=== PATIENT | male | born 1995 | race Hispanic/Latino ===

== ENCOUNTER 2021-12-22 00:58 | Emergency (ER) | payer OTHER ==
--- NOTE | 2021-12-22 01:44 | ER ---
Nurse's Notes [facility] Name: Jose Pabon Age: 26 yrs Sex: Male : 1995 Arrival Date: 12/22/2021 Time: 01:01 Bed Waiting Private MD: Diagnosis: Presentation: 12/22 01:43 Note notified by registration pt left the ED with parent and will return tomorrow bb during the day. ED Course: 01:01 Patient arrived in ED. bp1 01:13 Jose Luis Alegre MD is Attending Physician. kdr Administered Medications: No medications were administered Outcome: 01:44 Patient left the ED. bb Signatures: Jose Luis Alegre MD MD kdr Ballard, Brenda RN RN bb Barby Jennings bp1
== END 2021-12-22 01:44 | disposition left against medical advice (07) ==
LOC: ER 00:58
DX: Z02.9 Encounter for administrative examinations, unspecified (principal)

== ENCOUNTER 2022-01-09 15:40 | Emergency (ER) | payer OTHER ==
[2022-01-09 17:44] LABS: Barbiturates NEGATIVE (NEGATIVE); Benzodiazepines NEGATIVE (NEGATIVE); Cocaine NEGATIVE (NEGATIVE); METHAMPHETAM POSITIVE (NEGATIVE); Methadone NEGATIVE (NEGATIVE); Opiates NEGATIVE (NEGATIVE); Phencyclidine NEGATIVE (NEGATIVE); THC Cannibis NEGATIVE (NEGATIVE)
[2022-01-09] MEDS ORDERED: NA CHLORIDE 0.9% 1,000 ML ONE (18:14)
[2022-01-09 18:26] LABS: Absolute Lymphocytes (CBC) 1.7 K/uL (0.7-4.9); Hematocrit 44.6 % (39.6-49.0); Lymphocytes % 18.3 % (15.3-44.8); MCV 84.5 fL (80-100); MPV 8.7 fL (7.6-11.3); RBC Red Blood Cell Count 5.28 M/uL (4.33-5.43)
[2022-01-09 18:40] LABS: Bilirubin Total 0.5 mg/dL (0.2-1.0); Potassium 3.6 mmol/L (3.5-5.1); Protein, Total 7.8 g/dL (6.4-8.2)
--- NOTE | 2022-01-09 18:45 | RAD REPORT ---
EXAM DESCRIPTION: RAD - Abdomen 1 View (KUB) - 01/09/2022 6:26 pm CLINICAL HISTORY: Abdomen pain FINDINGS: The bowel gas pattern is unremarkable. A moderate amount of stool is present within the colon. No significant abnormal calcification visualized
--- NOTE | 2022-01-09 19:10 | ER ---
Nurse's Notes [facility] Name: Jose Pabon Age: 26 yrs Sex: Male : 1995 Arrival Date: 01/09/2022 Time: 15:43 Bed 3 Private MD: Diagnosis: Constipation Presentation: 01/09 16:33 Chief complaint: Patient states: "Im not feeling so good and I cant hold what I eat in vg1 and Im also very sleepy" Pt appears drowsy. Stated headache and throat pain. Coronavirus screen: Vaccine status: Patient reports being unvaccinated. Client denies travel out of the [place] in the last 14 days. Ebola Screen: Patient denies exposure to infectious person. Patient denies travel to an Ebola-affected area in the 21 days before illness onset. Initial Sepsis Screen: Does the patient meet any 2 criteria? HR > 90 bpm. Yes Does the patient have a suspected source of infection? No. Patient's initial sepsis screen is negative. Risk Assessment: Do you want to hurt yourself or someone else? Patient reports no desire to harm self or others. Onset of symptoms was January 09, 2022. 16:33 Method Of Arrival: Ambulatory vg1 16:33 Acuity: ROBY 3 vg1 Triage Assessment: 16:39 General: Appears uncomfortable, Behavior is drowsy. Pain: Complains of pain in head. vg1 Neuro: Olivares Agitation-Sedation Scale (RASS): -1 Drowsy Level of Consciousness is alert, obeys commands, Oriented to person, place, time, situation. Historical: - Home Meds: 16:39 "two other medications to help me sleep", pt states [Active]; Pt does not know names of vg1 medication. [Active]; - PMHx: 16:39 Anxiety; Schizophrenia; vg1 - Immunization history:: Client reports having NOT received the Covid vaccine. - Social history:: Smoking status: Patient denies any tobacco usage or history of. Screenin:25 Abuse screen: Denies threats or abuse. Denies injuries from another. Nutritional jh6 screening: No deficits noted. Tuberculosis screening: No symptoms or risk factors identified. Fall Risk None identified. Assessment: 17:23 General: Appears in no apparent distress. obese, Behavior is drowsy. Pain: Complains of jh6 pain in umbilical area, right upper quadrant, left upper quadrant and right lower quadrant Pain currently is 4 out of 10 on a pain scale. Quality of pain is described as crampy, Pain began 2-3wks ago. Neuro: Level of Consciousness is obeys commands, stuporous, Oriented to person, place, time, situation, Business Development Assistant are equal bilaterally Moves all extremities. Speech is normal, Pupils are PERRLA, pt drowsy, reporting that he has not taken any medication or drugs to make him sleepy,. . Vital Signs: 16:33 BP 109 / 89; Pulse 105; Resp 16; Temp 98.2; Pulse Ox 100% ; Weight 104.33 kg; Height 5 vg1 ft. 7 in. (170.18 cm); Pain 8/10; 18:12 BP 140 / 90; Pulse 87; Resp 16; Pulse Ox 100% ; Pain 4/10; jh6 16:33 Body Mass Index 36.02 (104.33 kg, 170.18 cm) vg1 [place] Coma Score: 16:50 Eye Response: to voice(3). Verbal Response: oriented(5). Motor Response: obeys [facility] commands(6). Total: 14. ED Course: 15:43 Patient arrived in ED. mr 15:50 [facility]os [facility] jh7 15:50 Eyad Meier DO is Attending Physician. jh7 16:39 Triage completed. vg1 16:39 Arm band placed on. vg1 16:54 Sri Malone, RN is Primary Nurse. jh6 17:25 Urine collected: clean catch specimen, clear. jh6 17:26 Bed in low position. Call light in reach. Side rails up X2. Adult w/ patient. jh6 17:58 Strep Sent. kc6 18:00 SARS-COV-2 RT PCR (Document "Date of Onset" if Symptomatic) Sent. kc6 18:00 Inserted saline lock: 20 gauge in left antecubital area, using aseptic technique. Blood jh6 collected. 18:12 No provider procedures requiring assistance completed. jh6 18:28 XRAY KUB In Process Unspecified. EDMS 19:04 Primary Nurse role handed off by Sri Malone, RN tw5 19:04 Jennifer Mancini is Primary Nurse. tw5 19:18 IV discontinued, intact, bleeding controlled, No redness/swelling at site. Pressure as6 dressing applied. Administered Medications: 18:08 Drug: NS 0.9% 1000 ml Route: IV; Rate: 1 bolus; Site: left antecubital; jh6 19:18 Follow up: Response: No adverse reaction; IV Status: Completed infusion; IV Intake: as6 1000ml Medication: 19:18 VIS not applicable for this client. as6 Intake: 19:18 IV: 1000ml; Total: 1000ml. as6 Outcome: 19:09 Discharge ordered by . suzanne 19:17 Discharged to home ambulatory. as6 19:17 Condition: stable 19:17 Discharge instructions given to patient, Instructed on discharge instructions, follow up and referral plans. medication usage, Demonstrated understanding of instructions, follow-up care, medications, Prescriptions given X 2. 19:19 Patient left the ED. as6 Signatures: Dispatcher [employer] MARIA DAL AveryAliya Victoria, RN RN vg1 Jennifer Mancini tw5 Sergei Ivey RN RN as6 Sri Malone, RN RN jh6 Sri Cisneros, DENTAL SALES REPRESENTATIVE DENTAL SALES REPRESENTATIVE 7 Dorothy Hui 6
--- NOTE | 2022-01-09 19:10 | EDPHYS ---
Physician Documentation [facility] Name: Jose Pabon Age: 26 yrs Sex: Male : 1995 Arrival Date: 01/09/2022 Time: 15:43 Bed 3 Private MD: ED Physician Eyad Meier HPI: 01/09 16:50 This 26 yrs old Male presents to ER via Ambulatory with complaints of Fatigue, jh7 lower abdominal pain, constipation. 16:50 Onset: The symptoms/episode began/occurred 3 week(s) ago. Patient presents with jh7 fatigue, lower abdominal pain, and constipation for 3 weeks. He states that he has been off of his anxiety meds for a week and a half, but is sleeping during triage.. Historical: - Home Meds: 16:39 "two other medications to help me sleep", pt states [Active]; Pt does not know names of vg1 medication. [Active]; - PMHx: 16:39 Anxiety; Schizophrenia; vg1 - Immunization history:: Client reports having NOT received the Covid vaccine. - Social history:: Smoking status: Patient denies any tobacco usage or history of. ROS: 16:50 ENT: Negative for injury, pain, and discharge, Neck: Negative for injury, pain, and jh7 swelling, Cardiovascular: Negative for chest pain, palpitations, and edema, Respiratory: Negative for shortness of breath, cough, wheezing, and pleuritic chest pain, Back: Negative for injury and pain, Skin: Negative for injury, rash, and discoloration, Neuro: Negative for headache, weakness, numbness, tingling, and seizure. 16:50 Constitutional: Positive for fatigue, Negative for body aches, chills, fever. 16:50 Abdomen/GI: Positive for abdominal pain, constipation, Negative for nausea, vomiting, and diarrhea. 16:50 All other systems are negative. Exam: 16:50 Head/Face: Normocephalic, atraumatic. ENT: Nares patent. No nasal discharge, no jh7 septal abnormalities noted. Tympanic membranes are normal and external auditory canals are clear. Oropharynx with no redness, swelling, or masses, exudates, or evidence of obstruction, uvula midline. Mucous membranes moist. Cardiovascular: Regular rate and rhythm with a normal S1 and S2. No gallops, murmurs, or rubs. Normal PMI, no JVD. No pulse deficits. Respiratory: Lungs have equal breath sounds bilaterally, clear to auscultation and percussion. No rales, rhonchi or wheezes noted. No increased work of breathing, no retractions or nasal flaring. Abdomen/GI: Soft, non-tender, with normal bowel sounds. No distension or tympany. No guarding or rebound. No evidence of tenderness throughout. Back: No spinal tenderness. No costovertebral tenderness. Full range of motion. Skin: Warm, dry with normal turgor. Normal color with no rashes, no lesions, and no evidence of cellulitis. MS/ Extremity: Pulses equal, no cyanosis. Neurovascular intact. Full, normal range of motion. 16:50 Constitutional: The patient appears lethargic. 16:50 Neuro: Orientation: is normal, Mentation: is normal, Memory: is normal, Motor: is normal, Sensation: is normal, GCS 14. The patient falls asleep mid conversation. Awakens only to loud voice. The patient gets upset when asked what medication he takes and states " I did not take anything".. 16:50 Psych: Behavior/mood is Falling asleep midsentence. Affect is calm, Oriented to person, place, time, Patient has no thoughts/intents to harm self or others. Judgement / Insight is normal. Vital Signs: 16:33 BP 109 / 89; Pulse 105; Resp 16; Temp 98.2; Pulse Ox 100% ; Weight 104.33 kg; Height 5 vg1 ft. 7 in. (170.18 cm); Pain 8/10; 18:12 BP 140 / 90; Pulse 87; Resp 16; Pulse Ox 100% ; Pain 4/10; jh6 16:33 Body Mass Index 36.02 (104.33 kg, 170.18 cm) vg1 [place] Coma Score: 16:50 Eye Response: to voice(3). Verbal Response: oriented(5). Motor Response: obeys [facility] commands(6). Total: 14. MDM: 16:41 Patient medically screened. jh7 19:00 Differential diagnosis: COVID, constipation, overdose, bowel obstruction. Data [facility] reviewed: vital signs, nurses notes, lab test result(s), radiologic studies, plain films. Data interpreted: Pulse oximetry: is 100 %. Interpretation: normal. Counseling: I had a detailed discussion with the patient and/or guardian regarding: the historical points, exam findings, and any diagnostic results supporting the discharge/admit diagnosis, to return to the emergency department if symptoms worsen or persist or if there are any questions or concerns that arise at home. ED course: Informed the patient of his positive urine drug screen. Patient denied any drug use, and said that we did not need to discuss those results any further. No SI/HI. Informed him that there was a moderate amount of stool in his colon seen on the x-ray, and a laxative with stool softener would be prescribed. The patient develops any new concerning symptoms, he should return to the ER for eval.. 01/09 17:03 Order name: CBC with Diff; Complete Time: 18:[address] [facility] 01/09 17:03 Order name: CMP; Complete Time: 18:[address] [facility] 01/09 17:03 Order name: Lipase; Complete Time: 18:[address] [facility] 01/09 17:03 Order name: Urine Drug Screen; Complete Time: 18:[address] [facility] 01/09 17:45 Order name: Strep; Complete Time: 18:24 [facility] 01/09 17:03 Order name: IV Saline Lock; Complete Time: 17:[address] [facility] 01/09 17:03 Order name: Labs collected and sent; Complete Time: 17:[address] [facility] 01/09 17:03 Order name: XRAY KUB; Complete Time: 18:[address] [facility] 01/09 17:56 Order name: SARS-COV-2 RT PCR (Document "Date of Onset" if Symptomatic); Complete Time: bp 19:28 01/09 18:18 Order name: Throat Culture EDMS Administered Medications: 18:08 Drug: NS 0.9% 1000 ml Route: IV; Rate: 1 bolus; Site: left antecubital; [facility] 19:18 Follow up: Response: No adverse reaction; IV Status: Completed infusion; IV Intake: as6 1000ml Disposition: 22:15 Co-signature as Attending Physician, Eyad ACOSTA was immediately available on-site ms3 in the Emergency Department for consultation in the care of the patient. . Disposition Summary: 01/09/22 19:09 Discharge Ordered Location: Home [facility] Problem: new [facility] Symptoms: are unchanged jh Condition: Stable jh7 Diagnosis - Constipation [facility] Followup: [facility] - With: Private Physician - When: 2 - 3 days - Reason: Recheck today's complaints Discharge Instructions: - Discharge Summary Sheet [facility] - Constipation, Adult [facility] Forms: - Medication Reconciliation Form [facility] - Thank You Letter [facility] Prescriptions: - Colace 100 mg Oral Tablet - take 1 tablet by ORAL route every 12 hours; 14 tablet; Refills: 0, Product [facility] Selection Permitted - Lactulose 10 gram/15 mL Oral Solution - take 30 milliliters by ORAL route once daily; 300 milliliter; Refills: 0, jh7 Product Selection Permitted Signatures: Dispatcher [employer] Mayra Drake RN RN vg1 Eyad Meier, DO ms3 Sri Malone RN RN jh6 Sri Cisneros, WOOD PILE DRIVER OPERATOR WOOD PILE DRIVER OPERATOR jh7 Sergei Ivey RN as6
[2022-01-09 19:26] VITALS: TEMP 98.2; O2SAT 100
[2022-01-09 19:28] VITALS: BP 140/90
== END 2022-01-09 19:19 | disposition home or self-care (01) ==
LOC: ER 15:40
DX: K59.00 Constipation, unspecified (principal); R53.83 Other fatigue; F20.9 Schizophrenia, unspecified; Z20.822 Contact with and (suspected) exposure to COVID-19
CPT/HCPCS: 87070; 85025; 36415; 87081; 83690; 80053; 80307; 74018; 96360; 99284; U0003; J7030

== ENCOUNTER 2022-03-20 11:47 | Emergency (ER) | payer OTHER ==
--- OUTSIDE RECORDS SUMMARY | 2022-03-20 11:56 | XMS REPORT | Continuity of Care Document ---
:1995 Author Organization [facility] t Address [address] [place] [address] Care Team Providers Name Role Phone UNKNOWN, REFFERING Primary Care Physician Unavailable Jackelyn Kohli Attending Clinician Unavailable JOHN CAPONE Attending Clinician Unavailable Only, Ang Db Test Attending Clinician Unavailable Barby Sebastian Attending Clinician BARBY JOHNSON Attending Clinician Unavailable Doctor Unassigned, Moosic Attending Clinician Unavailable Pcp, Patient Does Not Have A Attending Clinician [phone] Emily Castro Attending Clinician Lab, Adc Fam Pob I Attending Clinician Unavailable Valeria Gamez Attending Clinician VALERIA WONG Attending Clinician Unavailable Siddhartha SANCHEZ SCierra Stacy Attending Clinician Abdoulaye Edwards DO Attending Clinician ABDOULAYE EDWARDS Attending Clinician Unavailable Shannan VASQUEZ, [place] Attending Clinician Unavailable Alejandro Juan MD Attending Clinician ALEJANDRO JUAN Attending Clinician Unavailable JOVANI KEVIN Attending Clinician Unavailable CARMELA HEBERT Attending Clinician Unavailable HEBERT PHAM Attending Clinician Unavailable JOHN CAPONE Admitting Clinician Unavailable ALEJANDRO JUAN Admitting Clinician Unavailable CARMELA HEBERT Admitting Clinician Unavailable HEBERT PHAM Admitting Clinician Unavailable Payers Payer Name Policy Type Policy Number Effective Date Expiration Date Kari ALVARENGA COMM STAR [id number] 2017 00:00:00 PLAN Problems Condition Condition Condition Status Onset Resolution Last Treating Co mments Source Name Details Category Date Date Treatment Clinician Date Elevated Elevated Disease [facility] enzymes enzymes 00:00: t & Plan: Medic al [facility] g of this note might be different from the original. The liver enzymes were elevated in a hepatocel lular pattern which most likely is secondary to fatty liver. He does not exhibit signs and symptoms of advanced liver disease or cirrhosis . We will complete a comprehen sive workup for other additiona l etiologie s of abnormal liver enzymes including viral, autoimmun e, metabolic and genetic. Class 3 Class [address] Disease [facility] [address] [facility] severe severe 07-17 [facility] obesity obesity 00:00: t & Plan: Medic al due to due to [facility] excess excess g of this calories calories note in adult in adult might be different from the original. Body mass index is 48.69 kg/m2. Obesity is an establish ed risk factor for vascular complicat ions as well as the worsening of non-alcoh olic fatty liver disease and the risk for non-alcoh olic steatohep atitis. Control of the risk factors will help to improve the fatty liver disease. We have recommend ed a structure d weight loss along with dietary modificat ions and regular exercise for overall good health and to minimize the risk of obesity -related complicat ions. 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 Immunity Immunity Disease Active [facility] status status 1-23 Catia Maxwell testing testing 00:00: t & Plan: Medic al [address] [place] [address] g of this note might be different from the original. All patients with chronic liver disease, regardles s of etiology, should be immunized to prevent hepatitis A and hepatitis B if they are not already immune. We will test for immunity to both viruses and vaccine recommend ations will follow. Fatty Fatty Disease Active [facility] liver liver 07-17 Catia Maxwell 00:00: t & Plan: Medical [address] [place] [address] g of this note might be different from the original. Patient is known to have fatty liver based on ultrasoun d and CT abdomen from March and May [facility]. He has morbid obesity and hyperlipi demia as risk factors for fatty liver disease. Though the liver biopsy is informati ve to assess associate d inflammat ion or fibrosis ( AGUILAR/ cirrhosis ), at the present time there are no clinical or lab indicator of advanced fibrosis. I explained risk modificat ion measures including low carb, low sugar diet and excercise for control of weight. He is currently under evaluatio n for gastric sleeve surgery. Other Other Disease Active [facility] hyperlipid hyperlipid 07-17 Assesspaty Maxwell emia emia 00:00: t & Plan: Medical [address] [place] [address] g of this note might be different from the original. Per patient he has a history of hyperlipi demia however he claims to not be taking any medicatio ns at this time. If in the future, statin therapy is desired by primary care or cardiolog y, we believe it is safe to use in the presence of fatty liver disease. Statins use can increase AST/ALT, but significa nt hepatotox icity is very rare. I would recommend to monitor liver panel for 6 months and if at any time the T Bilirubin > 2.0, then statins need to be discontin ued. Obesity Obesity Disease Active Univers (BMI (BMI 4-13 ity of 30-39.9) 30-39.9) 00:00: [place] [address] Medical Branch Altered Altered Disease Active Univers mental mental 8-22 ity of status status 00:00: [place] [address] Medical Branch Allergies, Adverse Reactions, Alerts Allergy Allergy Status Severity Reaction(s) Onset Inactive Treating Comm ents Source Name Type Date Date Clinician NO KNOWN Drug Active [facility] [place] [place] ALLERGIE Class ity of S [facility] NO KNOWN Allergy Active [facility] Family History Family Member Diagnosis Comments Start Date Stop Date Source Natural mother Diabetes [facility] Natural sister Hepatomegaly [facility] Social History Social Habit Start Date Stop Date Quantity Comments Source Exposure to Yes University of SARS-CoV-2 (event) [facility] History SDOH [facility] Alcohol Binge Medical Padmini ter History SDOH [facility] Alcohol Comment Medical C enter History SDOH [facility] Alcohol Std Drinks Medica [facility] Alcohol intake 2020-04-05 2020-04-[address] [facility] 00:00:00 00:00:00 non-drinker of Medical Ce nter alcohol (finding) Cigarette 2019-12-29 2019-12-29 [facility] of pack-years 00:00:00 00:00:00 Medicine Tobacco Comment 2018-12-04 2018-12-[address] [facility] 00:00:00 00:00:00 [facility] Cigarettes smoked 2018-07-17 2018-07-[address] [facility] current (pack per 00:00:00 00:00:00 Medical Center day) - Reported Tobacco use and 2018-07-17 2018-07-[address] [facility] exposure 00:00:00 00:00:00 Medical Center History SDOH 2018-07-17 2018-07-[address] [facility] Alcohol Frequency 00:00:00 00:00:00 [facility] History of tobacco 2018-05-[address] [facility] use 00:00:00 [facility] Sex Assigned At [address] [facility] 00:00:00 00:00:00 Medical Center Smoking Status Start Date Stop Date Source Light tobacco smoker 2019-12-29 00:00:00 [facility] Unknown if ever smoked Universit y of [facility] Current every day 2019-03-19 00:00:00 [facility] Medicine Former smoker 2018-07-17 00:00:00 2018-07-17 00:00:00 [facility] Medications Ordered Filled Start Stop Current Ordering Indication Dosage Frequency Signature Comments Components Source Medication Medication Date Date Medication? Clinician (SIG) Name Name omeprazole 2019-06- No 40mg QD Take [address] (PriLOSEC) 0-12 10-12 capsule [facility] 40 MG 00:00: 23:59 (40 mg Medical capsule 00 :00 total) by Center mouth daily. iohexol 2019-2019- No 120mL 120 mL, Unive rs (OMNIPAQUE 12-20 Intravenou it y of 350 02:00: 01:39 s, ONCE, 1 [place] BULK-100 00 :00 dose, Sat Medica l mL) 12/20/19 at [place] injection 2100, 120 mL Routine ondansetron 2019-2019- No 4mg 4 mg, Slow Univers (ZOFRAN 12-20 IV Push, ity of (PF)) 01:30: 00:49 ONCE, 1 [place] injection 4 00 :00 dose, Sat Med ical mg 12/20/19 at [place] 2030, Routine dicyclomine 2019- Yes 10mg 10 mg, Univ ers (BENTYL) 12-20 Oral, QID, ity o f capsule 10 01:00: First dose [place] mg 00 on Sat Medical 12/20/19 at Branch 2000, Until Discontinu ed, Routine NaCl 0.9% 2019- No 500mL at 999 Univ ers (NS) bolus 12-20 mL/hr, 500 it y of infusion 00:30: 01:20 mL, IV [place] 500 mL 00 :00 Infusion, Medical ONCE, 1 [place] dose, 12/20/19 at 1930, STAT sucralfate 2019-0 Yes 1mL Take 1 mL [facility] (CARAFATE) 12-20 by mouth Colle ge 1 GM/10ML 00:00: daily. of suspension 00 Medicin e sucralfate 2020-0 Yes [id number] 1000mg Take 10 mL Univers (CARAFATE) - by mouth ity o f 100 mg/mL 00:00: before [place] suspension 00 meals and Medi connie at [place] bedtime. sucralfate 2020-0 Yes [id number] 1000mg Take 10 mL Univers (CARAFATE) -27 by mouth ity o f 100 mg/mL 00:00: before [place] suspension 00 meals and Medi connie at [place] bedtime. sucralfate 2020-0 Yes [id number] 1000mg Take 10 mL Univers (CARAFATE) 6-27 by mouth ity o f 100 mg/mL 00:00: before [place] suspension 00 meals and Medi connie at [place] bedtime. sucralfate 2020-0 Yes [id number] 1000mg Take 10 mL Univers (CARAFATE) 6-27 by mouth ity o f 100 mg/mL 00:00: before [place] suspension 00 meals and Medi connie at [place] bedtime. sucralfate 2020-0 Yes [id number] 1000mg Take 10 mL Univers (CARAFATE) 6-27 by mouth ity o f 100 mg/mL 00:00: before [place] suspension 00 meals and Medi connie at [place] bedtime. sucralfate 2020-0 Yes [id number] 1000mg Take 10 mL Univers (CARAFATE) 6-27 by mouth ity o f 100 mg/mL 00:00: before [place] suspension 00 meals and Medi connie at [place] bedtime. sucralfate 2020-0 Yes [id number] 1000mg Take 10 mL Univers (CARAFATE) 6-27 by mouth ity o f 100 mg/mL 00:00: before [place] suspension 00 meals and Medi connie at [place] bedtime. clonazepam 0 Yes .5mg Take 0.5 [place] [facility] (KLONOPIN) 6-16 mg by College 0.5 MG 00:00: mouth of tablet 00 daily. Medicin e haloperidol Yes 15mg Take 3 Univ ers (HALDOL) 5 9-21 Tabs by [place] of mg tablet 00:00: [place] 00 bedtime. [facility] [place] benzoyl Yes Apply to Univer s peroxide 9-21 area(s) ity of (BENZAGEL-5 00:00: [place]. [place] ) 5 % gel 00 Medical Branch clindamycin Yes Apply to Un mimi (CLEOCIN T) 9-21 area(s) 2 ity of 1 % 00:00: (two) [place] solution 00 times Medical daily. Branch chlorproMAZ Yes 200mg Take 1 Tab Univers INE 9-21 by mouth ity of (THORAZINE) 00:00: at [place] 200 mg 00 bedtime. Medical tablet Branch haloperidol Yes 10mg Take 1 Tab Univers (HALDOL) 10 9-21 by mouth ity of mg tablet 00:00: every [place] 00 morning. Medical Branch haloperidol Yes 15mg Take 3 Univ ers (HALDOL) 5 9-21 Tabs by [place]y of mg tablet 00:00: [place] 00 bedtime. [facility] benzoyl Yes Apply to Univer s peroxide 9-21 area(s) ity of (BENZAGEL-5 00:00: [place]. [place] ) 5 % gel 00 Medical Branch clindamycin Yes Apply to Un mimi (CLEOCIN T) 9-21 area(s) 2 ity of 1 % 00:00: (two) [place] solution 00 times Medical daily. Branch chlorproMAZ Yes 200mg Take 1 Tab Univers INE 9-21 by mouth ity of (THORAZINE) 00:00: at [place] 200 mg 00 bedtime. Medical tablet Branch haloperidol Yes 10mg Take 1 Tab Univers (HALDOL) 10 9-21 by mouth ity of mg tablet 00:00: every [place] 00 morning. Medical Branch haloperidol Yes 15mg Take 3 Univ ers (HALDOL) 5 9-21 Tabs by ity of mg tablet 00:00: [place] 00 bedtime. Medical Branch benzoyl Yes Apply to Univer s peroxide 9-21 area(s) ity of (BENZAGEL-5 00:00: daily. [place] ) 5 % gel Medical Branch clindamycin Yes Apply to Un mimi (CLEOCIN T) 9-21 area(s) 2 ity of 1 % 00:00: (two) [place] solution 00 times Medical daily. Branch chlorproMAZ Yes 200mg Take 1 Tab Univers INE 9-21 by mouth ity of (THORAZINE) 00:00: at [place] 200 mg 00 bedtime. Medical tablet Branch haloperidol Yes 10mg Take 1 Tab Univers (HALDOL) 10 9-21 by mouth ity of mg tablet 00:00: every [place] 00 morning. Medical Branch haloperidol Yes 15mg Take 3 Univ ers (HALDOL) 5 9-21 Tabs by ity of mg tablet 00:00: mouth [place] 00 bedtime. Medical Branch benzoyl Yes Apply to Univer s peroxide 9-21 area(s) ity of (BENZAGEL-5 00:00: daily. [place] ) 5 % gel 00 Medical Branch clindamycin Yes Apply to Un mimi (CLEOCIN T) 9-21 area(s) 2 ity of 1 % 00:00: (two) [place] solution 00 times Medical daily. Branch chlorproMAZ Yes 200mg Take 1 Tab Univers INE 9-21 by mouth ity of (THORAZINE) 00:00: at [place] 200 mg 00 bedtime. Medical tablet Branch haloperidol Yes 10mg Take 1 Tab Univers (HALDOL) 10 9-21 by mouth ity of mg tablet 00:00: every [place] 00 morning. Medical Branch haloperidol Yes 15mg Take 3 Univ ers (HALDOL) 5 9-21 Tabs by ity of mg tablet 00:00: mouth [place] 00 bedtime. Medical Branch benzoyl Yes Apply to Univer s peroxide 9-21 area(s) ity of (BENZAGEL-5 00:00: daily. [place] ) 5 % gel Medical Branch clindamycin Yes Apply to Un mimi (CLEOCIN T) 9-21 area(s) 2 ity of 1 % 00:00: (two) [place] solution 00 times Medical daily. Branch chlorproMAZ Yes 200mg Take 1 Tab Univers INE 9-21 by mouth ity of (THORAZINE) 00:00: at [place] 200 mg 00 bedtime. Medical tablet Branch chlorproMAZ Yes 200mg Take 1 Tab Univers INE 9-21 by mouth ity of (THORAZINE) 00:00: at [place] 200 mg 00 bedtime. Medical tablet Branch haloperidol Yes 10mg Take 1 Tab Univers (HALDOL) 10 9-21 by mouth ity of mg tablet 00:00: every [place] 00 morning. Medical Branch haloperidol Yes 15mg Take 3 Univ ers (HALDOL) 5 9-21 Tabs by ity of mg tablet 00:00: mouth [place] 00 bedtime. Medical Branch benzoyl Yes Apply to Univer s peroxide 9-21 area(s) ity of (BENZAGEL-5 00:00: daily. [place] ) 5 % gel Medical Branch clindamycin Yes Apply to Un mimi (CLEOCIN T) 9-21 area(s) 2 ity of 1 % 00:00: (two) [place] solution 00 times Medical daily. Branch haloperidol Yes 10mg Take 1 Tab Univers (HALDOL) 10 9-21 by mouth ity of mg tablet 00:00: every [place] 00 morning. Medical Branch chlorproMAZ Yes 200mg Take 1 Tab Univers INE 9-21 by mouth ity of (THORAZINE) 00:00: at [place] 200 mg 00 bedtime. Medical tablet Branch haloperidol Yes 10mg Take 1 Tab Univers (HALDOL) 10 9-21 by mouth ity of mg tablet 00:00: every [place] 00 morning. Medical Branch haloperidol Yes 15mg Take 3 Univ ers (HALDOL) 5 9-21 Tabs by ity of mg tablet 00:00: mouth [place] 00 bedtime. Medical Branch benzoyl Yes Apply to Univer s peroxide - area(s) ity of (BENZAGEL-5 00:00: daily. [place] ) 5 % gel 00 Medical Branch clindamycin Yes Apply to Un mimi (CLEOCIN T) 03-15 area(s) 2 ity of 1 % 00:00: (two) [place] solution 00 times Medical daily. Branch No known No [facility] medications [facility] No known No [facility] medications [facility] Vital Signs Vital Name Observation Time Observation Value Comments Source HEIGHT 2020-04-05 10:17:00 170.2 cm WEIGHT 2020-04-05 10:17:00 99.474 kg HEIGHT 2020-04-02 14:50:00 170.2 cm WEIGHT 2020-04-02 14:50:00 105.688 kg HEIGHT 2020-04-05 10:17:00 170.2 cm WEIGHT 2020-04-05 10:17:00 99.474 kg HEIGHT 2020-04-02 14:50:00 170.2 cm WEIGHT 2020-04-02 14:50:00 105.688 kg Systolic blood 2019-12-29 12:52:00 112 mm[Hg] [facility] of pressure Medicine Diastolic blood 2019-12-29 12:52:00 72 mm[Hg] [facility] of pressure Medicine Heart rate 2019-12-29 12:52:00 76 /min [facility] Body temperature 2019-12-29 12:52:00 37.06 [place] [facility] Body height 2019-12-29 12:52:00 170.2 cm [facility] Body weight 2019-12-29 12:52:00 105.688 kg [facility] BMI 2019-12-29 12:52:00 36.49 kg/m2 [facility] Systolic blood 2019-12-21 03:00:00 122 mm[Hg] Univer sity of pressure [facility] Branch Diastolic blood 2019-12-21 03:00:00 89 mm[Hg] Unive rsity of pressure [facility] Branch Heart rate 2019-12-21 03:00:00 71 /min [facility] [place] [facility] Respiratory rate 2019-12-21 03:00:00 16 /min Univ ers[facility] [place] [facility] Oxygen saturation in 2019-12-21 03:00:00 98 /min University of Arterial blood by [place] Medi connie Pulse oximetry Branch Body temperature 2019-12-21 00:32:00 37.22 [place] [facility] [place] [facility] Body height 2019-12-21 00:32:00 170.2 cm [facility] [place] [facility] Body weight 2019-12-21 00:31:00 102.513 kg [facility] [place] [facility] BMI 2019-12-21 00:31:00 35.40 kg/m2 [facility] [place] [facility] Systolic blood 2019-12-21 03:00:00 122 mm[Hg] Univer sity of pressure [place] [facility] Diastolic blood 2019-12-21 03:00:00 89 mm[Hg] Unive rsity of pressure [place] [facility] Heart rate 2019-12-21 03:00:00 71 /min [facility] [place] [facility] Respiratory rate 2019-12-21 03:00:00 16 /min Univ ers[facility] [place] [facility] Oxygen saturation in 2019-12-21 03:00:00 98 /min University of Arterial blood by [place] Medi connie Pulse oximetry Branch Body temperature 2019-12-21 00:32:00 37.22 [place] [facility] [place] [facility] Body height 2019-12-21 00:32:00 170.2 cm [facility] [place] [facility] Body weight 2019-12-21 00:31:00 102.513 kg [facility] [place] [facility] BMI 2019-12-21 00:31:00 35.40 kg/m2 [facility] Systolic blood 2019-03-19 20:32:00 110 mm[Hg] [facility] pressure Medicine Diastolic blood 2019-03-19 20:32:00 69 mm[Hg] [facility] Medicine Heart rate 2019-03-19 20:32:00 101 /min [facility] ol[facility] of Medicine Body temperature 2019-03-19 20:32:00 37 [place] [facility] Body height 2019-03-19 20:32:00 170.2 cm [facility] of [facility] Body weight 2019-03-19 20:32:00 [facility] BMI 2019-03-19 20:32:00 47.27 kg/m2 [facility] Systolic blood 2019-03-19 20:32:00 110 mm[Hg] [facility] pressure Medicine Diastolic blood 2019-03-19 20:32:00 69 mm[Hg] [facility] Medicine Heart rate 2019-03-19 20:32:00 101 /min [facility] of [facility] Body temperature 2019-03-19 20:32:00 37 [place] [facility] Body height 2019-03-19 20:32:00 170.2 [facility] Body weight 2019-03-19 20:32:00 136.896 kg [facility] of [facility] BMI 2019-03-19 20:32:00 47.27 kg/m2 [facility] of [facility] Procedures Procedure Date / Time Performing Clinician Source Performed CT ABDOMEN PELVIS W 2019-12-21 01:44:37 Abdoulaye Edwards [facility] CONTRAST [facility] Branch LIPASE 2019-12-21 00:52:00 Abdoulaye Edwards [facility] COMP. METABOLIC PANEL 2019-12-21 00:52:00 Abdoulaye Edwards [facility] ([id number]) [facility] CBC WITH DIFFERENTIAL 2019-12-21 00:52:00 Abdoluaye Edwards [facility] URINALYSIS 2019-12-21 00:52:00 Abdoulaye Edwards [facility] NOTICE OF PRIVACY 2019-12-21 00:22:40 Doctor Unassigned, No [facility] Name Medical Branch CONSENT/REFUSAL FOR 2019-12-21 00:22:22 Doctor Unassigned, No [facility] DI[facility]NOSIS AND TREATMENT Name Medical Branch Plan of Care Planned Activity Planned Date Details Comments Source Future Scheduled 2022-02-[address] [facility] Test 00:00:00 (#1) [code = [facility] INFLUENZA VACCINE (#1)] Future Scheduled 2021-06-[address] [facility] Test 00:00:00 (12+) [code = [facility] DEPRESSION SCREENING (12+)] Future Scheduled 2020-01-[address] Test 00:00:00 (procedure) [code = [facility] [id number]] Future Scheduled 2015-02-13 DTAP/TDAP/TD VACCINES [facility] Test 00:00:00 (1 - Tdap) [code = Medical C enter DTAP/TDAP/TD VACCINES (1 - Tdap)] Future Scheduled 1996 COVID-19 VACCINE (#1) [facility] Test 00:00:00 [code = COVID-[address] VACCINE (#1)] Future Scheduled VITAMIN D 25 HYDROXY Ordered: [employer] Test [code = 1989-3] 03/19/2019 of Medicine Future Scheduled TETANUS SHOT (ADULT) [place] [employer] Test [code = TETANUS SHOT of Medi cine (ADULT)] Future Scheduled BMI FOLLOW UP PLAN [employer] Test [code = BMI FOLLOW UP of Med icine PLAN] Future Scheduled HIV SCREENING [code = [employer] Test HIV SCREENING] of Medicine Future Scheduled FLU VACCINE > 6 [facility] [facility] [employer] Test MONTHS [code = FLU of Medici ne VACCINE > 6 MONTHS] Future Scheduled PT INSTR GIVEN - Ordered: [employer] Test TOBACCO [code = 12/29/2019 of Medicine NOCPT] Future Scheduled TETANUS SHOT (ADULT) [place] [employer] Test [code = TETANUS SHOT of Medi cine (ADULT)] Future Scheduled BMI FOLLOW UP PLAN [employer] Test [code = BMI FOLLOW UP of Med icine PLAN] Future Scheduled HIV SCREENING [code = [employer] Test HIV SCREENING] of Medicine Future Scheduled FLU VACCINE > 6 [facility] [employer] Test MONTHS [code = FLU of Medici ne VACCINE > 6 MONTHS] Future Scheduled TETANUS SHOT (ADULT) [place] [employer] Test [code = TETANUS SHOT of Medi cine (ADULT)] Future Scheduled BMI FOLLOW UP PLAN [facility] Test [code = BMI FOLLOW UP of Med icine PLAN] Future Scheduled HIV SCREENING [code = [facility] Test HIV SCREENING] of Medicine Future Scheduled FLU VACCINE > 6 [facility] C ollege Test MONTHS [code = FLU of Medici ne VACCINE > 6 MONTHS] Future Scheduled CBC W/AUTO DIFF WITH Ordered: [facility] Test PLATELETS [code = 03/19/2019 of Medicin e 63500-6] Future Scheduled COMPREHENSIVE Ordered: [facility] Col [facility]ge Test METABOLIC PANEL [code 03/19/2019 of Med icine = 31595-9] Future Scheduled LIPID PANEL [code = Ordered: [facility] Test 35119-6] 03/19/2019 of Medicine Future Scheduled THYROID PROFILE (T3U Ordered: [facility] Test - T4 - T7 - TSH) 03/19/2019 of Medicine [code = NOCPT] Future Scheduled IRON [code = 2498-4] Ordered: [facility] Test 03/19/2019 of Medicine Future Scheduled FERRITIN [code = Ordered: [facility] Test 56717-7] 03/19/2019 of Medicine Future Scheduled FOLATE [code = Ordered: [facility] Test 2284-8] 03/19/2019 of Medicine Future Scheduled HEMOGLOBIN A1C [code Ordered: [facility] Test = 4548-4] 03/19/2019 of Medicine Future Scheduled VITAMIN A [code = Ordered: [facility] Test 2923-1] 03/19/2019 of Medicine Future Scheduled VITAMIN B1 [code = Ordered: [facility] Test 28867-0] 03/19/2019 of Medicine Future Scheduled VITAMIN B12 [code = Ordered: [facility] Test 2132-9] 03/19/2019 of Medicine Encounters Start End Encounter Admission Attending Care Care Encounter Source Date/Time Date/Time Type Type Clinicians Facility Department ID 2022-02-10 Outpatient Seun [facility] [id number] Common 14:28:00 [facility] 2022-02-[address] [facility] [id number] Common 11:19:02 Jackelyn [facility] 2022-01-03 Outpatient Seun [facility] [id number] Common 12:20:01 Jackelyn [facility] 2021-11-03 Outpatient Kohli, STLMLC STLMLC [id number] Common 13:18:02 Jackelyn [facility] 2021-11-02 Outpatient Kohli, STLMLC STLMLC [id number] Common 10:12:06 Jackelyn [facility] 2021-10-05 Outpatient Kohli, STLMLC STLMLC [id number] Common 10:40:03 Jackelyn [facility] 2021-09-29 Outpatient Kohli, STLMLC STLMLC [id number] Common 13:45:04 Jackelyn [facility] 2021-09-21 Outpatient Kohli, STLMLC STLMLC [id number] Common 13:17:02 Jackelyn [facility] 2021-08-31 Outpatient Kohli, STLMLC STLMLC [id number] Common 10:49:02 Jackelyn [facility] 2021-03-30 Outpatient CAPONE, [facility] Surgery [id number] SLE 09:37:20 SUNEAL 2022 2022 ambulatory STLMLC STLMLC [id number] Common 00:00:00 00:00:00 [facility] 2022-02-02 2022-02-02 ambulatory STLMLC STLMLC [id number] Common 00:00:00 00:00:00 [facility] 2022-01-25 2022-01-25 ambulatory STLMLC STLMLC [id number] Common 00:00:00 00:00:00 [facility] 2021-12-13 2021-12-13 ambulatory STLMLC STLMLC [id number] Common 00:00:00 00:00:00 [facility] 2021-12-13 2021-12-13 ambulatory STLMLC STLMLC [id number] Common 00:00:00 00:00:00 [facility] 2021-10-04 2021-10-04 ambulatory STLMLC STLMLC [id number] Common 00:00:00 00:00:00 [facility] 2021-09-21 2021-09-21 ambulatory STLMLC STLMLC [id number] Common 00:00:00 00:00:00 [facility] 2021-09-21 2021-09-21 ambulatory STLMLC STLMLC [id number] Common 00:00:00 00:00:00 [facility] 2021-09-02 2021-09-02 ambulatory STLMLC STLMLC [id number] Common 00:00:00 00:00:00 [facility] 2021-07-01 2021-07-01 Laboratory Only, Ang Db Test [facility] 1.2.8 40.114 [id number] Univers 15:45:00 16:00:00 [facility] 350.1.13.10 ity of [place] 4.2.7.2.686 Estuardo as LUIS ARMANDO?BLEA [phone] [address] MEDICAL OFFICE BUILDING 2021-07-01 2021-07-01 Outpatient R [facility] [id number] Univers 15:45:00 15:45:00 [id number] ity of [facility] 2021-07-01 2021-07-01 Outpatient R [facility] [id number] Univers 15:45:00 15:45:00 BARBY hightower o [facility] 2021-07-01 2021-07-01 Letter Doctor VELASQUEZ 1.2.840.114 [id number] Univers 00:00:00 00:00:00 (Out) Unassigned, TIBURCIO 350.1.13.10 ity of [facility] 4.2.7.2.686 Estuardo as [phone] [address] 2021-07-01 2021-07-01 Letter Doctor VELASQUEZ 1.2.840.114 [id number] Univers 00:00:00 00:00:00 (Out) Unassigned, TIBURCIO 350.1.13.10 ity of [facility] 4.2.7.2.686 Estuardo as [phone] [address] 2020-04-02 2020-04-02 Outpatient EL [facility] [id number] [facility]H 00:00:00 00:00:00 2020-01-16 2020-01-16 Telephone Pcp, EVA [id number] [facility] [place] 00:00:00 00:00:00 Patient TIBURCIO 350.1.13.[address] [facility] [place].2.[place] Have A [phone] [address] 2020-01-16 2020-01-16 Telephone Pcp, EVA [id number] 00:00:00 00:00:[address] [facility] 4.2.7.2.686 Have A [id number] [facility] 2020-01-15 2020-01-15 Telephone de EVA [id number] [facility] [place] 00:00:00 00:00:00 TIBURCIO Davila 350.1.13.10 ity of [facility] 4.2.7.2.686 Estuardo as [phone] [address] 2020-01-15 2020-01-15 Telephone de EVA [id number] [id number] 00:00:00 00:00:00 TIBURCIO Davila 350.1.13.10 [facility] 4.2.7.2.686 [id number] [facility] 2020-01-14 2020-01-14 Laboratory Lab, Adc Fam Pob I [facility] 1.2. 840.[id number] [facility] 17:24:30 17:44:30 Only Anene, [facility] 350.1.13.10 ity of [place] 4.2.7.2.686 Estuardo as Professio [phone] [place] dical [address] Office Building [facility] 2020-01-14 2020-01-14 Laboratory Lab, [facility] 1.2.840.114 [id number] 17:24:30 17:44:30 Only Fam Pob I Health 350.1.13.10 [place] 4.2.7.2.686 Professio [phone] [place] [address] Office [facility] 2020-01-14 2020-01-14 Outpatient Estephania WONG, [facility] [id number] Univers 17:20:00 17:20:00 VALERIA hightower [facility] 2019-12-29 2019-12-29 Office Kay Carl [id number] [facility] 07:48:55 08:18:55 Visit Tawanna AMBULATOR 350.1.13.21 College Y 0.2.7.2.686 of [id number] [facility] 800 e 2019-12-20 2019-12-20 [facility] 1.2.342.[id number] [facility] 19:27:54 22:32:00 Abdoulaye [place]ton 350.1.13.10 i ty of [place] 4.2.7.2.686 [facility] [phone] [address] 2019-12-20 2019-12-20 Emergency [facility] 1.2.285.851 [id number] 19:27:54 22:32:00 Abdoulayesheryl [place] 350.1.13.10 [place] 4.2.7.2.686 [place] [phone] [facility] 2019-12-20 2019-12-20 Emergency X [facility] ERT [id number] Univers 19:19:00 19:19:00 ABDOULAYE campbell [facility] 2019-03-19 2019-03-19 Office SHELLY Campbell 1.2.840.114 [id number] 15:20:14 16:43:29 Visit Willow AMBULATOR 350.1.13.21 Y 0.2.7.2.686 [id number] 800 2019-03-19 2019-03-19 Office SHELLY Campbell 1.2.840.114 [id number] [facility] 15:20:14 16:43:29 Visit Willow AMBULATOR 350.1.13.21 College Y 0.2.7.2.686 of [id number] [facility] 800 e 2019-03-19 2019-03-19 Office SHELLY Juan 1.2.840.114 [id number] 15:19:32 16:42:05 Visit Alejandro AMBULATOR 350.1.13.21 Y 0.2.7.2.686 [id number] 800 2019-03-19 2019-03-19 Office SHELLY Juan 1.2.840.114 [id number] [facility] 15:19:32 16:42:05 Visit Alejandro AMBULATOR 350.1.13.21 College Y 0.2.7.2.686 of [phone] [facility] 800 e 2019-02-25 2019-02-25 Outpatient EL SLE SLEH [id number] [facility]H 00:00:00 00:00:00 Results Test Description Test Time Test Comments Results Result [facility] e Comments TISSUE EXAM 2020-04-06 Surgical Pathology Report 13:37:00 Case: [id number] Authorizing Provider: John Capone MD Collected: 04/05/2020 10:35 AM Ordering Location: [facility] ENDOSCOPY Received: 04/05/2020 03:03 PM SERVICES Pathologist: Petty Stewart MD Specimen: Biopsy, Gastric, RANDOM BX A. GASTRIC, RANDOM BIOPSY: - GASTRIC BODY TYPE MUCOSA WITH NO SIGNIFICANT HISTOPATHOLOGICAL CHANGE - GASTRIC ANTRUM TYPE MUCOSA WITH CHRONIC ACTIVE H. PYLORI-ASSOCIATED GASTRITIS - FEW H. PYLORI-LIKE ORGANISMS SEEN ON H&E AND WARTHIN-STARRY STAINSJ/pl Signing Pathologist Direct Phone Line: [phone] y signed by Petty Stewart MD on 04/06/2020 at 1:37 PMEndoscopic report reviewed. Negative for intestinal metaplasia and dysplasia. Epigastric pain A. Random gastric biosyA. Received in formalin labeled with the patient's name, medical record number and "gastric biopsy" are three pieces of bhatia-pink mucosal-covered tissue that measure 0.7 x 0.4 x 0.2 cm in aggregate. The specimen is submitted in toto following filtration in cassette A1. DLR/pl Performed The interpretation of this case included the use of immunohistochemistry or special stains.Control Slides Examined: In-house known positive controls were evaluated along with the test tissue. These control slides run alongside of the patients sample show appropriate staining. Internal positive and negative controls when available are evaluated Immunohistochemistry technical testing was performed at [facility], Pathology Laboratory where it was developed and its performance characteristics were determined. It has not been cleared or approved by the U.S. Food and Drug Administration. The FDA has determined that such clearance or approval is not necessary. The test is used for clinical purposes. It should not be regarded as investigational or for research. This laboratory is certified under the Clinical Laboratory Improvement Amendments of 1988 (CLIA-88) as qualified to perform high complexity clinical laboratory testing. URINALYSIS 2019-12-21 01:40:00 Test Item Value Reference Range Interpretation Comme nts APPEARANCE (test code = Hazy Clear A 3972915720) COLOR (test code = 2146911300) Delia Yellow A PH (test code = 8625703282) 4.8-8.0 SP GRAVITY (test code = 1.003-1.030 H 6485112049) GLU U QUAL (test code = Normal Normal 7545935136) BLOOD (test code = 2430781458) Negative Negative KETONES (test code = 4925063946) 5 mg/dL Negative A PROTEIN (test code = 2887-8) 30 mg/dL Negative A UROBILIN (test code = 4.0 mg/dL Normal A 4171758114) BILIRUBIN (test code = 2 mg/dL Negative A 5441727475) NITRITE (test code = 2986469691) Negative Negative LEUK EDWARDO (test code = Negative Negative 9125282618) RBC/HPF (test code = 2094628618) See_Comment [Automated message] The system which ge nerated this result transmit rodney reference range: 0 - 3 HP F. The reference range was not used to interpret th is result as normal/abnormal . WBC/HPF (test code = 1624692486) See_Comment [Automated message] The system which ge nerated this result transmit rodney reference range: 0 - 5 HP F. The reference range was not used to interpret th is result as normal/abnormal . BACTERIA (test code = Few Negative A 3811434291) MUCOUS (test code = 8333692161) Marked Negative LPF A HYAL CAST (test code = See_Comment H [Aut omated message] The 3124025135) system which NullPointer nerated this result transmit rodney reference range: <=2 LPF. The reference range was not used to interpret th is result as normal/abnormal . Lab Interpretation (test code = Abnormal 26393-2) [facility]. METABOLIC PANEL (73946)2019-12-21 01:11:00 Test Item Value Reference Range Interpretation Comments NA (test code = 139 mmol/L 135-145 4591464114) K (test code = 3.3 mmol/L 3.5-5 L 1250494952) CL (test code = 103 mmol/L 98-108 9441997857) CO2 TOTAL (test code = 26 mmol/L 23-31 1419525504) AGAP (test code = 2-16 8500122228) BUN (test code = 10 mg/dL 7-23 6129198469) GLUCOSE (test code = 133 mg/dL 70-110 H 9298304420) CREATININE (test code = 0.69 mg/dL 0.6-1.25 0230711116) TOTAL BILI (test code = 1.1 mg/dL 0.1-1.8 6413397957) CALCIUM (test code = 10.0 mg/dL 8.6-10.6 6566973211) T PROTEIN (test code = 8.4 g/dL 6.3-8.2 H 6427121527) ALBUMIN (test code = 4.9 g/dL 3.5-5 3982152540) ALK PHOS (test code = 101 U/L 34-122 6769264630) ALTv (test code = 24 U/L 5-50 1742-6) AST(SGOT) (test code = 31 U/L 13-40 7001885024) eGFR Calculation mL/min/1.73m2 (Non-) (test code = 5483659782) eGFR Calculation mL/min/1.73m2 () (test code = 9151758987) MICHAEL (test code = MICHAEL) Association of Glomerular Filtration Rate (GFR) and Staging of Kidney Disease* + --+ --+ ------+| GFR (mL/min/1.73 m2) ?| With Kidney Damage ?| ?Without Kidney Damage+ --------+ --------+ +| ?>90 ?| ?Stage one ?| ? Normal ?+ ---+ ---+ -------+| ?60-89 ?| ?Stage two ?| ? Decreased GFR ? + --+ --+ ------+| ?30-59 ?| ?Stage three ?| ? Stage three ? + --+ --+ ------+| ?15-29 ?| ?Stage four ? | ? Stage four ?+ ---+ ---+ -------+| ?<15 (or dialysis) ? ?| ?Stage five ? | ? Stage five ?+ ---+ ---+ -------+ *Each stage assumes the associated GFR level has been in effect for at least three months. ?Stages 1 to 5, with or without kidney disease, indicate chronic kidney disease. Notes: Determination of stages one and two (with eGFR >59mL/min/1.73 m2) requires estimation of kidney damage for at least three months as defined by structural or functional abnormalities of the kidney, manifested by either:Pathological abnormalities or Markers of kidney damage (including abnormalities in the composition of the blood or urine or abnormalities in imaging tests). Lab Interpretation Abnormal (test code = 49551-0) [facility]00 Test Item Value Reference Range Interpretation Comments LIPASE (test code = 4300915407) 130 U/L 0-220 Lab Interpretation (test code = Normal 19756-5) [facility] WITH [id number] 00:59:00 Test Item Value Reference Range Interpretation Comments WBC (test code = See_Comment H [Automated 6654-2) message] The sy stem which generated this result transmitted reference range : 4.20 - 10.70 10*3/?L. The reference range was not used to interpret this result as normal/abnormal . RBC (test code = See_Comment [Automated 601-8) message] The sy stem which generated this result transmitted reference range : 4.26 - 5.52 10*6/?L. The reference range was not used to interpret this result as normal/abnormal . HGB (test code = 14.9 g/dL 12.2-16.4 718-7) HCT (test code = 44.3 % 38.4-49.3 4544-3) MCV (test code = 86.9 fL 81.7-95.6 787-2) MCH (test code = 29.2 pg 26.1-32.7 785-6) MCHC (test code = 33.6 g/dL 31.2-35 786-4) RDW-SD (test code = 41.1 fL 38.5-51.6 00039-4) RDW-CV (test code = 13.1 % 12.1-15.4 788-0) PLT (test code = See_Comment H [Automated 777-3) message] The sy stem which generated this result transmitted reference range : 150 - 328 10*3/ ?L. The reference r casa was not used to interpret this result as normal/abnormal . MPV (test code = 10.5 fL 9.8-13 36442-1) NRBC/100 WBC (test See_Comment [Automat ed code = 0626754757) message] The system which generated this result transmitted reference range : 0.0 - 10.0 /100 WBCs. The refer ence range was not u sed to interpret th is result as normal/abnormal . NRBC x10^3 (test code <0.01 See_Comment [Auto mated = 1290912960) message] The s ystem which generated this result transmitted reference range : 10*3/?L. The reference range was not used to interpret this result as normal/abnormal . GRAN MAT (NEUT) % 65.1 % (test code = 770-8) IMM GRAN % (test code 0.50 % = 0288669998) LYMPH % (test code = 24.3 % 736-9) MONO % (test code = 8.7 % 5905-5) EOS % (test code = 0.9 % 713-8) BASO % (test code = 0.5 % 706-2) GRAN MAT x10^3(ANC) 7.18 10*3/uL 1.99-6.95 H (test code = 7296860691) IMM GRAN x10^3 (test 0.05 10*3/uL 0-0.06 code = 8473398891) LYMPH x10^3 (test code 2.68 10*3/uL 1.09-3.23 = 731-0) MONO x10^3 (test code 0.96 10*3/uL 0.36-1.02 = 742-7) EOS x10^3 (test code = 0.10 10*3/uL 0.06-0.53 711-2) BASO x10^3 (test code 0.05 10*3/uL 0.01-0.09 = 704-7) Lab Interpretation Abnormal (test code = 36068-9) [facility] [id number] 17:52:00Surgical Pathology Report Case: [id number] Authorizing Provider: Alejandro Juan MD Collected: 03/11/2019 1421 Ordering Location: [facility] PERIOPERATIVE Received: 03/11/2019 1609 SERVICES Pathologist: Ed Fraser MD Specimen: Stomach STOMACH, PARTIAL/SLEEVE GASTRECTOMY- CHRONIC INACTIVE GASTRITIS, MINIMAL-MILD- INTESTINAL METAPLASIA OR MALIGNANCY NOT SEEN Signing Pathologist Direct Phone Line: [phone] signed by Ed Fraser MD on 03/27/2019 at 5:52 [id number] obesity A. Stomach tissue A. Received in formalin labeled "stomach" is a 25 x 6 x 2 cm partial gastrectomy. The specimen is opened to reveal a bhatia-brown mucosa with normal folds. Gis Mapping Technician sections from the staple line are submitted in cassettes A1 and A2, and videotape sales representative section from the central mucosa are submitted in cassettes A3 and A4. TW/ew [facility], Department of Pathology, [address] [place] [address], [facility], [address] [place] [address], [facility], [address] [place] [address], QVEX-GLUCOSE [id number] 13:26:00 Test Item Value Reference Range Interpretation Comments POC-GLUCOSE METER 108 mg/dL 70-110 TESTED AT [place] [address] (BEAKER) (test code = [facility] 153) [address] CBC W/PLT COUNT & AUTO [id number] 06:28:00 Test Item Value Reference Range Interpretation Comments WHITE BLOOD CELL COUNT (BEAKER) 17.6 K/ L 3.5-10.5 H (test code = 775) RED BLOOD CELL COUNT (BEAKER) 4.01 M/ L 4.63-6.08 L (test code = 761) HEMOGLOBIN (BEAKER) (test code = 11.3 GM/DL 13.7-17.5 L 410) HEMATOCRIT (BEAKER) (test code = 35.2 % 40.1-51.0 L 411) MEAN CORPUSCULAR VOLUME (BEAKER) 87.8 fL 79.0-92.2 (test code = 753) MEAN CORPUSCULAR HEMOGLOBIN 28.2 pg 25.7-32.2 (BEAKER) (test code = 751) MEAN CORPUSCULAR HEMOGLOBIN CONC 32.1 GM/DL 32.3-36.5 L (BEAKER) (test code = 752) RED CELL DISTRIBUTION WIDTH 13.4 % 11.6-14.4 (BEAKER) (test code = 412) PLATELET COUNT (BEAKER) (test 350 K/CU MM 150-450 code = 756) MEAN PLATELET VOLUME (BEAKER) 11.7 fL 9.4-12.4 (test code = 754) NUCLEATED RED BLOOD CELLS 0 /100 WBC 0-0 (BEAKER) (test code = 413) NEUTROPHILS RELATIVE PERCENT 86 % (BEAKER) (test code = 429) LYMPHOCYTES RELATIVE PERCENT 8 % (BEAKER) (test code = 430) MONOCYTES RELATIVE PERCENT 6 % (BEAKER) (test code = 431) EOSINOPHILS RELATIVE PERCENT 0 % (BEAKER) (test code = 432) BASOPHILS RELATIVE PERCENT 0 % (BEAKER) (test code = 437) NEUTROPHILS ABSOLUTE COUNT 15.03 K/ L 1.78-5.38 H (BEAKER) (test code = 670) LYMPHOCYTES ABSOLUTE COUNT 1.31 K/ L 1.32-3.57 L (BEAKER) (test code = 414) MONOCYTES ABSOLUTE COUNT (BEAKER) 1.12 K/ L 0.30-0.82 H (test code = 415) EOSINOPHILS ABSOLUTE COUNT 0.00 K/ L 0.04-0.54 L (BEAKER) (test code = 416) BASOPHILS ABSOLUTE COUNT (BEAKER) 0.02 K/ L 0.01-0.08 (test code = 417) IMMATURE GRANULOCYTES-RELATIVE 1 % 0-1 PERCENT (BEAKER) (test code = 2801) COMPREHENSIVE METABOLIC [id number] 06:27:00 Test Item Value Reference Range Interpretation Comments TOTAL PROTEIN 7.1 gm/dL 6.0-8.3 (BEAKER) (test code = 770) ALBUMIN (BEAKER) 4.2 g/dL 3.5-5.0 (test code = 1145) ALKALINE PHOSPHATASE 77 U/L 40-150 (BEAKER) (test code = 346) BILIRUBIN TOTAL 0.3 mg/dL 0.2-1.2 (BEAKER) (test code = 377) SODIUM (BEAKER) (test 136 meq/L 136-145 code = 381) POTASSIUM (BEAKER) 4.3 meq/L 3.5-5.1 (test code = 379) CHLORIDE (BEAKER) 106 meq/L 98-107 (test code = 382) CO2 (BEAKER) (test 19 meq/L 22-29 L code = 355) BLOOD UREA NITROGEN 6 mg/dL 7-21 L (BEAKER) (test code = 354) CREATININE (BEAKER) 0.79 mg/dL 0.57-1.25 (test code = 358) GLUCOSE RANDOM 128 mg/dL 70-105 H (BEAKER) (test code = 652) CALCIUM (BEAKER) 8.9 mg/dL 8.4-10.2 (test code = 697) AST (SGOT) (BEAKER) 39 U/L 5-34 H (test code = 353) ALT (SGPT) (BEAKER) 84 U/L 6-55 H (test code = 347) EGFR (BEAKER) (test 122 ESTIMATE D GFR IS code = 1092) mL/min/1.73 sq NOT ACCURA TE m CREATININE CLEARANCE IN PREDICTING GLOMERULAR FILTRATION RATE . ESTIMATED GFR I S NOT APPLICABLE FOR DIALYSIS PATIEN TS. POCT-GLUCOSE [id number] 00:04:00 Test Item Value Reference Range Interpretation Comments POC-GLUCOSE METER 123 mg/dL 70-110 H TESTED AT [place] [address] ([facility] (test code = [facility] 1538) [address] POCT-GLUCOSE [id number] 15:27:00 Test Item Value Reference Range Interpretation Comments POC-GLUCOSE METER 126 mg/dL 70-110 H TESTED AT [place] [address] ([facility] (test code = [facility] 1538) [address] POCT-GLUCOSE [id number] 11:57:00 Test Item Value Reference Range Interpretation Comments POC-GLUCOSE METER 77 mg/dL 70-110 TESTED AT [place] [address] ([facility] (test code = [facility] [address] 1538) [id number] 14:18:00 Test Item Value Reference Range Interpretation Comments SODIUM (BEAKER) (test code = 381) 140 meq/L 136-145 POTASSIUM (BEAKER) (test code = 4.1 meq/L 3.5-5.1 379) CHLORIDE (BEAKER) (test code = 382) 103 meq/L 98-107 CO2 (BEAKER) (test code = 355) 26 meq/L 22-29 BUN AND [id number] 14:18:00 Test Item Value Reference Range Interpretation Comments BLOOD UREA NITROGEN 8 mg/dL 7-21 (BEAKER) (test code = 354) CREATININE (BEAKER) 0.84 mg/dL 0.57-1.25 (test code = 358) EGFR (BEAKER) (test 113 mL/min/1.73 ESTIM ATED GFR IS code = 1092) sq m NOT ACCURATE CREATININE CLEARANCE IN PREDICTING GLOMERULAR FILTRATION RATE . ESTIMATED GFR I S NOT APPLICABLE FOR DIALYSIS PATIEN TS. [id number] 14:03:00 Test Item Value Reference Range Interpretation Comments HEMOGLOBIN (BEAKER) (test code = 15.3 GM/DL 13.7-17.5 410) PLATELET [id number] 14:03:00 Test Item Value Reference Range Interpretation Comments PLATELET COUNT (BEAKER) (test 390 K/CU MM 150-450 code = 756) TISSUE [id number] 23:23:00Surgical Pathology Report Case: [id number] Authorizing Provider: Alejandro Juan MD Collected: 12/06/2018 1516 Ordering Location: [facility] Endoscopy Received: 12/09/2018 0809 Services Pathologist: Ed Fraser MD Specimens: A) - Stomach, stomach biopsy B) - Biopsy, Esophagus, esophagus biopsy, 40 cm R/O virus esophagitis A. STOMACH, BIOPSY- CHRONIC INACTIVE GASTRITIS, MILD- NO INTESTINAL METAPLASIA, DYSPLASIA OR INVASIVE CARCINOMA IDENTIIFIED- HELICOBACTER PYLORI LIKE ORGANISMS IDENTIFIED ON WARTHIN STARRY STAINB. ESOPHAGUS, 40 CM , BIOPSY- REACTIVE CHANGES- NO ULCERATION, INFLAMMATION ORVIRAL CYTOPATHIC CHANGES SEEN Signing Pathologist Direct Phone Line: [phone] signed by Ed Fraser MD on 12/12/2018 at 11:23 [id number] X 2, [id number]. Stomach biopsy. B. Esophagus biopsy, 40 cm, rule out virus esophagitis Part A. Received in formalin labeled with the patient's name, accession number and "stomach" are two irregular bhatia soft tissue fragments measuring 0.6 cm and 0.1 cm,which are submitted in toto in A1.Part B. Received in formalin labeled with the patient's name, accession number and "biopsy, esophagus" are three irregular white soft tissue fragments ranging from 0.1-0.3 cm, which are submitted in toto in B1. CG/ew Performed.The interpretation of this case included the use of immunohistochemistry or special stains.Control Slides Examined: In-house known positive controls were evaluated along with the test tissue. These control slides run alongside of the patients s ample show appropriate staining. Internal positive and negative controls when available are evaluated Immunohistochemistry technical testing was performed at [facility], PathologyLaboratory where it was developed and its performance characteristics were determined. It has not been cleared or approved by the U.S. Food and Drug Administration. The FDA has determined that such clearance or approval is not necessary. The test is used for clinical purposes. It should not be regarded as investigational or for research. This laboratory is certified under the Clinical Laboratory Improvement Amendments of 1988 (CLIA-88) as qualified to perform high complexity clinical laboratory testi ng.ANTI-NUCLEAR ANTIBODY (CAYETANO)2018-07-18 10:36:00 Test Item Value Reference Range Interpretation Comments ANTI-NUCLEAR ANTIBODY (CAYETANO) (BEAKER) Negative Negative (test code = 418) Test performed by IFA method.Test performed by IFA method.HEPATITIS B SURFACE [id number] 19:57:00 Test Item Value Reference Range Interpretation Comments HEPATITIS B SURFACE ANTIBODY < mIU/mL <8.0 (BEAKER) (test code = 647) HEPATITIS A ANTIBODY, [id number] 19:57:00 Test Item Value Reference Range Interpretation Comments HEPATITIS A IGG ANTIBODY (BEAKER) Reactive Nonreactive A (test code = 2797) HEPATITIS B SURFACE [id number] 19:48:00 Test Item Value Reference Range Interpretation Comments HEPATITIS B SURFACE ANTIGEN (2) Nonreactive Nonreactive (BEAKER) (test code = 2585) HEPATITIS B CORE ANTIBODY, [id number] 19:48:00 Test Item Value Reference Range Interpretation Comments HEPATITIS B CORE TOTAL ANTIBODY Nonreactive Nonreactive (BEAKER) (test code = 497) HEPATITIS C [id number] 19:40:00 Test Item Value Reference Range Interpretation Comments HEPATITIS C ANTIBODY (BEAKER) Nonreactive Nonreactive (test code = 367) IMMUNOGLOBULIN G (IGG)2018-07-17 19:19:00 Test Item Value Reference Range Interpretation Comments IMMUNOGLOBULIN G (IGG) (BEAKER) 1021 mg/dL 540-1,822 (test code = 427) IRON, TIBC, % SAT. (WITHOUT FERRITIN)2018-07-17 19:19:00 Test Item Value Reference Range Interpretation Comments IRON (BEAKER) (test code = 547) 59.0 ug/dL 40.0-160.0 TOTAL IRON BINDING CAPACITY 408 ug/dL 250-450 (BEAKER) (test code = 769) IRON % SATURATION (2) (BEAKER) 14 % 20-55 L (test code = 2590) [id number] 19:08:00 Test Item Value Reference Range Interpretation Comments ALPHA-1 ANTITRYPSIN (BEAKER) 167.90 mg/dL 90.00-200.00 (test code = 502) [id number] 17:52:00 Test Item Value Reference Range Interpretation Comments FERRITIN (BEAKER) (test code = 361) 83 ng/mL 5-275 GAMMA GLUTAMYL TRANSFERASE (GGT)2018-07-17 17:33:00 Test Item Value Reference Range Interpretation Comments GAMMA GLUTAMYL TRANSFERASE (BEAKER) 89 U/L 9-64 H (test code = 364) BILIRUBIN, [id number] 17:33:00 Test Item Value Reference Range Interpretation Comments BILIRUBIN DIRECT (BEAKER) (test 0.1 mg/dL 0.1-0.5 code = 706) COMPREHENSIVE METABOLIC [id number] 17:33:00 Test Item Value Reference Range Interpretation Comments TOTAL PROTEIN 8.1 gm/dL 6.0-8.3 (BEAKER) (test code = 770) ALBUMIN (BEAKER) 4.5 g/dL 3.5-5.0 (test code = 1145) ALKALINE PHOSPHATASE 113 U/L 40-150 (BEAKER) (test code = 346) BILIRUBIN TOTAL 0.3 mg/dL 0.2-1.2 (BEAKER) (test code = 377) SODIUM (BEAKER) (test 139 meq/L 136-145 code = 381) POTASSIUM (BEAKER) 3.7 meq/L 3.5-5.1 (test code = 379) CHLORIDE (BEAKER) 105 meq/L 98-107 (test code = 382) CO2 (BEAKER) (test 24 meq/L 22-29 code = 355) BLOOD UREA NITROGEN 10 mg/dL 7-21 (BEAKER) (test code = 354) CREATININE (BEAKER) 0.70 mg/dL 0.57-1.25 (test code = 358) GLUCOSE RANDOM 88 mg/dL 70-105 (BEAKER) (test code = 652) CALCIUM (BEAKER) 10.0 mg/dL 8.4-10.2 (test code = 697) AST (SGOT) (BEAKER) 50 U/L 5-34 H (test code = 353) ALT (SGPT) (BEAKER) 91 U/L 6-55 H (test code = 347) EGFR (BEAKER) (test 141 ESTIMATE D GFR IS code = 1092) mL/min/1.73 sq NOT ACCURA TE m CREATININE CLEARANCE IN PREDICTING GLOMERULAR FILTRATION RATE . ESTIMATED GFR I S NOT APPLICABLE FOR DIALYSIS PATIEN TS. PROTHROMBIN [id number] 17:28:00 Test Item Value Reference Range Interpretation Comments PROTIME (BEAKER) (test code = 12.4 seconds 11.7-14.7 759) INR (BEAKER) (test code = 370) 0.9 <=5.9 RECOMMENDED COUMADIN/WARFARIN INR THERAPY RANGESSTANDARD DOSE: 2.0 - 3.0 Includes: PROPHYLAXIS for venous thrombosis, systemic embolization; TREATMENT for venous thrombosis and/or pulmonary embolus.HIGH RISK: Target INR is 2.5-3.5 for patients with mechanical heart valves.CBC W/PLT COUNT & AUTO [id number] 17:18:00 Test Item Value Reference Range Interpretation Comments WHITE BLOOD CELL COUNT (BEAKER) 13.4 K/ L 3.5-10.5 H (test code = 775) RED BLOOD CELL COUNT (BEAKER) 5.16 M/ L 4.63-6.08 (test code = 761) HEMOGLOBIN (BEAKER) (test code = 14.6 GM/DL 13.7-17.5 410) HEMATOCRIT (BEAKER) (test code = 44.3 % 40.1-51.0 411) MEAN CORPUSCULAR VOLUME (BEAKER) 85.9 fL 79.0-92.2 (test code = 753) MEAN CORPUSCULAR HEMOGLOBIN 28.3 pg 25.7-32.2 (BEAKER) (test code = 751) MEAN CORPUSCULAR HEMOGLOBIN CONC 33.0 GM/DL 32.3-36.5 (BEAKER) (test code = 752) RED CELL DISTRIBUTION WIDTH 13.4 % 11.6-14.4 (BEAKER) (test code = 412) PLATELET COUNT (BEAKER) (test 307 K/CU MM 150-450 code = 756) MEAN PLATELET VOLUME (BEAKER) 11.1 fL 9.4-12.4 (test code = 754) NUCLEATED RED BLOOD CELLS 0 /100 WBC 0-0 (BEAKER) (test code = 413) NEUTROPHILS RELATIVE PERCENT 64 % (BEAKER) (test code = 429) LYMPHOCYTES RELATIVE PERCENT 25 % (BEAKER) (test code = 430) MONOCYTES RELATIVE PERCENT 7 % (BEAKER) (test code = 431) EOSINOPHILS RELATIVE PERCENT 3 % (BEAKER) (test code = 432) BASOPHILS RELATIVE PERCENT 0 % (BEAKER) (test code = 437) NEUTROPHILS ABSOLUTE COUNT 8.61 K/ L 1.78-5.38 H (BEAKER) (test code = 670) LYMPHOCYTES ABSOLUTE COUNT 3.33 K/ L 1.32-3.57 (BEAKER) (test code = 414) MONOCYTES ABSOLUTE COUNT (BEAKER) 0.91 K/ L 0.30-0.82 H (test code = 415) EOSINOPHILS ABSOLUTE COUNT 0.37 K/ L 0.04-0.54 (BEAKER) (test code = 416) BASOPHILS ABSOLUTE COUNT (BEAKER) 0.06 K/ L 0.01-0.08 (test code = 417) IMMATURE GRANULOCYTES-RELATIVE 1 % 0-1 PERCENT (BEAKER) (test code = 2801) Valproic Acid (Depakote),[id number] 08:35:00 Test Item Value Reference Range Interpretation Comments Valproic Acid (test code = VALP) 89.2 ug/mL 50.0-100.0 N RPR, [id number] 11:42:00 Test Item Value Reference Range Interpretation Comments RPR (test code = RPR) Non-Reactive Non-Reactive N Thyroid Stimulating Hormone (TSH)2017-03-11 07:32:00 Test Item Value Reference Range Interpretation Comments TSH (test code = TSH) 1.54 mIU/mL 0.270-4.200 N Lipid [id number] 07:24:00 Test Item Value Reference Range Interpretation Comments Cholesterol (test 131 mg/dL 0-200 N code = CHOL) Triglycerides (test 167 mg/dL 9-200 N code = TRIG) HDL (test code = 32 mg/dL 40-60 L HDL) Chol/HDL (test code 4.1 Ratio 0.0-5.0 N = CHOLPHDL) LDL, Calculated 66 0-130 N (NOTE)RISK O F HEART (test code = LDLC) DISEASEPu blished by [place] Heart AssociationAnal yte Optimal Boderli ne Increased RiskC HOL <200 200-239 >240TRI G <150 150-199 >200HDL Male: >60 <40HDL Fem karley: >60 <50LDL < 100 130-159 >160LDL NEAR OPTIMAL IS 100- 129 VLDL (test code = 33 mg/dL 5-40 N VLDL) LDL/HDL (test code = 2 LDLPHDL) Valproic Acid (Depakote),[id number] 06:55:00 Test Item Value Reference Range Interpretation Comments Valproic Acid (test code = VALP) 16.6 ug/mL 50.0-100.0 L [id number] 17:49:00 Test Item Value Reference Range Interpretation Comments Amphetamine (test code POSITIVE Negative A For d iagnostic purposes = AMPH) only, positive results should always b e assessedin conjunctionwith the patient's medic al history,clinica l examination and otherfindings.T o fulfill legal requirements, a more specific altern ate chemical method must be used inorder to obtain a Confirmed cayetano lytical result. GC/MS i s the preferred confi rmatory method. Barbiturates (test Negative Negative N code = ANANTH) Benzodiazepine (test Negative Negative N code = DALJIT) Cocaine (test code = Negative Negative N COCA) Methadone (test code = Negative Negative N MTHD) Opiates (test code = Negative Negative N OPIA) PCP (test code = PCP) Negative Negative N Propoxyphene (test Negative Negative N code = PROPOX) THC (test code = THC) Negative Negative N Urinalysis [id number] 17:45:00 Test Item Value Reference Range Interpretation Comments Color (test code = Yellow Yellow,Straw,Pl N COLOR) yellow Clarity (test code = Clear Clear N CLAR) Specific [place] (test 1.030 1.001-1.035 N code = SPGR) pH (test code = PH) 6.5 5.0-9.0 N Ketone (test code = 50 mg/dL Negative A KET) Glucose (test code = Negative mg/dL Negative N GLUCUR) Protein (test code = Negative mg/dL Negative N PROT) Bilirubin (test code = See IctoTest mg/dL Negative A BILI) Occult Blood (test code Negative Negative N = UDOB) Urobilinogen (test code 0.2 mg/dL 0.2-1.0 N = UROB) Nitrite (test code = Negative Negative N NIT) Leuk Esterase (test Negative Negative N code = LEUK) Ictotest (test code = Confirmed Negative Negative,Confirmed N ICTOTEST) Negative Micros Exam (test code Indicated = MEXAM) Epithelial Cells (test None /LPF 0-30 A code = EPI) WBC, Urine (test code = None seen /HPF 0-5 A UWBC) RBC, Urine (test code = None Seen /HPF 0-5 A URBC) Mucous, Urine (test Trace /HPF code = UMUC) Bacteria (test code = None /HPF BACT) Comprehensive Metabolic [id number] 16:11:00 Test Item Value Reference Range Interpretation Comments Sodium (test code = 137 mmol/L 135-145 N NA) Potassium (test 3.8 mmol/L 3.5-5.1 N code = K) Chloride (test code 103 mmol/L 98-105 N = CL) Carbon Dioxide 21 mmol/L 22-29 L (test code = CO2) Glucose (test code 117 mg/dL 70-115 H = GLU) Blood Urea Nitrogen 11 mg/dL 6-20 N (test code = BUN) Creatinine (test 0.7 mg/dL 0.7-1.2 N code = CREAT) Calcium (test code 9.4 mg/dL 8.3-10.5 N = CA) Prot Total (test 7.0 g/dL 6.4-8.3 N code = TP) Albumin (test code 4.3 g/dL 3.5-5.2 N = ALB) A/G Ratio (test 1.6 Ratio code = AGRATIO) Globulin (test code 2.7 2.9-3.1 L = GLOB) Bili Total (test 0.4 mg/dL 0.1-0.9 N code = TBIL) Alk Phos (test code 92 U/L 40-129 N = APHOS) AST (test code = 22 U/L 1-40 N AST) ALT (test code = 24 U/L 1-41 N ALT) BUN/Creatinine 15.7 Ratio (test code = BCRATIO) Anion Gap (test 13 mmol/L 7-16 N code = AGAP) Estimated GFR (test >60 eGFR (es timated code = GFR) mL/min/1.73m2 Glomerular Eddy tration Rate) is an est imated value,calculate d from the patient's s osmel creatinine usin g the MDRD equation.I t is NOT the patient 's actual GFR. The eGFR provides a more clinicallyusefu l measure of kidn ey disease than se rum creatinine alone.This calculation jacek es sex and race into account, if the informationis provided. If th e race is not provided , and the patient isAfrican-Ameri can, multiply by 1.2 12. If sex is not prov ided, and thepatient is female, multipl y by 0.742. Results for patients <18 ye ars ofage have not been validated by th e MDRD study and shoul d be interpretedwith caution.eGFR Re sult Interpretation: eGFR > or = 60 is in t he Normal RangeeGF R < 60 may mean kidney diseaseeGFR < 1 5 may mean kidney failureRange s recommended by the National Kidney Foundation,http ://nkd ep.nih.gov CBC with [id number] 15:56:00 Test Item Value Reference Range Interpretation Comments WBC (test code = WBC) 8.6 K/cumm 4.4-10.5 N RBC (test code = RBC) 4.63 M/cumm 4.10-5.70 N Hemoglobin (test code = HGB) 13.3 gm/dL 13.4-17.4 L Hematocrit (test code = HCT) 42.6 % 38.7-52.0 N MCV (test code = MCV) 91.9 fL 80-100 N MCH (test code = MCH) 28.6 pg 27.0-32.5 N MCHC (test code = MCHC) 31.2 g/dL 32.0-37.5 L RDW (test code = RDW) 15.1 % 11.5-14.5 H Platelet Count (test code = 291 K/cumm 140-440 N PLTCT) MPV (test code = MPV) 7.6 fL Diff Method (test code = DIFFM) Auto Neutrophil (test code = NEUT) 61.3 % 36-70 N Lymphocyte (test code = LYMPH) 31.4 % 12-44 N Monocyte (test code = MONO) 3.3 % 0-11 N Eosinophil (test code = EOS) 3.4 % 0-7 N Basophil (test code = BASO) 0.7 % 0-2 N Neutro Abs (test code = ANEUT) 5.3 K/cumm 1.6-7.4 N Lymph Abs (test code = ALYMPH) 2.7 K/cumm 0.5-4.6 N Fergus Abs (test code = AMONO) 0.3 K/cumm 0.0-1.2 N Eos Abs (test code = AEOS) 0.29 K/cumm 0.00-0.74 N Baso Abs (test code = ABASO) 0.1 K/cumm 0.00-0.21 N BLOOD [id number] 00:00:00 Test Item Value Reference Range Interpretation Comments CULTURE (BEAKER) (test No growth in 5 days code = 1095) BLOOD [id number] 00:00:00 Test Item Value Reference Range Interpretation Comments CULTURE (BEAKER) (test No growth in 5 days code = 1095) POCT-GLUCOSE [id number] 12:31:00 Test Item Value Reference Range Interpretation Comments POC-GLUCOSE METER 110 mg/dL 70-110 TESTED AT [facility] 6720 (BEAKER) (test code = OMAR [place] 1538) [address] POCT-GLUCOSE [id number] 05:38:00 Test Item Value Reference Range Interpretation Comments POC-GLUCOSE METER 90 mg/dL 70-110 TESTED AT [facility] 6720 (BEAKER) (test code = OMAR GAMBINO [place] [id number]) CBC W/PLT COUNT & AUTO [id number] 05:27:00 Test Item Value Reference Range Interpretation Comments WHITE BLOOD CELL COUNT (BEAKER) 12.0 K/ L 3.5-10.5 H (test code = 775) RED BLOOD CELL COUNT (BEAKER) 4.14 M/ L 4.63-6.08 L (test code = 761) HEMOGLOBIN (BEAKER) (test code = 12.1 GM/DL 13.7-17.5 L 410) HEMATOCRIT (BEAKER) (test code = 36.7 % 40.1-51.0 L 411) MEAN CORPUSCULAR VOLUME (BEAKER) 88.6 fL 79.0-92.2 (test code = 753) MEAN CORPUSCULAR HEMOGLOBIN 29.2 pg 25.7-32.2 (BEAKER) (test code = 751) MEAN CORPUSCULAR HEMOGLOBIN CONC 33.0 GM/DL 32.3-36.5 (BEAKER) (test code = 752) RED CELL DISTRIBUTION WIDTH 13.5 % 11.6-14.4 (BEAKER) (test code = 412) PLATELET COUNT (BEAKER) (test 557 K/CU MM 150-450 H code = 756) MEAN PLATELET VOLUME (BEAKER) 9.5 fL 9.4-12.4 (test code = 754) NUCLEATED RED BLOOD CELLS 0 /100 WBC 0-0 (BEAKER) (test code = 413) NEUTROPHILS RELATIVE PERCENT 67 % (BEAKER) (test code = 429) LYMPHOCYTES RELATIVE PERCENT 22 % (BEAKER) (test code = 430) MONOCYTES RELATIVE PERCENT 8 % (BEAKER) (test code = 431) EOSINOPHILS RELATIVE PERCENT 1 % (BEAKER) (test code = 432) BASOPHILS RELATIVE PERCENT 0 % (BEAKER) (test code = 437) NEUTROPHILS ABSOLUTE COUNT 8.07 K/ L 1.78-5.38 H (BEAKER) (test code = 670) LYMPHOCYTES ABSOLUTE COUNT 2.59 K/ L 1.32-3.57 (BEAKER) (test code = 414) MONOCYTES ABSOLUTE COUNT (BEAKER) 1.01 K/ L 0.30-0.82 H (test code = 415) EOSINOPHILS ABSOLUTE COUNT 0.15 K/ L 0.04-0.54 (BEAKER) (test code = 416) BASOPHILS ABSOLUTE COUNT (BEAKER) 0.05 K/ L 0.01-0.08 (test code = 417) IMMATURE GRANULOCYTES-RELATIVE 1 % 0-1 PERCENT (BEAKER) (test code = 2801) COMPREHENSIVE METABOLIC [id number] 05:14:00 Test Item Value Reference Range Interpretation Comments TOTAL PROTEIN 6.9 gm/dL 6.0-8.3 (BEAKER) (test code = 770) ALBUMIN (BEAKER) 3.7 g/dL 3.5-5.0 (test code = 1145) ALKALINE PHOSPHATASE 114 U/L 40-150 (BEAKER) (test code = 346) BILIRUBIN TOTAL 0.3 mg/dL 0.2-1.2 (BEAKER) (test code = 377) SODIUM (BEAKER) (test 137 meq/L 136-145 code = 381) POTASSIUM (BEAKER) 3.9 meq/L 3.5-5.1 (test code = 379) CHLORIDE (BEAKER) 103 meq/L 98-107 (test code = 382) CO2 (BEAKER) (test 25 meq/L 22-29 code = 355) BLOOD UREA NITROGEN 8 mg/dL 7-21 (BEAKER) (test code = 354) CREATININE (BEAKER) 0.65 mg/dL 0.57-1.25 (test code = 358) GLUCOSE RANDOM 108 mg/dL 70-105 H (BEAKER) (test code = 652) CALCIUM (BEAKER) 9.4 mg/dL 8.4-10.2 (test code = 697) AST (SGOT) (BEAKER) 37 U/L 5-34 H (test code = 353) ALT (SGPT) (BEAKER) 120 U/L 6-55 H (test code = 347) EGFR (BEAKER) (test 157 ESTIMATE D GFR IS code = 1092) mL/min/1.73 sq NOT ACCURA TE m CREATININE CLEARANCE IN PREDICTING GLOMERULAR FILTRATION RATE . ESTIMATED GFR I S NOT APPLICABLE FOR DIALYSIS PATIEN TS. POCT-GLUCOSE [id number] 23:41:00 Test Item Value Reference Range Interpretation Comments POC-GLUCOSE METER 93 mg/dL 70-110 TESTED AT [place] [address] (BEAKER) (test code = OMAR Best [facility] [id number] 1538) URINALYSIS W/ [id number] 22:47:00 Test Item Value Reference Range Interpretation Comments COLOR (BEAKER) (test code = Light Yellow 470) CLARITY (BEAKER) (test code = Clear 469) SPECIFIC GRAVITY UA (BEAKER) 1.006 1.001-1.035 (test code = 468) PH UA (BEAKER) (test code = 6.5 5.0-8.0 467) PROTEIN UA (BEAKER) (test code Negative Negative = 464) GLUCOSE UA (BEAKER) (test code Negative Negative = 365) KETONES UA (BEAKER) (test code Negative Negative = 371) BILIRUBIN UA (BEAKER) (test Negative Negative code = 462) BLOOD UA (BEAKER) (test code = Negative Negative 461) NITRITE UA (BEAKER) (test code Negative Negative = 465) LEUKOCYTE ESTERASE UA (BEAKER) Trace Negative A (test code = 466) UROBILINOGEN UA (BEAKER) (test 0.2 mg/dL 0.2-1.0 code = 463) RBC UA (BEAKER) (test code = 0 /HPF 519) WBC UA (BEAKER) (test code = 6 /HPF 520) BACTERIA (BEAKER) (test code = Occasional 517) SOURCE(BEAKER) (test code = Urine, Voided 4832) POCT-GLUCOSE [id number] 18:04:00 Test Item Value Reference Range Interpretation Comments POC-GLUCOSE METER 133 mg/dL 70-110 H TESTED AT [place] [address] ([facility] [place] (test code = NEILJAYDEN Best [facility] 1538) [address] POCT-GLUCOSE [id number] 12:19:00 Test Item Value Reference Range Interpretation Comments POC-GLUCOSE METER 92 mg/dL 70-110 TESTED AT [place] [address] ([facility] [place]) ([facility] [address] 1538) POCT-GLUCOSE [id number] 04:45:00 Test Item Value Reference Range Interpretation Comments POC-GLUCOSE METER 103 mg/dL 70-110 TESTED AT [place] [address] ([facility] [place]) (test code = [facility] Estephania [facility] 1538) [address] HEPATIC FUNCTION [id number] 02:46:00 Test Item Value Reference Range Interpretation Comments TOTAL PROTEIN (BEAKER) (test code = 6.8 gm/dL 6.0-8.3 770) ALBUMIN (BEAKER) (test code = 1145) 3.7 g/dL 3.5-5.0 BILIRUBIN TOTAL (BEAKER) (test code 0.2 mg/dL 0.2-1.2 = 377) BILIRUBIN DIRECT (BEAKER) (test 0.1 mg/dL 0.1-0.5 code = 706) ALKALINE PHOSPHATASE (BEAKER) (test 110 U/L 40-150 code = 346) AST (SGOT) (BEAKER) (test code = 47 U/L 5-34 H 353) ALT (SGPT) (BEAKER) (test code = 134 U/L 6-55 H 347) BASIC METABOLIC [id number] 02:46:00 Test Item Value Reference Range Interpretation Comments SODIUM (BEAKER) 137 meq/L 136-145 (test code = 381) POTASSIUM (BEAKER) 3.8 meq/L 3.5-5.1 (test code = 379) CHLORIDE (BEAKER) 103 meq/L 98-107 (test code = 382) CO2 (BEAKER) (test 26 meq/L 22-29 code = 355) BLOOD UREA NITROGEN 11 mg/dL 7-21 (BEAKER) (test code = 354) CREATININE (BEAKER) 0.67 mg/dL 0.57-1.25 (test code = 358) GLUCOSE RANDOM 106 mg/dL 70-105 H (BEAKER) (test code = 652) CALCIUM (BEAKER) 9.2 mg/dL 8.4-10.2 (test code = 697) EGFR (BEAKER) (test 151 mL/min/1.73 ESTIM ATED GFR IS code = 1092) sq m NOT ACCURATE CREATININE CLEARANCE IN PREDICTING GLOMERULAR FILTRATION RATE . ESTIMATED GFR I S NOT APPLICABLE FOR DIALYSIS PATIEN TS. CBC W/PLT COUNT & AUTO [id number] 02:31:00 Test Item Value Reference Range Interpretation Comments WHITE BLOOD CELL COUNT (BEAKER) 17.4 K/ L 3.5-10.5 H (test code = 775) RED BLOOD CELL COUNT (BEAKER) 4.09 M/ L 4.63-6.08 L (test code = 761) HEMOGLOBIN (BEAKER) (test code = 12.1 GM/DL 13.7-17.5 L 410) HEMATOCRIT (BEAKER) (test code = 36.0 % 40.1-51.0 L 411) MEAN CORPUSCULAR VOLUME (BEAKER) 88.0 fL 79.0-92.2 (test code = 753) MEAN CORPUSCULAR HEMOGLOBIN 29.6 pg 25.7-32.2 (BEAKER) (test code = 751) MEAN CORPUSCULAR HEMOGLOBIN CONC 33.6 GM/DL 32.3-36.5 (BEAKER) (test code = 752) RED CELL DISTRIBUTION WIDTH 13.4 % 11.6-14.4 (BEAKER) (test code = 412) PLATELET COUNT (BEAKER) (test 521 K/CU MM 150-450 H code = 756) MEAN PLATELET VOLUME (BEAKER) 9.8 fL 9.4-12.4 (test code = 754) NUCLEATED RED BLOOD CELLS 0 /100 WBC 0-0 (BEAKER) (test code = 413) NEUTROPHILS RELATIVE PERCENT 78 % (BEAKER) (test code = 429) LYMPHOCYTES RELATIVE PERCENT 14 % (BEAKER) (test code = 430) MONOCYTES RELATIVE PERCENT 6 % (BEAKER) (test code = 431) EOSINOPHILS RELATIVE PERCENT 1 % (BEAKER) (test code = 432) BASOPHILS RELATIVE PERCENT 0 % (BEAKER) (test code = 437) NEUTROPHILS ABSOLUTE COUNT 13.53 K/ L 1.78-5.38 H (BEAKER) (test code = 670) LYMPHOCYTES ABSOLUTE COUNT 2.39 K/ L 1.32-3.57 (BEAKER) (test code = 414) MONOCYTES ABSOLUTE COUNT (BEAKER) 1.04 K/ L 0.30-0.82 H (test code = 415) EOSINOPHILS ABSOLUTE COUNT 0.13 K/ L 0.04-0.54 (BEAKER) (test code = 416) BASOPHILS ABSOLUTE COUNT (BEAKER) 0.04 K/ L 0.01-0.08 (test code = 417) IMMATURE GRANULOCYTES-RELATIVE 2 % 0-1 H PERCENT (BEAKER) (test code = 2801) IRON, TIBC, % SAT. (WITHOUT FERRITIN)2017-01-18 02:21:00 Test Item Value Reference Range Interpretation Comments IRON (BEAKER) (test code = 547) 49 ug/dL 40-160 TOTAL IRON BINDING CAPACITY 309 ug/dL 250-450 (BEAKER) (test code = 769) IRON % SATURATION (2) (BEAKER) 16 % 20-55 L (test code = 2590) POCT-GLUCOSE [id number] 17:36:00 Test Item Value Reference Range Interpretation Comments POC-GLUCOSE METER 102 mg/dL 70-110 TESTED AT [facility] [address] ([facility] [place] (test code = OMAR Best [place] 1538) [address] POCT-GLUCOSE [id number] 11:55:00 Test Item Value Reference Range Interpretation Comments POC-GLUCOSE METER 99 mg/dL 70-110 TESTED AT [place] [address] ([facility] (test code = OMAR Best [facility] [id number] 1538) CBC W/PLT COUNT & AUTO [id number] 04:56:00 Test Item Value Reference Range Interpretation Comments WHITE BLOOD CELL COUNT (BEAKER) 10.8 K/ L 3.5-10.5 H (test code = 775) RED BLOOD CELL COUNT (BEAKER) 4.49 M/ L 4.63-6.08 L (test code = 761) HEMOGLOBIN (BEAKER) (test code = 13.2 GM/DL 13.7-17.5 L 410) HEMATOCRIT (BEAKER) (test code = 39.8 % 40.1-51.0 L 411) MEAN CORPUSCULAR VOLUME (BEAKER) 88.6 fL 79.0-92.2 (test code = 753) MEAN CORPUSCULAR HEMOGLOBIN 29.4 pg 25.7-32.2 (BEAKER) (test code = 751) MEAN CORPUSCULAR HEMOGLOBIN CONC 33.2 GM/DL 32.3-36.5 (BEAKER) (test code = 752) RED CELL DISTRIBUTION WIDTH 13.6 % 11.6-14.4 (BEAKER) (test code = 412) PLATELET COUNT (BEAKER) (test 557 K/CU MM 150-450 H code = 756) MEAN PLATELET VOLUME (BEAKER) 9.9 fL 9.4-12.4 (test code = 754) NUCLEATED RED BLOOD CELLS 0 /100 WBC 0-0 (BEAKER) (test code = 413) NEUTROPHILS RELATIVE PERCENT 62 % (BEAKER) (test code = 429) LYMPHOCYTES RELATIVE PERCENT 27 % (BEAKER) (test code = 430) MONOCYTES RELATIVE PERCENT 7 % (BEAKER) (test code = 431) EOSINOPHILS RELATIVE PERCENT 2 % (BEAKER) (test code = 432) BASOPHILS RELATIVE PERCENT 1 % (BEAKER) (test code = 437) NEUTROPHILS ABSOLUTE COUNT 6.66 K/ L 1.78-5.38 H (BEAKER) (test code = 670) LYMPHOCYTES ABSOLUTE COUNT 2.95 K/ L 1.32-3.57 (BEAKER) (test code = 414) MONOCYTES ABSOLUTE COUNT (BEAKER) 0.70 K/ L 0.30-0.82 (test code = 415) EOSINOPHILS ABSOLUTE COUNT 0.17 K/ L 0.04-0.54 (BEAKER) (test code = 416) BASOPHILS ABSOLUTE COUNT (BEAKER) 0.07 K/ L 0.01-0.08 (test code = 417) IMMATURE GRANULOCYTES-RELATIVE 2 % 0-1 H PERCENT (BEAKER) (test code = 2801) BASIC METABOLIC [id number] 04:34:00 Test Item Value Reference Range Interpretation Comments SODIUM (BEAKER) 137 meq/L 136-145 (test code = 381) POTASSIUM (BEAKER) 3.8 meq/L 3.5-5.1 (test code = 379) CHLORIDE (BEAKER) 103 meq/L 98-107 (test code = 382) CO2 (BEAKER) (test 24 meq/L 22-29 code = 355) BLOOD UREA NITROGEN 8 mg/dL 7-21 (BEAKER) (test code = 354) CREATININE (BEAKER) 0.68 mg/dL 0.57-1.25 (test code = 358) GLUCOSE RANDOM 94 mg/dL 70-105 (BEAKER) (test code = 652) CALCIUM (BEAKER) 9.7 mg/dL 8.4-10.2 (test code = 697) EGFR (BEAKER) (test 149 mL/min/1.73 ESTIM ATED GFR IS code = 1092) sq m NOT ACCURATE CREATININE CLEARANCE IN PREDICTING GLOMERULAR FILTRATION RATE . ESTIMATED GFR I S NOT APPLICABLE FOR DIALYSIS PATIEN TS. POCT-GLUCOSE [id number] 00:52:00 Test Item Value Reference Range Interpretation Comments POC-GLUCOSE METER 96 mg/dL 70-110 TESTED AT [facility] 67[address] (BEAKER) (test code = [facility] [id number]) HEPATIC FUNCTION [id number] 12:36:00 Test Item Value Reference Range Interpretation Comments TOTAL PROTEIN (BEAKER) (test code = 7.1 gm/dL 6.0-8.3 770) ALBUMIN (BEAKER) (test code = 1145) 3.8 g/dL 3.5-5.0 BILIRUBIN TOTAL (BEAKER) (test code 0.3 mg/dL 0.2-1.2 = 377) BILIRUBIN DIRECT (BEAKER) (test 0.2 mg/dL 0.1-0.5 code = 706) ALKALINE PHOSPHATASE (BEAKER) (test 98 U/L 40-150 code = 346) AST (SGOT) (BEAKER) (test code = 42 U/L 5-34 H 353) ALT (SGPT) (BEAKER) (test code = 122 U/L 6-55 H 347) POCT-GLUCOSE [id number] 11:28:00 Test Item Value Reference Range Interpretation Comments POC-GLUCOSE METER 93 mg/dL 70-110 TESTED AT [facility] [address] (BEAKER) (test code = [facility] [id number]) BASIC METABOLIC [id number] 04:43:00 Test Item Value Reference Range Interpretation Comments SODIUM (BEAKER) 139 meq/L 136-145 (test code = 381) POTASSIUM (BEAKER) 3.4 meq/L 3.5-5.1 L (test code = 379) CHLORIDE (BEAKER) 103 meq/L 98-107 (test code = 382) CO2 (BEAKER) (test 26 meq/L 22-29 code = 355) BLOOD UREA NITROGEN 9 mg/dL 7-21 (BEAKER) (test code = 354) CREATININE (BEAKER) 0.67 mg/dL 0.57-1.25 (test code = 358) GLUCOSE RANDOM 92 mg/dL 70-105 (BEAKER) (test code = 652) CALCIUM (BEAKER) 9.4 mg/dL 8.4-10.2 (test code = 697) EGFR (BEAKER) (test 151 mL/min/1.73 ESTIM ATED GFR IS code = 1092) sq m NOT ACCURATE CREATININE CLEARANCE IN PREDICTING GLOMERULAR FILTRATION RATE . ESTIMATED GFR I S NOT APPLICABLE FOR DIALYSIS PATIEN TS. CBC W/PLT COUNT & AUTO [id number] 04:20:00 Test Item Value Reference Range Interpretation Comments WHITE BLOOD CELL COUNT (BEAKER) 12.1 K/ L 3.5-10.5 H (test code = 775) RED BLOOD CELL COUNT (BEAKER) 4.31 M/ L 4.63-6.08 L (test code = 761) HEMOGLOBIN (BEAKER) (test code = 12.7 GM/DL 13.7-17.5 L 410) HEMATOCRIT (BEAKER) (test code = 37.9 % 40.1-51.0 L 411) MEAN CORPUSCULAR VOLUME (BEAKER) 87.9 fL 79.0-92.2 (test code = 753) MEAN CORPUSCULAR HEMOGLOBIN 29.5 pg 25.7-32.2 (BEAKER) (test code = 751) MEAN CORPUSCULAR HEMOGLOBIN CONC 33.5 GM/DL 32.3-36.5 (BEAKER) (test code = 752) RED CELL DISTRIBUTION WIDTH 13.4 % 11.6-14.4 (BEAKER) (test code = 412) PLATELET COUNT (BEAKER) (test 452 K/CU MM 150-450 H code = 756) MEAN PLATELET VOLUME (BEAKER) 9.7 fL 9.4-12.4 (test code = 754) NUCLEATED RED BLOOD CELLS 0 /100 WBC 0-0 (BEAKER) (test code = 413) NEUTROPHILS RELATIVE PERCENT 62 % (BEAKER) (test code = 429) LYMPHOCYTES RELATIVE PERCENT 26 % (BEAKER) (test code = 430) MONOCYTES RELATIVE PERCENT 6 % (BEAKER) (test code = 431) EOSINOPHILS RELATIVE PERCENT 2 % (BEAKER) (test code = 432) BASOPHILS RELATIVE PERCENT 1 % (BEAKER) (test code = 437) NEUTROPHILS ABSOLUTE COUNT 7.46 K/ L 1.78-5.38 H (BEAKER) (test code = 670) LYMPHOCYTES ABSOLUTE COUNT 3.13 K/ L 1.32-3.57 (BEAKER) (test code = 414) MONOCYTES ABSOLUTE COUNT (BEAKER) 0.78 K/ L 0.30-0.82 (test code = 415) EOSINOPHILS ABSOLUTE COUNT 0.21 K/ L 0.04-0.54 (BEAKER) (test code = 416) BASOPHILS ABSOLUTE COUNT (BEAKER) 0.07 K/ L 0.01-0.08 (test code = 417) IMMATURE GRANULOCYTES-RELATIVE 4 % 0-1 H PERCENT (BEAKER) (test code = 2801) POCT-GLUCOSE [id number] 12:56:00 Test Item Value Reference Range Interpretation Comments POC-GLUCOSE METER 82 mg/dL 70-110 TESTED AT [place] [address] ([facility] (test code = [facility] [address] 1538) PHENYTOIN LEVEL, [id number] 09:42:00 Test Item Value Reference Range Interpretation Comments PHENYTOIN (DILANTIN) (BEAKER) (test 0.9 ug/mL 10.0-20.0 L code = 605) Before AM doseBASIC METABOLIC [id number] 08:13:00 Test Item Value Reference Range Interpretation Comments SODIUM (BEAKER) 136 meq/L 136-145 (test code = 381) POTASSIUM (BEAKER) 3.6 meq/L 3.5-5.1 (test code = 379) CHLORIDE (BEAKER) 101 meq/L 98-107 (test code = 382) CO2 (BEAKER) (test 26 meq/L 22-29 code = 355) BLOOD UREA NITROGEN 7 mg/dL 7-21 (BEAKER) (test code = 354) CREATININE (BEAKER) 0.62 mg/dL 0.57-1.25 (test code = 358) GLUCOSE RANDOM 95 mg/dL 70-105 (BEAKER) (test code = 652) CALCIUM (BEAKER) 9.2 mg/dL 8.4-10.2 (test code = 697) EGFR (BEAKER) (test 165 mL/min/1.73 ESTIM ATED GFR IS code = 1092) sq m NOT ACCURATE CREATININE CLEARANCE IN PREDICTING GLOMERULAR FILTRATION RATE . ESTIMATED GFR I S NOT APPLICABLE FOR DIALYSIS PATIEN TS. POCT-GLUCOSE [id number] 07:42:00 Test Item Value Reference Range Interpretation Comments POC-GLUCOSE METER 103 mg/dL 70-110 TESTED AT [place] [address] ([facility] (test code = [facility] 1538) [id number] CBC W/PLT COUNT & AUTO [id number] 07:08:00 Test Item Value Reference Range Interpretation Comments WHITE BLOOD CELL COUNT (BEAKER) 11.4 K/ L 4.0-10.0 H (test code = 775) RED BLOOD CELL COUNT (BEAKER) 4.34 M/ L 4.20-5.80 (test code = 761) HEMOGLOBIN (BEAKER) (test code = 13.3 GM/DL 13.0-16.8 410) HEMATOCRIT (BEAKER) (test code = 39.4 % 40.0-50.0 L 411) MEAN CORPUSCULAR VOLUME (BEAKER) 90.7 fL 82.0-98.0 (test code = 753) MEAN CORPUSCULAR HEMOGLOBIN 30.6 pg 27.0-33.0 (BEAKER) (test code = 751) MEAN CORPUSCULAR HEMOGLOBIN CONC 33.7 GM/DL 32.0-36.0 (BEAKER) (test code = 752) RED CELL DISTRIBUTION WIDTH 12.7 % 10.3-14.2 (BEAKER) (test code = 412) PLATELET COUNT (BEAKER) (test 400 K/CU MM 150-430 code = 756) MEAN PLATELET VOLUME (BEAKER) 6.8 fL 6.5-10.5 (test code = 754) NUCLEATED RED BLOOD CELLS 0 /100 WBC 0-0 (BEAKER) (test code = 413) NEUTROPHILS RELATIVE PERCENT 70 % (BEAKER) (test code = 429) LYMPHOCYTES RELATIVE PERCENT 19 % (BEAKER) (test code = 430) MONOCYTES RELATIVE PERCENT 7 % (BEAKER) (test code = 431) EOSINOPHILS RELATIVE PERCENT 3 % (BEAKER) (test code = 432) BASOPHILS RELATIVE PERCENT 1 % (BEAKER) (test code = 437) NEUTROPHILS ABSOLUTE COUNT 8.01 K/ L 1.80-8.00 H (BEAKER) (test code = 670) LYMPHOCYTES ABSOLUTE COUNT 2.14 K/ L 1.48-4.50 (BEAKER) (test code = 414) MONOCYTES ABSOLUTE COUNT (BEAKER) 0.86 K/ L 0.00-1.30 (test code = 415) EOSINOPHILS ABSOLUTE COUNT 0.36 K/ L 0.00-0.50 (BEAKER) (test code = 416) BASOPHILS ABSOLUTE COUNT (BEAKER) 0.08 K/ L 0.00-0.20 (test code = 417) 0.00POCT-GLUCOSE [id number] 06:08:00 Test Item Value Reference Range Interpretation Comments POC-GLUCOSE METER 100 mg/dL 70-110 TESTED AT [facility] 6720 (BEAKER) (test code = [place] 1538) [id number] POCT-GLUCOSE [id number] 17:07:00 Test Item Value Reference Range Interpretation Comments POC-GLUCOSE METER 85 mg/dL 70-110 TESTED AT [place] [id number] (BEAKER) (test code = [facility] [address] 1538) POCT-GLUCOSE [id number] 12:52:00 Test Item Value Reference Range Interpretation Comments POC-GLUCOSE METER 88 mg/dL 70-110 TESTED AT [place] [address] (BEAKER) (test code = [place] [address] 1538) CBC W/PLT COUNT & AUTO [id number] 06:07:00 Test Item Value Reference Range Interpretation Comments WHITE BLOOD CELL COUNT (BEAKER) 11.7 K/ L 4.0-10.0 H (test code = 775) RED BLOOD CELL COUNT (BEAKER) 4.46 M/ L 4.20-5.80 (test code = 761) HEMOGLOBIN (BEAKER) (test code = 13.6 GM/DL 13.0-16.8 410) HEMATOCRIT (BEAKER) (test code = 40.5 % 40.0-50.0 411) MEAN CORPUSCULAR VOLUME (BEAKER) 90.8 fL 82.0-98.0 (test code = 753) MEAN CORPUSCULAR HEMOGLOBIN 30.6 pg 27.0-33.0 (BEAKER) (test code = 751) MEAN CORPUSCULAR HEMOGLOBIN CONC 33.7 GM/DL 32.0-36.0 (BEAKER) (test code = 752) RED CELL DISTRIBUTION WIDTH 12.5 % 10.3-14.2 (BEAKER) (test code = 412) PLATELET COUNT (BEAKER) (test 358 K/CU MM 150-430 code = 756) MEAN PLATELET VOLUME (BEAKER) 7.0 fL 6.5-10.5 (test code = 754) NUCLEATED RED BLOOD CELLS 0 /100 WBC 0-0 (BEAKER) (test code = 413) NEUTROPHILS RELATIVE PERCENT 69 % (BEAKER) (test code = 429) LYMPHOCYTES RELATIVE PERCENT 20 % (BEAKER) (test code = 430) MONOCYTES RELATIVE PERCENT 10 % (BEAKER) (test code = 431) EOSINOPHILS RELATIVE PERCENT 2 % (BEAKER) (test code = 432) BASOPHILS RELATIVE PERCENT 0 % (BEAKER) (test code = 437) NEUTROPHILS ABSOLUTE COUNT 8.07 K/ L 1.80-8.00 H (BEAKER) (test code = 670) LYMPHOCYTES ABSOLUTE COUNT 2.30 K/ L 1.48-4.50 (BEAKER) (test code = 414) MONOCYTES ABSOLUTE COUNT (BEAKER) 1.12 K/ L 0.00-1.30 (test code = 415) EOSINOPHILS ABSOLUTE COUNT 0.18 K/ L 0.00-0.50 (BEAKER) (test code = 416) BASOPHILS ABSOLUTE COUNT (BEAKER) 0.03 K/ L 0.00-0.20 (test code = 417) 0.00BASIC METABOLIC [id number] 06:02:00 Test Item Value Reference Range Interpretation Comments SODIUM (BEAKER) 137 meq/L 136-145 (test code = 381) POTASSIUM (BEAKER) 3.4 meq/L 3.5-5.1 L (test code = 379) CHLORIDE (BEAKER) 102 meq/L 98-107 (test code = 382) CO2 (BEAKER) (test 25 meq/L 22-29 code = 355) BLOOD UREA NITROGEN 7 mg/dL 7-21 (BEAKER) (test code = 354) CREATININE (BEAKER) 0.60 mg/dL 0.57-1.25 (test code = 358) GLUCOSE RANDOM 93 mg/dL 70-105 (BEAKER) (test code = 652) CALCIUM (BEAKER) 9.4 mg/dL 8.4-10.2 (test code = 697) EGFR (BEAKER) (test 172 mL/min/1.73 ESTIM ATED GFR IS code = 1092) sq m NOT ACCURATE CREATININE CLEARANCE IN PREDICTING GLOMERULAR FILTRATION RATE . ESTIMATED GFR I S NOT APPLICABLE FOR DIALYSIS PATIEN TS. POCT-GLUCOSE [id number] 16:11:00 Test Item Value Reference Range Interpretation Comments POC-GLUCOSE METER 90 mg/dL 70-110 TESTED AT [facility] 6720 (BEAKER) (test code = [place] [address] 1538) COMPREHENSIVE METABOLIC [id number] 07:05:00 Test Item Value Reference Range Interpretation Comments TOTAL PROTEIN 7.1 gm/dL 6.0-8.3 (BEAKER) (test code = 770) ALBUMIN (BEAKER) 3.6 g/dL 3.5-5.0 (test code = 1145) ALKALINE PHOSPHATASE 89 U/L 40-150 (BEAKER) (test code = 346) BILIRUBIN TOTAL 0.5 mg/dL 0.2-1.2 (BEAKER) (test code = 377) SODIUM (BEAKER) (test 137 meq/L 136-145 code = 381) POTASSIUM (BEAKER) 3.6 meq/L 3.5-5.1 (test code = 379) CHLORIDE (BEAKER) 103 meq/L 98-107 (test code = 382) CO2 (BEAKER) (test 25 meq/L 22-29 code = 355) BLOOD UREA NITROGEN 8 mg/dL 7-21 (BEAKER) (test code = 354) CREATININE (BEAKER) 0.62 mg/dL 0.57-1.25 (test code = 358) GLUCOSE RANDOM 98 mg/dL 70-105 (BEAKER) (test code = 652) CALCIUM (BEAKER) 9.6 mg/dL 8.4-10.2 (test code = 697) AST (SGOT) (BEAKER) 70 U/L 5-34 H (test code = 353) ALT (SGPT) (BEAKER) 119 U/L 6-55 H (test code = 347) EGFR (BEAKER) (test 165 ESTIMATE D GFR IS code = 1092) mL/min/1.73 sq NOT ACCURA TE m CREATININE CLEARANCE IN PREDICTING GLOMERULAR FILTRATION RATE . ESTIMATED GFR I S NOT APPLICABLE FOR DIALYSIS PATIEN TS. BASIC METABOLIC [id number] 07:05:00 Test Item Value Reference Range Interpretation Comments SODIUM (BEAKER) 137 meq/L 136-145 (test code = 381) POTASSIUM (BEAKER) 3.6 meq/L 3.5-5.1 (test code = 379) CHLORIDE (BEAKER) 103 meq/L 98-107 (test code = 382) CO2 (BEAKER) (test 25 meq/L 22-29 code = 355) BLOOD UREA NITROGEN 8 mg/dL 7-21 (BEAKER) (test code = 354) CREATININE (BEAKER) 0.62 mg/dL 0.57-1.25 (test code = 358) GLUCOSE RANDOM 98 mg/dL 70-105 (BEAKER) (test code = 652) CALCIUM (BEAKER) 9.6 mg/dL 8.4-10.2 (test code = 697) EGFR (BEAKER) (test 165 mL/min/1.73 ESTIM ATED GFR IS code = 1092) sq m NOT ACCURATE CREATININE CLEARANCE IN PREDICTING GLOMERULAR FILTRATION RATE . ESTIMATED GFR I S NOT APPLICABLE FOR DIALYSIS PATIEN TS. LACTIC ACID, VENOUS, WHOLE [id number] 06:38:00 Test Item Value Reference Range Interpretation Comments LACTATE BLOOD VENOUS 0.5 mmol/L 0.5-2.2 Specime n slightly (2) (BEAKER) (test hemolyzed code = 2872) Effective 10/27/2015: Units/Reference Range ChangeNew: 0.5-2.2 mmol/L Previous: 5- 20 mg/dLCBC W/PLT COUNT & AUTO [id number] 06:09:00 Test Item Value Reference Range Interpretation Comments WHITE BLOOD CELL COUNT (BEAKER) 9.8 K/ L 4.0-10.0 (test code = 775) RED BLOOD CELL COUNT (BEAKER) 4.53 M/ L 4.20-5.80 (test code = 761) HEMOGLOBIN (BEAKER) (test code = 13.8 GM/DL 13.0-16.8 410) HEMATOCRIT (BEAKER) (test code = 41.0 % 40.0-50.0 411) MEAN CORPUSCULAR VOLUME (BEAKER) 90.5 fL 82.0-98.0 (test code = 753) MEAN CORPUSCULAR HEMOGLOBIN 30.4 pg 27.0-33.0 (BEAKER) (test code = 751) MEAN CORPUSCULAR HEMOGLOBIN CONC 33.6 GM/DL 32.0-36.0 (BEAKER) (test code = 752) RED CELL DISTRIBUTION WIDTH 13.9 % 10.3-14.2 (BEAKER) (test code = 412) PLATELET COUNT (BEAKER) (test 335 K/CU MM 150-430 code = 756) MEAN PLATELET VOLUME (BEAKER) 7.1 fL 6.5-10.5 (test code = 754) NUCLEATED RED BLOOD CELLS 0 /100 WBC 0-0 (BEAKER) (test code = 413) NEUTROPHILS RELATIVE PERCENT 66 % (BEAKER) (test code = 429) LYMPHOCYTES RELATIVE PERCENT 21 % (BEAKER) (test code = 430) MONOCYTES RELATIVE PERCENT 11 % (BEAKER) (test code = 431) EOSINOPHILS RELATIVE PERCENT 1 % (BEAKER) (test code = 432) BASOPHILS RELATIVE PERCENT 1 % (BEAKER) (test code = 437) NEUTROPHILS ABSOLUTE COUNT 6.49 K/ L 1.80-8.00 (BEAKER) (test code = 670) LYMPHOCYTES ABSOLUTE COUNT 2.04 K/ L 1.48-4.50 (BEAKER) (test code = 414) MONOCYTES ABSOLUTE COUNT (BEAKER) 1.08 K/ L 0.00-1.30 (test code = 415) EOSINOPHILS ABSOLUTE COUNT 0.13 K/ L 0.00-0.50 (BEAKER) (test code = 416) BASOPHILS ABSOLUTE COUNT (BEAKER) 0.06 K/ L 0.00-0.20 (test code = 417) 0.00POCT-GLUCOSE [id number] 05:50:00 Test Item Value Reference Range Interpretation Comments POC-GLUCOSE METER 97 mg/dL 70-110 TESTED AT [place] [address] ([facility] (test code = [facility] [address] 1538) POCT-GLUCOSE [id number] 23:48:00 Test Item Value Reference Range Interpretation Comments POC-GLUCOSE METER 92 mg/dL 70-110 TESTED AT [place] [address] ([facility] (test code = [facility] [address] 1538) POCT-GLUCOSE [id number] 19:10:00 Test Item Value Reference Range Interpretation Comments POC-GLUCOSE METER 115 mg/dL 70-110 H TESTED AT [place] [address] ([facility] (test code = [facility] 1538) [id number] BLOOD GAS, [id number] 14:23:00 Test Item Value Reference Range Interpretation Comments PH ARTERIAL (BEAKER) (test code = 7.43 7.35-7.45 383) PCO2 ARTERIAL (BEAKER) (test code 42 mmHg 35-45 = 384) PO2 ARTERIAL (BEAKER) (test code = 169 mmHg 80-90 H 385) O2 SATURATION ARTERIAL (BEAKER) 99.2 % 96.0-97.0 H (test code = 386) HCO3 ARTERIAL (BEAKER) (test code 27 mmol/L 21-29 = 388) BASE EXCESS ARTERIAL (BEAKER) 2.9 mmol/L -2.0-3.0 (test code = 387) PATIENT TEMPERATURE (BEAKER) (test 37.4 C code = 1818) FIO2 (BEAKER) (test code = 1819) 21.0 % POCT-GLUCOSE [id number] 12:36:00 Test Item Value Reference Range Interpretation Comments POC-GLUCOSE METER 95 mg/dL 70-110 TESTED AT [facility] 6720 (BEAKER) (test code = [place] [address] 1538) [id number] 07:04:00 Test Item Value Reference Range Interpretation Comments MAGNESIUM (BEAKER) (test code = 2.0 mg/dL 1.6-2.6 627) BASIC METABOLIC [id number] 07:04:00 Test Item Value Reference Range Interpretation Comments SODIUM (BEAKER) 138 meq/L 136-145 (test code = 381) POTASSIUM (BEAKER) 3.5 meq/L 3.5-5.1 (test code = 379) CHLORIDE (BEAKER) 104 meq/L 98-107 (test code = 382) CO2 (BEAKER) (test 24 meq/L 22-29 code = 355) BLOOD UREA NITROGEN 8 mg/dL 7-21 (BEAKER) (test code = 354) CREATININE (BEAKER) 0.59 mg/dL 0.57-1.25 (test code = 358) GLUCOSE RANDOM 102 mg/dL 70-105 (BEAKER) (test code = 652) CALCIUM (BEAKER) 9.4 mg/dL 8.4-10.2 (test code = 697) EGFR (BEAKER) (test 175 mL/min/1.73 ESTIM ATED GFR IS code = 1092) sq m NOT ACCURATE CREATININE CLEARANCE IN PREDICTING GLOMERULAR FILTRATION RATE . ESTIMATED GFR I S NOT APPLICABLE FOR DIALYSIS PATIEN TS. CBC W/PLT COUNT & AUTO [id number] 06:33:00 Test Item Value Reference Range Interpretation Comments WHITE BLOOD CELL COUNT (BEAKER) 10.5 K/ L 4.0-10.0 H (test code = 775) RED BLOOD CELL COUNT (BEAKER) 4.54 M/ L 4.20-5.80 (test code = 761) HEMOGLOBIN (BEAKER) (test code = 13.4 GM/DL 13.0-16.8 410) HEMATOCRIT (BEAKER) (test code = 41.3 % 40.0-50.0 411) MEAN CORPUSCULAR VOLUME (BEAKER) 91.0 fL 82.0-98.0 (test code = 753) MEAN CORPUSCULAR HEMOGLOBIN 29.6 pg 27.0-33.0 (BEAKER) (test code = 751) MEAN CORPUSCULAR HEMOGLOBIN CONC 32.5 GM/DL 32.0-36.0 (BEAKER) (test code = 752) RED CELL DISTRIBUTION WIDTH 12.5 % 10.3-14.2 (BEAKER) (test code = 412) PLATELET COUNT (BEAKER) (test 333 K/CU MM 150-430 code = 756) MEAN PLATELET VOLUME (BEAKER) 7.2 fL 6.5-10.5 (test code = 754) NUCLEATED RED BLOOD CELLS 0 /100 WBC 0-0 (BEAKER) (test code = 413) NEUTROPHILS RELATIVE PERCENT 65 % (BEAKER) (test code = 429) LYMPHOCYTES RELATIVE PERCENT 20 % (BEAKER) (test code = 430) MONOCYTES RELATIVE PERCENT 14 % (BEAKER) (test code = 431) EOSINOPHILS RELATIVE PERCENT 2 % (BEAKER) (test code = 432) BASOPHILS RELATIVE PERCENT 1 % (BEAKER) (test code = 437) NEUTROPHILS ABSOLUTE COUNT 6.79 K/ L 1.80-8.00 (BEAKER) (test code = 670) LYMPHOCYTES ABSOLUTE COUNT 2.04 K/ L 1.48-4.50 (BEAKER) (test code = 414) MONOCYTES ABSOLUTE COUNT (BEAKER) 1.41 K/ L 0.00-1.30 H (test code = 415) EOSINOPHILS ABSOLUTE COUNT 0.17 K/ L 0.00-0.50 (BEAKER) (test code = 416) BASOPHILS ABSOLUTE COUNT (BEAKER) 0.06 K/ L 0.00-0.20 (test code = 417) 0.00POCT-GLUCOSE [id number] 05:58:00 Test Item Value Reference Range Interpretation Comments POC-GLUCOSE METER 97 mg/dL 70-110 TESTED AT [facility] 6720 ([facility] (test code = [place] [address] 1538) POCT-GLUCOSE [id number] 23:35:00 Test Item Value Reference Range Interpretation Comments POC-GLUCOSE METER 100 mg/dL 70-110 TESTED AT [facility] 6720 (BEAKER) (test code = [place] 1538) [id number] 18:22:00 Test Item Value Reference Range Interpretation Comments LIPASE (BEAKER) (test code = 749) 23 U/L 8-78 [id number] 18:22:00 Test Item Value Reference Range Interpretation Comments AMYLASE (BEAKER) (test code = 349) 40 U/L 25-125 COMPREHENSIVE METABOLIC [id number] 18:22:00 Test Item Value Reference Range Interpretation Comments TOTAL PROTEIN 7.4 gm/dL 6.0-8.3 (BEAKER) (test code = 770) ALBUMIN (BEAKER) 3.7 g/dL 3.5-5.0 (test code = 1145) ALKALINE PHOSPHATASE 85 U/L 40-150 (BEAKER) (test code = 346) BILIRUBIN TOTAL 0.3 mg/dL 0.2-1.2 (BEAKER) (test code = 377) SODIUM (BEAKER) (test 140 meq/L 136-145 code = 381) POTASSIUM (BEAKER) 3.7 meq/L 3.5-5.1 (test code = 379) CHLORIDE (BEAKER) 106 meq/L 98-107 (test code = 382) CO2 (BEAKER) (test 23 meq/L 22-29 code = 355) BLOOD UREA NITROGEN 9 mg/dL 7-21 (BEAKER) (test code = 354) CREATININE (BEAKER) 0.58 mg/dL 0.57-1.25 (test code = 358) GLUCOSE RANDOM 108 mg/dL 70-105 H (BEAKER) (test code = 652) CALCIUM (BEAKER) 9.5 mg/dL 8.4-10.2 (test code = 697) AST (SGOT) (BEAKER) 41 U/L 5-34 H (test code = 353) ALT (SGPT) (BEAKER) 39 U/L 6-55 (test code = 347) EGFR (BEAKER) (test 179 ESTIMATE D GFR IS code = 1092) mL/min/1.73 sq NOT ACCURA TE m CREATININE CLEARANCE IN PREDICTING GLOMERULAR FILTRATION RATE . ESTIMATED GFR I S NOT APPLICABLE FOR DIALYSIS PATIEN TS. POCT-GLUCOSE [id number] 17:57:00 Test Item Value Reference Range Interpretation Comments POC-GLUCOSE METER 106 mg/dL 70-110 TESTED AT [facility] 6720 (BEAKER) (test code = [facility] 1538) [id number] POCT-GLUCOSE [id number] 11:39:00 Test Item Value Reference Range Interpretation Comments POC-GLUCOSE METER 108 mg/dL 70-110 TESTED AT [facility] 6720 (BEAKER) (test code = [facility] E[facility]ia [facility] 1538) [address] BASIC METABOLIC [id number] 07:13:00 Test Item Value Reference Range Interpretation Comments SODIUM (BEAKER) 142 meq/L 136-145 (test code = 381) POTASSIUM (BEAKER) 4.2 meq/L 3.5-5.1 (test code = 379) CHLORIDE (BEAKER) 109 meq/L 98-107 H (test code = 382) CO2 (BEAKER) (test 24 meq/L 22-29 code = 355) BLOOD UREA NITROGEN 10 mg/dL 7-21 (BEAKER) (test code = 354) CREATININE (BEAKER) 0.57 mg/dL 0.57-1.25 (test code = 358) GLUCOSE RANDOM 107 mg/dL 70-105 H (BEAKER) (test code = 652) CALCIUM (BEAKER) 9.3 mg/dL 8.4-10.2 (test code = 697) EGFR (BEAKER) (test 182 mL/min/1.73 ESTIM ATED GFR IS code = 1092) sq m NOT ACCURATE CREATININE CLEARANCE IN PREDICTING GLOMERULAR FILTRATION RATE . ESTIMATED GFR I S NOT APPLICABLE FOR DIALYSIS PATICHEPE TS. CBC W/PLT COUNT & AUTO [id number] 06:50:00 Test Item Value Reference Range Interpretation Comments WHITE BLOOD CELL COUNT (BEAKER) 10.9 K/ L 4.0-10.0 H (test code = 775) RED BLOOD CELL COUNT (BEAKER) 4.22 M/ L 4.20-5.80 (test code = 761) HEMOGLOBIN (BEAKER) (test code = 13.1 GM/DL 13.0-16.8 410) HEMATOCRIT (BEAKER) (test code = 38.1 % 40.0-50.0 L 411) MEAN CORPUSCULAR VOLUME (BEAKER) 90.3 fL 82.0-98.0 (test code = 753) MEAN CORPUSCULAR HEMOGLOBIN 31.0 pg 27.0-33.0 (BEAKER) (test code = 751) MEAN CORPUSCULAR HEMOGLOBIN CONC 34.3 GM/DL 32.0-36.0 (BEAKER) (test code = 752) RED CELL DISTRIBUTION WIDTH 14.2 % 10.3-14.2 (BEAKER) (test code = 412) PLATELET COUNT (BEAKER) (test 273 K/CU MM 150-430 code = 756) MEAN PLATELET VOLUME (BEAKER) 7.4 fL 6.5-10.5 (test code = 754) NUCLEATED RED BLOOD CELLS 0 /100 WBC 0-0 (BEAKER) (test code = 413) NEUTROPHILS RELATIVE PERCENT 67 % (BEAKER) (test code = 429) LYMPHOCYTES RELATIVE PERCENT 17 % (BEAKER) (test code = 430) MONOCYTES RELATIVE PERCENT 15 % (BEAKER) (test code = 431) EOSINOPHILS RELATIVE PERCENT 1 % (BEAKER) (test code = 432) BASOPHILS RELATIVE PERCENT 1 % (BEAKER) (test code = 437) NEUTROPHILS ABSOLUTE COUNT 7.30 K/ L 1.80-8.00 (BEAKER) (test code = 670) LYMPHOCYTES ABSOLUTE COUNT 1.80 K/ L 1.48-4.50 (BEAKER) (test code = 414) MONOCYTES ABSOLUTE COUNT (BEAKER) 1.60 K/ L 0.00-1.30 H (test code = 415) EOSINOPHILS ABSOLUTE COUNT 0.13 K/ L 0.00-0.50 (BEAKER) (test code = 416) BASOPHILS ABSOLUTE COUNT (BEAKER) 0.08 K/ L 0.00-0.20 (test code = 417) 0.00POCT-GLUCOSE [id number] 06:26:00 Test Item Value Reference Range Interpretation Comments POC-GLUCOSE METER 116 mg/dL 70-110 H TESTED AT [facility] [address] ([facility], [place]) (test code = [facility] 1538) [id number] POCT-GLUCOSE [id number] 00:20:00 Test Item Value Reference Range Interpretation Comments POC-GLUCOSE METER 115 mg/dL 70-110 H TESTED AT [facility] [address] ([facility] [place]) (test code = [facility] 1538) [id number] POCT-GLUCOSE [id number] 18:17:00 Test Item Value Reference Range Interpretation Comments POC-GLUCOSE METER 96 mg/dL 70-110 TESTED AT [facility] [address] (BEAKER) (test code = [facility] [id number] 1538) POCT-GLUCOSE [id number] 11:23:00 Test Item Value Reference Range Interpretation Comments POC-GLUCOSE METER 129 mg/dL 70-110 H TESTED AT [facility] [address] (BEAKER) (test code = [facility] 1538) [id number] CBC W/PLT COUNT & AUTO [id number] 09:58:00 Test Item Value Reference Range Interpretation Comments WHITE BLOOD CELL COUNT (BEAKER) 17.7 K/ L 4.0-10.0 H (test code = 775) RED BLOOD CELL COUNT (BEAKER) 4.76 M/ L 4.20-5.80 (test code = 761) HEMOGLOBIN (BEAKER) (test code = 13.7 GM/DL 13.0-16.8 410) HEMATOCRIT (BEAKER) (test code = 43.1 % 40.0-50.0 411) MEAN CORPUSCULAR VOLUME (BEAKER) 90.6 fL 82.0-98.0 (test code = 753) MEAN CORPUSCULAR HEMOGLOBIN 28.8 pg 27.0-33.0 (BEAKER) (test code = 751) MEAN CORPUSCULAR HEMOGLOBIN CONC 31.8 GM/DL 32.0-36.0 L (BEAKER) (test code = 752) RED CELL DISTRIBUTION WIDTH 12.8 % 10.3-14.2 (BEAKER) (test code = 412) PLATELET COUNT (BEAKER) (test 309 K/CU MM 150-430 code = 756) MEAN PLATELET VOLUME (BEAKER) 7.3 fL 6.5-10.5 (test code = 754) NUCLEATED RED BLOOD CELLS 0 /100 WBC 0-0 (BEAKER) (test code = 413) NEUTROPHILS RELATIVE PERCENT 79 % (BEAKER) (test code = 429) LYMPHOCYTES RELATIVE PERCENT 9 % (BEAKER) (test code = 430) MONOCYTES RELATIVE PERCENT 11 % (BEAKER) (test code = 431) EOSINOPHILS RELATIVE PERCENT 1 % (BEAKER) (test code = 432) BASOPHILS RELATIVE PERCENT 0 % (BEAKER) (test code = 437) NEUTROPHILS ABSOLUTE COUNT 14.10 K/ L 1.80-8.00 H (BEAKER) (test code = 670) LYMPHOCYTES ABSOLUTE COUNT 1.55 K/ L 1.48-4.50 (BEAKER) (test code = 414) MONOCYTES ABSOLUTE COUNT (BEAKER) 1.94 K/ L 0.00-1.30 H (test code = 415) EOSINOPHILS ABSOLUTE COUNT 0.13 K/ L 0.00-0.50 (BEAKER) (test code = 416) BASOPHILS ABSOLUTE COUNT (BEAKER) 0.03 K/ L 0.00-0.20 (test code = 417) [id number](MANUAL DIFFERENTIAL)2017-01-10 09:58:00 Test Item Value Reference Range Interpretation Comments TOTAL COUNTED (BEAKER) (test code = 1351) WBC MORPHOLOGY (BEAKER) (test code = Normal 487) PLT MORPHOLOGY (BEAKER) (test code = Normal 486) RBC MORPHOLOGY (BEAKER) (test code = Normal 762) POCT-GLUCOSE [id number] 05:39:00 Test Item Value Reference Range Interpretation Comments POC-GLUCOSE METER 104 mg/dL 70-110 TESTED AT [facility] [address] (BEAKER) (test code = [place] 1538) [id number] BASIC METABOLIC [id number] 05:35:00 Test Item Value Reference Range Interpretation Comments SODIUM (BEAKER) 140 meq/L 136-145 (test code = 381) POTASSIUM (BEAKER) 4.0 meq/L 3.5-5.1 (test code = 379) CHLORIDE (BEAKER) 108 meq/L 98-107 H (test code = 382) CO2 (BEAKER) (test 20 meq/L 22-29 L code = 355) BLOOD UREA NITROGEN 7 mg/dL 7-21 (BEAKER) (test code = 354) CREATININE (BEAKER) 0.69 mg/dL 0.57-1.25 (test code = 358) GLUCOSE RANDOM 105 mg/dL 70-105 (BEAKER) (test code = 652) CALCIUM (BEAKER) 9.9 mg/dL 8.4-10.2 (test code = 697) EGFR (BEAKER) (test 146 mL/min/1.73 ESTIM ATED GFR IS code = 1092) sq m NOT ACCURATE CREATININE CLEARANCE IN PREDICTING GLOMERULAR FILTRATION RATE . ESTIMATED GFR I S NOT APPLICABLE FOR DIALYSIS PATIEN TS. POCT-GLUCOSE [id number] 01:30:00 Test Item Value Reference Range Interpretation Comments POC-GLUCOSE METER 97 mg/dL 70-110 TESTED AT [facility] [address] (BEAKER) (test code = [facility] [id number] 1538) POCT-GLUCOSE [id number] 20:48:00 Test Item Value Reference Range Interpretation Comments POC-GLUCOSE METER 96 mg/dL 70-110 TESTED AT [facility] [address] (BEAKER) (test code = [facility] [id number] 1538) RAPID DRUG SCREEN, [id number] 19:48:00 Test Item Value Reference Range Interpretation Comments BARBITURATE URINE (BEAKER) (test Negative Negative code = 725) BENZODIAZEPINE SCREEN URINE (BEAKER) Positive Negative A (test code = 726) COCAINE (METAB.) SCREEN (BEAKER) Negative Negative (test code = 1164) METHADONE SCREEN (BEAKER) (test code Negative Negative = 1436) OPIATE SCREEN URINE (BEAKER) (test Negative Negative code = 734) CANNABINOID SCREEN URINE (BEAKER) Negative Negative (test code = 727) AMPH/METHAMPH SCREEN (BEAKER) (test Negative Negative code = 1438) PHENCYCLIDINE SCREEN URINE (BEAKER) Negative Negative (test code = 608) OXYCODONE SCREEN URINE (BEAKER) Negative Negative (test code = 2761) DRUG CUTOFF CONC.Cocaine 300 ng/mL Cannabinoid 50 ng/mL Benzodiazepine 200 ng/mLBarbiturate 200 ng/mLPhencyclidine 25 ng/mLOpiate 300 ng/mLMethadone 300 ng/mLAmphetamine/ 1000 ng/mL MethamphetamineOxycodone 300 ng/mLThis assay provides an unconfirmed qualitative test result for the clinical managementof patients in emergency situations. Chain of custody not maintained. Some geqs-msv-suezdqk medications, as well as adulterants, may cause inaccurate results. Clinical correlation should be applied. A more comprehensive drug screen or confirmation of a detected drug may be performed upon request. [id number] 19:31:00 Test Item Value Reference Range Interpretation Comments MAGNESIUM (BEAKER) (test code = 1.7 mg/dL 1.6-2.6 627) POCT-GLUCOSE [id number] 18:19:00 Test Item Value Reference Range Interpretation Comments POC-GLUCOSE METER 101 mg/dL 70-110 TESTED AT [facility] 6720 (BEAKER) (test code = [place] 1538) [address] BASIC METABOLIC [id number] 16:57:00 Test Item Value Reference Range Interpretation Comments SODIUM (BEAKER) 139 meq/L 136-145 (test code = 381) POTASSIUM (BEAKER) 4.0 meq/L 3.5-5.1 (test code = 379) CHLORIDE (BEAKER) 106 meq/L 98-107 (test code = 382) CO2 (BEAKER) (test 19 meq/L 22-29 L code = 355) BLOOD UREA NITROGEN 5 mg/dL 7-21 L (BEAKER) (test code = 354) CREATININE (BEAKER) 0.72 mg/dL 0.57-1.25 (test code = 358) GLUCOSE RANDOM 94 mg/dL 70-105 (BEAKER) (test code = 652) CALCIUM (BEAKER) 9.7 mg/dL 8.4-10.2 (test code = 697) EGFR (BEAKER) (test 139 mL/min/1.73 ESTIM ATED GFR IS code = 1092) sq m NOT ACCURATE CREATININE CLEARANCE IN PREDICTING GLOMERULAR FILTRATION RATE . ESTIMATED GFR I S NOT APPLICABLE FOR DIALYSIS PATIEN TS. CBC W/PLT COUNT & AUTO [id number] 15:27:00 Test Item Value Reference Range Interpretation Comments WHITE BLOOD CELL COUNT (BEAKER) 18.2 K/ L 4.0-10.0 H (test code = 775) RED BLOOD CELL COUNT (BEAKER) 5.03 M/ L 4.20-5.80 (test code = 761) HEMOGLOBIN (BEAKER) (test code = 15.0 GM/DL 13.0-16.8 410) HEMATOCRIT (BEAKER) (test code = 45.8 % 40.0-50.0 411) MEAN CORPUSCULAR VOLUME (BEAKER) 91.0 fL 82.0-98.0 (test code = 753) MEAN CORPUSCULAR HEMOGLOBIN 29.7 pg 27.0-33.0 (BEAKER) (test code = 751) MEAN CORPUSCULAR HEMOGLOBIN CONC 32.7 GM/DL 32.0-36.0 (BEAKER) (test code = 752) RED CELL DISTRIBUTION WIDTH 12.8 % 10.3-14.2 (BEAKER) (test code = 412) PLATELET COUNT (BEAKER) (test 288 K/CU MM 150-430 code = 756) MEAN PLATELET VOLUME (BEAKER) 7.7 fL 6.5-10.5 (test code = 754) NUCLEATED RED BLOOD CELLS 0 /100 WBC 0-0 (BEAKER) (test code = 413) (MANUAL DIFFERENTIAL)2017-01-09 15:27:00 Test Item Value Reference Range Interpretation Comments NEUTROPHILS - REL (DIFF) (BEAKER) 90 % (test code = 1359) LYMPHOCYTES - REL (DIFF) (BEAKER) 7 % (test code = 1360) MONOCYTES - REL (DIFF) (BEAKER) 2 % (test code = 1361) EOSINOPHILS - REL (DIFF) (BEAKER) 1 % (test code = 1362) NEUTROPHILS - ABS (DIFF) (BEAKER) 16.38 K/ L 1.80-8.00 H (test code = 1365) LYMPHOCYTES - ABS (DIFF) (BEAKER) 1.27 K/ L 1.48-4.50 L (test code = 1366) MONOCYTES - ABS (DIFF) (BEAKER) 0.36 K/ L 0.00-1.30 (test code = 1367) EOSINOPHILS - ABS (DIFF) (BEAKER) 0.18 K/ L 0.00-0.50 (test code = 1368) TOTAL COUNTED (BEAKER) (test code 100 = 1351) WBC MORPHOLOGY (BEAKER) (test code Normal = 487) CLUMPED PLATELETS (BEAKER) (test Present code = 436) ELLIPTOCYTES (BEAKER) (test code = 1+ few 962) POIKILOCYTES (BEAKER) (test code = 1+ few 966) POCT-GLUCOSE [id number] 12:18:00 Test Item Value Reference Range Interpretation Comments POC-GLUCOSE METER 90 mg/dL 70-110 TESTED AT [facility] 6720 (BEAKER) (test code = [place] [address]) URINALYSIS W/ [id number] 10:54:00 Test Item Value Reference Range Interpretation Comments COLOR (BEAKER) (test code = 470) Red CLARITY (BEAKER) (test code = Hazy 469) SPECIFIC GRAVITY UA (BEAKER) 1.018 1.001-1.035 (test code = 468) PH UA (BEAKER) (test code = 467) 5.5 5.0-8.0 PROTEIN UA (BEAKER) (test code = 100 mg/dL Negative A 464) GLUCOSE UA (BEAKER) (test code = Negative Negative 365) KETONES UA (BEAKER) (test code = >150 mg/dL Negative A 371) BILIRUBIN UA (BEAKER) (test code Negative Negative = 462) BLOOD UA (BEAKER) (test code = Large Negative A 461) NITRITE UA (BEAKER) (test code = Negative Negative 465) LEUKOCYTE ESTERASE UA (BEAKER) Moderate Negative A (test code = 466) UROBILINOGEN UA (BEAKER) (test 3.0 mg/dL 0.2-1.0 H code = 463) RBC UA (BEAKER) (test code = 1553 /HPF 519) WBC UA (BEAKER) (test code = 23 /HPF 520) MUCUS (BEAKER) (test code = Rare 1574) SOURCE(BEAKER) (test code = Urine, Green 4652) POCT-GLUCOSE [id number] 06:40:00 Test Item Value Reference Range Interpretation Comments POC-GLUCOSE METER 87 mg/dL 70-110 TESTED AT [facility] 67[address] (BEAKER) (test code = [place] [address]) BASIC METABOLIC [id number] 04:57:00 Test Item Value Reference Range Interpretation Comments SODIUM (BEAKER) 137 meq/L 136-145 (test code = 381) POTASSIUM (BEAKER) 3.9 meq/L 3.5-5.1 (test code = 379) CHLORIDE (BEAKER) 102 meq/L 98-107 (test code = 382) CO2 (BEAKER) (test 22 meq/L 22-29 code = 355) BLOOD UREA NITROGEN 4 mg/dL 7-21 L (BEAKER) (test code = 354) CREATININE (BEAKER) 0.69 mg/dL 0.57-1.25 (test code = 358) GLUCOSE RANDOM 100 mg/dL 70-105 (BEAKER) (test code = 652) CALCIUM (BEAKER) 9.4 mg/dL 8.4-10.2 (test code = 697) EGFR ([facility] (test 146 mL/min/1.73 ESTIM ATED GFR IS code = 1092) sq m NOT ACCURATE CREATININE CLEARANCE IN PREDICTING GLOMERULAR FILTRATION RATE . ESTIMATED GFR I S NOT APPLICABLE FOR DIALYSIS PATIEN TS. POCT-GLUCOSE [id number] 00:47:00 Test Item Value Reference Range Interpretation Comments POC-GLUCOSE METER 79 mg/dL 70-110 TESTED AT [place] [address] ([facility] (test code = [facility] [address]) POCT-GLUCOSE [id number] 20:40:00 Test Item Value Reference Range Interpretation Comments POC-GLUCOSE METER 91 mg/dL 70-110 TESTED AT [place] [address] ([facility] (test code = [facility] [address]) POCT-GLUCOSE [id number] 18:31:00 Test Item Value Reference Range Interpretation Comments POC-GLUCOSE METER 70 mg/dL 70-110 TESTED AT [place] [address] ([facility] (test code = [facility] [address]38) POCT-GLUCOSE [id number] 12:56:00 Test Item Value Reference Range Interpretation Comments POC-GLUCOSE METER 90 mg/dL 70-110 TESTED AT [place] [address] ([facility] (test code = [facility] [address]) CREATINE KINASE (CK), TOTAL AND [id number] 07:42:00 Test Item Value Reference Range Interpretation Comments CREATINE KINASE TOTAL ([facility] 362 U/L 29-200 H (test code = 380) CREATINE KINASE-MB ([facility] (test 4.3 ng/mL 0.0-6.6 code = 750) CREATINE KINASE-MB INDEX ([facility] 1.2 % (test code = 395) Effective 05/12/2014: CK-MB Reference Range ChangeNew: 0.0-6.6 Previous: 0.0-4.9CK-MB Reference Range:<6.7 Normal6.7-10.0 Borderline>10.0 Abnormal TROPONIN [id number] 07:42:00 Test Item Value Reference Range Interpretation Comments TROPONIN I ([facility] (test code = 0.01 ng/mL 0.00-0.03 397) Effective 05/12/2014: Reference Range ChangeNew: 0.00-0.03 Previous 0.00- 0.15Troponin I (TnI) levelsmust be interpreted in the context of the presenting symptoms and the clinical findings. Elevated TnI levels indicate myocardial damage, but are not specific for ischemic heart disease. Elevated TnI levels are seen in patients with other cardiac conditions (including myocarditis and congestive heart failure), and slight TnI elevations occur in patients with other conditions, including sepsis, renal failure, acidosis, acute neurological disease, and persistent tachyarrhythmia.POCT-GLUCOSE [id number] 06:12:00 Test Item Value Reference Range Interpretation Comments POC-GLUCOSE METER 75 mg/dL 70-110 TESTED AT [facility] 6720 ([facility] (test code = [place] [address]) CBC W/PLT COUNT & AUTO [id number] 06:01:00 Test Item Value Reference Range Interpretation Comments WHITE BLOOD CELL COUNT (BEAKER) 8.6 K/ L 4.0-10.0 (test code = 775) RED BLOOD CELL COUNT (BEAKER) 4.34 M/ L 4.20-5.80 (test code = 761) HEMOGLOBIN (BEAKER) (test code = 12.9 GM/DL 13.0-16.8 L 410) HEMATOCRIT (BEAKER) (test code = 39.8 % 40.0-50.0 L 411) MEAN CORPUSCULAR VOLUME (BEAKER) 91.7 fL 82.0-98.0 (test code = 753) MEAN CORPUSCULAR HEMOGLOBIN 29.7 pg 27.0-33.0 (BEAKER) (test code = 751) MEAN CORPUSCULAR HEMOGLOBIN CONC 32.4 GM/DL 32.0-36.0 (BEAKER) (test code = 752) RED CELL DISTRIBUTION WIDTH 13.0 % 10.3-14.2 (BEAKER) (test code = 412) PLATELET COUNT (BEAKER) (test 192 K/CU MM 150-430 code = 756) MEAN PLATELET VOLUME (BEAKER) 9.0 fL 6.5-10.5 (test code = 754) NUCLEATED RED BLOOD CELLS 0 /100 WBC 0-0 (BEAKER) (test code = 413) NEUTROPHILS RELATIVE PERCENT 67 % (BEAKER) (test code = 429) LYMPHOCYTES RELATIVE PERCENT 22 % (BEAKER) (test code = 430) MONOCYTES RELATIVE PERCENT 8 % (BEAKER) (test code = 431) EOSINOPHILS RELATIVE PERCENT 3 % (BEAKER) (test code = 432) BASOPHILS RELATIVE PERCENT 0 % (BEAKER) (test code = 437) NEUTROPHILS ABSOLUTE COUNT 5.70 K/ L 1.80-8.00 (BEAKER) (test code = 670) LYMPHOCYTES ABSOLUTE COUNT 1.86 K/ L 1.48-4.50 (BEAKER) (test code = 414) MONOCYTES ABSOLUTE COUNT (BEAKER) 0.68 K/ L 0.00-1.30 (test code = 415) EOSINOPHILS ABSOLUTE COUNT 0.28 K/ L 0.00-0.50 (BEAKER) (test code = 416) BASOPHILS ABSOLUTE COUNT (BEAKER) 0.04 K/ L 0.00-0.20 (test code = 417) [id number] 05:37:00 Test Item Value Reference Range Interpretation Comments TRIGLYCERIDES (BEAKER) 342 mg/dL Speci men slightly (test code = 540) hemolyzed TRIGLYCERIDE REFERENCE RANGELow Risk <150Borderline Risk 150-199High Risk 200-499Very High Risk >=500HEPATIC FUNCTION [id number] 05:37:00 Test Item Value Reference Range Interpretation Comments TOTAL PROTEIN (BEAKER) 6.6 gm/dL 6.0-8.3 Speci men slightly (test code = 770) hemolyzed ALBUMIN (BEAKER) (test 3.2 g/dL 3.5-5.0 L Speci men slightly code = 1145) hemolyzed BILIRUBIN TOTAL 0.4 mg/dL 0.2-1.2 Specimen sli ghtly (BEAKER) (test code = hemoly zed 377) BILIRUBIN DIRECT 0.1 mg/dL 0.1-0.5 Specimen sl ightly (BEAKER) (test code = hemoly zed 706) ALKALINE PHOSPHATASE 90 U/L 40-150 (BEAKER) (test code = 346) AST (SGOT) (BEAKER) 27 U/L 5-34 Specimen slightly (test code = 353) hemolyzed ALT (SGPT) (BEAKER) 22 U/L 6-55 Specimen slightly (test code = 347) hemolyzed BASIC METABOLIC [id number] 05:37:00 Test Item Value Reference Range Interpretation Comments SODIUM (BEAKER) 140 meq/L 136-145 (test code = 381) POTASSIUM (BEAKER) 3.9 meq/L 3.5-5.1 Specimen slightly (test code = 379) hemolyzed CHLORIDE (BEAKER) 110 meq/L 98-107 H (test code = 382) CO2 (BEAKER) (test 20 meq/L 22-29 L code = 355) BLOOD UREA NITROGEN 4 mg/dL 7-21 L (BEAKER) (test code = 354) CREATININE (BEAKER) 0.62 mg/dL 0.57-1.25 Specimen slightly (test code = 358) hemolyzed GLUCOSE RANDOM 81 mg/dL 70-105 (BEAKER) (test code = 652) CALCIUM (BEAKER) 8.8 mg/dL 8.4-10.2 (test code = 697) EGFR (BEAKER) (test mL/min/1.73 INSUFFIC IENT CLINICAL code = 1092) sq m DATA TO CALCULA TE ESTIMATED GFR. BLOOD GAS, [id number] 05:18:00 Test Item Value Reference Range Interpretation Comments PH ARTERIAL (BEAKER) (test code = 7.45 7.35-7.45 383) PCO2 ARTERIAL (BEAKER) (test code 34 mmHg 35-45 L = 384) PO2 ARTERIAL (BEAKER) (test code 123 mmHg 80-90 H = 385) O2 SATURATION ARTERIAL (BEAKER) 98.6 % 96.0-97.0 H (test code = 386) HCO3 ARTERIAL (BEAKER) (test code 23 mmol/L 21-29 = 388) BASE EXCESS ARTERIAL (BEAKER) -0.4 mmol/L -2.0-3.0 (test code = 387) PATIENT TEMPERATURE (BEAKER) 37.0 C (test code = 1818) FIO2 (BEAKER) (test code = 1819) 30.0 % POCT-GLUCOSE [id number] 01:40:00 Test Item Value Reference Range Interpretation Comments POC-GLUCOSE METER 78 mg/dL 70-110 TESTED AT [facility] 67[address] (BEAKER) (test code = [place] [address]) [id number] 22:09:00 Test Item Value Reference Range Interpretation Comments TRIGLYCERIDES (The Personal BeeAKER) 1695 mg/dL Speci men moderately (test code = 540) hemolyzed TRIGLYCERIDE REFERENCE RANGELow Risk <150Borderline Risk 150-199High Risk 200-499Very High Risk >=500Specimen markedly lipemicLACTIC ACID, VENOUS, WHOLE [id number] 21:54:00 Test Item Value Reference Range Interpretation Comments LACTATE BLOOD VENOUS 0.4 mmol/L 0.5-2.2 L Specime n slightly (2) (AKER) (test hemolyzed code = 2872) Effective 10/27/2015: Units/Reference Range ChangeNew: 0.5-2.2 mmol/L Previous: 5- 20 mg/dLSpecimen markedly lipemicLIPID [id number] 19:05:00 Test Item Value Reference Range Interpretation Comments TRIGLYCERIDES (Giferent) (test code = 343 mg/dL 540) CHOLESTEROL (Giferent) (test code = 168 mg/dL 631) HDL CHOLESTEROL (Giferent) (test code 28 mg/dL = 976) LDL CHOLESTEROL CALCULATED ([facility] 71 mg/dL (test code = 633) Triglyceride Reference Range: Low Risk <150 Borderline 150-199 High Risk 200- 499 Very High Risk >=500Cholesterol Reference Range: Low Risk <200 Borderline 200-239 High Risk >240HDL Cholesterol Reference Range: Low Risk >=60 High Risk <40LDL Cholesterol Reference Range: Optimal <100 Near Optimal 100-129 Borderline 130-159 High 160-189 Very High >=190CREATINE KINASE (CK)2017-01-07 19:05:00 Test Item Value Reference Range Interpretation Comments CREATINE KINASE TOTAL (The Personal BeeAKER) (test 568 U/L 29-200 H code = 380) POCT-GLUCOSE [id number] 18:33:00 Test Item Value Reference Range Interpretation Comments POC-GLUCOSE METER 80 mg/dL 70-110 TESTED AT [facility] [address] ([facility] (test code = [place] [address]) POCT-GLUCOSE [id number] 12:31:00 Test Item Value Reference Range Interpretation Comments POC-GLUCOSE METER 81 mg/dL 70-110 TESTED AT [facility] 67[address] (BEAKER) (test code = [place] [address]) BASIC METABOLIC [id number] 05:30:00 Test Item Value Reference Range Interpretation Comments SODIUM (BEAKER) 141 meq/L 136-145 (test code = 381) POTASSIUM (BEAKER) 3.6 meq/L 3.5-5.1 Specimen slightly (test code = 379) hemolyzed CHLORIDE (BEAKER) 113 meq/L 98-107 H (test code = 382) CO2 (BEAKER) (test 20 meq/L 22-29 L code = 355) BLOOD UREA NITROGEN 4 mg/dL 7-21 L (BEAKER) (test code = 354) CREATININE (BEAKER) 0.62 mg/dL 0.57-1.25 Specimen slightly (test code = 358) hemolyzed GLUCOSE RANDOM 77 mg/dL 70-105 (BEAKER) (test code = 652) CALCIUM (BEAKER) 8.7 mg/dL 8.4-10.2 (test code = 697) EGFR (BEAKER) (test mL/min/1.73 INSUFFIC IENT CLINICAL code = 1092) sq m DATA TO CALCULA TE ESTIMATED GFR. BLOOD GAS, [id number] 05:28:00 Test Item Value Reference Range Interpretation Comments PH ARTERIAL (BEAKER) (test code = 7.43 7.35-7.45 383) PCO2 ARTERIAL (BEAKER) (test code 35 mmHg 35-45 = 384) PO2 ARTERIAL (BEAKER) (test code 105 mmHg 80-90 H = 385) O2 SATURATION ARTERIAL (BEAKER) 98.0 % 96.0-97.0 H (test code = 386) HCO3 ARTERIAL (BEAKER) (test code 22 mmol/L 21-29 = 388) BASE EXCESS ARTERIAL (BEAKER) -1.4 mmol/L -2.0-3.0 (test code = 387) PATIENT TEMPERATURE (BEAKER) 37.0 C (test code = 1818) FIO2 (BEAKER) (test code = 1819) 30.0 % CBC W/PLT COUNT & AUTO [id number] 04:49:00 Test Item Value Reference Range Interpretation Comments WHITE BLOOD CELL COUNT (BEAKER) 9.1 K/ L 4.0-10.0 (test code = 775) RED BLOOD CELL COUNT (BEAKER) 4.14 M/ L 4.20-5.80 L (test code = 761) HEMOGLOBIN (BEAKER) (test code = 12.8 GM/DL 13.0-16.8 L 410) HEMATOCRIT (BEAKER) (test code = 37.9 % 40.0-50.0 L 411) MEAN CORPUSCULAR VOLUME (BEAKER) 91.5 fL 82.0-98.0 (test code = 753) MEAN CORPUSCULAR HEMOGLOBIN 30.9 pg 27.0-33.0 (BEAKER) (test code = 751) MEAN CORPUSCULAR HEMOGLOBIN CONC 33.8 GM/DL 32.0-36.0 (BEAKER) (test code = 752) RED CELL DISTRIBUTION WIDTH 13.0 % 10.3-14.2 (BEAKER) (test code = 412) PLATELET COUNT (BEAKER) (test 176 K/CU MM 150-430 code = 756) MEAN PLATELET VOLUME (BEAKER) 8.3 fL 6.5-10.5 (test code = 754) NUCLEATED RED BLOOD CELLS 0 /100 WBC 0-0 (BEAKER) (test code = 413) NEUTROPHILS RELATIVE PERCENT 73 % (BEAKER) (test code = 429) LYMPHOCYTES RELATIVE PERCENT 19 % (BEAKER) (test code = 430) MONOCYTES RELATIVE PERCENT 6 % (BEAKER) (test code = 431) EOSINOPHILS RELATIVE PERCENT 2 % (BEAKER) (test code = 432) BASOPHILS RELATIVE PERCENT 0 % (BEAKER) (test code = 437) NEUTROPHILS ABSOLUTE COUNT 6.59 K/ L 1.80-8.00 (BEAKER) (test code = 670) LYMPHOCYTES ABSOLUTE COUNT 1.68 K/ L 1.48-4.50 (BEAKER) (test code = 414) MONOCYTES ABSOLUTE COUNT (BEAKER) 0.58 K/ L 0.00-1.30 (test code = 415) EOSINOPHILS ABSOLUTE COUNT 0.19 K/ L 0.00-0.50 (BEAKER) (test code = 416) BASOPHILS ABSOLUTE COUNT (BEAKER) 0.02 K/ L 0.00-0.20 (test code = 417) 0.00BASIC METABOLIC [id number] 05:13:00 Test Item Value Reference Range Interpretation Comments SODIUM (BEAKER) 147 meq/L 136-145 H (test code = 381) POTASSIUM (BEAKER) 3.9 meq/L 3.5-5.1 (test code = 379) CHLORIDE (BEAKER) 115 meq/L 98-107 H (test code = 382) CO2 (BEAKER) (test 24 meq/L 22-29 code = 355) BLOOD UREA NITROGEN 9 mg/dL 7-21 (BEAKER) (test code = 354) CREATININE (BEAKER) 0.80 mg/dL 0.57-1.25 (test code = 358) GLUCOSE RANDOM 85 mg/dL 70-105 (BEAKER) (test code = 652) CALCIUM (BEAKER) 9.2 mg/dL 8.4-10.2 (test code = 697) EGFR (BEAKER) (test mL/min/1.73 INSUFFIC IENT CLINICAL code = 1092) sq m DATA TO CALCULA TE ESTIMATED GFR. CBC W/PLT COUNT & AUTO [id number] 03:47:00 Test Item Value Reference Range Interpretation Comments WHITE BLOOD CELL COUNT (BEAKER) 8.3 K/ L 4.0-10.0 (test code = 775) RED BLOOD CELL COUNT (BEAKER) 4.51 M/ L 4.20-5.80 (test code = 761) HEMOGLOBIN (BEAKER) (test code = 13.5 GM/DL 13.0-16.8 410) HEMATOCRIT (BEAKER) (test code = 41.8 % 40.0-50.0 411) MEAN CORPUSCULAR VOLUME (BEAKER) 92.5 fL 82.0-98.0 (test code = 753) MEAN CORPUSCULAR HEMOGLOBIN 30.0 pg 27.0-33.0 (BEAKER) (test code = 751) MEAN CORPUSCULAR HEMOGLOBIN CONC 32.4 GM/DL 32.0-36.0 (BEAKER) (test code = 752) RED CELL DISTRIBUTION WIDTH 13.1 % 10.3-14.2 (BEAKER) (test code = 412) PLATELET COUNT (BEAKER) (test 188 K/CU MM 150-430 code = 756) MEAN PLATELET VOLUME (BEAKER) 8.5 fL 6.5-10.5 (test code = 754) NUCLEATED RED BLOOD CELLS 0 /100 WBC 0-0 (BEAKER) (test code = 413) NEUTROPHILS RELATIVE PERCENT 67 % (BEAKER) (test code = 429) LYMPHOCYTES RELATIVE PERCENT 22 % (BEAKER) (test code = 430) MONOCYTES RELATIVE PERCENT 9 % (BEAKER) (test code = 431) EOSINOPHILS RELATIVE PERCENT 2 % (BEAKER) (test code = 432) BASOPHILS RELATIVE PERCENT 0 % (BEAKER) (test code = 437) NEUTROPHILS ABSOLUTE COUNT 5.52 K/ L 1.80-8.00 (BEAKER) (test code = 670) LYMPHOCYTES ABSOLUTE COUNT 1.80 K/ L 1.48-4.50 (BEAKER) (test code = 414) MONOCYTES ABSOLUTE COUNT (BEAKER) 0.78 K/ L 0.00-1.30 (test code = 415) EOSINOPHILS ABSOLUTE COUNT 0.14 K/ L 0.00-0.50 (BEAKER) (test code = 416) BASOPHILS ABSOLUTE COUNT (BEAKER) 0.03 K/ L 0.00-0.20 (test code = 417) [id number] 05:13:00 Test Item Value Reference Range Interpretation Comments ETHANOL (BEAKER) (test code = 400) < mg/dL <=10 BASIC METABOLIC [id number] 04:59:00 Test Item Value Reference Range Interpretation Comments SODIUM (BEAKER) 146 meq/L 136-145 H (test code = 381) POTASSIUM (BEAKER) 3.7 meq/L 3.5-5.1 (test code = 379) CHLORIDE (BEAKER) 111 meq/L 98-107 H (test code = 382) CO2 (BEAKER) (test 23 meq/L 22-29 code = 355) BLOOD UREA NITROGEN 14 mg/dL 7-21 (BEAKER) (test code = 354) CREATININE (BEAKER) 0.90 mg/dL 0.57-1.25 (test code = 358) GLUCOSE RANDOM 94 mg/dL 70-105 (BEAKER) (test code = 652) CALCIUM (BEAKER) 9.2 mg/dL 8.4-10.2 (test code = 697) EGFR (BEAKER) (test mL/min/1.73 INSUFFIC IENT CLINICAL code = 1092) sq m DATA TO CALCULA TE ESTIMATED GFR. CREATINE KINASE (CK)2017-01-05 04:58:00 Test Item Value Reference Range Interpretation Comments CREATINE KINASE TOTAL (BEAKER) (test 729 U/L 29-200 H code = 380) CBC W/PLT COUNT & AUTO [id number] 04:57:00 Test Item Value Reference Range Interpretation Comments WHITE BLOOD CELL COUNT (BEAKER) 11.4 K/ L 4.0-10.0 H (test code = 775) RED BLOOD CELL COUNT (BEAKER) 4.41 M/ L 4.20-5.80 (test code = 761) HEMOGLOBIN (BEAKER) (test code = 13.8 GM/DL 13.0-16.8 410) HEMATOCRIT (BEAKER) (test code = 40.0 % 40.0-50.0 411) MEAN CORPUSCULAR VOLUME (BEAKER) 90.7 fL 82.0-98.0 (test code = 753) MEAN CORPUSCULAR HEMOGLOBIN 31.3 pg 27.0-33.0 (BEAKER) (test code = 751) MEAN CORPUSCULAR HEMOGLOBIN CONC 34.5 GM/DL 32.0-36.0 (BEAKER) (test code = 752) RED CELL DISTRIBUTION WIDTH 14.2 % 10.3-14.2 (BEAKER) (test code = 412) PLATELET COUNT (BEAKER) (test 217 K/CU MM 150-430 code = 756) MEAN PLATELET VOLUME (BEAKER) 8.6 fL 6.5-10.5 (test code = 754) NUCLEATED RED BLOOD CELLS 0 /100 WBC 0-0 (BEAKER) (test code = 413) NEUTROPHILS RELATIVE PERCENT 62 % (BEAKER) (test code = 429) LYMPHOCYTES RELATIVE PERCENT 27 % (BEAKER) (test code = 430) MONOCYTES RELATIVE PERCENT 9 % (BEAKER) (test code = 431) EOSINOPHILS RELATIVE PERCENT 1 % (BEAKER) (test code = 432) BASOPHILS RELATIVE PERCENT 0 % (BEAKER) (test code = 437) NEUTROPHILS ABSOLUTE COUNT 7.06 K/ L 1.80-8.00 (BEAKER) (test code = 670) LYMPHOCYTES ABSOLUTE COUNT 3.09 K/ L 1.48-4.50 (BEAKER) (test code = 414) MONOCYTES ABSOLUTE COUNT (BEAKER) 1.06 K/ L 0.00-1.30 (test code = 415) EOSINOPHILS ABSOLUTE COUNT 0.11 K/ L 0.00-0.50 (BEAKER) (test code = 416) BASOPHILS ABSOLUTE COUNT (BEAKER) 0.05 K/ L 0.00-0.20 (test code = 417) 0.00PHENYTOIN LEVEL, [id number] 00:04:00 Test Item Value Reference Range Interpretation Comments PHENYTOIN (DILANTIN) (BEAKER) (test 7.3 ug/mL 10.0-20.0 L code = 605) TROPONIN [id number] 00:04:00 Test Item Value Reference Range Interpretation Comments TROPONIN I (BEAKER) (test code = 397) < ng/mL 0.00-0.03 Effective 05/12/2014: Reference Range ChangeNew: 0.00-0.03 Previous 0.00- 0.15Troponin I (TnI) levelsmust be interpreted in the context of the presenting symptoms and the clinical findings. Elevated TnI levels indicate myocardial damage, but are not specific for ischemic heart disease. Elevated TnI levels are seen in patients with other cardiac conditions (including myocarditis and congestive heart failure), and slight TnI elevations occur in patients with other conditions, including sepsis, renal failure, acidosis, acute neurological disease, and persistent tachyarrhythmia.URINALYSIS W/ [id number] 00:00:00 Test Item Value Reference Range Interpretation Comments COLOR (BEAKER) (test code = 470) Yellow CLARITY (BEAKER) (test code = 469) Cloudy SPECIFIC GRAVITY UA (BEAKER) (test 1.010 1.001-1.035 code = 468) PH UA (BEAKER) (test code = 467) 6.0 5.0-8.0 PROTEIN UA (BEAKER) (test code = Negative Negative 464) GLUCOSE UA (BEAKER) (test code = Negative Negative 365) KETONES UA (BEAKER) (test code = Negative Negative 371) BILIRUBIN UA (BEAKER) (test code = Negative Negative 462) BLOOD UA (BEAKER) (test code = 461) Small Negative A NITRITE UA (BEAKER) (test code = Negative Negative 465) LEUKOCYTE ESTERASE UA (BEAKER) Negative Negative (test code = 466) UROBILINOGEN UA (BEAKER) (test code 0.2 mg/dL 0.2-1.0 = 463) RBC UA (BEAKER) (test code = 519) 12 /HPF WBC UA (BEAKER) (test code = 520) 0 /HPF URIC ACID CRYSTALS (BEAKER) (test Many code = 1583) SOURCE(BEAKER) (test code = 2795) COMPREHENSIVE METABOLIC [id number] 00:00:00 Test Item Value Reference Range Interpretation Comments TOTAL PROTEIN 6.9 gm/dL 6.0-8.3 (BEAKER) (test code = 770) ALBUMIN (BEAKER) 3.9 g/dL 3.5-5.0 (test code = 1145) ALKALINE PHOSPHATASE 73 U/L 40-150 (BEAKER) (test code = 346) BILIRUBIN TOTAL 0.6 mg/dL 0.2-1.2 (BEAKER) (test code = 377) SODIUM (BEAKER) 141 meq/L 136-145 (test code = 381) POTASSIUM (BEAKER) 3.7 meq/L 3.5-5.1 (test code = 379) CHLORIDE (BEAKER) 111 meq/L 98-107 H (test code = 382) CO2 (BEAKER) (test 19 meq/L 22-29 L code = 355) BLOOD UREA NITROGEN 14 mg/dL 7-21 (BEAKER) (test code = 354) CREATININE (BEAKER) 0.83 mg/dL 0.57-1.25 (test code = 358) GLUCOSE RANDOM 111 mg/dL 70-105 H (BEAKER) (test code = 652) CALCIUM (BEAKER) 8.7 mg/dL 8.4-10.2 (test code = 697) AST (SGOT) (BEAKER) 41 U/L 5-34 H (test code = 353) ALT (SGPT) (BEAKER) 36 U/L 6-55 (test code = 347) EGFR (BEAKER) (test mL/min/1.73 INSUFFIC IENT code = 1092) sq m CLINICAL DATA T O CALCULATE ESTIM ATED GFR. PROTHROMBIN TIME/[id number] 23:48:00 Test Item Value Reference Range Interpretation Comments PROTIME (BEAKER) (test code = 13.6 seconds 11.7-14.7 759) INR (BEAKER) (test code = 370) 1.1 <=5.9 RECOMMENDED COUMADIN/WARFARIN INR THERAPY RANGESSTANDARD DOSE: 2.0 - 3.0 Includes: PROPHYLAXIS for venous thrombosis, systemic embolization; TREATMENT for venous thrombosis and/or pulmonary embolus.HIGH RISK: Target INR is 2.5-3.5 for patients with mechanical heart valves.[id number] 23:48:00 Test Item Value Reference Range Interpretation Comments PARTIAL THROMBOPLASTIN TIME 24.1 seconds 22.5-36.0 (BEAKER) (test code = 760) BLOOD GAS, [id number] 23:47:00 Test Item Value Reference Range Interpretation Comments PH ARTERIAL (BEAKER) (test code = 7.47 7.35-7.45 H 383) PCO2 ARTERIAL (BEAKER) (test code 31 mmHg 35-45 L = 384) PO2 ARTERIAL (BEAKER) (test code 162 mmHg 80-90 H = 385) O2 SATURATION ARTERIAL (BEAKER) 99.2 % 96.0-97.0 H (test code = 386) HCO3 ARTERIAL (BEAKER) (test code 22 mmol/L 21-29 = 388) BASE EXCESS ARTERIAL (BEAKER) -1.1 mmol/L -2.0-3.0 (test code = 387) PATIENT TEMPERATURE (BEAKER) 36.3 C (test code = 1818) FIO2 (BEAKER) (test code = 1819) 30.0 % PLATELET [id number] 23:39:00 Test Item Value Reference Range Interpretation Comments PLATELET COUNT (BEAKER) (test 236 K/CU MM 150-430 code = 756)
[2022-03-20] MEDS ORDERED: hydrOXYzine HCL 25 MG TAB ONE (12:35)
--- NOTE | 2022-03-20 12:46 | RAD REPORT ---
EXAM DESCRIPTION: US - Scrotum Testicles - 03/20/2022 12:36 pm CLINICAL HISTORY: ABD PAIN COMPARISON: No comparisons FINDINGS: Testicular tissue is homogeneous with no mass or focal intratesticular abnormality. Dopple r assessment was performed in shows normal, symmetric intratesticular blood flow. No epididymal enlargement or hyperemia. A small 3 mm incidental left epididymal cyst is present. No hydrocele, hernia or other extratesticular abnormality. IMPRESSION: Scrotal ultrasound study shows no significant or suspicious finding.
--- NOTE | 2022-03-20 12:52 | EDPHYS ---
Physician Documentation [facility] Name: Jose Pabon Age: 27 yrs Sex: Male : 1995 Arrival Date: 03/20/2022 Time: 11:53 Bed 15 Private MD: ED Physician Eyad Meier HPI: 03/20 12:20 This 27 yrs old Male presents to ER via EMS with complaints of abdominal and snw right testicular pain. 12:20 The patient presents with abdominal pain right lower quadrant. Onset: The snw symptoms/episode began/occurred acutely. The symptoms radiate to groin and right femoral area. Associated signs and symptoms: Pertinent positives: nausea, vomiting, and diarrhea. The symptoms are described as constant. Severity of pain: At its worst the pain was moderate. It is unknown whether or not the patient has had similar symptoms in the past. The patient has not recently seen a physician. hx of schizophrenia. Historical: - Allergies: 12:00 UNKNOWN; ph - Home Meds: 13:06 Pt does not know names of medication. [Active]; db - PMHx: 12:00 Anxiety; Schizophrenia; ph - Immunization history:: Adult Immunizations unknown. - Social history:: Smoking status: unknown. ROS: 12:22 Eyes: Negative for injury, pain, redness, and discharge, ENT: Negative for injury, snw pain, and discharge, Neck: Negative for injury, pain, and swelling, Cardiovascular: Negative for chest pain, palpitations, and edema, Respiratory: Negative for shortness of breath, cough, wheezing, and pleuritic chest pain. 12:22 Back: Negative for injury and pain, MS/Extremity: Negative for injury and deformity, Skin: Negative for injury, rash, and discoloration, Neuro: Negative for headache, weakness, numbness, tingling, and seizure, Psych: Negative for depression, anxiety, suicide ideation, homicidal ideation, and hallucinations. 12:22 Constitutional: Positive for malaise, poor PO intake. 12:22 Abdomen/GI: Positive for abdominal pain, nausea, vomiting, and diarrhea. 12:22 : Positive for right groin pain. Exam: 12:22 Head/Face: Normocephalic, atraumatic. Eyes: Pupils equal round and reactive to light, snw extra-ocular motions intact. Lids and lashes normal. Conjunctiva and sclera are non-icteric and not injected. Cornea within normal limits. Periorbital areas with no swelling, redness, or edema. ENT: Nares patent. No nasal discharge, no septal abnormalities noted. Tympanic membranes are normal and external auditory canals are clear. Oropharynx with no redness, swelling, or masses, exudates, or evidence of obstruction, uvula midline. Mucous membranes moist. Neck: Trachea midline, no thyromegaly or masses palpated, and no cervical lymphadenopathy. Supple, full range of motion without nuchal rigidity, or vertebral point tenderness. No Meningismus. Chest/axilla: Normal chest wall appearance and motion. Nontender with no deformity. No lesions are appreciated. Cardiovascular: Regular rate and rhythm with a normal S1 and S2. No gallops, murmurs, or rubs. Normal PMI, no JVD. No pulse deficits. Respiratory: Lungs have equal breath sounds bilaterally, clear to auscultation and percussion. No rales, rhonchi or wheezes noted. No increased work of breathing, no retractions or nasal flaring. 12:22 Back: No spinal tenderness. No costovertebral tenderness. Full range of motion. Skin: Warm, dry with normal turgor. Normal color with no rashes, no lesions, and no evidence of cellulitis. MS/ Extremity: Pulses equal, no cyanosis. Neurovascular intact. Full, normal range of motion. Neuro: Awake and alert, GCS 15, oriented to person, place, time, and situation. Cranial nerves II-XII grossly intact. Motor strength 5/5 in all extremities. Sensory grossly intact. Cerebellar exam normal. Normal gait. Psych: Awake, alert, with orientation to person, place and time. Behavior, mood, and affect are within normal limits. 12:22 Constitutional: The patient appears alert, anxious, uncomfortable. 12:22 Abdomen/GI: Bowel sounds: normal, Palpation: moderate abdominal tenderness, in the right lower quadrant. Vital Signs: 11:53 BP 128 / 91; Pulse 96; Resp 18; Temp 98.4; Pulse Ox 100% on R/A; ph 12:27 BP 133 / 87; Pulse 83; Resp 16; Pulse Ox 100% ; db 13:00 BP 131 / 85; Pulse 90; Resp 18; Temp 98; Pulse Ox 100% ; db MDM: 12:04 Patient medically screened. snw 12:23 Data reviewed: vital signs, nurses notes. Data interpreted: Pulse oximetry: on room air snw is 100 %. Interpretation: normal. Counseling: I had a detailed discussion with the patient and/or guardian regarding: the historical points, exam findings, and any diagnostic results supporting the discharge/admit diagnosis. 03/20 12:14 Order name: US Scrotum Testicles; Complete Time: 12:50 snw Administered Medications: 12:35 Drug: hydrOXYzine 50 mg Route: PO; db 13:00 Follow up: Response: No adverse reaction db Disposition: 03/21 08:31 Co-signature as Attending Physician, Eyad Meier DO I was immediately available on-site ms3 in the Emergency Department for consultation in the care of the patient. . Disposition Summary: 03/20/22 12:51 Discharge Ordered Location: Home snw Condition: Stable snw Diagnosis - Abdominal pain, unspecified snw - Diarrhea, unspecified snw Followup: snw - With: Emergency Department - When: As needed - Reason: Worsening of condition Followup: snw - With: Private Physician - When: 2 - 3 days - Reason: Recheck today's complaints, Continuance of care, Re-evaluation by your physician Discharge Instructions: - Discharge Summary Sheet snw - Abdominal Pain, Adult snw - Food Choices to Help Relieve Diarrhea, Adult snw - Diarrhea, Adult snw - Pelvic Pain, Male snw Forms: - Medication Reconciliation Form snw - Thank You Letter snw - Antibiotic Education snw - Prescription Opioid Use snw Prescriptions: - Hydroxyzine HCl 25 mg Oral Tablet - take 1 tablet by ORAL route every 6 hours As needed; 12 tablet; Refills: 0, snw Product Selection Permitted Signatures: Dispatcher [employer] Hermleinda Magaña FNP-C [employer]-Csnw Mandy Kong RN RN Eyad Melgar DO DO ms3 Donna Bates RN RN db
--- NOTE | 2022-03-20 12:52 | ER ---
Nurse's Notes [facility] Name: Jose Pabon Age: 27 yrs Sex: Male : 1995 Arrival Date: 03/20/2022 Time: 11:53 Bed 15 Private MD: Diagnosis: Abdominal pain, unspecified;Diarrhea, unspecified Presentation: 03/20 11:53 Chief complaint: EMS states: PT called EMS for testicular pain, mother on scene ph reported that pt has been acting anxious, pacing and talking to himself, has been to mental health facility in the past, pt reports hx of insomnia and anxiety, EMS reported that he was talking angrily to himself during transport, denies SI, has difficulty answering triage questions, requires repeated prompting. HR sinus tach for EMS. Coronavirus screen: Vaccine status: Patient reports being unvaccinated. Ebola Screen: No symptoms or risks identified at this time. Initial Sepsis Screen: Does the patient meet any 2 criteria? No. Patient's initial sepsis screen is negative. Does the patient have a suspected source of infection? No. Patient's initial sepsis screen is negative. Risk Assessment: Do you want to hurt yourself or someone else? Patient reports no desire to harm self or others. Onset of symptoms was March 20, 2022. 11:53 Method Of Arrival: EMS: [facility] 11:53 Acuity: ROBY 2 ph Triage Assessment: 12:00 General: Appears in no apparent distress. Behavior is agitated. ph Historical: - Allergies: 12:00 UNKNOWN; ph - Home Meds: 13:06 Pt does not know names of medication. [Active]; db - PMHx: 12:00 Anxiety; Schizophrenia; ph - Immunization history:: Adult Immunizations unknown. - Social history:: Smoking status: unknown. Screenin:28 Abuse screen: Denies threats or abuse. Denies injuries from another. Nutritional db screening: No deficits noted. Tuberculosis screening: No symptoms or risk factors identified. Fall Risk None identified. Assessment: 12:27 Reassessment: Patient appears in no apparent distress at this time. No changes from db previously documented assessment. Patient is alert, oriented x 3, equal unlabored respirations, skin warm/dry/pink. General: Appears. Pain: Complains of pain in groin, right testicular pain. Neuro: No deficits noted. Cardiovascular: No deficits noted. Respiratory: No deficits noted. GI: No deficits noted. : No deficits noted. EENT: No deficits noted. Derm: No deficits noted. Musculoskeletal: No deficits noted. 12:44 Reassessment: Patient refused lab work and IV stick. Patient states "I am paranoid db right now". Notified provider. Vital Signs: 11:53 BP 128 / 91; Pulse 96; Resp 18; Temp 98.4; Pulse Ox 100% on R/A; ph 12:27 BP 133 / 87; Pulse 83; Resp 16; Pulse Ox 100% ; db 13:00 BP 131 / 85; Pulse 90; Resp 18; Temp 98; Pulse Ox 100% ; db ED Course: 11:53 Patient arrived in ED. ph 11:55 Hermelinda Hatfield [facility]C [facility] snw 11:55 Eyad Meier DO is Attending Physician. snw 11:59 Triage completed. ph 12:26 Donna Bates, RN is Primary Nurse. db 12:28 Patient has correct armband on for positive identification. Call light in reach. Side db rails up X 1. 12:28 Patient placed in an exam room, Patient notified of wait time. db 12:41 US Scrotum Testicles In Process Unspecified. EDMS 13:04 No provider procedures requiring assistance completed. Patient did not have IV access db during this emergency room visit. 13:06 ultrasound. db Administered Medications: 12:35 Drug: hydrOXYzine 50 mg Route: PO; db 13:00 Follow up: Response: No adverse reaction db Medication: 12:28 VIS not applicable for this client. db Outcome: 12:51 Discharge ordered by . snw 13:05 Discharged to home ambulatory. db 13:05 Condition: stable 13:05 Discharge instructions given to patient, Instructed on discharge instructions, Demonstrated understanding of instructions, follow-up care, medications, Prescriptions given X 1. 13:08 Patient left the ED. db Signatures: Dispatcher [employer] EDMS Hermelinda Hatfield FNP-C FNP-Mandy Rivas RN RN ph Donna Bates, RN RN db
[2022-03-22 17:55] VITALS: O2SAT 100
[2022-03-22 18:20] VITALS: BP 131/85; TEMP 98
== END 2022-03-20 13:08 | disposition home or self-care (01) ==
LOC: ER 11:47
DX: R10.31 Right lower quadrant pain (principal); R19.7 Diarrhea, unspecified
CPT/HCPCS: 76870; 99284

== ENCOUNTER 2022-07-29 20:40 | Emergency (ER) | payer OTHER ==
--- OUTSIDE RECORDS SUMMARY | 2022-07-29 20:49 | XMS REPORT | Continuity of Care Document ---
:[address] [facility] t Address [address] [place] [address] Care Team Providers Name Role Phone JAZ JOHNSON Primary Care Physician Unavailable Jackelyn Kohli Attending Clinician Unavailable JOHN CAPONE Attending Clinician Unavailable Only, Ang Db Test Attending Clinician Unavailable Barby Sebastian Attending Clinician BARBY JOHNSON Attending Clinician Unavailable Doctor Unassigned, [place] Attending Clinician Unavailable Pcp, Patient Does Not Have A Attending Clinician [phone] Emily Castro Attending Clinician Lab, Adc [...] Date Expiration Date Kari ALVARENGA COMM STAR [id number] 2017 00:00:00 PLAN Problems Condition Condition Condition Status Onset Resolution Last Treating Co mments Source Name Details Category Date Date Treatment Clinician Date Elevated Elevated Disease Active [facility] liver 07[facility]17 [facility] enzymes enzymes 00:00: t & Plan: [facility] g of this note might be [...] Medic al due to due to 00 [facility] excess excess g of this calories [...] important 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 Immunity Immunity Disease Active Last [facility] status status 1-23 Catia Maxwell testing testing 00:00: t & Plan: Medic al [address] [place] [address] g of this note might be different from the original. All patients with chronic liver disease, regardles s of etiology, should be immunized to prevent hepatitis A and hepatitis B if they are not already immune. We will test for immunity to both viruses and vaccine recommend ations will follow. Fatty Fatty Disease Active [facility] liver liver 07-17 Assesspaty Maxwell 00:00: t & Plan: Medical [address] [place] [address] g of this note might be different from the original. Patient is known to have fatty liver based on ultrasoun d and CT abdomen from March and [facility]. He has morbid obesity and hyperlipi demia [...] gastric sleeve surgery. Other Other Disease Active [facility]: t & Plan: Medical [address] [place] [address] g of this note might be different [...] (BMI 4-13 ity of 30-39.9) 30-39.9) 00:00: [place] [address] [place] Altered Altered Disease Active Univers mental mental 8-22 ity of status status 00:00: [address] [id number] Essential Problem Active Comm on (primary) Spirit hypertensi - [facility] [id number] Gastroesop Problem Active Co mmon hageal Spirit reflux - [facility] disease [facility] esophagiti [facility] [id number] Hypercalce Problem Active Com mon johnny Spirit - [facility] Allergies, Adverse Reactions, Alerts Allergy Allergy Status Severity Reaction(s) Onset Inactive Treating Comm ents Source Name Type Date Date Clinician NO KNOWN Drug Active Univers ALLERGIE Class ity of [facility] NO KNOWN Allergy Active [facility] ALLERGIE [facility] Family History Family Member Diagnosis Comments Start Date Stop Date Source Natural mother Diabetes [facility] Natural sister Hepatomegaly [facility] Social History Social Habit Start Date Stop Date Quantity Comments Source History of Tobacco Current Smoker Co mmon Spirit - Use [facility] Exposure to Yes University of SARS-CoV-2 (event) [facility] History [facility] Alcohol Binge Medical Padmini ter History [facility] Alcohol Comment Medical C enter History [facility] Alcohol Std Drinks [facility] Alcohol intake 2020-04-05 2020-04-05 [facility]:00 non-drinker of Medical Ce nter alcohol (finding) Cigarette 2019-12-29 2019-12-29 [facility] of pack-years 00:00:00 00:00:00 Medicine Tobacco Comment 2018-12-04 2018-12-04 quit [address] [facility] [address] Rhonda kes 00:00:00 00:00:00 [facility] Cigarettes smoked 2018-07-17 2018-07-17 [facility] (pack per 00:00:00 00:00:00 Medical Center day) - Reported Tobacco use and 2018-07-17 2018-07-17 Never used [facility]es exposure 00:00:00 00:00:00 Medical Center History SDOH 2018-07-17 2018-07-[address] [facility] Alcohol Frequency 00:00:00 00:00:00 [facility] Sex Assigned At 1995 [address] [facility] [address] Rh[facility] kes 00:00:00 00:00:00 Medical Center Smoking Status Start Date Stop Date Source Current Smoker 2022 00:00:00 Common Sp[facility] t - [facility] Medical Ce nter Light tobacco smoker 2019-12-29 00:00:00 [facility] Unknown if ever smoked [facility] Former smoker 2018-07-17 00:00:00 2018-07-17 00:00:00 [facility] Medications Ordered Filled Start Stop Current Ordering Indication Dosage Frequency Signature Comments Components Source Medication Medication Date Date Medication? Clinician (SIG) Name Name Pristiq 25 Pristiq 25 2021-0 No 1{table QD Pristiq 25 MG MG 8-03 t} MG 00:00: 00 Pristiq 25 Pristiq 25 2021-0 No 1{table QD Pristiq 25 MG MG 8-03 t} MG 00:00: 00 Lisinopril Lisinopril 2021-0 No 1{table QD Lisinopril 10 MG 10 MG 8-03 t} 10 MG 00:00: 00 Lisinopril Lisinopril 2021-0 No 1{table QD Lisinopril 10 MG 10 MG 8-03 t} 10 MG 00:00: 00 Pristiq 25 Pristiq 25 2021-0 No 1{table QD Pristiq 25 MG MG 8-03 t} MG 00:00: 00 Loratadine Loratadine 2-0 2022- No 1{table QD Loratadine 10 MG 10 MG 12-13 t} 10 MG 00:00: 00:00 00 :00 Loratadine Loratadine 2021-0 2022- No 1{table QD Loratadine 10 MG 10 MG 12-13 t} 10 MG 00:00: 00:00 00 :00 Benzonatate Benzonatate 2022-0 2022- No 1{capsu Benzonatat 200 MG 200 MG 12-13 le} e 200 MG 00:00: 00:00 00 :00 Benzonatate Benzonatate 2022-0 2022- No 1{capsu Benzonatat 200 MG 200 MG 12-13 le} e 200 MG 00:00: 00:00 00 :00 Ondansetron Ondansetron 2022-0 No 1{table Ondansetro HCl 4 MG HCl 4 MG 3-30 t} n HCl 4 MG 00:00: 00 Ondansetron Ondansetron 2022-0 No 1{table Ondansetro HCl 4 MG HCl 4 MG 3-30 t} n HCl 4 MG 00:00: 00 Ondansetron Ondansetron No 1{table Ondansetro HCl 4 MG HCl 4 MG 3-30 t} n HCl 4 MG 00:00: 00 Ondansetron Ondansetron 0 No 1{table Ondansetro HCl 4 MG HCl 4 MG 3-30 t} n HCl 4 MG 00:00: 00 Ondansetron Ondansetron No 1{table Ondansetro HCl 4 MG HCl 4 MG 3-30 t} n HCl 4 MG 00:00: 00 predniSONE predniSONE No 2{table QD predniSONE 20 MG 20 MG 3-11 t} 20 MG 00:00: 00 predniSONE predniSONE No 2{table QD predniSONE 20 MG 20 MG 3-11 t} 20 MG 00:00: 00 Loratadine Loratadine 2021- No 1{table QD Loratadine 10 MG 10 MG 3-11 04-10 t} 10 MG 00:00: 00:00 00 :00 Loratadine Loratadine 2021- No 1{table QD Loratadine 10 MG 10 MG 3-11 04-10 t} 10 MG 00:00: 00:00 00 :00 guaiFENesin guaiFENesin 2021- No 1{table BID guaiFENesi ER 600 MG ER 600 MG 09-0216 t_as_ne n ER 600 00:00: 00:00 eded} MG 00 :00 omeprazole 2019-06- No 40mg QD Take [address] (PriLOSEC) 012 -12 capsule [facility] 40 MG 00:00: 23:59 (40 mg Medical capsule 00 :00 total) by Center mouth daily. iohexol 2019- No 120mL 120 mL, Unive rs (OMNIPAQUE 12-20 Intravenou it y of 350 02:00: 01:39 s, ONCE, 1 [place] BULK-100 00 :00 dose, Sat Medica l mL) 12/20/19 at Branch injection 2100, 120 mL Routine ondansetron 2019- No 4mg 4 mg, Slow Univers (ZOFRAN 12-20 IV Push, ity of (PF)) 01:30: 00:49 ONCE, 1 [place] injection 4 00 :00 dose, Sat Med ical mg 12/20/19 at Branch 2030, Routine dicyclomine 2020-0 Yes 10mg 10 mg, Univ ers (BENTYL) 6-28 Oral, QID, ity o f capsule 10 01:00: First dose [place] mg 00 on Sat Medical 12/20/19 at Branch 2000, Until Discontinu ed, Routine NaCl 0.9% 2020-0 2020- No 500mL at 999 Univ ers (NS) bolus - 06-28 mL/hr, 500 it y of infusion 00:30: 01:20 mL, IV [place] 500 mL 00 :00 Infusion, Medical ONCE, 1 Branch dose, 12/20/19 at 1930, STAT sucralfate 2020-0 Yes 1mL Take 1 mL [facility] (CARAFATE) 12-20 by mouth Colle ge 1 GM/10ML 00:00: daily. of suspension 00 Medicin e sucralfate 2020-0 Yes [id number] 1000mg Take 10 mL Univers (CARAFATE) 6-27 by mouth ity o f 100 mg/mL 00:00: before [place] suspension 00 meals and Medi connie at [place] bedtime. sucralfate 2020-0 Yes [id number] 1000mg Take 10 mL Univers (CARAFATE) 6-27 by mouth ity o f 100 mg/mL 00:00: before [place] suspension 00 meals and Medi connie at [place] bedtime. sucralfate 2020-0 Yes [id number] 1000mg Take 10 mL Univers (CARAFATE) 6-27 by mouth ity o f 100 mg/mL 00:00: before [place] suspension 00 meals and Medi connie at [place] bedtime. sucralfate 2020-0 Yes [id number] 1000mg Take 10 mL Univers (CARAFATE) 6-27 by mouth ity o f 100 mg/mL 00:00: before [place] suspension 00 meals and Medi connie at [place] bedtime. sucralfate 2020-0 Yes [id number] 1000mg Take 10 mL Univers (CARAFATE) 6-27 by mouth ity o f 100 mg/mL 00:00: before [place] suspension 00 meals and Medi connie at Branch bedtime. sucralfate 2020-0 Yes [id number] 1000mg Take 10 mL Univers (CARAFATE) 6-27 by mouth ity o f 100 mg/mL 00:00: before [place] suspension 00 meals and Medi connie at [place] bedtime. sucralfate 2020-0 Yes [id number] 1000mg Take 10 mL Univers (CARAFATE) 6-27 by mouth ity o f 100 mg/mL 00:00: before [place] suspension 00 meals and Medi connie at [place] bedtime. clonazepam 2020-0 Yes .5mg Take 0.5 [place] miesha (KLONOPIN) 6-16 mg by College 0.5 [...] every [place] 00 morning. Medical Branch haloperidol 0 Yes 15mg Take 3 Univ ers (HALDOL) [...] mg 00 bedtime. Medical tablet Branch haloperidol 0 Yes 10mg Take 1 Tab Univers (HALDOL) 10 9-21 by mouth ity of mg tablet 00:00: every [place] 00 morning. Medical Branch haloperidol 0 Yes 15mg Take 3 Univ ers (HALDOL) [...] benzoyl Yes Apply to Univer s peroxide 03-15 area(s) ity of (BENZAGEL-5 00:00: daily. [place] ) 5 % gel Medical Branch clindamycin Yes Apply to Un mimi (CLEOCIN T) 03-15 area(s) 2 ity of 1 % 00:00: (two) [place] solution 00 times Medical daily. Branch Omeprazole Omeprazole No QD Omeprazole 40 MG 40 MG 40 MG Lisinopril Lisinopril No 1{table QD Lisinopril 10 MG 10 MG t} 10 MG predniSONE predniSONE No 2{table QD predniSONE 20 MG 20 MG t} 20 MG predniSONE predniSONE No 2{table QD predniSONE 20 MG 20 MG t} 20 MG predniSONE predniSONE No 2{table QD predniSONE 20 MG 20 MG t} 20 MG predniSONE predniSONE No 2{table QD predniSONE 20 MG 20 MG t} 20 MG Omeprazole Omeprazole No QD Omeprazole 40 MG 40 MG 40 MG Omeprazole Omeprazole No QD Omeprazole 40 MG 40 MG 40 MG No known No [facility] Medicin e No known No [facility] e Vital Signs Vital Name Observation Time Observation Value Comments Source WEIGHT 2020-04-05 10:17:00 99.474 kg HEIGHT 2020-04-05 10:17:00 170.2 cm WEIGHT 2020-04-02 14:50:00 105.688 kg HEIGHT 2020-04-02 14:50:00 170.2 cm height 2022 14:40:00 67 [in_i] [facility] weight 2022 14:40:00 222.4 [lb_av] [facility] temperature 2022 14:40:00 97.6 [degF] [facility] bmi 2022 14:40:00 34.83 kg/m2 [facility] oximetry 2022 14:40:00 98 % [facility] respiratory rate 2022 14:40:00 16 /min Comm on [facility] blood pressure 2022 14:40:00 132 mm[Hg] Common [facility] - systolic [facility] blood pressure 2022 14:40:00 80 mm[Hg] Common [facility] - diastolic [facility] height 2022-01-25 14:00:00 67 [in_i] Common S [facility] weight 2022-01-25 14:00:00 228 [lb_av] [facility] temperature 2022-01-25 14:00:00 98.5 [degF] Common S pirit [facility] bmi 2022-01-25 14:00:00 35.71 kg/m2 [facility] S [facility] oximetry 2022-01-25 14:00:00 99 % [facility] respiratory rate 2022-01-25 14:00:00 17 /min Comm on [facility] blood pressure 2022-01-25 14:00:00 152 mm[Hg] Common [facility] - systolic [facility] blood pressure 2022-01-25 14:00:00 87 mm[Hg] Common [facility] - diastolic [facility] height 2021-10-04 16:00:00 67 [in_i] Common [facility] weight 2021-10-04 16:00:00 268 [lb_av] [facility] temperature 2021-10-04 16:00:00 97.4 [degF] Common S pirit [facility] bmi 2021-10-04 16:00:00 41.97 kg/m2 Common S [facility] oximetry 2021-10-04 16:00:00 98 % Common S [facility] respiratory rate 2021-10-04 16:00:00 16 /min Comm on [facility] blood pressure 2021-10-04 16:00:00 131 mm[Hg] Common [facility] - systolic [facility] blood pressure 2021-10-04 16:00:00 81 mm[Hg] Common [facility] - diastolic [facility] height 2021-09-21 13:40:00 67 [in_i] [facility] weight 2021-09-21 13:40:00 265 [lb_av] [facility] bmi 2021-09-21 13:40:00 41.5 kg/m2 [facility] WEIGHT 2020-04-05 10:17:00 99.474 kg HEIGHT 2020-04-05 10:17:00 170.2 cm WEIGHT 2020-04-02 14:50:00 105.688 kg HEIGHT 2020-04-02 14:50:00 170.2 cm Systolic blood 2019-12-29 12:52:00 112 mm[Hg] [facility] Medicine Diastolic blood 2019-12-29 12:52:00 72 mm[Hg] [facility] Heart rate 2019-12-29 12:52:00 76 /min [facility] Body temperature 2019-12-29 12:52:00 37.06 [facility] Body height 2019-12-29 12:52:00 170.2 cm [facility] Body weight 2019-12-29 12:52:00 105.688 kg [facility] BMI 2019-12-29 12:52:00 36.49 kg/m2 [facility] Systolic blood 2019-12-21 03:00:00 122 mm[Hg] Univer [facility]ity [facility] Diastolic blood 2019-12-21 03:00:00 89 mm[facility]Hg[facility] 2019-12-21 03:00:00 71 /min Universi ty [facility] Respiratory rate 2019-12-21 03:00:00 16 /min Univ [facility] Oxygen saturation in 2019-12-21 03:00:00 98 /min [facility] Arterial blood by [facility] [place] [facility] Pulse oximetry Branch Body temperature 2019-12-21 00:32:00 37.22 [place] [facility] Body height 2019-12-21 00:32:00 170.2 cm Universi ty [facility] Body weight 2019-12-21 00:31:00 102.513 kg Universi ty [facility] BMI 2019-12-21 00:31:00 35.40 kg/m2 Universi ty of [facility] Systolic blood 2019-12-21 03:00:00 122 mm[Hg] Univer sity of pressure [facility] Diastolic blood 2019-12-21 03:00:00 89 mm[Hg] Unive rsity of [facility] Heart rate 2019-12-21 03:00:00 71 /min Universi ty of [facility] Respiratory rate 2019-12-21 03:00:00 16 /min [facility] Oxygen saturation in 2019-12-21 03:00:00 98 /min [facility] Arterial blood by [facility] [place] [facility] Pulse oximetry Branch Body temperature 2019-12-21 00:32:00 37.22 [place] [facility] ersity of [facility] Body height 2019-12-21 00:32:00 170.2 cm Universi ty of [facility] Body weight 2019-12-21 00:31:00 102.513 kg Universi ty of [facility] BMI 2019-12-21 00:31:00 35.40 kg/m2 Universi ty of [facility] Systolic blood 2019-03-19 20:32:00 110 mm[Hg] [facility] pressure Medicine Diastolic blood 2019-03-19 20:32:00 69 mm[Hg] [facility] pressure Medicine Heart rate 2019-03-19 20:32:00 101 /min [facility] Body temperature 2019-03-19 20:32:00 37 [facility] Body height 2019-03-19 20:32:00 170.2 cm [facility] Body weight 2019-03-19 20:32:00 136.896 kg [facility] BMI 2019-03-19 20:32:00 47.27 kg/m2 [facility] Systolic blood 2019-03-19 20:32:00 110 mm[Hg] [facility] of pressure Medicine Diastolic blood 2019-03-19 20:32:00 69 mm[Hg] [facility] pressure Medicine Heart rate 2019-03-19 20:32:00 101 /min [facility] Body temperature 2019-03-19 20:32:00 37 [facility] Body height 2019-03-19 20:32:00 170.2 cm [facility] Body weight 2019-03-19 20:32:00 136.896 kg [facility] BMI 2019-03-19 20:32:00 47.27 kg/m2 [facility] Procedures Procedure Date / Time Performing Clinician Source Performed CT ABDOMEN PELVIS W 2019-12-21 01:44:37 Abdoulaye Edwards [facility] CONTRAST Medical Branch LIPASE 2019-12-21 00:52:00 Singer [facility] COMP. METABOLIC PANEL 2019-12-21 00:52:00 Singer [facility] ([id number]) Medical [place] CBC WITH DIFFERENTIAL 2019-12-21 00:52:00 Singer [facility] [place] [facility] URINALYSIS 2019-12-21 00:52:00 Edwards, [facility] NOTICE OF PRIVACY 2019-12-21 00:22:40 Doctor Unassigned, No Univ [facility] PRACTICES Name Medical Branch CONSENT/REFUSAL FOR 2019-12-21 00:22:22 Doctor Unassigned, No [facility] DIAGNOSIS AND TREATMENT Name Medical [place] Plan of Care Planned Activity Planned Date Details Comments Source Future Scheduled 2022-06-[address] [facility] Test 00:00:00 (12+) [code = [facility] DEPRESSION SCREENING (12+)] Future Scheduled 2022-02-[address] [facility] Test 00:00:00 (#1) [code = [facility] INFLUENZA VACCINE (#1)] Future Scheduled 2022-02-[address] [facility] Test 00:00:00 (#1) [code = [facility] INFLUENZA VACCINE (#1)] Future Scheduled 2021-06-[address] [facility] Test 00:00:00 (12+) [code = [facility] DEPRESSION SCREENING (12+)] Future Scheduled 2021-04-[address] [facility] Test 00:00:00 [facility]ing [facility] Cent[facility] r Screening (12+) [code = Tobacco Cessation Counseling and Screening (12+)] Future Scheduled 2020-01-[address] [facility] Test 00:00:00 (procedure) [code = [facility] [id number]] Future Scheduled 2020-01-[address] [facility] Test 00:00:00 (procedure) [code = [facility] 43225201] Future Scheduled 2015-02-13 DTAP/TDAP/TD VACCINES [facility] 00:00:00 (1 - Tdap) [code = Medical C enter DTAP/TDAP/TD VACCINES (1 - Tdap)] Future Scheduled 2015-02-13 DTAP/TDAP/TD VACCINES [facility] Test 00:00:00 (1 - Tdap) [code = Medical C enter DTAP/TDAP/TD VACCINES (1 - Tdap)] Future Scheduled 1996 COVID-19 VACCINE (#1) [facility] Test 00:00:00 [code = COVID-[address] VACCINE (#1)] Future Scheduled 1995 COVID-19 VACCINE (#1) [facility] Test 00:00:00 [code = COVID-[address] VACCINE (#1)] Future Scheduled VITAMIN B12 [code = Ordered: [employer] [facility] 2132-9] 03/19/2019 of Medicine Future Scheduled VITAMIN D 25 HYDROXY Ordered: [place] miesha [employer] Test [code = 1989-3] 03/19/2019 of Medicine Future Scheduled TETANUS SHOT (ADULT) [place] [facility] [employer] Test [code = TETANUS SHOT of Medi cine (ADULT)] Future Scheduled BMI FOLLOW UP PLAN [facility] r [facility] Test [code = BMI FOLLOW UP of Med icine PLAN] Future Scheduled HIV SCREENING [code = [employer] Test HIV SCREENING] of Medicine Future Scheduled FLU VACCINE > 6 [facility] C ollege Test MONTHS [code = FLU of Medici ne VACCINE > 6 MONTHS] Future Scheduled PT INSTR GIVEN - Ordered: [employer] Test TOBACCO [code = 12/29/2019 of Medicine NOCPT] Future Scheduled TETANUS SHOT (ADULT) [place] [facility] [employer] Test [code = TETANUS SHOT of Medi cine (ADULT)] Future Scheduled BMI FOLLOW UP PLAN [employer] Test [code = BMI FOLLOW UP of Med icine PLAN] Future Scheduled HIV SCREENING [code = [employer] [facility] HIV SCREENING] of Medicine Future Scheduled FLU VACCINE > 6 [facility] C [facility]lege Test MONTHS [code = FLU of Medici ne VACCINE > 6 MONTHS] Future Scheduled TETANUS SHOT (ADULT) [place] [facility] [employer] Test [code = TETANUS SHOT of Medi cine (ADULT)] Future Scheduled BMI FOLLOW UP PLAN [facility] Test [code = BMI FOLLOW UP of Med icine PLAN] Future Scheduled HIV SCREENING [code = [facility] Test HIV SCREENING] of Medicine Future Scheduled FLU VACCINE > 6 [facility] Test MONTHS [code = FLU of Medici ne VACCINE > 6 MONTHS] Future Scheduled CBC W/AUTO DIFF WITH Ordered: [facility] Test PLATELETS [code = 03/19/2019 of Medicin e 02915-8] Future Scheduled COMPREHENSIVE Ordered: [facility] Test METABOLIC PANEL [code 03/19/2019 of Med icine = 31565-6] Future Scheduled LIPID PANEL [code = Ordered: [facility] Test 05937-8] 03/19/2019 of Medicine Future Scheduled THYROID PROFILE (T3U Ordered: [facility] Test - T4 - T7 - TSH) 03/19/2019 of Medicine [code = NOCPT] Future Scheduled IRON [code = 2498-4] Ordered: [facility] Test 03/19/2019 of Medicine Future Scheduled FERRITIN [code = Ordered: [facility] Test 58004-0] 03/19/2019 of Medicine Future Scheduled FOLATE [code = Ordered: [facility] Test 2284-8] 03/19/2019 of Medicine Future Scheduled HEMOGLOBIN A1C [code Ordered: [facility] Test = 4548-4] 03/19/2019 of Medicine Future Scheduled VITAMIN A [code = Ordered: [facility] Test 2923-1] 03/19/2019 of Medicine Future Scheduled VITAMIN B1 [code = Ordered: [facility] Test 37881-7] 03/19/2019 of Medicine Encounters Start End Encounter Admission Attending Care Care Encounter Source Date/Time Date/Time Type Type Clinicians Facility Department ID 2022-02-[address] [facility] [id number] Common 14:28:00 Jackelyn [facility] 2022-02-[address] [facility] [id number] Common 11:19:02 Jackelyn [facility] 2022-01-[address] [facility] [id number] Common 12:20:01 Jackelyn [facility] 2021-11-03 Outpatient Kohli, STLMLC STLMLC [id number] Common 13:18:02 Jackelyn [facility] 2021-11-02 Outpatient Kohli, STLMLC STLMLC [id number] Common 10:12:06 Jackelyn [facility] 2021-10-05 Outpatient Kohli, STLMLC STLMLC [id number] Common 10:40:03 Jackelyn [facility] 2021-09-29 Outpatient Kohli, STLMLC STLMLC [id number] Common 13:45:04 Jackelyn [facility] 2021-09-21 Outpatient Kohli, STLMLC STLMLC [id number] Common 13:17:02 Jackelyn [facility] 2021-08-31 Outpatient Kohli, STLMLC STLMLC [id number] Common 10:49:02 Jackelyn [facility] 2021-03-30 Outpatient CAPONE, [facility] Surgery [id number] [facility] 09:37:20 SUNEAL 2022 2022 OFFICE STLMLC STLMLC [id number] Co mmon 00:00:00 00:00:00 VISIT Spirit ESTAB PT - [facility] LEVEL 4 [facility] 2022-02-02 2022-02-02 (TEL) STLMLC STLMLC [id number] Co mmon 00:00:00 00:00:00 [facility] 2022-01-25 2022-01-25 (WELLNESS) STLMLC STLMLC [id number] Common 00:00:00 00:00:00 Wellness Spiri t Visit [facility] 2021-12-13 2021-12-13 OFFICE STLMLC STLMLC [id number] Co mmon 00:00:00 00:00:00 VISIT EST Spir it PT LEVEL 3 [facility] 2021-12-13 2021-12-13 (TEL) STLMLC STLMLC [id number] Co mmon 00:00:00 00:00:00 [facility] 2021-10-04 2021-10-04 OFFICE STLMLC STLMLC [id number] Co mmon 00:00:00 00:00:00 VISIT EST Spir it PT LEVEL 3 - [facility] 2021-09-21 2021-09-21 (TEL) STLMLC STLMLC [id number] Co mmon 00:00:00 00:00:00 Spirit - [facility] 2021-09-21 2021-09-21 OFFICE STLMLC STLMLC [id number] Co mmon 00:00:00 00:00:00 VISIT EST Spir it PT LEVEL 3 - [facility] 2021-09-02 2021-09-02 OFFICE STLMLC STLMLC [id number] Co mmon 00:00:00 00:00:00 VISIT NEW Spir it PT LEVEL 3 - [facility] 2021-07-01 2021-07-01 Laboratory Only, Ang Db Test [facility] 1.2.8 40.114 [id number] Univers 15:45:00 16:00:00 [facility] 350.1.13.10 ity of [facility] 4.2.7.2.686 Estuardo as LUIS ARMANDO?BLEA [phone] [address] MEDICAL OFFICE BUILDING 2021-07-01 2021-07-01 Outpatient R ELIZABETH [facility] [id number] Univers 15:45:00 15:45:00 BARBY hightower o f [facility] 2021-07-01 2021-07-01 Letter Doctor VELASQUEZ 1.2.840.114 [id number] Univers 00:00:00 00:00:00 (Out) Unassigned, TIBURCIO 350.1.13.[address] [facility] 4.2.7.2.686 Estuardo as [phone] [address] 2021-07-01 2021-07-01 Letter Doctor VELASQUEZ 1.2.840.114 [id number] Univers 00:00:00 00:00:00 (Out) Unassigned, TIBURCIO 350.1.13.[address] [facility] 4.2.7.2.686 Estuardo as [phone] [address] 2020-04-02 2020-04-02 Outpatient EL SLEH SLE [id number] [facility]H 00:00:00 00:00:00 2020-01-16 2020-01-16 Telephone PcpEVA 1.2.152.844 [id number] 00:00:00 00:00:00 Patient TIBURCIO 350.1.13.10 Does [facility] 4.2.7.2.686 Have A [id number] 019 2020-01-16 2020-01-16 Telephone PcpEVA 1.2.526.409 [id number] [facility] 00:00:00 00:00:00 Patient TIBURCIO 350.1.13.10 it y of [facility] [place].2.[place] Have A [phone] [address] 2020-01-15 2020-01-15 Telephone de EVA 1.2.468.080 [id number] 00:00:00 00:00:00 DavilaTIBURCIO 350.1.13.10 [facility] 4.2.7.2.686 [id number] 019 2020-01-15 2020-01-15 Telephone de EVA 1.2.019.355 [id number] [facility] 00:00:00 00:00:00 TIBURCIO Davila 350.1.13.10 ity of [facility] 4.2.7.2.686 Estuardo as [phone] [address] 2020-01-14 2020-01-14 Laboratory Lab, [facility] 1.2.840.114 [id number] 17:24:30 17:44:30 Only Fam Pob I Health 350.1.13.10 [place] 4.2.7.2.686 Professio [phone] [place] [address] Office [facility] 2020-01-14 2020-01-14 Laboratory Lab, [facility] Fam Pob I [facility] 1.2. 840.114 [id number] [facility] 17:24:30 17:44:30 Only AneValeria [facility] 350.1.13.10 ity of [place] 4.2.7.2.686 Estuardo as Professio [phone] Ia dical [address] Office Building [facility] 2020-01-14 2020-01-14 [facility] [id number] [facility] 17:20:00 17:20:[address] [facility] 2019-12-29 2019-12-29 Office Siddhartha KariCierra RANGEL 1.2.754.[id number] [facility] 07:48:55 08:18:55 Visit MinnieMorales AMBULATOR 350.1.13.21 College Y 0.2.7.2.686 of [id number] [facility] 800 e 2019-12-20 2019-12-20 Emergency [facility] 1.2.397.901 [id number] 3643 19:27:54 22:32:00 Abdoulaye Mcdonald 350.1.13.10 [place] 4.2.7.2.686 [place] [id number] [facility] 2019-12-20 2019-12-20 Emergency [facility] 1.2.300.353 [id number] [facility] 19:27:54 22:32:00 Abdoulaye Mcdonald 350.1.13.10 i ty of [place] 4.[address] [place] [phone] 2019-12-20 2019-12-20 Emergency [facility] [id number] Univers 19:19:00 19:19:[address] [facility] 2019-03-19 2019-03-19 Office SHELLY Campbell 1.2.840.[id number] [facility] 15:20:14 16:43:29 Visit Willow AMBULATOR 350.1.13.21 College Y 0.2.7.2.686 of [id number] [facility] 800 2019-03-19 2019-03-19 Office SHELLY Campbell 1.2.840.114 [id number] 15:20:14 16:43:29 Visit Willow AMBULATOR 350.1.13.21 Y 0.2.7.2.686 [id number] [facility] 2019-03-19 2019-03-19 Office SHELLY Juan 1.2.840.[id number] [facility] 15:19:32 16:42:05 Visit Alejandro AMBULATOR 350.1.13.21 College Y 0.2.7.2.686 of [id number] [facility] 800 e 2019-03-19 2019-03-19 Office SHELLY Juan 1.2.840.114 [id number] 15:19:32 16:42:05 Visit Alejandro AMBULATOR 350.1.13.21 Y 0.2.7.2.686 [id number] 800 2019-02-25 2019-02-25 Outpatient SLE SLE [id number] SLE 00:00:00 00:00:00 Results Test Description Test Time Test Comments Results Result [facility] e Comments TISSUE EXAM 2020-04-06 Surgical Pathology Report 13:37:00 Case: [id number] Authorizing Provider: John Capone MD Collected: 04/05/2020 10:35 AM Ordering Location: [facility] ENDOSCOPY Received: 04/05/2020 03:03 PM SERVICES Pathologist: Petty Stewart MD Specimen: Biopsy, Gastric, RANDOM BX A. GASTRIC, RANDOM BIOPSY: - GASTRIC BODY TYPE MUCOSA WITH NO SIGNIFICANT HISTOPATHOLOGICAL CHANGE - GASTRIC ANTRUM TYPE MUCOSA WITH CHRONIC ACTIVE H. PYLORI-ASSOCIATED GASTRITIS - FEW H. PYLORI-LIKE ORGANISMS SEEN ON H&E AND WARTHIN-STARRY STAINSJ/pl Signing Pathologist Direct Phone Line: [phone] y signed by Petty Stewart MD on [...] evaluated Immunohistochemistry technical testing was performed at [facility], Pathology Laboratory where it was developed [...] APPEARANCE (test code = Hazy Clear A 2354362294) COLOR (test code = 0043192260) Delia Yellow A PH (test code = 1079044559) 4.8-8.0 SP GRAVITY (test code = 1.003-1.030 H 5549927298) GLU U QUAL (test code = Normal Normal 7865907032) BLOOD (test code = 1696160047) Negative Negative KETONES (test code = 6122381251) 5 mg/dL Negative A PROTEIN (test code = 2887-8) 30 mg/dL Negative A UROBILIN (test code = 4.0 mg/dL Normal A 5271294129) BILIRUBIN (test code = 2 mg/dL Negative A 6452443399) NITRITE (test code = 0772526298) Negative Negative LEUK EDWARDO (test code = Negative Negative 6799226882) RBC/HPF (test code = 9203667403) See_Comment [Automated message] The system which [employer] nerated this result transmit rodney reference range: 0 - 3 HP F. The reference range was not used to interpret th is result as normal/abnormal . WBC/HPF (test code = 1783342317) See_Comment [Automated message] The system which ge nerated this result transmit rodney reference range: 0 - 5 HP F. The reference range was not used to interpret th is result as normal/abnormal . BACTERIA (test code = Few Negative A 6593125990) MUCOUS (test code = 1743497356) Marked Negative LPF A HYAL CAST (test code = See_Comment H [Aut omated message] The 7855026783) system which [employer] nerated this result transmit rodney reference range: <=2 LPF. The reference range was not used to interpret th is result as normal/abnormal . Lab Interpretation (test code = Abnormal 87236-8) [facility]. METABOLIC PANEL (83287)2019-12-21 01:11:00 Test Item Value Reference Range Interpretation Comments NA (test code = 139 mmol/L 135-145 7858073880) K (test code = 3.3 mmol/L 3.5-5 L 6519990470) CL (test code = 103 mmol/L 98-108 0364779791) CO2 TOTAL (test code = 26 mmol/L 23-31 3850762635) AGAP (test code = 2-16 7164797504) BUN (test code = 10 mg/dL 7-23 5645133513) GLUCOSE (test code = 133 mg/dL 70-110 H 6410014849) CREATININE (test code = 0.69 mg/dL 0.6-1.25 4138029286) TOTAL BILI (test code = 1.1 mg/dL 0.1-1.7 3904241743) CALCIUM (test code = 10.0 mg/dL 8.6-10.6 4933362046) T PROTEIN (test code = 8.4 g/dL 6.3-8.2 H 9974901382) ALBUMIN (test code = 4.9 g/dL 3.5-5 6823312403) ALK PHOS (test code = 101 U/L 34-122 2148223795) ALTv (test code = 24 U/L 5-50 1742-6) AST(SGOT) (test code = 31 U/L 13-40 9518740612) eGFR Calculation mL/min/1.73m2 (Non-) (test code = 2246668894) eGFR Calculation mL/min/1.73m2 () (test code = 2099544499) MICHAEL (test code = MICHAEL) Association of [...] tests). Lab Interpretation Abnormal (test code = 99279-1) [facility] Test Item Value Reference Range Interpretation Comments LIPASE (test code = 1693153647) 130 U/L 0-220 Lab Interpretation (test code = Normal 53760-5) [facility] WITH [id number] 00:59:00 Test Item Value Reference Range Interpretation Comments WBC (test code = See_Comment H [Automated 5490-2) message] The sy stem which generated this result transmitted reference range : 4.20 - 10.70 10*3/?L. The reference range was not used to interpret this result as normal/abnormal . RBC (test code = See_Comment [Automated 749-8) message] The sy stem which generated this [...] RDW-SD (test code = 41.1 fL 38.5-51.6 42756-5) RDW-CV (test code = 13.1 % 12.1-15.4 788-0) PLT (test code = See_Comment H [Automated 777-3) message] The sy stem which generated this result transmitted reference range : 150 - 328 10*3/ ?L. The reference r casa was not used to interpret this result as normal/abnormal . MPV (test code = 10.5 fL 9.8-13 98376-7) NRBC/100 WBC (test See_Comment [Automat ed code = 1710680410) message] The system which generated this result transmitted reference range : 0.0 - 10.0 /100 WBCs. The refer ence range was not u sed to interpret th is result as normal/abnormal . NRBC x10^3 (test code <0.01 See_Comment [Auto mated = 8599670099) message] The s ystem which generated this result transmitted reference range : 10*3/?L. The reference range was not used to interpret this result as normal/abnormal . GRAN MAT (NEUT) % 65.1 % (test code = 770-8) IMM GRAN % (test code 0.50 % = 3981575311) LYMPH % (test code = 24.3 % 736-9) MONO % (test code = 8.7 % 5905-5) EOS % (test code = 0.9 % 713-8) BASO % (test code = 0.5 % 706-2) GRAN MAT x10^3(ANC) 7.18 10*3/uL 1.99-6.95 H (test code = 8443642595) IMM GRAN x10^3 (test 0.05 10*3/uL 0-0.06 code = 8349050550) LYMPH x10^3 (test code 2.68 10*3/uL 1.09-3.23 = 731-0) MONO x10^3 (test code 0.96 10*3/uL 0.36-1.02 = 742-7) EOS x10^3 (test code = 0.10 10*3/uL 0.06-0.53 711-2) BASO x10^3 (test code 0.05 10*3/uL 0.01-0.09 = 704-7) Lab Interpretation Abnormal (test code = 52327-2) [facility] [id number] 17:52:00Surgical Pathology Report Case: [id number] Authorizing Provider: Alejandro Juan MD Collected: 03/11/2019 1421 Ordering Location: [facility] PER[facility]OPER[facility] Received: 03/11/2019 1609 SERVICES Pathologist: Ed Fraser MD Specimen: Stomach STOMACH, PARTIAL/SLEEVE GASTRECTOMY- CHRONIC INACTIVE GASTRITIS, MINIMAL-MILD- INTESTINAL METAPLASIA OR MALIGNANCY NOT SEEN Signing Pathologist Direct Phone Line: [phone] signed by Ed Fraser MD on 03/27/2019 at 5:52 [id number] obesity A. Stomach tissue A. Received in formalin labeled "stomach" is a 25 x 6 x 2 cm partial gastrectomy. The specimen is opened to reveal a bhatia-brown mucosa with normal folds. Buildings And Grounds Supervisor sections from the st aple line are submitted in cassettes A1 and A2, and representative government relations section from the central mucosa are submitted in cassettes A3 and A4. TW/ew [facility], Department of Pathology,[address] [place], [place] [address], [place], Departmentof Pathology, [address] [place] [address], [place], Department of Pathology, [address] [place] [address], NTHL-GLUCOSE [id number] 13:26:00 Test Item Value Reference Range Interpretation Comments POC-GLUCOSE METER 108 mg/dL 70-110 TESTED AT [place] [address] (BEAKER) (test code = [facility] 1532) [address] CBC W/PLT COUNT & AUTO [id number] 06:28:00 Test Item Value Reference Range Interpretation [...] (BEAKER) (test code = 2801) COMPREHENSIVE METABOLIC [id number] 06:27:00 Test Item Value Reference Range Interpretation [...] NOT APPLICABLE FOR DIALYSIS PATIEN TS. POCT-GLUCOSE [id number] 00:04:00 Test Item Value Reference Range Interpretation Comments POC-GLUCOSE METER 123 mg/dL 70-110 H TESTED AT [place] [address] (BANNER) (test code = [facility] 1538) [address] POCT-GLUCOSE [id number] 15:27:00 Test Item Value Reference Range Interpretation Comments POC-GLUCOSE METER 126 mg/dL 70-110 H TESTED AT [place] [address] ([place]ANNER) (test code = [facility] 1538) [address] POCT-GLUCOSE [id number] 11:57:00 Test Item Value Reference Range Interpretation Comments POC-GLUCOSE METER 77 mg/dL 70-110 TESTED AT [place] [address] ([place]ANNER) (test code = [facility] [address] 1538) [id number] 14:18:00 Test Item Value Reference Range Interpretation Comments SODIUM (BEAKER) (test code = 381) 140 meq/L 136-145 POTASSIUM (BEAKER) (test code = 4.1 meq/L 3.5-5.1 379) CHLORIDE (BEAKER) (test code = 382) 103 meq/L 98-107 CO2 (BEAKER) (test code = 355) 26 meq/L 22-29 BUN AND [id number] 14:18:00 Test Item Value Reference Range Interpretation Comments BLOOD UREA NITROGEN 8 mg/dL 7-21 (BEAKER) (test code = 354) CREATININE (BEAKER) 0.84 mg/dL 0.57-1.25 (test code = 358) EGFR (BEAKER) (test 113 mL/min/1.73 ESTIM ATED GFR IS code = 1092) sq m NOT ACCURATE CREATININE CLEARANCE IN PREDICTING GLOMERULAR FILTRATION RATE . ESTIMATED GFR I S NOT APPLICABLE FOR DIALYSIS PATIEN TS. [id number] 14:03:00 Test Item Value Reference Range Interpretation Comments HEMOGLOBIN (BEAKER) (test code = 15.3 GM/DL 13.7-17.5 410) PLATELET [id number] 14:03:00 Test Item Value Reference Range Interpretation Comments PLATELET COUNT (BEAKER) (test 390 K/CU MM 150-450 code = 756) TISSUE [id number] 23:23:00Surgical Pathology Report Case: [id number] Authorizing Provider: Alejandro Juan MD Collected: 12/06/2018 1516 Ordering Location: [facility] Endoscopy Received: 12/09/2018 0809 Services Pathologist: Ed Fraser MD Specimens: A) - Stomach, stomach biopsy B) - Biopsy, Esophagus, esophagus biopsy , 40 cm R/O virus esophagitis A. STOMACH, BIOPSY- CHRONIC INACTIVE GASTRITIS, MILD- NO INTESTINAL METAPLASIA, DYSPLASIA OR INVASIVE CARCINOMA IDENTIIFIED- HELICOBACTER PYLORI LIKE ORGANISMS IDENTIFIED ON WARTHIN STARRY STAINB. ESOPHAGUS, 40 CM , BIOPSY- REACTIVE CHANGES- NO ULCERATION, INFLAMMATION OR VIRAL CYTOPATHIC CHANGES SEEN Signing Pathologist Direct Phone Line: [phone] signed by Ed Fraser MD on 12/12/2018 at 11:23 [id number] X 2, [id number]. Stomach biopsy. B. Esophagus biopsy, 40 cm, [...] positive and negative controls when available are evaluatedImmunohistochemistry technical testing was performed at [facility], Pathology Laboratory where it was developed and its performance characteristics were determined. It has not been cleared or approved by the U.S. Food and Drug Administration. The FDA has determined that such clearance or approval is not necessary. The test is used for clinical purposes. It should not be regardedas investigational or for research. This laboratory is certified under the Clinical Laboratory Improvement Amendments of 1988 (CLIA-88) as qualified to perform high complexity clinical laboratory testing.ANTI-NUCLEAR ANTIBODY (CAYETANO)2018-07-18 10:36:00 Test Item Value Reference Range Interpretation Comments ANTI-NUCLEAR ANTIBODY (CAYETANO) (BEAKER) Negative Negative (test code = 418) Test performed by IFA method.Test performed by IFA method.HEPATITIS B SURFACE [id number] 19:57:00 Test Item Value Reference Range Interpretation Comments HEPATITIS B SURFACE ANTIBODY < mIU/mL <8.0 (BEAKER) (test code = 647) HEPATITIS A ANTIBODY, [id number] 19:57:00 Test Item Value Reference Range Interpretation Comments HEPATITIS A IGG ANTIBODY (BEAKER) Reactive Nonreactive A (test code = 2797) HEPATITIS B SURFACE [id number] 19:48:00 Test Item Value Reference Range Interpretation Comments HEPATITIS B SURFACE ANTIGEN (2) Nonreactive Nonreactive (BEAKER) (test code = 2585) HEPATITIS B CORE ANTIBODY, [id number] 19:48:00 Test Item Value Reference Range Interpretation Comments HEPATITIS B CORE TOTAL ANTIBODY Nonreactive Nonreactive (BEAKER) (test code = 497) HEPATITIS C [id number] 19:40:00 Test Item Value Reference Range Interpretation [...] % 20-55 L (test code = 2590) [id number] 19:08:00 Test Item Value Reference Range Interpretation Comments ALPHA-1 ANTITRYPSIN (BEAKER) 167.90 mg/dL 90.00-200.00 (test code = 502) [id number] 17:52:00 Test Item Value Reference Range Interpretation Comments FERRITIN (BEAKER) (test code = 361) 83 ng/mL 5-275 GAMMA GLUTAMYL TRANSFERASE (GGT)2018-07-17 17:33:00 Test Item Value Reference Range Interpretation Comments GAMMA GLUTAMYL TRANSFERASE (BEAKER) 89 U/L 9-64 H (test code = 364) BILIRUBIN, [id number] 17:33:00 Test Item Value Reference Range Interpretation Comments BILIRUBIN DIRECT (BEAKER) (test 0.1 mg/dL 0.1-0.5 code = 706) COMPREHENSIVE METABOLIC [id number] 17:33:00 Test Item Value Reference Range Interpretation [...] NOT APPLICABLE FOR DIALYSIS PATIEN TS. PROTHROMBIN [id number] 17:28:00 Test Item Value Reference Range Interpretation Comments PROTIME (BEAKER) (test code = 12.4 seconds 11.7-14.7 759) INR (BEAKER) (test code = 370) 0.9 <=5.9 RECOMMENDED COUMADIN/WARFARIN INR THERAPY RANGESSTANDARD DOSE: 2.0 - 3.0 Includes: PROPHYLAXIS for venous thrombosis, systemic embolization; TREATMENT for venous thrombosis and/or pulmonary embolus.HIGH RISK: Target INR is 2.5-3.5 for patients with mechanical heart valves.CBC W/PLT COUNT & AUTO [id number] 17:18:00 Test Item Value Reference Range Interpretation [...] (BEAKER) (test code = 2801) Valproic Acid (Depakote),[id number] 08:35:00 Test Item Value Reference Range Interpretation Comments Valproic Acid (test code = VALP) 89.2 ug/mL 50.0-100.0 N RPR, [id number] 11:42:00 Test Item Value Reference Range Interpretation Comments RPR (test code = RPR) Non-Reactive Non-Reactive N Thyroid Stimulating Hormone (TSH)2017-03-11 07:32:00 Test Item Value Reference Range Interpretation Comments TSH (test code = TSH) 1.54 mIU/mL 0.270-4.200 N Lipid [id number] 07:24:00 Test Item Value Reference Range Interpretation Comments Cholesterol (test 131 mg/dL 0-200 N code = CHOL) Triglycerides (test 167 mg/dL 9-200 N code = TRIG) HDL (test code = 32 mg/dL 40-60 L HDL) Chol/HDL (test code 4.1 Ratio 0.0-5.0 N = CHOLPHDL) LDL, Calculated 66 0-130 N (NOTE)RISK O F HEART (test code = LDLC) DISEASEPu blished by Israeli Heart AssociationAnal yte Optimal Boderli ne Increased RiskC HOL <200 200-239 >240TRI G <150 150-199 >200HDL Male: >60 <40HDL Fema le: >60 <50LDL <100 130 -159 >160LDL NEAR OP TIMAL IS 100-129 VLDL (test code = 33 mg/dL 5-40 N VLDL) LDL/HDL (test code = 2 LDLPHDL) Valproic Acid (Depakote),[id number] 06:55:00 Test Item Value Reference Range Interpretation Comments Valproic Acid (test code = VALP) 16.6 ug/mL 50.0-100.0 L [id number] 17:49:00 Test Item Value Reference Range Interpretation [...] code = THC) Negative Negative N Urinalysis [id number] 17:45:00 Test Item Value Reference Range Interpretation Comments Color (test code = Yellow Yellow,Straw,Pl N COLOR) yellow Clarity (test code = Clear Clear N CLAR) Specific [place] (test 1.030 1.001-1.035 N code = SPGR) [...] code = None /HPF BACT) Comprehensive Metabolic [id number] 16:11:00 Test Item Value Reference Range Interpretation [...] National Kidney Foundation,http :[email or web address] ep.nih.gov CBC with [id number] 15:56:00 Test Item Value Reference Range Interpretation [...] code = ALYMPH) 2.7 K/cumm 0.5-4.6 N [place] Abs (test code = AMONO) 0.3 K/cumm 0.0-1.2 N Eos Abs (test code = AEOS) 0.29 K/cumm 0.00-0.74 N Baso Abs (test code = ABASO) 0.1 K/cumm 0.00-0.21 N BLOOD [id number] 00:00:00 Test Item Value Reference Range Interpretation Comments CULTURE (BEAKER) (test No growth in 5 days code = 1095) BLOOD [id number] 00:00:00 Test Item Value Reference Range Interpretation Comments CULTURE (BEAKER) (test No growth in 5 days code = 1095) POCT-GLUCOSE [id number] 12:31:00 Test Item Value Reference Range Interpretation Comments POC-GLUCOSE METER 110 mg/dL 70-110 TESTED AT [facility] 6720 (BEAKER) (test code = NEILJAYDEN SIERRA 1538) [address] POCT-GLUCOSE [id number] 05:38:00 Test Item Value Reference Range Interpretation Comments POC-GLUCOSE METER 90 mg/dL 70-110 TESTED AT [facility] 6720 (BEAKER) (test code = [place] [address] 1538) CBC W/PLT COUNT & AUTO [id number] 05:27:00 Test Item Value Reference Range Interpretation [...] (BEAKER) (test code = 2801) COMPREHENSIVE METABOLIC [id number] 05:14:00 Test Item Value Reference Range Interpretation [...] NOT APPLICABLE FOR DIALYSIS PATIEN TS. POCT-GLUCOSE [id number] 23:41:00 Test Item Value Reference Range Interpretation Comments POC-GLUCOSE METER 93 mg/dL 70-110 TESTED AT [facility] (test code = [facility] [address] 6628) URINALYSIS W/ [id number] 22:47:00 Test Item Value Reference Range Interpretation [...] 517) SOURCE(BEAKER) (test code = Urine, Voided 6417) POCT-GLUCOSE [id number] 18:04:00 Test Item Value Reference Range Interpretation Comments POC-GLUCOSE METER 133 mg/dL 70-110 H TESTED AT [place] [address] (BEAKER) (test code = [facility] 1538) [address] POCT-GLUCOSE [id number] 12:19:00 Test Item Value Reference Range Interpretation Comments POC-GLUCOSE METER 92 mg/dL 70-110 TESTED AT [place] [address] (BEAKER) (test code = [facility] [address] 1538) POCT-GLUCOSE [id number] 04:45:00 Test Item Value Reference Range Interpretation Comments POC-GLUCOSE METER 103 mg/dL 70-110 TESTED AT [place] [address] (BEAKER) (test code = [facility] 1538) [address] HEPATIC FUNCTION [id number] 02:46:00 Test Item Value Reference Range Interpretation [...] 134 U/L 6-55 H 347) BASIC METABOLIC [id number] 02:46:00 Test Item Value Reference Range Interpretation [...] PATIEN TS. CBC W/PLT COUNT & AUTO [id number] 02:31:00 Test Item Value Reference Range Interpretation [...] 20-55 L (test code = 2590) POCT-GLUCOSE [id number] 17:36:00 Test Item Value Reference Range Interpretation Comments POC-GLUCOSE METER 102 mg/dL 70-110 TESTED AT [facility] 6720 (BEAKER) (test code = O[place] 1538) [address] POCT-GLUCOSE [id number] 11:55:00 Test Item Value Reference Range Interpretation Comments POC-GLUCOSE METER 99 mg/dL 70-110 TESTED AT [place] [id number] (BEAKER) (test code = [facility] Estephania [facility] [address] 1538) CBC W/PLT COUNT & AUTO [id number] 04:56:00 Test Item Value Reference Range Interpretation [...] (BEAKER) (test code = 2801) BASIC METABOLIC [id number] 04:34:00 Test Item Value Reference Range Interpretation [...] NOT APPLICABLE FOR DIALYSIS PATIEN TS. POCT-GLUCOSE [id number] 00:52:00 Test Item Value Reference Range Interpretation Comments POC-GLUCOSE METER 96 mg/dL 70-110 TESTED AT [facility] 6720 (BEAKER) (test code = [place] [address] 1538) HEPATIC FUNCTION [id number] 12:36:00 Test Item Value Reference Range Interpretation [...] = 122 U/L 6-55 H 347) POCT-GLUCOSE [id number] 11:28:00 Test Item Value Reference Range Interpretation Comments POC-GLUCOSE METER 93 mg/dL 70-110 TESTED AT [facility] (BEAKER) (test code = OMAR Best [facility] [id number] 1538) BASIC METABOLIC [id number] 04:43:00 Test Item Value Reference Range Interpretation [...] PATIEN TS. CBC W/PLT COUNT & AUTO [id number] 04:20:00 Test Item Value Reference Range Interpretation [...] PERCENT (BEAKER) (test code = 2801) POCT-GLUCOSE [id number] 12:56:00 Test Item Value Reference Range Interpretation Comments POC-GLUCOSE METER 82 mg/dL 70-110 TESTED AT [facility] [address] (BANNER) (test code = OMAR Best [facility] [id number] 1538) PHENYTOIN LEVEL, [id number] 09:42:00 Test Item Value Reference Range Interpretation Comments PHENYTOIN (DILANTIN) (BEAKER) (test 0.9 ug/mL 10.0-20.0 L code = 605) Before AM doseBASIC METABOLIC [id number] 08:13:00 Test Item Value Reference Range Interpretation [...] NOT APPLICABLE FOR DIALYSIS PATIEN TS. POCT-GLUCOSE [id number] 07:42:00 Test Item Value Reference Range Interpretation Comments POC-GLUCOSE METER 103 mg/dL 70-110 TESTED AT [facility] 6720 (BANNER) (test code = OMAR Best [facility] 1538) [address] CBC W/PLT COUNT & AUTO [id number] 07:08:00 Test Item Value Reference Range Interpretation [...] L 0.00-0.20 (test code = 417) 0.00POCT-GLUCOSE [id number] 06:08:00 Test Item Value Reference Range Interpretation Comments POC-GLUCOSE METER 100 mg/dL 70-110 TESTED AT [place] [address] (BEAKER) (test code = OMAR Best [facility] 1538) [address] POCT-GLUCOSE [id number] 17:07:00 Test Item Value Reference Range Interpretation Comments POC-GLUCOSE METER 85 mg/dL 70-110 TESTED AT [place] [address] (BEAKER) (test code = OMAR eBst [facility] [address] 1538) POCT-GLUCOSE [id number] 12:52:00 Test Item Value Reference Range Interpretation Comments POC-GLUCOSE METER 88 mg/dL 70-110 TESTED AT [place] [address] (BEAKER) (test code = [facility] Estephania [facility] [address] 1538) CBC W/PLT COUNT & AUTO [id number] 06:07:00 Test Item Value Reference Range Interpretation [...] 0.00-0.20 (test code = 417) 0.00BASIC METABOLIC [id number] 06:02:00 Test Item Value Reference Range Interpretation [...] NOT APPLICABLE FOR DIALYSIS PATIEN TS. POCT-GLUCOSE [id number] 16:11:00 Test Item Value Reference Range Interpretation Comments POC-GLUCOSE METER 90 mg/dL 70-110 TESTED AT [facility] 6720 (BEAKER) (test code = OMAR [place] [id number] 5618) COMPREHENSIVE METABOLIC [id number] 07:05:00 Test Item Value Reference Range Interpretation [...] APPLICABLE FOR DIALYSIS PATIEN TS. BASIC METABOLIC [id number] 07:05:00 Test Item Value Reference Range Interpretation [...] DIALYSIS PATIEN TS. LACTIC ACID, VENOUS, WHOLE [id number] 06:38:00 Test Item Value Reference Range Interpretation Comments LACTATE BLOOD VENOUS 0.5 mmol/L 0.5-2.2 Specime n slightly (2) (BEAKER) (test hemolyzed code = 2872) Effective 10/27/2015: Units/Reference Range ChangeNew: 0.5-2.2 mmol/L Previous: 5- 20 mg/dLCBC W/PLT COUNT & AUTO [id number] 06:09:00 Test Item Value Reference Range Interpretation [...] L 0.00-0.20 (test code = 417) 0.00POCT-GLUCOSE [id number] 05:50:00 Test Item Value Reference Range Interpretation Comments POC-GLUCOSE METER 97 mg/dL 70-110 TESTED AT [place] [address] (BANNER) (test code = [facility] [address] 1538) POCT-GLUCOSE [id number] 23:48:00 Test Item Value Reference Range Interpretation Comments POC-GLUCOSE METER 92 mg/dL 70-110 TESTED AT [place] [address] (BANNER) (test code = [facility] [address] 1538) POCT-GLUCOSE [id number] 19:10:00 Test Item Value Reference Range Interpretation Comments POC-GLUCOSE METER 115 mg/dL 70-110 H TESTED AT [place] [address] (BANNER) (test code = [facility] 1538) [address] BLOOD GAS, [id number] 14:23:00 Test Item Value Reference Range Interpretation [...] (test code = 1819) 21.0 % POCT-GLUCOSE [id number] 12:36:00 Test Item Value Reference Range Interpretation Comments POC-GLUCOSE METER 95 mg/dL 70-110 TESTED AT [facility] 67[address] (BEAKER) (test code = [place] [address] 1538) [id number] 07:04:00 Test Item Value Reference Range Interpretation Comments MAGNESIUM (BEAKER) (test code = 2.0 mg/dL 1.6-2.6 627) BASIC METABOLIC [id number] 07:04:00 Test Item Value Reference Range Interpretation [...] PATIEN TS. CBC W/PLT COUNT & AUTO [id number] 06:33:00 Test Item Value Reference Range Interpretation [...] L 0.00-0.20 (test code = 417) 0.00POCT-GLUCOSE [id number] 05:58:00 Test Item Value Reference Range Interpretation Comments POC-GLUCOSE METER 97 mg/dL 70-110 TESTED AT [facility] 6720 (BEAKER) (test code = [place] [address] 1538) POCT-GLUCOSE [id number] 23:35:00 Test Item Value Reference Range Interpretation Comments POC-GLUCOSE METER 100 mg/dL 70-110 TESTED AT [facility] 6720 (BEAKER) (test code = [place] 1538) [address] [id number] 18:22:00 Test Item Value Reference Range Interpretation Comments LIPASE (BEAKER) (test code = 749) 23 U/L 8-78 [id number] 18:22:00 Test Item Value Reference Range Interpretation Comments AMYLASE (BEAKER) (test code = 349) 40 U/L 25-125 COMPREHENSIVE METABOLIC [id number] 18:22:00 Test Item Value Reference Range Interpretation [...] NOT APPLICABLE FOR DIALYSIS PATIEN TS. POCT-GLUCOSE [id number] 17:57:00 Test Item Value Reference Range Interpretation Comments POC-GLUCOSE METER 106 mg/dL 70-110 TESTED AT [facility] 67[address] (BEAKER) (test code = OMAR Best [place] 1538) [address] POCT-GLUCOSE [id number] 11:39:00 Test Item Value Reference Range Interpretation Comments POC-GLUCOSE METER 108 mg/dL 70-110 TESTED AT [facility] 6720 (BEAKER) (test code = OMAR Best [place] 1538) [address] BASIC METABOLIC [id number] 07:13:00 Test Item Value Reference Range Interpretation [...] PATIEN TS. CBC W/PLT COUNT & AUTO [id number] 06:50:00 Test Item Value Reference Range Interpretation [...] L 0.00-0.20 (test code = 417) 0.00POCT-GLUCOSE [id number] 06:26:00 Test Item Value Reference Range Interpretation Comments POC-GLUCOSE METER 116 mg/dL 70-110 H TESTED AT [facility] [address] [facility] (test code = O[place] 1538) [address] POCT-GLUCOSE [id number] 00:20:00 Test Item Value Reference Range Interpretation Comments POC-GLUCOSE METER 115 mg/dL 70-110 H TESTED AT [facility] 6720 (BEAKER) (test code = [place] 1538) [address] POCT-GLUCOSE [id number] 18:17:00 Test Item Value Reference Range Interpretation Comments POC-GLUCOSE METER 96 mg/dL 70-110 TESTED AT [facility] 67[address] (BEAKER) (test code = [place] [address] 1538) POCT-GLUCOSE [id number] 11:23:00 Test Item Value Reference Range Interpretation Comments POC-GLUCOSE METER 129 mg/dL 70-110 H TESTED AT [facility] 6720 (BEAKER) (test code = O[place] 1538) [address] CBC W/PLT COUNT & AUTO [id number] 09:58:00 Test Item Value Reference Range Interpretation [...] (BEAKER) (test code = Normal 762) POCT-GLUCOSE [id number] 05:39:00 Test Item Value Reference Range Interpretation Comments POC-GLUCOSE METER 104 mg/dL 70-110 TESTED AT [facility] 6720 (BEAKER) (test code = OMAR Best [facility] 1538) [address] BASIC METABOLIC [id number] 05:35:00 Test Item Value Reference Range Interpretation [...] NOT APPLICABLE FOR DIALYSIS PATIEN TS. POCT-GLUCOSE [id number] 01:30:00 Test Item Value Reference Range Interpretation Comments POC-GLUCOSE METER 97 mg/dL 70-110 TESTED AT [place] [address] (BEAKER) (test code = [facility] [address] 1538) POCT-GLUCOSE [id number] 20:48:00 Test Item Value Reference Range Interpretation Comments POC-GLUCOSE METER 96 mg/dL 70-110 TESTED AT [place] [address] (BEAKER) (test code = [facility] [address] 1538) RAPID DRUG SCREEN, [id number] 19:48:00 Test Item Value Reference Range Interpretation [...] situations. Chain of custody not maintained. Some lckf-gya-snfldos medications, as well as adulterants, may cause inaccurate results. Clinical correlation should be applied. A more comprehensive drug screen or confirmation of a detected drug may be performed upon request. [id number] 19:31:00 Test Item Value Reference Range Interpretation Comments MAGNESIUM (BEAKER) (test code = 1.7 mg/dL 1.6-2.6 627) POCT-GLUCOSE [id number] 18:19:00 Test Item Value Reference Range Interpretation Comments POC-GLUCOSE METER 101 mg/dL 70-110 TESTED AT [facility] 6720 (BEAKER) (test code = OMAR [place] 1538) [address] BASIC METABOLIC [id number] 16:57:00 Test Item Value Reference Range Interpretation [...] PATIEN TS. CBC W/PLT COUNT & AUTO [id number] 15:27:00 Test Item Value Reference Range Interpretation [...] (test code = 1+ few 966) POCT-GLUCOSE [id number] 12:18:00 Test Item Value Reference Range Interpretation Comments POC-GLUCOSE METER 90 mg/dL 70-110 TESTED AT [facility] 6720 (BEAKER) (test code = [place] [address] 1538) URINALYSIS W/ [id number] 10:54:00 Test Item Value Reference Range Interpretation [...] 1574) SOURCE(BEAKER) (test code = Urine, Green 2814) POCT-GLUCOSE [id number] 06:40:00 Test Item Value Reference Range Interpretation Comments POC-GLUCOSE METER 87 mg/dL 70-110 TESTED AT [facility] 6720 (BEAKER) (test code = OMAR Best [facility] [address] 1538) BASIC METABOLIC [id number] 04:57:00 Test Item Value Reference Range Interpretation [...] mg/dL 8.4-10.2 (test code = 697) EGFR (BANNER) (test 146 mL/min/1.73 ESTIM ATED GFR IS code = 1092) sq m NOT ACCURATE CREATININE CLEARANCE IN PREDICTING GLOMERULAR FILTRATION RATE . ESTIMATED GFR I S NOT APPLICABLE FOR DIALYSIS PATIEN TS. POCT-GLUCOSE [id number] 00:47:00 Test Item Value Reference Range Interpretation Comments POC-GLUCOSE METER 79 mg/dL 70-110 TESTED AT [place] [address] (BANNER) (test code = [facility] [address] 1538) POCT-GLUCOSE [id number] 20:40:00 Test Item Value Reference Range Interpretation Comments POC-GLUCOSE METER 91 mg/dL 70-110 TESTED AT [place] [address] (BANNER) (test code = [facility] [address] 1538) POCT-GLUCOSE [id number] 18:31:00 Test Item Value Reference Range Interpretation Comments POC-GLUCOSE METER 70 mg/dL 70-110 TESTED AT [place] [address] (BANNER) (test code = [facility] [address] 1538) POCT-GLUCOSE [id number] 12:56:00 Test Item Value Reference Range Interpretation Comments POC-GLUCOSE METER 90 mg/dL 70-110 TESTED AT [place] [address] (BANNER) (test code = [facility] [address] 1538) CREATINE KINASE (CK), TOTAL AND [id number] 07:42:00 Test Item Value Reference Range Interpretation Comments CREATINE KINASE TOTAL (BANNER) 362 U/L 29-200 H (test code = 380) CREATINE KINASE-MB (BANNER) (test 4.3 ng/mL 0.0-6.6 code = 750) CREATINE KINASE-MB INDEX (BANNER) 1.2 % (test code = 395) Effective 05/12/2014: CK-MB Reference Range ChangeNew: 0.0-6.6 Previous: 0.0-4.9CK-MB Reference Range:<6.7 Normal6.7-10.0 Borderline>10.0 Abnormal TROPONIN [id number] 07:42:00 Test Item Value Reference Range Interpretation Comments TROPONIN I (BANNER) (test code = 0.01 ng/mL 0.00-0.03 397) [...] acidosis, acute neurological disease, and persistent tachyarrhythmia.POCT-GLUCOSE [id number] 06:12:00 Test Item Value Reference Range Interpretation Comments POC-GLUCOSE METER 75 mg/dL 70-110 TESTED AT [facility] 6720 ([place]ANNER) (test code = [place] [address] 1538) CBC W/PLT COUNT & AUTO [id number] 06:01:00 Test Item Value Reference Range Interpretation [...] K/ L 0.00-0.20 (test code = 417) [id number] 05:37:00 Test Item Value Reference Range Interpretation Comments TRIGLYCERIDES (BEAKER) 342 mg/dL Speci men slightly (test code = 540) hemolyzed TRIGLYCERIDE REFERENCE RANGELow Risk <150Borderline Risk 150-199High Risk 200-499Very High Risk >=500HEPATIC FUNCTION [id number] 05:37:00 Test Item Value Reference Range Interpretation [...] (test code = 347) hemolyzed BASIC METABOLIC [id number] 05:37:00 Test Item Value Reference Range Interpretation [...] TO CALCULA TE ESTIMATED GFR. BLOOD GAS, [id number] 05:18:00 Test Item Value Reference Range Interpretation [...] (test code = 1819) 30.0 % POCT-GLUCOSE [id number] 01:40:00 Test Item Value Reference Range Interpretation Comments POC-GLUCOSE METER 78 mg/dL 70-110 TESTED AT [facility] 6720 (BEAKER) (test code = [place] [address] 1538) [id number] 22:09:00 Test Item Value Reference Range Interpretation Comments TRIGLYCERIDES (BEAKER) 1695 mg/dL Speci men moderately (test code = 540) hemolyzed TRIGLYCERIDE REFERENCE RANGELow Risk <150Borderline Risk 150-199High Risk 200-499Very High Risk >=500Specimen markedly lipemicLACTIC ACID, VENOUS, WHOLE [id number] 21:54:00 Test Item Value Reference Range Interpretation Comments LACTATE BLOOD VENOUS 0.4 mmol/L 0.5-2.2 L Specime n slightly (2) (BANNER) (test hemolyzed code = 2872) Effective 10/27/2015: Units/Reference Range ChangeNew: 0.5-2.2 mmol/L Previous: 5- 20 mg/dLSpecimen markedly lipemicLIPID [id number] 19:05:00 Test Item Value Reference Range Interpretation Comments TRIGLYCERIDES (damntheradio) (test code = 343 mg/dL 540) [facility] (test code = 168 mg/dL 631) HDL CHOLESTEROL (BANNER) (test code 28 mg/dL = 976) LDL CHOLESTEROL CALCULATED (BANNER) 71 mg/dL (test code = 633) Triglyceride [...] Reference Range Interpretation Comments CREATINE KINASE TOTAL ([place]ANNER) (test 568 U/L 29-200 H code = 380) POCT-GLUCOSE [id number] 18:33:00 Test Item Value Reference Range Interpretation Comments POC-GLUCOSE METER 80 mg/dL 70-110 TESTED AT [place] [address] (BANNER) (test code = [facility] [address] 1538) POCT-GLUCOSE [id number] 12:31:00 Test Item Value Reference Range Interpretation Comments POC-GLUCOSE METER 81 mg/dL 70-110 TESTED AT [place] [address] (BANNER) (test code = [facility] [address] 1538) BASIC METABOLIC [id number] 05:30:00 Test Item Value Reference Range Interpretation [...] TO CALCULA TE ESTIMATED GFR. BLOOD GAS, [id number] 05:28:00 Test Item Value Reference Range Interpretation [...] 30.0 % CBC W/PLT COUNT & AUTO [id number] 04:49:00 Test Item Value Reference Range Interpretation [...] K/ L 0.00-0.20 (test code = 417) 0.00BASI METABOLIC [id number] 05:13:00 Test Item Value Reference Range Interpretation [...] ESTIMATED GFR. CBC W/PLT COUNT & AUTO [id number] 03:47:00 Test Item Value Reference Range Interpretation [...] K/ L 0.00-0.20 (test code = 417) [id number] 05:13:00 Test Item Value Reference Range Interpretation Comments ETHANOL (BEAKER) (test code = 400) < mg/dL <=10 BASIC METABOLIC [id number] 04:59:00 Test Item Value Reference Range Interpretation [...] = 380) CBC W/PLT COUNT & AUTO [id number] 04:57:00 Test Item Value Reference Range Interpretation [...] 0.00-0.20 (test code = 417) 0.00PHENYTOIN LEVEL, [id number] 00:04:00 Test Item Value Reference Range Interpretation Comments PHENYTOIN (DILANTIN) (BEAKER) (test 7.3 ug/mL 10.0-20.0 L code = 605) TROPONIN [id number] 00:04:00 Test Item Value Reference Range Interpretation [...] acute neurological disease, and persistent tachyarrhythmia.URINALYSIS W/ [id number] 00:00:00 Test Item Value Reference Range Interpretation [...] SOURCE(BEAKER) (test code = 2795) COMPREHENSIVE METABOLIC [id number] 00:00:00 Test Item Value Reference Range Interpretation [...] T O CALCULATE ESTIM ATED GFR. PROTHROMBIN [id number] 23:48:00 Test Item Value Reference Range Interpretation Comments PROTIME (BEAKER) (test code = 13.6 seconds 11.7-14.7 759) INR (BEAKER) (test code = 370) 1.1 <=5.9 RECOMMENDED COUMADIN/WARFARIN INR THERAPY RANGESSTANDARD DOSE: 2.0 - 3.0 Includes: PROPHYLAXIS for venous thrombosis, systemic embolization; TREATMENT for venous thrombosis and/or pulmonary embolus.HIGH RISK: Target INR is 2.5-3.5 for patients with mechanical heart valves.[id number] 23:48:00 Test Item Value Reference Range Interpretation Comments PARTIAL THROMBOPLASTIN TIME 24.1 seconds 22.5-36.0 (BEAKER) (test code = 760) BLOOD GAS, [id number] 23:47:00 Test Item Value Reference Range Interpretation [...] (test code = 1819) 30.0 % PLATELET [id number] 23:39:00 Test Item Value Reference Range Interpretation Comments PLATELET COUNT (BEAKER) (test 236 K/CU MM 150-430 code = 756) POC, COVID 19 Antigen + Flu by Surface MedicalPOC, COVID 19 Antigen + Flu by Patricia
[2022-07-29] MEDS ORDERED: DIPHENHYDRAMINE 50 MG/ML VIAL ONE (21:01)
[2022-07-29] MEDS ORDERED: LORazepam 2 MG/ML VIAL ONE (21:01)
[2022-07-29] MEDS ORDERED: NA CHLORIDE 0.9% 1,000 ML ONE ×2 (21:02→22:49)
[2022-07-29] MEDS ORDERED: WATER FOR INJ,STERILE 10 ML ONE (21:02)
[2022-07-29] MEDS ORDERED: ZIPRASIDONE MESYLA 20 MG/VIAL IM ONE (21:02)
[2022-07-29 21:39] LABS: Absolute Lymphocytes (CBC) 1.8 K/uL (0.7-4.9); Hematocrit 37.4 % (39.6-49.0); MCV 81.9 fL (80-100); MPV 8.4 fL (7.6-11.3); RBC Red Blood Cell Count 4.57 M/uL (4.33-5.43)
[2022-07-29 21:42] LABS: Protime INR 1.1
[2022-07-29 21:54] LABS: ALT/SGPT 26 U/L (16-61); AST/SGOT 57 U/L (15-37); Albumin 4.3 g/dL (3.4-5.0); Alkaline Phosphatase 91 U/L (45-117); BUN Blood Urea Nitrogen 27 mg/dL (7-18); Bicarbonate 24 mmol/L (21-32); Bilirubin Direct 0.2 mg/dL (0-0.2); Bilirubin Total 0.5 mg/dL (0.2-1.0); Glomerular Filtration Rate 50 ml/min (=/>90); Glucose Level 106 mg/dL (74-106); Potassium 4.2 mmol/L (3.5-5.1); Protein, Total 8.2 g/dL (6.4-8.2); Sodium Level 140 mmol/L (136-145)
[2022-07-29 22:23] LABS: Urine Blood Negative (Negative); Urine Glucose Negative (Negative); Urine Protein 2+ (Negative); Urine Specific Gravity >=1.030 (1.005-1.030); Urine pH 5.5 (5.0-7.0)
[2022-07-29 22:38] LABS: Barbiturates NEGATIVE (NEGATIVE); Benzodiazepines NEGATIVE (NEGATIVE); Cocaine NEGATIVE (NEGATIVE); METHAMPHETAM POSITIVE (NEGATIVE); Methadone NEGATIVE (NEGATIVE); Opiates NEGATIVE (NEGATIVE); Phencyclidine NEGATIVE (NEGATIVE); THC Cannibis POSITIVE (NEGATIVE)
[2022-07-30] MEDS ORDERED: NA CHLORIDE 0.9% 1,000 ML ONE (01:00)
[2022-07-30 01:29] LABS: Potassium 3.9 mmol/L (3.5-5.1)
--- NOTE | 2022-07-30 06:11 | EDPHYS ---
Physician Documentation [facility] Name: Jose Pabon Age: 27 yrs Sex: Male : 1995 Arrival Date: 07/29/2022 Time: 20:44 Bed 7 Private MD: ED Physician Cyndy Chamberlain HPI: 07/29 21:00 This 27 yrs old Male presents to ER via EMS with complaints of Altered Mental cp Status. 21:00 The patient presents to the emergency department with psychosis. Onset: The cp symptoms/episode began/occurred at an unknown time. Past psychiatric history: Prior diagnosis: schizophrenia, Psychiatric medications include: Seroquel . Associated signs and symptoms: Pertinent negatives: abdominal pain, chest pain, fever, homicidal ideation, suicide ideation. Historical: - Allergies: 20:49 No Known Allergies; as6 - PMHx: 20:49 Anxiety; Schizophrenia; Bipolar disorder; as6 - Immunization history:: Adult Immunizations unknown. - Social history:: Smoking status: unknown. ROS: 21:05 Constitutional: Negative for fever. cp 21:05 Eyes: Negative for injury, pain, redness, and discharge. cp 21:05 Cardiovascular: Negative for chest pain. 21:05 Abdomen/GI: Positive for nausea, Negative for abdominal pain, vomiting, diarrhea, constipation. 21:05 Neuro: Positive for altered mental status, headache. 21:05 All other systems are negative. Exam: 21:10 Constitutional: The patient appears in no acute distress, alert, awake, cp non-diaphoretic, non-toxic, well developed, well nourished. 21:10 Head/Face: Normocephalic, atraumatic. cp 21:10 Eyes: Periorbital structures: appear normal, Pupils: equal, round, and reactive to light and accomodation, Conjunctiva: normal, no exudate, no injection, Sclera: no appreciated abnormality, Lids and lashes: appear normal, bilaterally. 21:10 ENT: External ear(s): are unremarkable, Nose: is normal, Mouth: Lips: moist, Oral mucosa: moist, Posterior pharynx: Airway: no evidence of obstruction, patent. 21:10 Neck: ROM/movement: is normal, is supple, without pain, no range of motions limitations. 21:10 Chest/axilla: Inspection: normal. 21:10 Cardiovascular: Rate: tachycardic, Rhythm: regular, Edema: is not appreciated, JVD: is not appreciated. 21:10 Respiratory: the patient does not display signs of respiratory distress, Respirations: normal, no use of accessory muscles, no retractions, labored breathing, is not present, Breath sounds: are clear throughout, no decreased breath sounds. 21:10 Abdomen/GI: Inspection: abdomen appears normal, Palpation: abdomen is soft and non-tender, in all quadrants. 21:10 Neuro: Orientation: to person, Mentation: able to follow commands, Motor: moves all fours, strength is normal. 21:10 Psych: Affect is animated, Judgement / Insight is impaired. 22:23 ECG was reviewed by the Attending Physician. Vital Signs: 20:48 BP 140 / 83; Pulse 105; Resp 19 S; Temp 99.8(O); Pulse Ox 100% on R/A; Weight 79.38 kg; as6 Height 5 ft. 9 in. (175.26 cm); 22:00 BP 145 / 83; Pulse 86; Resp 18 S; Pulse Ox 100% on R/A; as6 23:39 BP 115 / 79; Pulse 93; Resp 16 S; Pulse Ox 100% on R/A; as6 02/05 01:18 BP 126 / 82; Pulse 79; Resp 16 S; Pulse Ox 100% on R/A; as6 02:29 BP 118 / 81; Pulse 79; Resp 18 S; Pulse Ox 100% on R/A; as6 03:15 BP 123 / 90; Pulse 107; Resp 17; Pulse Ox 100% on R/A; ke1 04:54 BP 117 / 71; Pulse 68; Resp 16; Pulse Ox 100% on R/A; ke1 06:20 BP 117 / 89; Pulse 69; Resp 17; Temp 99.2; Pulse Ox 100% ; Pain 0/10; ke1 07/29 20:48 Body Mass Index 25.84 (79.38 kg, 175.26 cm) as6 MDM: 07/29 20:49 Patient medically screened. cp 07/30 00:55 Data reviewed: vital signs, nurses notes, lab test result(s), EKG, I have discussed the cp patient's presentation/case with the attending Emergency Department Physician; and as a result, I will recheck kidney function tests and admit if creatine remains elevated with no improvement vs continued monitoring in ED if improved. 07/29 20:55 Order name: Acetaminophen; Complete Time: 22:42 cp 07/29 20:55 Order name: Basic Metabolic Panel; Complete Time: 22:42 cp 07/29 22:43 Interpretation: Normal except: BUN 27; CRE 1.88; GFR 50. cp 07/29 20:55 Order name: CBC with Diff; Complete Time: 22:42 cp 07/29 22:43 Interpretation: Normal except: WBC 12.90; HGB 12.2; HCT 37.4; MCH 26.6; PLT 428; RDW cp 18.0; WAYNE% 74.9; LYM% 14.0; NEUT A 9.6. 07/29 20:55 Order name: ETOH Level; Complete Time: 22:42 cp 07/29 20:55 Order name: Hepatic Function; Complete Time: 22:42 cp 07/29 20:55 Order name: PT-INR; Complete Time: 22:42 cp 07/29 20:55 Order name: Ptt, Activated; Complete Time: 22:42 cp 07/29 20:55 Order name: Salicylate; Complete Time: 22:42 cp 07/29 20:55 Order name: Urine Drug Screen; Complete Time: 22:42 cp 07/29 22:43 Interpretation: Normal except: METHAMPHETAMINE POSITIVE; THC POSITIVE. cp 07/29 22:24 Order name: Urine Dipstick-Ancillary; Complete Time: 22:42 EDMS 07/29 23:18 Order name: LAB Add On cp 07/29 23:18 Order name: CK; Complete Time: 00:51 cp 07/30 00:51 Interpretation: Abnormal: CPK 1235. cp 07/30 00:52 Order name: CT Head Brain wo Cont cp 07/30 01:01 Order name: BMP; Complete Time: 01:47 cp 07/29 20:55 Order name: EKG; Complete Time: 20:56 cp 07/29 20:55 Order name: EKG - Nurse/Tech; Complete Time: 22:20 cp 07/29 20:55 Order name: IV Saline Lock; Complete Time: 21:29 cp 07/29 20:55 Order name: Labs collected and sent; Complete Time: 21:29 cp 07/29 20:55 Order name: Suicide Screening ([place]); Complete Time: 22:20 cp 07/29 20:55 Order name: Urine Dipstick-Ancillary (obtain specimen); Complete Time: 22:20 cp EC/04 22:23 Rate is 87 beats/min. Rhythm is regular. MO interval is normal. QRS interval is normal. cp QT interval is normal. T waves are Inverted in lead aVR. Interpreted by me. Reviewed by me. Administered Medications: 21:05 Drug: Geodon (ziprasidone) 10 mg Route: IM; Site: right deltoid; 07/30 06:14 Follow up: Response: No adverse reaction 07/29 21:05 Drug: Ativan (LORazepam) 1 mg Route: IM; Site: right deltoid; 07/30 06:14 Follow up: Response: No adverse reaction 07/29 21:05 Drug: Benadryl (diphenhydrAMINE) 25 mg Route: IM; Site: right deltoid; 07/30 06:13 Follow up: Response: No adverse reaction 07/29 21:29 Drug: NS 0.9% 1000 ml Route: IV; Rate: 1 bolus; Site: left antecubital; ke07/30 06:13 Follow up: Response: No adverse reaction; IV Status: Completed infusion; IV Intake: as6 1000ml 07/29 22:48 Drug: NS 0.9% 1000 ml Route: IV; Rate: 1 bolus; Site: right antecubital; 07/30 06:13 Follow up: Response: No adverse reaction; IV Status: Completed infusion; IV Intake: as6 1000ml 00:53 CANCELLED (Physician Discretion): NS 0.9% 1000 ml IV at 125 ml/hr continuous cp 01:00 Drug: NS 0.9% 1000 ml Route: IV; Rate: 200 ml/hr; Site: right antecubital; as6 06:13 Follow up: Response: No adverse reaction; IV Status: Completed infusion; IV Intake: as6 1000ml Disposition: 06:05 I reviewed the patient's care provided by Advanced Practice Provider \T\ agree w/ the sd2 diagnosis \T\ care plan. I personally saw the pt \T\ performed a substantive portion of the visit, incldng all aspects of the (History/Exam/Medical Decision Making). I assumed care of the patient from JEWELL Gregory, at 0100. Pt meth positive on UDS with elevated CK and creatinine. After 2L of fluids, labs significantly improved. Pt given Geodon initially. Now awake, alert with no complaints and speaking coherently. Denies SI or HI. No signs of acute psychosis at this time. Reports he has been off of his medications and will see his psychiatrist this week to get back on his medications. He is comfortable with plan for discharge home and outpatient follow up. Verbalizes understanding of strict return precautions and does not appear to be a danger to himself or others at this time. . Disposition Summary: 07/30/22 06:10 Discharge Ordered Location: Home sd2 Problem: an acute exacerbation sd2 Symptoms: are resolved sd2 Condition: Stable sd2 Diagnosis - Methamphetamine use sd2 - Acute psychosis sd2 - Elevated creatine kinase level sd2 - Acute kidney injury sd2 Followup: sd2 - With: Private Physician - When: 2 - 3 days - Reason: Recheck today's complaints, Continuance of care, Re-evaluation by your physician Discharge Instructions: - Discharge Summary Sheet sd2 - Methamphetamines Use Disorder sd2 - Acute Kidney Injury, Adult sd2 - Psychosis sd2 Forms: - Medication Reconciliation Form sd2 - Thank You Letter sd2 - Antibiotic Education sd2 - Prescription Opioid Use sd2 Signatures: Dispatcher [employer] EDMS Delmar Teran, HERMAN-C RADIATION MONITOR-Cla1 Darrius Prasad PA PA cp Sergei Ivey RN RN as6 Juan Ortega RN RN ke1 Cyndy Chamberlain MD MD sd2 Corrections: (The following items were deleted from the chart) 07/29 20:50 20:49 Allergies: UNKNOWN; as6 as6 07/30 00:51 00:50 This 27 yrs old Male presents to ER via EMS with complaints of Altered cp Mental Status. cp 00:53 00:52 NS 0.9% 1000 ml IV at 125 ml/hr continuous ordered. cp cp 01:20 00:50 This 27 yrs old Male presents to ER via EMS with complaints of Altered cp Mental Status. cp
--- NOTE | 2022-07-30 06:11 | ER ---
Nurse's Notes [facility] Name: Jose Pabon Age: 27 yrs Sex: Male : 1995 Arrival Date: 07/29/2022 Time: 20:44 Bed 7 Private MD: Diagnosis: Methamphetamine use;Acute psychosis;Elevated creatine kinase level;Acute kidney injury Presentation: 07/29 20:50 Coronavirus screen: At this time, the client does not indicate any symptoms associated as6 with coronavirus-19. Ebola Screen: No symptoms or risks identified at this time. Initial Sepsis Screen: Does the patient meet any 2 criteria? No. Patient's initial sepsis screen is negative. Does the patient have a suspected source of infection? No. Patient's initial sepsis screen is negative. Risk Assessment: Do you want to hurt yourself or someone else? Unable to obtain. Onset of symptoms was July 29, 2022. 20:50 Acuity: ROBY 2 as6 20:50 Method Of Arrival: EMS: [facility] as6 20:51 Chief complaint: EMS states: called out for mental health evaluation. on arrival to ER as6 pt is rambling noises and waving hands. pt is able to answer some questions. pt able to state his name. when asked if pt took any substance pt states yes. when questioned further pt did not reply. Historical: - Allergies: 20:49 No Known Allergies; as6 - PMHx: 20:49 Anxiety; Schizophrenia; Bipolar disorder; as6 - Immunization history:: Adult Immunizations unknown. - Social history:: Smoking status: unknown. Screenin:59 [facility] ED Fall Risk Assessment (Adult) History of falling in the last 3 months, ke1 including since admission No falls in past 3 months (0 pts) Confusion or Disorientation No (0 pts) Intoxicated or Sedated No (0 pts) Impaired Gait No (0 pts) Mobility Assist Device Used No (0 pt) Altered Elimination No (0 pt) Score/Fall Risk Level 0 - 2 = Low Risk Maintained a safe environment. Abuse screen: Denies threats or abuse. Nutritional screening: No deficits noted. Tuberculosis screening: No symptoms or risk factors identified. Assessment: 20:54 General: General: Appears slender, Behavior is anxious, inappropriate for age, as6 restless, uncooperative. 21:15 General: pt active in the room, unable to sit still. Neuro: Level of Consciousness is as6 awake, alert, Oriented to person. Respiratory: Respiratory effort is even, unlabored, Respiratory pattern is regular, symmetrical. 23:40 General: pt sleeping, mother at bedside . as6 07/30 01:18 General: pt sleeping . as6 05:35 General: Mother number- [phone] Susanne. . tw5 06:10 Neuro: Level of Consciousness is awake, alert, Oriented to person, place, time, ke1 situation. Vital Signs: 07/29 20:48 BP 140 / 83; Pulse 105; Resp 19 S; Temp 99.8(O); Pulse Ox 100% on R/A; Weight 79.38 kg; as6 Height 5 ft. 9 in. (175.26 cm); 22:00 BP 145 / 83; Pulse 86; Resp 18 S; Pulse Ox 100% on R/A; as6 23:39 BP 115 / 79; Pulse 93; Resp 16 S; Pulse Ox 100% on R/A; as6 07/30 01:18 BP 126 / 82; Pulse 79; Resp 16 S; Pulse Ox 100% on R/A; as6 02:29 BP 118 / 81; Pulse 79; Resp 18 S; Pulse Ox 100% on R/A; as6 03:15 BP 123 / 90; Pulse 107; Resp 17; Pulse Ox 100% on R/A; ke1 04:54 BP 117 / 71; Pulse 68; Resp 16; Pulse Ox 100% on R/A; ke1 06:20 BP 117 / 89; Pulse 69; Resp 17; Temp 99.2; Pulse Ox 100% ; Pain 0/10; ke1 07/29 20:48 Body Mass Index 25.84 (79.38 kg, 175.26 cm) as6 ED Course: 07/29 20:44 Patient arrived in ED. tw5 20:46 Darrius Prasad PA is PHCP. cp 20:47 Cyndy Chamberlain MD is Attending Physician. cp 20:48 Sergei Ivey, TERE is Primary Nurse. as6 20:48 Arm band placed on. as6 20:50 Triage completed. as6 21:29 Inserted saline lock: 20 gauge in left antecubital area, using aseptic technique. ke1 21:29 Acetaminophen Sent. ke1 21:29 Basic Metabolic Panel Sent. ke1 21: CBC with Diff Sent. ke07 15: ETOH Level Sent. ke07 15: Hepatic Function Sent. ke07 15: PT-INR Sent. ke 21: Ptt, Activated Sent. ke 21: Salicylate Sent. ke1 22:00 Bed in low position. Side rails up X 1. Side rails up X2. Adult w/ patient. ke1 22:24 Urine collected: straight cath specimen, maru colored, Amount Returned: 100mL. wm 22:25 Urine Drug Screen Sent. wm 22:26 ETOH Level Sent. wm 07/30 01:41 CT Head Brain wo Cont In Process Unspecified. EDMS 02:26 LAB Add On Sent. tw5 06:20 No provider procedures requiring assistance completed. IV discontinued. ke Administered Medications: 07/29 21:05 Drug: Geodon (ziprasidone) 10 mg Route: IM; Site: right deltoid; as6 07/30 06:14 Follow up: Response: No adverse reaction as6 07/29 21:05 Drug: Ativan (LORazepam) 1 mg Route: IM; Site: right deltoid; as6 07/30 06:14 Follow up: Response: No adverse reaction as07/29 21:05 Drug: Benadryl (diphenhydrAMINE) 25 mg Route: IM; Site: right deltoid; as07/30 06:13 Follow up: Response: No adverse reaction as07/29 21:29 Drug: NS 0.9% 1000 ml Route: IV; Rate: 1 bolus; Site: left antecubital; ke07/30 06:13 Follow up: Response: No adverse reaction; IV Status: Completed infusion; IV Intake: as6 1000ml 07/29 22:48 Drug: NS 0.9% 1000 ml Route: IV; Rate: 1 bolus; Site: right antecubital; as07/30 06:13 Follow up: Response: No adverse reaction; IV Status: Completed infusion; IV Intake: as6 1000ml 00:53 CANCELLED (Physician Discretion): NS 0.9% 1000 ml IV at 125 ml/hr continuous cp 01:00 Drug: NS 0.9% 1000 ml Route: IV; Rate: 200 ml/hr; Site: right antecubital; as6 06:13 Follow up: Response: No adverse reaction; IV Status: Completed infusion; IV Intake: as6 1000ml Medication: 06:13 VIS not applicable for this client. as6 Intake: 06:13 IV: 1000ml; Total: 1000ml. as6 06:13 IV: 1000ml; Total: 2000ml. as6 06:13 IV: 1000ml; Total: 3000ml. as6 Outcome: 06:10 Discharge ordered by . [email or web address] 06:20 Discharged to home ambulatory. ke1 06:20 Condition: good 06:20 Discharge instructions given to patient. 06:25 Patient left the ED. ke1 Signatures: Dispatcher [employer] EDMS Darrius Prasad PA PA cp Marsh, Wendy wm Wood, Tiffany tw5 Sergei Ivey RN RN as6 Juan Ortega RN RN ke1 Cyndy Chamberlain MD MD sd2 Corrections: (The following items were deleted from the chart) 07/29 20:50 20:49 Allergies: UNKNOWN; as6 as6 21:16 20:54 General: as6 as6
[2022-07-30 06:39] VITALS: O2SAT 100
[2022-07-30 06:57] VITALS: BP 117/89; TEMP 99.2
--- NOTE | 2022-07-31 13:25 | RAD REPORT ---
EXAM DESCRIPTION: CT - Head Brain Wo Cont - 07/30/2022 6:40 am CLINICAL HISTORY: 27 years Male Mental status change, alcohol/drug use COMPARISON: None TECHNIQUE: Contiguous axial images of the brain were obtained without the administration of intraven ous contrast.This exam was performed according to our departmental dose-optimization program which in cludes use of Automated Exposure Control, adjustment of the mA and/or kV according to patient size an d/or use of iterative reconstruction technique. DLP: 866 mGy*cm FINDINGS: Brain: No acute intracranial hemorrhage. No extra-axial collection. No mass effect or patricia iation. Ventricles: Within normal limits in size. Globes and orbits: No acute abnormality. Bones: No acute osseous finding Paranasal sinuses: Paranasal sinuses are clear. Mastoid air cells: Well pneumatized. Soft tissues: Within normal limits IMPRESSION: No acute intracranial abnormality. Electronically signed by: Ricky Streeter DO 07/30/2022 1:55 AM LIBRARY CATALOGING TECHNICIAN Due to temporary technical issues with the PACS/Fluency reporting system, reports are being signed by the in house radiologists without review as a courtesy to insure prompt reporting. The interpreting radiologist is fully responsible for the content of the report.
== END 2022-07-30 06:25 | disposition home or self-care (01) ==
LOC: ER 20:40
DX: F23 Brief psychotic disorder (principal); F15.90 Other stimulant use, unspecified, uncomplicated; N17.9 Acute kidney failure, unspecified; R79.89 Other specified abnormal findings of blood chemistry
CPT/HCPCS: 96361; 93005; 85025; 80048 ×2; 36415; 82550; 85610; 80076; 85730; 81003; 80307; 70450; 96360; 96372; 99284; J1200; J3486; J7030 ×3; G0480 ×3

== ENCOUNTER 2022-12-10 18:47 | Emergency (ER) | payer OTHER ==
--- OUTSIDE RECORDS SUMMARY | 2022-12-10 18:55 | XMS REPORT | Continuity of Care Document ---
:[address] [facility] t Address [address] [place] [address] Care Team Providers Name Role Phone BRIANNA FORBES Primary Care Physician Unavailable Jackelyn Kohli Attending Clinician Unavailable JOHN CAPONE Attending Clinician Unavailable SHERIF DIEGO Attending Clinician Unavailable Only, Sherif Db Test Attending Clinician Unavailable Roby Sebastian Attending Clinician ROBY JOHNSON Attending Clinician Unavailable Doctor Unassigned, Shedd Attending Clinician Unavailable Pcp, Patient Does Not Have A Attending Clinician [phone] Emily Castro Attending Clinician Lab, Adc Fam Pob I Attending Clinician Unavailable Coleman Gamez Attending Clinician COLEMAN WONG Attending Clinician Unavailable Kay Carl MD Attending Clinician Warren Edwards DO Attending Clinician WARREN EDWARDS Attending Clinician Unavailable Willow Campbell RD Attending Clinician Unavailable Alejandro Juan MD Attending Clinician ALEJANDRO JUAN Attending Clinician Unavailable JOVANI KEVIN Attending Clinician Unavailable CARMELA HEBERT Attending Clinician Unavailable HEBERT PHAM Attending Clinician Unavailable JOHN CAPONE Admitting Clinician Unavailable ALEJANDRO JUAN Admitting Clinician Unavailable CARMELA EHBERT Admitting Clinician Unavailable HEBERT PHAM Admitting Clinician Unavailable Payers Payer Name Policy Type Policy Number Effective Date Expiration Date Kari ALVARENGA COMM STAR [id number] 2017 00:00:00 PLAN Problems Condition Condition Condition Status Onset Resolution Last Treating Co mments Source Name Details Category Date Date Treatment Clinician Date Class 3 Class 3 Disease Recurre Last [facility] 07[facility]17 [facility] obesity obesity 00:00: t & Plan: Medic al due to due to [facility] excess excess g of this calories [...] important he continues to follow with his analysis evaluator as he undergoes workup for gastric sleeve surgery. Elevated Elevated Disease Active Last [facility] t liver liver 07-17 Assessmen Rhondakes enzymes enzymes 00:00: t & Plan: Medic al [facility] g of this note might be [...] including viral, autoimmun e, metabolic and genetic. Immunity Immunity Disease Active Last [facility] S t status status 07-17 Assesspaty Maxwell testing testing 00:00: t & Plan: Medic al [address] [place] [address] g of this note might be different from the original. All patients with chronic liver disease, regardles s of etiology, should be immunized to prevent hepatitis A and hepatitis B if they are not already immune. We will test for immunity to both viruses and vaccine recommend ations will follow. Fatty Fatty Disease Active [facility] St liver liver 07-17 Assesspaty Alissa 00:00: t & Plan: Medical [address] [place] [address] g of this note might be different from the original. Patient is known to have fatty liver based on ultrasoun d and CT abdomen from March and May [facility]. He has morbid obesity and hyperlipi demia [...] gastric sleeve surgery. Other Other Disease Active 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 - [facility] , single depressive St episode, disorder, [facility] without single Medical psychotic episode Center features H/O H/O Problem Common gastric gastric Spirit sleeve sleeve - [facility] [id number] Essential Problem Comm on (primary) Spirit hypertensi - [facility] [id number] Gastroesop Problem Co mmon hageal Spirit reflux - [facility] disease without [facility] esophagiti [facility] [id number] Hypercalce Problem Com mon johnny Spirit - [facility] Allergies, Adverse Reactions, Alerts Allergy Allergy Status Severity Reaction(s) Onset Inactive Treating Comm ents Source Name Type Date Date Clinician NO KNOWN Drug Active Univers ALLERGIE Class ity of S [facility] NO KNOWN Allergy Active [facility]ERG[facility] Family History Family Member Diagnosis Comments Start Date Stop Date Source Natural mother Diabetes [facility] Natural sister Hepatomegaly [facility] Social History Social Habit Start Date Stop Date Quantity Comments Source History of Tobacco Current Smoker Co mmon Spirit - Use [facility] Exposure to Yes University of SARS-CoV-2 (event) [facility] History SDOH [facility] Alcohol Comment Medical C enter History SDOH [facility] Alcohol Binge Medical Padmini ter History [facility] Alcohol Std Drinks [facility] Alcohol intake 2020-04-05 2020-04-[address] [facility] es 00:00:00 00:00:00 non-drinker of Medical Ce nter alcohol (finding) Cigarette 2019-12-29 2019-12-29 [facility] of pack-years 00:00:00 00:00:00 Medicine Tobacco Comment 2018-12-04 2018-12-[address] [facility] 00:00:00 00:00:00 [facility] Cigarettes smoked 2018-12-04 2018-12-[address] [facility] current (pack per 00:00:00 00:00:00 Medical Center day) - Reported Tobacco use and 2018-07-17 2018-07-[address] [facility] exposure 00:00:00 00:00:00 Medical Center History SDOH 2018-07-17 2018-07-[address] [facility] Alcohol Frequency 00:00:00 00:00:00 Medical Center Sex Assigned At [address] [facility] 00:00:00 00:00:00 Medical Center Smoking Status Start Date Stop Date Source Current Smoker 2022-07-28 00:00:00 Common Spiri t - [facility] nter Light tobacco smoker 2019-12-29 00:00:00 [facility] Unknown if ever smoked [facility] Branch Former smoker 2018-07-17 00:00:00 2018-07-17 00:00:00 [facility] Medications Ordered Filled Start Stop Current [...] t} 10 MG 00:00: 00 Lisinopril Lisinopril 2-0 No 1{table QD Lisinopril 10 MG 10 MG 8-03 t} 10 MG 00:00: 00 Pristiq 25 Pristiq 25 2021-0 No 1{table QD Pristiq 25 MG MG 8-03 t} MG 00:00: 00 Loratadine Loratadine 2021-0 2022- No 1{table QD Loratadine 10 MG 10 MG 12-13 t} 10 MG 00:00: 00:00 00 :00 Loratadine Loratadine 2021-0 2022- No 1{table QD Loratadine 10 MG 10 MG 12-13 t} 10 MG 00:00: 00:00 00 :00 Benzonatate Benzonatate 2021-0 2022- No 1{capsu Benzonatat 200 MG 200 MG 12-13 le} e 200 MG 00:00: 00:00 00 :00 Benzonatate Benzonatate 2021-0 2022- No 1{capsu Benzonatat 200 MG 200 MG 12-13 le} e 200 MG 00:00: 00:00 00 :00 Ondansetron Ondansetron 2021-0 No 1{table Ondansetro HCl 4 MG HCl 4 MG 3-30 t} n HCl 4 MG 00:00: 00 Ondansetron Ondansetron 2021-0 No 1{table Ondansetro HCl 4 MG HCl 4 MG 3-30 t} n HCl 4 MG 00:00: 00 Ondansetron Ondansetron 2021-0 No 1{table Ondansetro HCl 4 MG HCl 4 MG 3-30 t} n HCl 4 MG 00:00: 00 Ondansetron Ondansetron 2021-0 No 1{table Ondansetro HCl 4 MG HCl 4 MG 3-30 t} n HCl 4 MG 00:00: 00 Ondansetron Ondansetron 2021-0 No 1{table Ondansetro HCl 4 MG HCl 4 MG 3-30 t} n HCl 4 MG 00:00: 00 predniSONE predniSONE 2021-0 No 2{table QD predniSONE 20 MG 20 MG 3-11 t} 20 MG 00:00: 00 predniSONE predniSONE 2021-0 No 2{table QD predniSONE 20 MG 20 MG 3-11 t} 20 MG 00:00: 00 Loratadine Loratadine 2021- No 1{table QD Loratadine 10 MG 10 MG - 04-10 t} 10 MG 00:00: 00:00 00 :00 Loratadine Loratadine 2021-0 2021- No 1{table QD Loratadine 10 MG 10 MG -11 04-10 t} 10 MG 00:00: 00:00 00 :00 guaiFENesin guaiFENesin 2021-0 2021- No 1{table BID guaiFENesi ER 600 MG ER 600 MG 09-0216 t_as_ne n ER 600 00:00: 00:00 eded} MG 00 :00 omeprazole 2019-06- No 40mg QD Take [address] (PriLOSEC) 012 12 capsule [facility] 40 MG 00:00: 23:59 (40 mg Medical capsule 00 :00 total) by Center mouth daily. iohexol 2019- No 120mL 120 mL, Unive rs (OMNIPAQUE 12-20 Intravenou it y of 350 02:00: 01:39 s, ONCE, 1 [place] BULK-100 00 :00 dose, Sat Medica l mL) 12/20/19 at [place] injection 2100, 120 mL Routine ondansetron 2019-0 2020- No 4mg 4 mg, Slow Univers (ZOFRAN 12-20 IV Push, ity of (PF)) 01:30: 00:49 ONCE, 1 [place] injection 4 00 :00 dose, Sat Med ical mg 12/20/19 at [place] 2030, Routine dicyclomine 2019-0 Yes 10mg 10 mg, Univ ers (BENTYL) 12-20 Oral, QID, ity o f capsule 10 01:00: First dose [place] mg 00 on Sat Medical 12/20/19 at [place] 2000, Until Discontinu ed, Routine NaCl 0.9% 2019-0 2020- No 500mL at 999 Univ ers (NS) bolus 12-20 mL/hr, 500 it y of infusion 00:30: 01:20 mL, IV [place] 500 mL 00 :00 Infusion, Medical ONCE, 1 [place] dose, 12/20/19 at 1930, STAT sucralfate 2020-0 Yes 1mL Take 1 mL [facility] (CARAFATE) 12-20 by mouth Colle ge 1 GM/10ML 00:00: daily. of suspension 00 Medicin e sucralfate 2020-0 Yes [id number] 1000mg Take 10 mL Univers (CARAFATE) 6-27 by mouth ity o f 100 mg/mL 00:00: before [place] suspension 00 meals and Medi connie at [place] bedtime. sucralfate 2020-0 Yes [id number] 1000mg Take 10 mL Univers (CARAFATE) 6-27 by mouth ity o f 100 mg/mL 00:00: before [place] suspension 00 meals and Medi connie at [place] bedtime. sucralfate 2020-0 Yes [id number] 1000mg Take 10 mL Univers (CARAFATE) 6-27 by mouth ity o f 100 mg/mL 00:00: before [place] suspension 00 meals and Medi connie at [place] bedtime. sucralfate 2020-0 Yes [id number] 1000mg Take 10 mL Univers (CARAFATE) 6-27 by mouth ity o f 100 mg/mL 00:00: before [place] suspension 00 meals and Medi connie at [place] bedtime. sucralfate 2020-0 Yes [id number] 1000mg Take 10 mL Univers (CARAFATE) 6-27 by mouth ity o f 100 mg/mL 00:00: before [place] suspension 00 meals and Medi connie at [place] bedtime. sucralfate 2020-0 Yes [id number] 1000mg Take 10 mL Univers (CARAFATE) 6-27 by mouth ity o f 100 mg/mL 00:00: before [place] suspension 00 meals and Medi connie at [place] bedtime. sucralfate 2020-0 Yes [id number] 1000mg Take 10 mL Univers (CARAFATE) 6-27 by mouth ity o f 100 mg/mL 00:00: before [place] suspension 00 meals and Medi connie at [place] bedtime. clonazepam 2019-0 Yes .5mg Take 0.5 [employer] (KLONOPIN) 6-16 mg by College 0.5 [...] 10 MG 10 MG t} 10 MG Lisinopril Lisinopril No Lisinopril 10 MG 10 MG 10 MG Omeprazole Omeprazole No Omeprazole 40 MG 40 MG 40 MG Omeprazole Omeprazole No QD Omeprazole 40 MG 40 MG 40 MG predniSONE predniSONE No 2{table QD predniSONE [...] 40 MG 40 MG No known No [facility] Medicin e No known No [facility] Medicin e Vital Signs Vital Name Observation Time Observation Value Comments Source WEIGHT 2020-04-05 10:17:00 99.474 kg HEIGHT 2020-04-05 10:17:00 170.2 cm HEIGHT 2020-04-02 14:50:00 170.2 cm WEIGHT 2020-04-02 14:50:00 105.688 kg height 2022 14:40:00 67 [in_i] Common [facility] weight 2022 14:40:00 222.4 [lb_av] Common [facility] temperature 2022 14:40:00 97.6 [degF] Common [facility] bmi 2022 14:40:00 34.83 kg/m2 Common [facility] oximetry 2022 14:40:00 98 % Common [facility] respiratory rate 2022 14:40:00 16 /min Comm on [facility] blood pressure 2022 14:40:00 132 mm[Hg] Common Spirit - systolic [facility] blood pressure 2022 14:40:00 80 mm[Hg] Common [facility] - diastolic [facility] height 2022-01-25 14:00:00 67 [in_i] Common [facility] weight 2022-01-25 14:00:00 228 [lb_av] [facility] temperature 2022-01-25 14:00:00 98.5 [degF] Common [facility] bmi 2022-01-25 14:00:00 35.71 kg/m2 [facility] oximetry 2022-01-25 14:00:00 99 % [facility] respiratory rate 2022-01-25 14:00:00 17 /min Comm on [facility] blood pressure 2022-01-25 14:00:00 152 mm[Hg] Common Spirit - systolic [facility] blood pressure 2022-01-25 14:00:00 87 mm[Hg] Common Spirit - diastolic [facility] height 2021-10-04 16:00:00 67 [in_i] Common [facility] weight 2021-10-04 16:00:00 268 [lb_av] [facility] temperature 2021-10-04 16:00:00 97.4 [degF] Common S pirit [facility] bmi 2021-10-04 16:00:00 41.97 kg/m2 Common [facility] oximetry 2021-10-04 16:00:00 98 % Common [facility] respiratory rate 2021-10-04 16:00:00 16 /min Comm on [facility] blood pressure 2021-10-04 16:00:00 131 mm[Hg] Common Spirit - systolic [facility] blood pressure 2021-10-04 16:00:00 81 mm[Hg] Common [facility] - diastolic [facility] height 2021-09-21 13:40:00 67 [in_i] [facility] weight 2021-09-21 13:40:00 265 [lb_av] [facility] bmi 2021-09-21 13:40:00 41.5 kg/m2 [facility] WEIGHT 2020-04-05 10:17:00 99.474 kg HEIGHT 2020-04-05 10:17:00 170.2 cm HEIGHT 2020-04-02 14:50:00 170.2 cm WEIGHT 2020-04-02 14:50:00 105.688 kg Systolic blood 2019-12-29 12:52:00 112 mm[Hg] [facility] Medicine Diastolic blood 2019-12-29 12:52:00 72 mm[Hg] [facility] Heart rate 2019-12-29 12:52:00 76 /min [facility] Body temperature 2019-12-29 12:52:00 37.06 [place] [facility] Body height 2019-12-29 12:52:00 170.2 cm [facility] Body weight 2019-12-29 12:52:00 105.688 kg [facility] BMI 2019-12-29 12:52:00 36.49 kg/m2 [facility] Systolic blood 2019-12-21 03:00:00 122 mm[Hg] [facility] Diastolic blood 2019-12-21 03:00:00 89 mm[Hg] [facility]ive [facility] Heart rate 2019-12-21 03:00:00 71 /min [facility] [place] [facility] Respiratory rate 2019-12-21 03:00:00 16 /min [facility] [place] [facility] Oxygen saturation in 2019-12-21 03:00:00 98 /min University of Arterial blood by [facility] Pulse oximetry Branch Body temperature 2019-12-21 00:32:00 37.22 [place] [facility] [place] [facility] Body height 2019-12-21 00:32:00 170.2 cm [facility] [place] [facility] Body weight 2019-12-21 00:31:00 102.513 kg [facility] [place] [facility] BMI 2019-12-21 00:31:00 35.40 kg/m2 [facility] [place] [facility] Systolic blood 2019-12-21 03:00:00 122 mm[Hg] Univer sity of pressure [place] [facility] Diastolic blood 2019-12-21 03:00:00 89 mm[Hg] Unive rsity of pressure [place] [facility] Heart rate 2019-12-21 03:00:00 71 /min [facility] [place] [facility] Respiratory rate 2019-12-21 03:00:00 16 /min [facility] [place] [facility] Oxygen saturation in 2019-12-21 03:00:00 98 /min University of Arterial blood by [facility] Pulse oximetry Branch Body temperature 2019-12-21 00:32:00 37.22 [place] [facility] [place] [facility] Body height 2019-12-21 00:32:00 170.2 cm [facility] [place] [facility] Body weight 2019-12-21 00:31:00 102.513 kg [facility] [place] [facility] BMI 2019-12-21 00:31:00 35.40 kg/m2 [facility] [place] [facility] Systolic blood 2019-03-19 20:32:00 110 mm[Hg] [facility] pressure Medicine Diastolic blood 2019-03-19 20:32:00 69 mm[Hg] [facility] Medicine Heart rate 2019-03-19 20:32:00 101 /min [facility] Body temperature 2019-03-19 20:32:00 37 [place] [facility] Body height 2019-03-19 20:32:00 170.2 cm [facility] Body weight 2019-03-19 20:32:00 136.896 kg [facility] BMI 2019-03-19 20:32:00 47.27 kg/m2 [facility] Systolic blood 2019-03-19 20:32:00 110 mm[Hg] [facility] pressure Medicine Diastolic blood 2019-03-19 20:32:00 69 mm[Hg] [facility] Medicine Heart rate 2019-03-19 20:32:00 101 /min [facility] Body temperature 2019-03-19 20:32:00 37 [place] [facility] Body height 2019-03-19 20:32:00 170.2 cm [facility] Body weight 2019-03-19 20:32:00 136.896 kg [facility] BMI 2019-03-19 20:32:00 47.27 kg/m2 [facility] Procedures Procedure Date / Time Performing Clinician Source Performed CT ABDOMEN PELVIS W 2019-12-21 01:44:37 Warren Edwards [facility] CONTRAST Medical Branch LIPASE 2019-12-21 00:52:00 Singer [facility] COMP. METABOLIC PANEL 2019-12-21 00:52:00 Warren Edwards [facility] ([id number]) [facility] CBC WITH DIFFERENTIAL 2019-12-21 00:52:00 Warren Edwards [facility] URINALYSIS 2019-12-21 00:52:00 Singer Warren [facility] NOTICE OF PRIVACY 2019-12-21 00:22:40 Doctor Unassigned, No [facility] PRACTICES Name [facility] Branch CONSENT/REFUSAL FOR 2019-12-21 00:22:22 [facility] Unassigned, No [facility] DI[facility]NOSIS AND TREATMENT Name Medical [place] Plan of Care Planned Activity Planned Date Details Comments Source Future Scheduled 2023-02-[address] [facility] Test 00:00:00 (Season Ended) [code Medical Center = Influenza Vaccine (Season Ended)] Future Scheduled 2022-06-[address] [facility] Test 00:00:00 (12+) [code = Medical Center DEPRESSION SCREENING (12+)] Future Scheduled 2022-06-[address] [facility] Test 00:00:00 (12+) [code = [facility] DEPRESSION SCREENING (12+)] Future Scheduled 2022-02-[address] [facility] Test 00:00:00 (#1) [code = [facility] INFLUENZA VACCINE (#1)] Future Scheduled 2022-02-[address] [facility] Test 00:00:00 (#1) [code = [facility] INFLUENZA VACCINE (#1)] Future Scheduled 2021-06-[address] [facility] Test 00:00:00 (12+) [code = [facility] DEPRESSION SCREENING (12+)] Future Scheduled 2021-04-[address] [facility] Test 00:00:00 [facility] Cent[facility] r Screening (12+) [code = Tobacco Cessation Counseling and Screening (12+)] Future Scheduled 2021-04-[address] [facility] Test 00:00:00 [facility] Cent[facility] r Screening (12+) [code = Tobacco Cessation Counseling and Screening (12+)] Future Scheduled 2020-01-[address] [facility] Test 00:00:00 (procedure) [code = [facility] 83242206] Future Scheduled 2020-01-[address] [facility] Test 00:00:00 (procedure) [code = [facility] 36114342] Future Scheduled 2020-01-[address] [facility] Test 00:00:00 (procedure) [code = [facility] 71872770] Future Scheduled 2015-02-13 DTAP/TDAP/TD VACCINES CH I [...] Medical Padmini ter VACCINE (#1)] Future Scheduled TETANUS SHOT (ADULT) [employer] Test [code = TETANUS SHOT of Medi cine (ADULT)] Future Scheduled BMI FOLLOW UP PLAN [employer] [facility] [code = BMI FOLLOW UP of Med icine PLAN] Future Scheduled HIV SCREENING [code = [employer] [facility] HIV SCREENING] of Medicine Future Scheduled FLU VACCINE > 6 [facility] [facility] MONTHS [code = FLU of Medici ne VACCINE > 6 MONTHS] Future Scheduled TETANUS SHOT (ADULT) [employer] Test [code = TETANUS SHOT of Medi cine (ADULT)] Future Scheduled BMI FOLLOW UP PLAN [facility] r [facility] Test [code = BMI FOLLOW UP of Med icine PLAN] Future Scheduled HIV SCREENING [code = [employer] Test HIV SCREENING] of Medicine Future Scheduled FLU VACCINE > 6 [facility] C ollege Test MONTHS [code = FLU of Medici ne VACCINE > 6 MONTHS] Future Scheduled CBC W/AUTO DIFF WITH Ordered: [facility] Test PLATELETS [code = 03/19/2019 of Medicin e 83605-7] Future Scheduled COMPREHENSIVE Ordered: [facility] Col lege Test METABOLIC PANEL [code 03/19/2019 of Med icine = 66139-5] Future Scheduled LIPID PANEL [code = Ordered: [facility] Test 97620-1] 03/19/2019 of Medicine Future Scheduled THYROID PROFILE (T3U Ordered: [facility] Test - T4 - T7 - TSH) 03/19/2019 of Medicine [code = NOCPT] Future Scheduled IRON [code = 2498-4] Ordered: [facility] Test 03/19/2019 of Medicine Future Scheduled FERRITIN [code = Ordered: [facility] Test 01679-5] 03/19/2019 of Medicine Future Scheduled FOLATE [code = Ordered: [facility] llege Test 2284-8] 03/19/2019 of Medicine Future Scheduled HEMOGLOBIN A1C [code Ordered: [facility] Test = 4548-4] 03/19/2019 of Medicine Future Scheduled VITAMIN A [code = Ordered: [facility] Test 2923-1] 03/19/2019 of Medicine Future Scheduled VITAMIN B1 [code = Ordered: [facility] r College Test 38096-1] 03/19/2019 of Medicine Future Scheduled VITAMIN B12 [code = Ordered: [facility] or College Test 2132-9] 03/19/2019 of Medicine Future Scheduled VITAMIN D 25 HYDROXY Ordered: [facility] Test [code = 1989-3] 03/19/2019 of Medicine Future Scheduled TETANUS SHOT (ADULT) [facility] Test [code = TETANUS SHOT of Medi cine (ADULT)] Future Scheduled BMI FOLLOW UP PLAN [facility] r [facility] Test [code = BMI FOLLOW UP of Med icine PLAN] Future Scheduled HIV SCREENING [code = [facility] Test HIV SCREENING] of Medicine Future Scheduled FLU VACCINE > 6 [facility] C ollege Test MONTHS [code = FLU of Medici ne VACCINE > 6 MONTHS] Future Scheduled PT INSTR GIVEN - Ordered: [facility] Test TOBACCO [code = 12/29/2019 of Medicine NOCPT] Encounters Start End Encounter Admission Attending Care Care Encounter Source Date/Time Date/Time Type Type Clinicians Facility Department ID 2022-10-27 Outpatient Kohli, [facility] [id number] Common 08:58:01 Jackelyn [facility] 2022-10-26 Outpatient Kohli, [facility] [id number] Common 09:04:01 Jackelyn [facility] 2022-02-10 Outpatient Kohli, [facility] [id number] Common 14:28:00 Jackelyn [facility] 2022-02-06 Outpatient Kohli, [facility] [id number] Common 11:19:02 Jackelyn [facility] 2022-01-03 Outpatient Kohli, [facility] [id number] Common 12:20:01 Jackelyn [facility] 2021-11-03 Outpatient Kohli, [facility] [id number] Common 13:18:02 Jackelyn [facility] 2021-11-02 Outpatient Kohli, STLML[facility] STLML[facility] [id number] Common 10:12:06 Jackleyn [facility] 2021-10-05 Outpatient Kohli, STLMLC STLMLC [id number] Common 10:40:03 Jackelyn [facility] 2021-09-29 Outpatient Kohli, STLMLC STLMLC [id number] Common 13:45:04 Jackelyn [facility] 2021-09-21 Outpatient Kohli, STLMLC STLMLC [id number] Common 13:17:02 Jackelyn [facility] 2021-08-31 Outpatient Kohli, STLMLC STLMLC [id number] Common 10:49:02 Jackelyn [facility] 2021-03-30 Outpatient CAPONE, [facility] Surgery [id number] [facility] 09:37:20 SUNEAL 2023-03-30 2023-03-30 Outpatient SHERIF DIEGO [facility] [id number] [facility] 00:00:00 00:00:00 2022-07-31 2022-07-31 OFFICE STLMLC STLMLC [id number] Co mmon 00:00:00 00:00:00 VISIT Spirit ESTAB PT - [facility] LEVEL [facility] 2022 2022 OFFICE STLMLC STLMLC [id number] Co mmon 00:00:00 00:00:00 VISIT Spirit ESTAB PT - [facility] LEVEL 4 [facility] [facility] 2022-02-02 2022-02-02 (TEL) STLMLC STLMLC [id number] Co mmon 00:00:00 00:00:00 [facility] 2022-01-25 2022-01-25 (WELLNESS) STLMLC STLMLC [id number] Common 00:00:00 00:00:00 Wellness Spiri t Visit [facility] 2021-12-13 2021-12-13 OFFICE STLMLC STLMLC [id number] Co mmon 00:00:00 00:00:00 VISIT EST Spir it PT LEVEL 3 - [facility] 2021-12-13 2021-12-13 (TEL) STLMLC STLMLC [id number] Co mmon 00:00:00 00:00:00 [facility] 2021-10-04 2021-10-04 OFFICE STLMLC STLMLC [id number] Co mmon 00:00:00 00:00:00 VISIT EST Spir it PT LEVEL 3 [facility] 2021-09-21 2021-09-21 (TEL) STLMLC STLMLC [id number] Co mmon 00:00:00 00:00:00 [facility] 2021-09-21 2021-09-21 OFFICE STLMLC STLMLC [id number] Co mmon 00:00:00 00:00:00 VISIT EST Spir it PT LEVEL [address] [place] [address] 2021-09-02 2021-09-02 OFFICE STLMLC STLMLC [id number] Co mmon 00:00:00 00:00:00 VISIT NEW Spir it PT LEVEL 3 [facility] 2021-07-01 2021-07-01 Laboratory Only, Ang Db Test [facility] 1.2.8 40.114 [id number] Univers 15:45:00 16:00:00 Only Roby Johnson [facility] 350.1.13.10 ity of [place] 4.2.7.2.686 Estuardo as LUIS ARMANDO?BLEA [phone] [address] MEDICAL OFFICE BUILDING 2021-07-01 2021-07-01 Outpatient R [facility] [id number] Univers 15:45:00 15:45:00 ROBY hightower o f [facility] 2021-07-01 2021-07-01 Letter Doctor VELASQUEZ 1.2.840.114 [id number] Univers 00:00:00 00:00:00 (Out) Unassigned, TIBURCIO 350.1.13.10 ity of [place] [facility] 4.2.7.2.686 Estuardo as [phone] [address] 2021-07-01 2021-07-01 Letter Doctor VELASQUEZ 1.2.840.114 [id number] Univers 00:00:00 00:00:00 (Out) Unassigned, TIBURCIO 350.1.13.10 ity of [place] [facility] 4.2.7.2.686 Estuardo as [phone] [address] 2020-04-02 2020-04-02 [facility] [id number] SLE 00:00:00 00:00:00 2020-01-16 2020-01-16 Telephone PcpEVA 1.2.408.725 [id number] 00:00:00 00:00:00 Patient TIBURCIO 350.1.13.10 Does Not [facility] 4.2.7.2.686 Have A [phone] [id number] 2020-01-16 2020-01-16 Telephone PcpEVA 1.2.690.026 [id number] [facility] 00:00:00 00:00:00 Patient TIBURCIO 350.1.13.10 it y of Does Not [facility] 4[place].2.[place] Have A [id number] [address] 2020-01-15 2020-01-15 Telephone de EVA 1.2.550.694 [id number] 00:00:00 00:00:00 Lola TIBURCIO 350.1.13.10 [facility] 4.2.7.2.686 [id number] 019 2020-01-15 2020-01-15 Telephone de EVA 1.2.152.580 [id number] [facility] 00:00:00 00:00:00 VIRGIL DavilaY 350.1.13.10 ity of [facility] 4.2.7.2.686 Estuardo as [phone] [address] 2020-01-14 2020-01-14 Laboratory Lab, [facility] 1.2.840.114 [id number] 17:24:30 17:44:30 Only Fam Pob I Health 350.1.13.10 [place] 42.7.2.686 Professio [phone] [place] [address] [address] 2020-01-14 2020-01-14 Laboratory Lab, [facility] Fam Pob I [place] 1.2. 840.114 [id number] [facility] 17:24:30 17:44:30 Only Anene, [facility] 350.1.13.10 ity of [place] [address].2.7.2.686 Estuardo as Professio [phone] Az dical [facility] [address] 2020-01-14 2020-01-14 [facility] [id number] Univers 17:20:00 17:20:00 COLEMAN hightwoer [facility] 2019-12-29 2019-12-29 Office Kay Carl 1.2.016.963 [id number] [facility] 07:48:55 08:18:55 Visit MinnieMorales AMBULATOR 350.1.13.21 College Y 0.2.7.2.686 of [phone] [facility] 800 2019-12-20 2019-12-20 Emergency [facility] 1.2.116.116 [id number] 19:27:54 22:32:00 Warren Mcdonald 350.1.13.10 [place] 4.2.7.2.686 [place] [id number] [facility] 2019-12-20 2019-12-20 Emergency [facility] 1.2.891.713 [id number] Univers 19:27:54 22:32:00 Warren Mcdonald 350.1.13.10 i ty of [place] 4.2.7.2.686 [facility] [phone] [address] 2019-12-20 2019-12-20 Emergency X [facility] ERT [id number] Univers 19:19:00 19:19:00 WARREN hightower [facility] 2019-03-19 2019-03-19 Office SHELLY Campbell 1.2.840.114 [id number] [facility] 15:20:14 16:43:29 Visit Willow AMBULATOR 350.1.13.21 College Y 0.2.7.2.686 of [id number] [facility] 800 e 2019-03-19 2019-03-19 Office SHELLY Campbell 1.2.840.114 [id number] 15:20:14 16:43:29 Visit Willow AMBULATOR 350.1.13.21 Y [phone] [facility] 2019-03-19 2019-03-19 Office SHELLY Juan 1.2.840.114 [id number] [facility] 15:19:32 16:42:05 Visit Alejandro ABREU 350.1.13.21 College Y 0.2.7.2.686 of [id number] [facility] 800 e 2019-03-19 2019-03-19 Office SHELLY Juan 1.2.840.114 [id number] 15:19:32 16:42:05 Visit Alejandro ABREU 350.1.13.21 Y 0.2.7.2.686 [id number] 800 2019-02-25 2019-02-25 Outpatient SLE [facility] [id number] [facility]H 00:00:00 00:00:00 Results Test Description Test Time Test Comments Results Result [facility] e Comments TISSUE EXAM 2020-04-06 Surgical Pathology Report 13:37:00 Case: [id number] Authorizing Provider: John Capone MD Collected: 04/05/2020 10:35 AM Ordering Location: [facility] ENDOSCOPY Received: 04/05/2020 03:03 PM SERVICES Pathologist: Petty Stewart MD Specimen: Biopsy, Gastric, RANDOM BX A. GASTRIC, RANDOM BIOPSY: - GASTRIC BODY TYPE MUCOSA WITH NO SIGNIFICANT HISTOPATHOLOGICAL CHANGE - GASTRIC ANTRUM TYPE MUCOSA WITH CHRONIC ACTIVE H. PYLORI-ASSOCIATED GASTRITIS - FEW H. PYLORI-LIKE ORGANISMS SEEN ON H&E AND WARTHIN-STARRY STAINSLorene/pl Signing Pathologist Direct Phone Line: [phone] y signed by Petty Stewart MD on [...] evaluated Immunohistochemistry technical testing was performed at [facility], Pathology Laboratory where it was developed and [...] APPEARANCE (test code = Hazy Clear A 8325518428) COLOR (test code = 5360923881) Delia Yellow A PH (test code = 5376637661) 4.8-8.0 SP GRAVITY (test code = 1.003-1.030 H 0759053011) GLU U QUAL (test code = Normal Normal 9058409556) BLOOD (test code = 5673966233) Negative Negative KETONES (test code = 0328605012) 5 mg/dL Negative A PROTEIN (test code = 2887-8) 30 mg/dL Negative A UROBILIN (test code = 4.0 mg/dL Normal A 3096640861) BILIRUBIN (test code = 2 mg/dL Negative A 6651081189) NITRITE (test code = 2521755335) Negative Negative LEUK EDWARDO (test code = Negative Negative 3648599575) RBC/HPF (test code = 5185055938) See_Comment [Automated message] The system which ge nerated this result transmit rodney reference range: 0 - 3 HP F. The reference range was not used to interpret th is result as normal/abnormal . WBC/HPF (test code = 7387068790) See_Comment [Automated message] The system which ge nerated this result transmit rodney reference range: 0 - 5 HP F. The reference range was not used to interpret th is result as normal/abnormal . BACTERIA (test code = Few Negative A 5941741003) MUCOUS (test code = 0103405808) Marked Negative LPF A HYAL CAST (test code = See_Comment H [Aut omated message] The 1375149790) system which ge nerated this result transmit rodney reference range: <=2 LPF. The reference range was not used to interpret th is result as normal/abnormal . Lab Interpretation (test code = Abnormal 37632-0) [facility]. METABOLIC PANEL (66498)2019-12-21 01:11:00 Test Item Value Reference Range Interpretation Comments NA (test code = 139 mmol/L 135-145 2692926595) K (test code = 3.3 mmol/L 3.5-5 L 3772128595) CL (test code = 103 mmol/L 98-108 8612908469) CO2 TOTAL (test code = 26 mmol/L 23-31 1230816117) AGAP (test code = 2-16 1948314338) BUN (test code = 10 mg/dL 7-23 9906536670) GLUCOSE (test code = 133 mg/dL 70-110 H 1766928566) CREATININE (test code = 0.69 mg/dL 0.6-1.25 1865039720) TOTAL BILI (test code = 1.1 mg/dL 0.1-1.8 3885216675) CALCIUM (test code = 10.0 mg/dL 8.6-10.6 1578101278) T PROTEIN (test code = 8.4 g/dL 6.3-8.2 H 9422247528) ALBUMIN (test code = 4.9 g/dL 3.5-5 2725282777) ALK PHOS (test code = 101 U/L 34-122 2324496382) ALTv (test code = 24 U/L 5-50 1742-6) AST(SGOT) (test code = 31 U/L 13-40 2728063608) eGFR Calculation mL/min/1.73m2 (Non-) (test code = 8658760510) eGFR Calculation mL/min/1.73m2 () (test code = 3550443533) MICHAEL (test code = MICHAEL) Association of [...] tests). Lab Interpretation Abnormal (test code = 10949-6) [facility] 01:10[facility]00 Test Item Value Reference Range Interpretation Comments LIPASE (test code = 4047597185) 130 U/L 0-220 Lab Interpretation (test code = Normal 18053-8) [facility] WITH [id number] 00:59:00 Test Item Value Reference Range Interpretation Comments WBC (test code = See_Comment H [Automated 2953-2) message] The sy stem which generated this result transmitted reference range : 4.20 - 10.70 10*3/?L. The reference range was not used to interpret this result as normal/abnormal . RBC (test code = See_Comment [Automated 085-8) message] The sy stem which generated this [...] RDW-SD (test code = 41.1 fL 38.5-51.6 14692-6) RDW-CV (test code = 13.1 % 12.1-15.4 788-0) PLT (test code = See_Comment H [Automated 777-3) message] The sy stem which generated this result transmitted reference range : 150 - 328 10*3/ ?L. The reference r casa was not used to interpret this result as normal/abnormal . MPV (test code = 10.5 fL 9.8-13 38143-3) NRBC/100 WBC (test See_Comment [Automat ed code = 2265372154) message] The system which generated this result transmitted reference range : 0.0 - 10.0 /100 WBCs. The refer ence range was not u sed to interpret th is result as normal/abnormal . NRBC x10^3 (test code <0.01 See_Comment [Auto mated = 1178720286) message] The s ystem which generated this result transmitted reference range : 10*3/?L. The reference range was not used to interpret this result as normal/abnormal . GRAN MAT (NEUT) % 65.1 % (test code = 770-8) IMM GRAN % (test code 0.50 % = 6612409789) LYMPH % (test code = 24.3 % 736-9) MONO % (test code = 8.7 % 5905-5) EOS % (test code = 0.9 % 713-8) BASO % (test code = 0.5 % 706-2) GRAN MAT x10^3(ANC) 7.18 10*3/uL 1.99-6.95 H (test code = 8590767197) IMM GRAN x10^3 (test 0.05 10*3/uL 0-0.06 code = 6375865957) LYMPH x10^3 (test code 2.68 10*3/uL 1.09-3.23 = 731-0) MONO x10^3 (test code 0.96 10*3/uL 0.36-1.02 = 742-7) EOS x10^3 (test code = 0.10 10*3/uL 0.06-0.53 711-2) BASO x10^3 (test code 0.05 10*3/uL 0.01-0.09 = 704-7) Lab Interpretation Abnormal (test code = 74865-3) [facility] [id number] 17:52:00Surgical Pathology Report Case: [id number] Authorizing Provider: Alejandro Juan MD Collected: 03/11/2019 1421 Ordering Location: [facility] PERIOPERATIVE Received: 03/11/2019 1609 SERVICES Pathologist: Ed Fraser MD Specimen: Stomach STOMACH, PARTIAL/SLEEVE GASTRECTOMY- CHRONIC INACTIVE GASTRITIS, MINIMAL-MILD- INTESTINAL METAPLASIA OR MALIGNANCY NOT SEEN Signing Pathologist Direct Phone Line: [phone] signed by Ed Fraser MD on 03/27/2019 at 5:52 [id number] obesity A. Stomach tissue A. Received in formalin labeled "stomach" is a 25 x 6 x 2 cm partial gastrectomy. The specimen is opened to reveal a bhatia-brown mucosa with normal folds. Mixed Livestock Farmer sections from the staple line are submitted in cassettes A1 and A2, and pharmaceutical service representative section from the central mucosa aresubmitted in cassettes A3 and A4. TW/ew [facility], Department of Pathology, [address] [place] [address], [facility], [address] [place] [address], [facility], [address] [place] [address], JTGV-GLUCOSE [id number] 13:26:00 Test Item Value Reference Range Interpretation Comments POC-GLUCOSE METER 108 mg/dL 70-110 TESTED AT [place] [address] ([facility]) (test code = NEILJAYDEN Best [facility] 1538) [address] CBC W/PLT COUNT & AUTO [id number] 06:28:00 Test Item Value Reference Range Interpretation Comments WHITE BLOOD CELL COUNT ([facility]) 17.6 K/ L 3.5-10.5 H (test code [...] (BEAKER) (test code = 2801) COMPREHENSIVE METABOLIC [id number] 06:27:00 Test Item Value Reference Range Interpretation [...] NOT APPLICABLE FOR DIALYSIS PATIEN TS. POCT-GLUCOSE [id number] 00:04:00 Test Item Value Reference Range Interpretation Comments POC-GLUCOSE METER 123 mg/dL 70-110 H TESTED AT [facility] 67[facility] (test code = [place] 1538) [address] POCT-GLUCOSE [id number] 15:27:00 Test Item Value Reference Range Interpretation Comments POC-GLUCOSE METER 126 mg/dL 70-110 H TESTED AT [facility] 67[address] ([facility] (test code = [place] 1538) [address] POCT-GLUCOSE [id number] 11:57:00 Test Item Value Reference Range Interpretation Comments POC-GLUCOSE METER 77 mg/dL 70-110 TESTED AT [facility] 6720 (BEAKER) (test code = [place] [address] 1538) [id number] 14:18:00 Test Item Value Reference Range Interpretation Comments SODIUM (BEAKER) (test code = 381) 140 meq/L 136-145 POTASSIUM (BEAKER) (test code = 4.1 meq/L 3.5-5.1 379) CHLORIDE (BEAKER) (test code = 382) 103 meq/L 98-107 CO2 (BEAKER) (test code = 355) 26 meq/L 22-29 BUN AND [id number] 14:18:00 Test Item Value Reference Range Interpretation Comments BLOOD UREA NITROGEN 8 mg/dL 7-21 (BEAKER) (test code = 354) CREATININE (BEAKER) 0.84 mg/dL 0.57-1.25 (test code = 358) EGFR (BEAKER) (test 113 mL/min/1.73 ESTIM ATED GFR IS code = 1092) sq m NOT ACCURATE CREATININE CLEARANCE IN PREDICTING GLOMERULAR FILTRATION RATE . ESTIMATED GFR I S NOT APPLICABLE FOR DIALYSIS PATIEN TS. [id number] 14:03:00 Test Item Value Reference Range Interpretation Comments HEMOGLOBIN (BEAKER) (test code = 15.3 GM/DL 13.7-17.5 410) PLATELET [id number] 14:03:00 Test Item Value Reference Range Interpretation Comments PLATELET COUNT (BEAKER) (test 390 K/CU MM 150-450 code = 756) TISSUE [id number] 23:23:00Surgical Pathology Report Case: [id number] Authorizing Provider: Alejandro Juan MD Collected: 12/06/2018 151 Ordering Location: [facility] Endoscopy Received: 12/09/2018 0809 Services Pathologist: Ed Correa MD Specimens: A) - Stomach, stomach biopsy B) - Biopsy, Esophagus, esophagus biopsy ,40 cm R/O virus esophagitis A. STOMACH, BIOPSY- CHRONIC INACTIVE GASTRITIS, MILD- NO INTESTINAL METAPLASIA, DYSPLASIA OR INVASIVE CARCINOMA IDENTIIFIED- HELICOBACTER PYLORI LIKE ORGANISMS IDENTIFIED ON WARTHIN STARRY STAINB. ESOPHAGUS, 40 CM , BIOPSY- REACTIVE CHANGES- NO ULCERATION, INFLAMMATION OR VIRAL CYTOPATHIC CHANGES SEEN Signing Pathologist Direct Phone Line: [phone] signedby Ed Fraser MD on 12/12/2018 at 11:23 [id number] X 8, 13127S. Stomach biopsy. B. Esophagus biopsy, 40 cm, [...] evaluated Immunohistochemistry technical testing was performed at [facility], Pathology Laboratory where it was developed and its performance characteristics were determined. It has not beencleared or approved by the U.S. Food and [...] method.Test performed by IFA method.HEPATITIS B SURFACE [id number] 19:57:00 Test Item Value Reference Range Interpretation Comments HEPATITIS B SURFACE ANTIBODY < mIU/mL <8.0 (BEAKER) (test code = 647) HEPATITIS A ANTIBODY, [id number] 19:57:00 Test Item Value Reference Range Interpretation Comments HEPATITIS A IGG ANTIBODY (BEAKER) Reactive Nonreactive A (test code = 2797) HEPATITIS B SURFACE [id number] 19:48:00 Test Item Value Reference Range Interpretation Comments HEPATITIS B SURFACE ANTIGEN (2) Nonreactive Nonreactive (BEAKER) (test code = 2585) HEPATITIS B CORE ANTIBODY, [id number] 19:48:00 Test Item Value Reference Range Interpretation Comments HEPATITIS B CORE TOTAL ANTIBODY Nonreactive Nonreactive (BEAKER) (test code = 497) HEPATITIS C [id number] 19:40:00 Test Item Value Reference Range Interpretation [...] % 20-55 L (test code = 2590) [id number] 19:08:00 Test Item Value Reference Range Interpretation Comments ALPHA-1 ANTITRYPSIN (BEAKER) 167.90 mg/dL 90.00-200.00 (test code = 502) [id number] 17:52:00 Test Item Value Reference Range Interpretation Comments FERRITIN (BEAKER) (test code = 361) 83 ng/mL 5-275 GAMMA GLUTAMYL TRANSFERASE (GGT)2018-07-17 17:33:00 Test Item Value Reference Range Interpretation Comments GAMMA GLUTAMYL TRANSFERASE (BEAKER) 89 U/L 9-64 H (test code = 364) BILIRUBIN, [id number] 17:33:00 Test Item Value Reference Range Interpretation Comments BILIRUBIN DIRECT (BEAKER) (test 0.1 mg/dL 0.1-0.5 code = 706) COMPREHENSIVE METABOLIC [id number] 17:33:00 Test Item Value Reference Range Interpretation [...] NOT APPLICABLE FOR DIALYSIS PATIEN TS. PROTHROMBIN [id number] 17:28:00 Test Item Value Reference Range Interpretation Comments PROTIME (BEAKER) (test code = 12.4 seconds 11.7-14.7 759) INR (BEAKER) (test code = 370) 0.9 <=5.9 RECOMMENDED COUMADIN/WARFARIN INR THERAPY RANGESSTANDARD DOSE: 2.0 - 3.0 Includes: PROPHYLAXIS for venous thrombosis, systemic embolization; TREATMENT for venous thrombosis and/or pulmonary embolus.HIGH RISK: Target INR is 2.5-3.5 for patients with mechanical heart valves.CBC W/PLT COUNT & AUTO [id number] 17:18:00 Test Item Value Reference Range Interpretation [...] (BEAKER) (test code = 2801) Valproic Acid (Depakote),[id number] 08:35:00 Test Item Value Reference Range Interpretation Comments Valproic Acid (test code = VALP) 89.2 ug/mL 50.0-100.0 N RPR, [id number] 11:42:00 Test Item Value Reference Range Interpretation Comments RPR (test code = RPR) Non-Reactive Non-Reactive N Thyroid Stimulating Hormone (TSH)2017-03-11 07:32:00 Test Item Value Reference Range Interpretation Comments TSH (test code = TSH) 1.54 mIU/mL 0.270-4.200 N Lipid [id number] 07:24:00 Test Item Value Reference Range Interpretation Comments Cholesterol (test 131 mg/dL 0-200 N code = CHOL) Triglycerides (test 167 mg/dL 9-200 N code = TRIG) HDL (test code = 32 mg/dL 40-60 L HDL) Chol/HDL (test code 4.1 Ratio 0.0-5.0 N = CHOLPHDL) LDL, Calculated 66 0-130 N (NOTE)RISK O F HEART (test code = LDLC) DISEASEPu blished by Salvadorean Heart AssociationAnal yte Optimal Boderli ne Increased RiskC HOL <200 200-239 >240TRI G <150 150-199 >200HDL Male: >60 <40HDL Fema le: >60 <50LDL <100 130 -159 >160LDL NEAR OP TIMAL IS 100-129 VLDL (test code = 33 mg/dL 5-40 N VLDL) LDL/HDL (test code = 2 LDLPHDL) Valproic Acid (Depakote),[id number] 06:55:00 Test Item Value Reference Range Interpretation Comments Valproic Acid (test code = VALP) 16.6 ug/mL 50.0-100.0 L [id number] 17:49:00 Test Item Value Reference Range Interpretation [...] code = THC) Negative Negative N Urinalysis [id number] 17:45:00 Test Item Value Reference Range Interpretation Comments Color (test code = Yellow Yellow,Straw,Pl N COLOR) yellow Clarity (test code = Clear Clear N CLAR) Specific [place] (test 1.030 1.001-1.035 N code = SPGR) [...] code = None /HPF BACT) Comprehensive Metabolic [id number] 16:11:00 Test Item Value Reference Range Interpretation [...] National Kidney Foundation,http :[email or web address] ep.nih.gov CBC with [id number] 15:56:00 Test Item Value Reference Range Interpretation [...] code = ALYMPH) 2.7 K/cumm 0.5-4.6 N [place] Abs (test code = AMONO) 0.3 K/cumm 0.0-1.2 N Eos Abs (test code = AEOS) 0.29 K/cumm 0.00-0.74 N Baso Abs (test code = ABASO) 0.1 K/cumm 0.00-0.21 N BLOOD [id number] 00:00:00 Test Item Value Reference Range Interpretation Comments CULTURE (BEAKER) (test No growth in 5 days code = 1095) BLOOD [id number] 00:00:00 Test Item Value Reference Range Interpretation Comments CULTURE (BEAKER) (test No growth in 5 days code = 1095) POCT-GLUCOSE [id number] 12:31:00 Test Item Value Reference Range Interpretation Comments POC-GLUCOSE METER 110 mg/dL 70-110 TESTED AT [place] [address] (BEAKER) (test code = OMAR Best [facility] 1538) [address] POCT-GLUCOSE [id number] 05:38:00 Test Item Value Reference Range Interpretation Comments POC-GLUCOSE METER 90 mg/dL 70-110 TESTED AT [facility] 6720 (BEAKER) (test code = OMAR Best [facility] [address] 1538) CBC W/PLT COUNT & AUTO [id number] 05:27:00 Test Item Value Reference Range Interpretation [...] (BEAKER) (test code = 2801) COMPREHENSIVE METABOLIC [id number] 05:14:00 Test Item Value Reference Range Interpretation [...] NOT APPLICABLE FOR DIALYSIS PATIEN TS. POCT-GLUCOSE [id number] 23:41:00 Test Item Value Reference Range Interpretation Comments POC-GLUCOSE METER 93 mg/dL 70-110 TESTED AT [place] [address] (BEAKER) (test code = NEILJAYDEN Best [facility] [address] 1538) URINALYSIS W/ [id number] 22:47:00 Test Item Value Reference Range Interpretation [...] 517) SOURCE(BEAKER) (test code = Urine, Voided 2381) POCT-GLUCOSE [id number] 18:04:00 Test Item Value Reference Range Interpretation Comments POC-GLUCOSE METER 133 mg/dL 70-110 H TESTED AT [place] [address] (BEAKER) (test code = NEILJAYDEN Best [facility] 1538) [address] POCT-GLUCOSE [id number] 12:19:00 Test Item Value Reference Range Interpretation Comments POC-GLUCOSE METER 92 mg/dL 70-110 TESTED AT [place] [address] (BEAKER) (test code = OMAR Estephania [facility] [address] 1538) POCT-GLUCOSE [id number] 04:45:00 Test Item Value Reference Range Interpretation Comments POC-GLUCOSE METER 103 mg/dL 70-110 TESTED AT [facility] 6720 (BEAKER) (test code = [place] 1538) [address] HEPATIC FUNCTION [id number] 02:46:00 Test Item Value Reference Range Interpretation [...] 134 U/L 6-55 H 347) BASIC METABOLIC [id number] 02:46:00 Test Item Value Reference Range Interpretation [...] PATIEN TS. CBC W/PLT COUNT & AUTO [id number] 02:31:00 Test Item Value Reference Range Interpretation [...] 20-55 L (test code = 2590) POCT-GLUCOSE [id number] 17:36:00 Test Item Value Reference Range Interpretation Comments POC-GLUCOSE METER 102 mg/dL 70-110 TESTED AT [facility] 67 (BEAKER) (test code = OMAR [place] 1538) [address] POCT-GLUCOSE [id number] 11:55:00 Test Item Value Reference Range Interpretation Comments POC-GLUCOSE METER 99 mg/dL 70-110 TEST[facility] AT [place] [address] [facility] (test code = OMAR Best [facility] [address]38) CBC W/PLT COUNT & AUTO [id number] 04:56:00 Test Item Value Reference Range Interpretation [...] (BEAKER) (test code = 2801) BASIC METABOLIC [id number] 04:34:00 Test Item Value Reference Range Interpretation [...] NOT APPLICABLE FOR DIALYSIS PATIEN TS. POCT-GLUCOSE [id number] 00:52:00 Test Item Value Reference Range Interpretation Comments POC-GLUCOSE METER 96 mg/dL 70-110 TESTED AT [facility] [address] [facility] (test code = OMAR Best [facility] [address] 1538) HEPATIC FUNCTION [id number] 12:36:00 Test Item Value Reference Range Interpretation [...] = 122 U/L 6-55 H 347) POCT-GLUCOSE [id number] 11:28:00 Test Item Value Reference Range Interpretation Comments POC-GLUCOSE METER 93 mg/dL 70-110 TESTED AT [place] [id number] ([facility]) (test code = OMAR Best [facility] [address] 1538) BASIC METABOLIC [id number] 04:43:00 Test Item Value Reference Range Interpretation [...] PATIEN TS. CBC W/PLT COUNT & AUTO [id number] 04:20:00 Test Item Value Reference Range Interpretation [...] PERCENT (BEAKER) (test code = 2801) POCT-GLUCOSE [id number] 12:56:00 Test Item Value Reference Range Interpretation Comments POC-GLUCOSE METER 82 mg/dL 70-110 TESTED AT [place] [address] ([facility]) (test code = [facility] [address] 1538) PHENYTOIN LEVEL, [id number] 09:42:00 Test Item Value Reference Range Interpretation Comments PHENYTOIN (DILANTIN) (BEAKER) (test 0.9 ug/mL 10.0-20.0 L code = 605) Before AM doseBASIC METABOLIC [id number] 08:13:00 Test Item Value Reference Range Interpretation [...] NOT APPLICABLE FOR DIALYSIS PATIEN TS. POCT-GLUCOSE [id number] 07:42:00 Test Item Value Reference Range Interpretation Comments POC-GLUCOSE METER 103 mg/dL 70-110 TESTED AT [place] [address] ([facility]) (test code = [facility] 1538) [address] CBC W/PLT COUNT & AUTO [id number] 07:08:00 Test Item Value Reference Range Interpretation [...] L 0.00-0.20 (test code = 417) 0.00POCT-GLUCOSE [id number] 06:08:00 Test Item Value Reference Range Interpretation Comments POC-GLUCOSE METER 100 mg/dL 70-110 TESTED AT [place] [address] ([facility]) (test code = [facility] 1538) [address] POCT-GLUCOSE [id number] 17:07:00 Test Item Value Reference Range Interpretation Comments POC-GLUCOSE METER 85 mg/dL 70-110 TESTED AT [place] [address] ([facility]) (test code = [facility] [address] 1538) POCT-GLUCOSE [id number] 12:52:00 Test Item Value Reference Range Interpretation Comments POC-GLUCOSE METER 88 mg/dL 70-110 TESTED AT [place] [address] ([facility]) (test code = [facility] [address] 1538) CBC W/PLT COUNT & AUTO [id number] 06:07:00 Test Item Value Reference Range Interpretation [...] K/ L 0.00-0.20 (test code = 417) 0.00[facility] METABOLIC [id number] 06:02:00 Test Item Value Reference Range Interpretation [...] NOT APPLICABLE FOR DIALYSIS PATIEN TS. POCT-GLUCOSE [id number] 16:11:00 Test Item Value Reference Range Interpretation Comments POC-GLUCOSE METER 90 mg/dL 70-110 TESTED AT [facility] 6720 (BEAKER) (test code = [place] [address] 1538) COMPREHENSIVE METABOLIC [id number] 07:05:00 Test Item Value Reference Range Interpretation [...] APPLICABLE FOR DIALYSIS PATIEN TS. BASIC METABOLIC [id number] 07:05:00 Test Item Value Reference Range Interpretation [...] DIALYSIS PATIEN TS. LACTIC ACID, VENOUS, WHOLE [id number] 06:38:00 Test Item Value Reference Range Interpretation Comments LACTATE BLOOD VENOUS 0.5 mmol/L 0.5-2.2 Specime n slightly (2) (BEAKER) (test hemolyzed code = 2872) Effective 10/27/2015: Units/Reference Range ChangeNew: 0.5-2.2 mmol/L Previous: 5- 20 mg/dLCBC W/PLT COUNT & AUTO [id number] 06:09:00 Test Item Value Reference Range Interpretation [...] L 0.00-0.20 (test code = 417) 0.00POCT-GLUCOSE [id number] 05:50:00 Test Item Value Reference Range Interpretation Comments POC-GLUCOSE METER 97 mg/dL 70-110 TESTED AT [place] [address] ([facility]) (test code = [facility] [address] 1538) POCT-GLUCOSE [id number] 23:48:00 Test Item Value Reference Range Interpretation Comments POC-GLUCOSE METER 92 mg/dL 70-110 TESTED AT [place] [address] ([facility]) (test code = [facility] [address] 1538) POCT-GLUCOSE [id number] 19:10:00 Test Item Value Reference Range Interpretation Comments POC-GLUCOSE METER 115 mg/dL 70-110 H TESTED AT [place] [address] ([facility]) (test code = [facility] 1538) [address] BLOOD GAS, [id number] 14:23:00 Test Item Value Reference Range Interpretation Comments PH ARTERIAL (AKER) (test code = 7.43 7.35-7.45 383) PCO2 ARTERIAL (BEAKER) (test code 42 mmHg 35-45 = 384) PO2 ARTERIAL (AKER) (test code = 169 mmHg 80-90 H 385) O2 SATURATION ARTERIAL (BEAKER) 99.2 % 96.0-97.0 H (test code = 386) HCO3 ARTERIAL (BEAKER) (test code 27 mmol/L 21-29 = 388) BASE EXCESS ARTERIAL (BEAKER) 2.9 mmol/L -2.0-3.0 (test code = 387) PATIENT TEMPERATURE (BEAKER) (test 37.4 C code = 1818) FIO2 (BEAKER) (test code = 1819) 21.0 % POCT-GLUCOSE [id number] 12:36:00 Test Item Value Reference Range Interpretation Comments POC-GLUCOSE METER 95 mg/dL 70-110 TESTED AT [facility] 6720 (BEAKER) (test code = [place] [id number] 8778) [id number] 07:04:00 Test Item Value Reference Range Interpretation Comments MAGNESIUM (BEAKER) (test code = 2.0 mg/dL 1.6-2.6 627) BASIC METABOLIC [id number] 07:04:00 Test Item Value Reference Range Interpretation [...] PATIEN TS. CBC W/PLT COUNT & AUTO [id number] 06:33:00 Test Item Value Reference Range Interpretation [...] L 0.00-0.20 (test code = 417) 0.00POCT-GLUCOSE [id number] 05:58:00 Test Item Value Reference Range Interpretation Comments POC-GLUCOSE METER 97 mg/dL 70-110 TESTED AT [facility] 6720 (BEAKER) (test code = [place] [address] 1538) POCT-GLUCOSE [id number] 23:35:00 Test Item Value Reference Range Interpretation Comments POC-GLUCOSE METER 100 mg/dL 70-110 TESTED AT [facility] 67[address] [facility] (test code = [facility] 1538)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
[2022-12-10] MEDS ORDERED: FAMOTIDINE 20 MG/2 ML VIAL IV ONE (19:30)
[2022-12-10] MEDS ORDERED: NA CHLORIDE 0.9% 1,000 ML ONE ×2 (19:30→23:36)
[2022-12-10] MEDS ORDERED: ONDANSETRON 4 MG/2 ML VIAL ONE (19:30)
[2022-12-10 19:47] LABS: Hematocrit 40.2 % (39.6-49.0); Lymphocytes % 17.9 % (15.3-44.8); MCV 81.4 fL (80-100); MPV 8.6 fL (7.6-11.3); RBC Red Blood Cell Count 4.94 M/uL (4.33-5.43)
[2022-12-10 20:08] LABS: Albumin 4.2 g/dL (3.4-5.0); Bilirubin Total 0.3 mg/dL (0.2-1.0)
[2022-12-10 20:48] LABS: Specific Gravity > 1.030 (1.005-1.030); Urine Bacteria None Seen /HPF (<20); Urine Bilirubin NEGATIVE (Negative); Urine Blood Negative (Negative); Urine Clarity Clear (Clear); Urine Color Yellow (Yellow); Urine Glucose NEGATIVE (Negative); Urine Mucus Slight /HPF (None Seen); Urine Protein TRACE (Negative); Urine RBC <5 /HPF (None Seen); Urine Urobilinogen Normal (Normal); Urine pH 5.5 (5.0-7.0)
--- NOTE | 2022-12-10 20:56 | RAD REPORT ---
EXAM DESCRIPTION: US - Scrotum Testicles - 12/10/2022 7:58 pm CLINICAL HISTORY: PAIN COMPARISON: Scrotum Testicles dated 03/20/2022 TECHNIQUE: Sonographic grayscale and color flow images of the scrotum were obtained. FINDINGS: Exam is somewhat limited by patient motion. The right testicle measures 4.4 x 2.4 x 2.9 centimeter. No intratesticular masses or evidence of test icular torsion. Overall slightly diminished vascular flow on color duplex imaging compared to the con tralateral side. On spectral flow Doppler, arterial flow signal was difficult to be obtained consiste ntly, although venous flow signal was maintained throughout the testis. The left testicle measures 4.2 x 2.3 x 2.6 centimeter. No intratesticular masses or evidence of testi cular torsion. No vascular flow abnormalities. Both epididymides are normal in size and appearance. Incidentally noted small left epididymal head 3 millimeter cyst. No pathologic fluid collections. IMPRESSION: Slightly diminished vascular flow to the right testicle with difficulty obtaining consis tent arterial flow signal. This could be due to technical factors given some motion limitation. Possi bility of torsion detorsion of the right testicle remains, although considered less likely. No other acute abnormalities.
[2022-12-10] MEDS ORDERED: MORPHINE 4 MG/ML SYR ONE (20:59)
--- NOTE | 2022-12-10 22:17 | RAD REPORT ---
EXAM DESCRIPTION: CT - Abdomen Pelvis W Contrast - 12/10/2022 9:47 pm CLINICAL HISTORY: lower abdomen pain COMPARISON: Abdomen Pelvis W Contrast dated 11/01/2016 TECHNIQUE: Thin cut axial CT imaging of the abdomen and pelvis was performed following intravenous a dministration of 95 mL Isovue 300. Multiplanar reformats were generated and reviewed. All CT scans are performed using dose optimization technique as appropriate and may include automated exposure control or mA/KV adjustment according to patient size. FINDINGS: No suspicious findings in the lung bases. The liver, spleen, and pancreas show no suspicious findings. Gallbladder and biliary tree are also wi thout suspicious finding. Symmetric renal function is seen with no hydronephrosis or suspicious renal mass. Motion artifact along the central abdomen somewhat limits evaluation. Sequelae of prior gastric bypas s. No dilated bowel loops or bowel wall thickening. No free air, free fluid or inflammatory stranding . Right inguinal hernia which appears to contain the cecal bulb and ileocecal valve as well as small volume free fluid. Mild wall prominence along the remainder of the ascending colon, favored to relate to nondistention, although possibility of nonspecific infectious or inflammatory colitis remains. No suspicious mass or bulky lymphadenopathy. The urinary bladder is without significant finding. No suspicious bony findings. IMPRESSION: Right inguinal hernia containing the cecal bulb and ileocecal valve without evidence of obstruction. Mild wall prominence along the ascending colon favored to relate to nondistention. Possibility of non specific infectious or inflammatory colitis should also be considered.
[2022-12-10] MEDS ORDERED: HYDROMORPHONE HCL 1 MG/ML INJ ONE (23:36)
--- NOTE | 2022-12-10 23:39 | ER ---
Nurse's Notes [facility] Name: Jose Pabon Age: 27 yrs Sex: Male : 1995 Arrival Date: 12/10/2022 Time: 18:47 Bed 18 Private MD: Diagnosis: Unilateral inguinal hernia, without obstruction or gangrene;Hypokalemia;Volume depletion, unspecified;Headache Presentation: 12/10 18:52 Chief complaint: Patient states: N/V and ABD pain x 3 days, also stated Right testicle vg1 pain. Coronavirus screen: Vaccine status: Patient reports being unvaccinated. Client denies travel out of the [place] in the last 14 days. Ebola Screen: Patient negative for fever greater than or equal to 101.5 degrees Fahrenheit, and additional compatible Ebola Virus Disease symptoms Patient denies exposure to infectious person. Patient denies travel to an Ebola-affected area in the 21 days before illness onset. Initial Sepsis Screen: Does the patient meet any 2 criteria? HR > 90 bpm. Yes Does the patient have a suspected source of infection? No. Patient's initial sepsis screen is negative. Risk Assessment: Do you want to hurt yourself or someone else? Patient reports no desire to harm self or others. Onset of symptoms was December 07, 2022. 18:52 Method Of Arrival: Ambulatory vg1 18:52 Acuity: ROBY 3 vg1 Triage Assessment: 18:57 General: Appears in no apparent distress. uncomfortable, Behavior is calm, cooperative. vg1 Pain: Complains of pain in epigastric area Pain currently is 5 out of 10 on a pain scale. Pain began 2-3 days ago. Also complains of nausea. Neuro: Level of Consciousness is awake, alert, obeys commands, Oriented to person, place, time, situation. GI: Reports nausea, vomiting. 20:58 Headache History: Other patient has trouble with communication due to having a kr3 conversation with other people that are absent, this is due to his condition. Historical: - Allergies: 18:57 No Known Allergies; vg1 - PMHx: 18:57 Anxiety; Bipolar disorder; Schizophrenia; vg1 - Immunization history:: Client reports having NOT received the Covid vaccine. - Social history:: Smoking status: Patient reports the use of cigarette tobacco products, denies chronic smoking, but will smoke occasionally, Patient uses alcohol, occasionally. Screenin:58 [facility] ED Fall Risk Assessment (Adult) History of falling in the last 3 months, kr3 including since admission No falls in past 3 months (0 pts) Confusion or Disorientation No (0 pts) Intoxicated or Sedated No (0 pts) Impaired Gait No (0 pts) Mobility Assist Device Used No (0 pt) Altered Elimination No (0 pt) Score/Fall Risk Level 0 - 2 = Low Risk. Abuse screen: Denies threats or abuse. Nutritional screening: No deficits noted. Tuberculosis screening: No symptoms or risk factors identified. Assessment: 20:20 Reassessment: Patient appears in no apparent distress at this time. Patient and/or kr3 family updated on plan of care and expected duration. Pain level reassessed. Patient is alert, oriented x 3, equal unlabored respirations, skin warm/dry/pink. Pain: Complains of pain in abdomen. 22:20 Reassessment: No changes from previously documented assessment. Patient and/or family vc1 updated on plan of care and expected duration. Pain level reassessed. Patient is alert, oriented x 3, equal unlabored respirations, skin warm/dry/pink. Mom at bedside. Vital Signs: 18:52 BP 127 / 98; Pulse 103; Resp 16; Temp 98.5(O); Pulse Ox 99% on R/A; Weight 70.31 kg; vg1 Height 5 ft. 7 in. ; 20:20 BP 142 / 85; Pulse 74; Resp 18; Pulse Ox 100% on R/A; kr3 22:17 Pulse 73; Resp 17; Pulse Ox 100% ; vc1 18:52 Body Mass Index 24.28 (70.31 kg, 170.18 cm) 1 ED Course: 18:50 Patient arrived in ED. mr 18:51 Ray DorindaTAMIKO davenport [facility]. kb 18:51 Sagrario Sutherland MD is Attending Physician. kb 18:57 Triage completed. vg1 18:57 Arm band placed on. vg1 18:58 Bed in low position. Call light in reach. Side rails up X 1. kr3 19:19 Analisa Elena, RN is Primary Nurse. kr3 19:30 CBC with Diff Sent. bc6 19:30 CMP Sent. bc6 19:30 Lipase Sent. bc6 19:30 Inserted saline lock: 20 gauge in right antecubital area, using aseptic technique. bc6 19:34 Darrius Prasad PA is [facility]. kb 20:00 US Scrotum Testicles In Process Unspecified. EDMS 20:58 No provider procedures requiring assistance completed. kr3 21:49 CT Abd/Pelvis - IV Contrast Only In Process Unspecified. EDMS 23:38 Enrique Curry MD is Referral Physician. cp 12/11 00:18 IV discontinued, intact, bleeding controlled, No redness/swelling at site. Pressure vc1 dressing applied. Administered Medications: 12/10 19:34 Drug: NS 0.9% IV 1000 ml Route: IV; Rate: 1 bolus; Site: right antecubital; kr3 19:34 Drug: Famotidine IVP 20 mg Route: IVP; Site: right antecubital; kr3 19:56 Follow up: Response: No adverse reaction kr3 19:34 Drug: Ondansetron IVP 4 mg Route: IVP; Site: right antecubital; kr3 19:57 Follow up: Response: No adverse reaction kr3 20:57 Drug: morphine IVP or IV 4 mg Route: IVP; Infused Over: 4 mins; Site: right antecubital;kr3 23:31 Drug: HYDROmorphone IVP 1 mg Route: IVP; Site: right antecubital; vc1 23:31 Drug: NS 0.9% IV 1000 ml Route: IV; Rate: 1 bolus; Site: right antecubital; vc1 Medication: 21:00 VIS not applicable for this client. kr3 Outcome: 23:39 Discharge ordered by MD. cp 12/11 00:17 Discharged to home ambulatory, with family. vc1 Condition: good Discharge instructions given to patient, psych specialist, Instructed on discharge instructions, follow up and referral plans. Demonstrated understanding of instructions, follow-up care. 00:18 Patient left the ED. vc1 Signatures: Dispatcher [employer] EDMS Dorinda Bell, TAMIKO MAINTENA[employer]CE MECH[employer]IC-Ckdoron Aliya Varela mr Darrius Prasad PA PA cp Garcia, Victoria, RN RN pranav1 Didi Smith RN RN vc1 Analisa Elena RN RN kr3 Ethel Mike bc6 Corrections: (The following items were deleted from the chart) 12/10 20:49 20:20 BP 142 / 92; Pulse 74bpm; Resp 18bpm; Pulse Ox 100% RA; kr3 kr3
--- NOTE | 2022-12-10 23:39 | EDPHYS ---
Physician Documentation [facility] Name: Jose Pabon Age: 27 yrs Sex: Male : 1995 Arrival Date: 12/10/2022 Time: 18:47 Bed 18 Private MD: ED Physician Sagrario Sutherland HPI: 12/10 19:32 This 27 yrs old Male presents to ER via Ambulatory with complaints of kb Headache, Dehydration. 19:32 The patient presents to the emergency department with nausea, vomiting, abdominal pain. kb Onset: The symptoms/episode began/occurred 3 day(s) ago. Possible causes: unknown. The symptoms are aggravated by nothing. The symptoms are alleviated by nothing. Associated signs and symptoms: Pertinent positives: abdominal pain, nausea, vomiting, right testicular pain. Severity of symptoms: At their worst the symptoms were moderate in the emergency department the symptoms are unchanged. The patient has not experienced similar symptoms in the past. The patient has not recently seen a physician. Pt reports he has had n/v, diffuse abd pain, right testicular pain for 3 days. Reports he has been outdoors and thinks he got overheated and dehydrated. Historical: - Allergies: 18:57 No Known Allergies; vg1 - PMHx: 18:57 Anxiety; Bipolar disorder; Schizophrenia; vg1 - Immunization history:: Client reports having NOT received the Covid vaccine. - Social history:: Smoking status: Patient reports the use of cigarette tobacco products, denies chronic smoking, but will smoke occasionally, Patient uses alcohol, occasionally. ROS: 19:33 Constitutional: Negative for fever, chills, and weight loss. kb 19:33 Abdomen/GI: Positive for abdominal pain, nausea and vomiting. 19:33 : Positive for testicular pain 19:33 Neuro: Positive for headache. 19:33 All other systems are negative. Exam: 19:34 Constitutional: This is a well developed, well nourished patient who is awake, alert, kb and in no acute distress. Head/Face: Normocephalic, atraumatic. ENT: Moist Mucous membranes Cardiovascular: Regular rate and rhythm with a normal S1 and S2. No gallops, murmurs, or rubs. No pulse deficits. Respiratory: Respirations even and unlabored. No increased work of breathing. Talking in full sentences Abdomen/GI: Soft, non-tender. No distention Skin: Warm, dry with normal turgor. Normal color. MS/ Extremity: Pulses equal, no cyanosis. Neurovascular intact. Full, normal range of motion. Neuro: Awake and alert, GCS 15, oriented to person, place, time, and situation. Moves all extremities. Normal gait. 23:00 Abdomen/GI: Hernia: noted in the right inguinal area, tenderness, that is moderate. cp 23:00 : Male external genitalia: tenderness, is not appreciated. Vital Signs: 18:52 BP 127 / 98; Pulse 103; Resp 16; Temp 98.5(O); Pulse Ox 99% on R/A; Weight 70.31 kg; vg1 Height 5 ft. 7 in. ; 20:20 BP 142 / 85; Pulse 74; Resp 18; Pulse Ox 100% on R/A; kr3 22:17 Pulse 73; Resp 17; Pulse Ox 100% ; vc1 18:52 Body Mass Index 24.28 (70.31 kg, 170.18 cm) vg1 Procedures: 23:35 Reduction: of the right inguinal hernia, using manipulation, Patient tolerated well. cp MDM: 18:51 Patient medically screened. kb 19:33 Differential diagnosis: Nonspecific abd pain, gastritis, pancreatitis, viral kb gastroenteritis, dehydration, testicular torsion. Data reviewed: vital signs, nurses notes. Transition of care: After a detail discussion of the patient's case, care is transferred to Darrius CORCORAN. 12/10 18:56 Order name: CBC with Diff; Complete Time: 20:46 kb 12/10 21:23 Interpretation: Normal except: WBC 11.50; HGB 12.7; MCH 25.6; MCHC 31.5; RDW 19.3; WAYNE% cp 73.9; NEUT A 8.5. 12/10 18:56 Order name: CMP; Complete Time: 20:46 kb 12/10 23:02 Interpretation: K 3.0; Reviewed. 12/10 18:56 Order name: Lipase; Complete Time: 20:46 kb 12/10 18:56 Order name: Urinalysis w/ reflexes; Complete Time: 21:21 kb 12/10 21:21 Interpretation: Normal except: Urine SG > 1.030; UKET 1+; UPROT TRACE. 12/10 18:56 Order name: US Scrotum Testicles; Complete Time: 21:21 kb 12/10 20:46 Order name: CT Abd/Pelvis - IV Contrast Only; Complete Time: 22:22 cp 12/10 18:56 Order name: IV Saline Lock; Complete Time: 19:30 kb 12/10 18:56 Order name: Labs collected and sent; Complete Time: 19:30 kb 12/10 23:37 Order name: Franko Wrap; Complete Time: 23:45 cp Administered Medications: 19:34 Drug: NS 0.9% IV 1000 ml Route: IV; Rate: 1 bolus; Site: right antecubital; kr3 19:34 Drug: Famotidine IVP 20 mg Route: IVP; Site: right antecubital; kr3 19:56 Follow up: Response: No adverse reaction kr3 19:34 Drug: Ondansetron IVP 4 mg Route: IVP; Site: right antecubital; kr3 19:57 Follow up: Response: No adverse reaction kr3 20:57 Drug: morphine IVP or IV 4 mg Route: IVP; Infused Over: 4 mins; Site: right antecubital;kr3 23:31 Drug: HYDROmorphone IVP 1 mg Route: IVP; Site: right antecubital; vc1 23:31 Drug: NS 0.9% IV 1000 ml Route: IV; Rate: 1 bolus; Site: right antecubital; vc1 Disposition Summary: 12/10/22 23:39 Discharge Ordered Location: Home cp Problem: new cp Symptoms: have improved cp Condition: Stable cp Diagnosis - Unilateral inguinal hernia, without obstruction or gangrene cp - Hypokalemia cp - Volume depletion, unspecified cp - Headache cp Followup: cp - With: Enrique Curry MD - When: 1 - 2 days - Reason: right inguinal hernia Discharge Instructions: - Discharge Summary Sheet cp - Dehydration, Adult cp - Potassium Content of Foods cp - General Headache Without Cause cp - Inguinal Hernia, Adult cp - Hypokalemia cp - Laparoscopic Inguinal Hernia Repair, Adult cp Forms: - Medication Reconciliation Form cp - Thank You Letter cp - Antibiotic Education cp - Prescription Opioid Use cp Signatures: Dispatcher [employer] EDDorinda Duarte FNP-C FNP-Darrius Jolley PA PA cp Garcia, Victoria RN RN vg1 Didi Smith RN RN vc1 Analisa Elena RN RN kr3 Corrections: (The following items were deleted from the chart) 12/11 20:19 12/10 23:30 Reduction: of the right inguinal hernia, using manipulation, Patient cp tolerated well. cp
[2022-12-11 00:22] VITALS: TEMP 98.5
[2022-12-11 00:24] VITALS: BP 142/85; O2SAT 100
== END 2022-12-11 00:18 | disposition home or self-care (01) ==
LOC: ER 18:47
DX: E87.6 Hypokalemia (principal); E86.9 Volume depletion, unspecified; K40.90 Unilateral inguinal hernia, without obstruction or gangrene, not specified as recurrent; F17.210 Nicotine dependence, cigarettes, uncomplicated
CPT/HCPCS: 85025; 81001; 36415; 83690; 80053; 74177; 76870; 96375; 96374; 99284; Q9967; J1170; J2405; J7030 ×2

== ENCOUNTER 2022-12-28 12:34 | Emergency (ER) | payer OTHER ==
--- OUTSIDE RECORDS SUMMARY | 2022-12-28 12:41 | XMS REPORT | Continuity of Care Document ---
:1995 Author Organization [facility] t Address [address] [facility]. [address] [place] [address] Care Team Providers Name Role Phone BRIANNA FORBES Primary Care Physician Unavailable Jackelyn Kohli Attending Clinician Unavailable JOHN CAPONE Attending Clinician Unavailable SHERIF DIEGO Attending Clinician Unavailable Only, Sherif Db Test Attending Clinician Unavailable Roby Sebastian Attending Clinician ROBY JOHNSON Attending Clinician Unavailable Doctor Unassigned, [place] Attending Clinician Unavailable Pcp, Patient Does Not Have A Attending Clinician [phone] Emily Castro Attending Clinician Lab, Adc Fam Pob I Attending Clinician Unavailable Coleman Gamez Attending Clinician COLEMAN MARSHALL Attending Clinician Unavailable Warren Edwards DO Attending Clinician WARREN EDWARDS [...] Date Expiration Date Kari ALVARENGA COMM STAR [id number] 2017 00:00:00 PLAN Problems Condition Condition Condition [...] important 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 Immunity Immunity Disease Active Last [facility] S t status status 07-17 [facility] testing testing 00:00: t & Plan: Medic al [address] [place] [address] g of this note might be different from the original. All patients with chronic liver disease, regardles s of etiology, should be immunized to prevent hepatitis A and hepatitis B if they are not already immune. We will test for immunity to both viruses and vaccine recommend ations will follow. Fatty Fatty Disease Active [facility] liver liver 07-17 Assessmen Alissa 00:00: t & Plan: Medical [address] [place] [address] g of this note might be different from the original. Patient is known to have fatty liver based on ultrasoun d and CT abdomen from March and May [facility]. He has morbid obesity and hyperlipi demia [...] gastric sleeve surgery. Other Other Disease Active [facility] hyperlipid hyperlipid 07-[address] 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 - [facility] , single depressive St episode, disorder, [facility] without single Medical psychotic episode Center features H/O H/O Problem Common gastric gastric Spirit sleeve sleeve - [facility] [id number] Essential Problem Comm on (primary) Spirit hypertensi - [facility] on [facility] [id number] Gastroesop Problem Co mmon hageal Spirit reflux - [facility] disease [facility] esophagiti [facility] [id number] Hypercalce Problem Com mon johnny Spirit - [facility] Allergies, Adverse Reactions, Alerts Allergy Allergy Status Severity Reaction(s) Onset Inactive Treating Comm ents Source Name Type Date Date Clinician NO KNOWN Drug Active [facility] ALLERGIE Class ity of S [facility] NO KNOWN Allergy Active [facility] Family History Family Member Diagnosis Comments Start Date Stop Date Source Natural mother Diabetes [facility] Natural sister Hepatomegaly [facility] Social History Social Habit Start Date Stop Date Quantity Comments Source History of Tobacco Current Smoker Co mmon Spirit - Use [facility] Exposure to Yes University SARS-CoV-2 (event) [facility] History SDOH [facility] Alcohol Comment Medical C enter History SDOH [facility] Alcohol Binge Medical Padmini ter [facility] Alcohol Std Drinks [facility] Alcohol intake 2020-04-05 2020-04-05 Current [facility] St Aaron es 00:00:00 00:00:00 non-drinker of Medical Ce nter alcohol (finding) Tobacco use and 2018-12-04 2018-12-04 Smokeless [facility] kes exposure 00:00:00 00:00:00 tobacco non-user [facility] Tobacco Comment 2018-12-04 2018-12-04 quit 2018 [facility] Rhonda kes 00:00:00 00:00:00 [facility] Cigarettes smoked 2018-12-04 2018-12-04 [facility] per 00:00:00 00:00:00 Medical Center day) - Reported History SDOH 2018-07-17 2018-07-[address] [facility] Alcohol Frequency 00:00:00 00:00:00 [facility] Sex Assigned At [address] [facility] kes 00:00:00 00:00:00 Medical Center Smoking Status Start Date Stop Date Source Current Smoker 2022-07-28 00:00:00 Common Spiri t - [facility] Medical Ce nter Unknown if ever smoked Universit y [facility] Ex-smoker 2018-12-04 00:00:00 2018-12-04 00:00:00 [facility] Medications Ordered Filled Start Stop Current [...] 8-03 t} MG 00:00: 00 Lisinopril Lisinopril 2-0 No 1{table QD Lisinopril 10 MG 10 MG 8-03 t} 10 MG 00:00: 00 Lisinopril Lisinopril 2-0 No 1{table QD Lisinopril 10 MG 10 MG 8-03 t} 10 MG 00:00: 00 Loratadine Loratadine 2-0 2022- No 1{table QD Loratadine 10 MG 10 MG 12-13 t} 10 MG 00:00: 00:00 00 :00 Loratadine Loratadine 2-0 2022- No 1{table QD Loratadine 10 MG 10 MG 12-13 t} 10 MG 00:00: 00:00 00 :00 Benzonatate Benzonatate 2-0 2022- No 1{capsu Benzonatat 200 MG 200 MG 12-13 le} e 200 MG 00:00: 00:00 00 :00 Benzonatate Benzonatate 2-0 2022- No 1{capsu Benzonatat 200 MG 200 [...] 1{table QD Loratadine 10 MG 10 MG 09-02 04-10 t} 10 MG 00:00: 00:00 00 :00 Loratadine Loratadine 2021- No 1{table QD Loratadine 10 MG 10 MG -11 04-10 t} 10 MG 00:00: 00:00 00 :00 guaiFENesin guaiFENesin 2021- No 1{table BID guaiFENesi ER 600 MG ER 600 MG 09-02-16 t_as_ne n ER 600 00:00: 00:00 eded} MG 00 :00 omeprazole 2019-06 No 40mg QD Take [address] [...] Yes 10mg 10 mg, Univ ers (BENTYL) -28 Oral, QID, ity o f capsule 10 01:00: First dose [place] mg 00 on Sat Medical 12/20/19 at Branch 2000, Until Discontinu ed, Routine NaCl 0.9% 2019-0 2020- No 500mL at 999 [facility] ers (NS) bolus 12-20-28 mL/hr, 500 it y of infusion 00:30: 01:20 mL, IV [place] 500 mL 00 :00 Infusion, Medical ONCE, 1 [place] dose, 12/20/19 at 1930, STAT sucralfate 2020-0 Yes [id number] 1000mg Take 10 mL Univers (CARAFATE) 6-27 by mouth ity o f 100 mg/mL 00:00: before [place] suspension 00 meals and Medi connie at [place] bedtime. sucralfate 2020-0 Yes [id number] 1000mg Take 10 mL Univers (CARAFATE) 6-27 by mouth ity o f 100 mg/mL 00:00: before [place] suspension 00 meals and Medi connie at Branch bedtime. sucralfate 2020-0 Yes [id number] 1000mg Take 10 mL Univers (CARAFATE) 6-27 by mouth ity o f 100 mg/mL 00:00: before [place] suspension 00 meals and Medi connie at [place] bedtime. sucralfate 2020-0 Yes [id number] 1000mg Take 10 mL Univers (CARAFATE) 6-27 by mouth ity o f 100 mg/mL 00:00: before [place] suspension 00 meals and Medi connie at Branch bedtime. sucralfate 2020-0 Yes [id number] 1000mg Take 10 mL Univers (CARAFATE) 6-27 by mouth ity o f 100 mg/mL 00:00: before [place] suspension 00 meals and Medi connie at Branch bedtime. sucralfate 2020-0 Yes [id number] 1000mg Take 10 mL Univers (CARAFATE) 6-27 by mouth ity o f 100 mg/mL 00:00: before [place] suspension 00 meals and Medi connie at Branch bedtime. sucralfate 2020-0 Yes [id number] 1000mg Take 10 mL Univers (CARAFATE) 6-27 by mouth ity o f 100 mg/mL 00:00: before [place] suspension 00 meals and Medi connie at [place] bedtime. haloperidol Yes 15mg Take 3 Univ ers [...] gel Medical Branch clindamycin Yes Apply to U nivers (CLEOCIN T) 9-21 area(s) 2 ity of [...] 5 % gel 00 Medical Branch clindamycin 2015-0 Yes Apply to Un mimi (CLEOCIN T) [...] Omeprazole 40 MG 40 MG 40 MG Vital Signs Vital Name Observation Time Observation Value Comments Source WEIGHT 2020-04-05 10:17:00 99.474 kg HEIGHT 2020-04-05 10:17:00 170.2 cm HEIGHT 2020-04-02 14:50:00 170.2 cm WEIGHT 2020-04-02 14:50:00 105.688 kg height 2022 14:40:00 67 [in_i] [facility] [place] weight 2022 14:40:00 222.4 [lb_av] [facility] temperature 2022 14:40:00 97.6 [degF] [facility] bmi 2022 14:40:00 34.83 kg/m2 [facility] oximetry 2022 14:40:00 98 % [facility] respiratory rate 2022 14:40:00 16 /min Comm on [facility] blood pressure 2022 14:40:00 132 mm[Hg] [facility] - systolic [facility] blood pressure 2022 14:40:00 80 mm[Hg] [facility] - diastolic [facility] height 2022-01-25 14:00:00 67 [in_i] Common [facility] weight 2022-01-25 14:00:00 228 [lb_av] Common [facility] temperature 2022-01-25 14:00:00 98.5 [degF] Common S pirit [facility] bmi 2022-01-25 14:00:00 35.71 kg/m2 [facility] oximetry 2022-01-25 14:00:00 99 % Common [facility] respiratory rate 2022-01-25 14:00:00 17 /min Comm on [facility] blood pressure 2022-01-25 14:00:00 152 mm[Hg] Common [facility] - systolic [facility] blood pressure 2022-01-25 14:00:00 87 mm[Hg] [facility] - diastolic [facility] height 2021-10-04 16:00:00 67 [in_i] Common [facility] weight 2021-10-04 16:00:00 268 [lb_av] Common [facility] temperature 2021-10-04 16:00:00 97.4 [degF] Common S [facility] bmi 2021-10-04 16:00:00 41.97 kg/m2 [facility] oximetry 2021-10-04 16:00:00 98 % Common S [facility] respiratory rate 2021-10-04 16:00:00 16 /min Comm on [facility] blood pressure 2021-10-04 16:00:00 131 mm[Hg] [facility] - systolic [facility] blood pressure 2021-10-04 16:00:00 81 mm[Hg] [facility] - diastolic [facility] height 2021-09-21 13:40:00 67 [in_i] [facility] weight 2021-09-21 13:40:00 265 [lb_av] Common [facility] bmi 2021-09-21 13:40:00 41.5 kg/m2 Common [facility] WEIGHT 2020-04-05 10:17:00 99.474 kg HEIGHT 2020-04-05 10:17:00 170.2 cm HEIGHT 2020-04-02 14:50:00 170.2 cm WEIGHT 2020-04-02 14:50:00 105.688 kg Systolic blood 2019-12-21 03:00:00 122 mm[Hg] Univer sity of pressure [facility] Diastolic blood 2019-12-21 03:00:00 89 mm[Hg] Unive rsity of pressure [facility] Heart rate 2019-12-21 03:00:00 71 /min Universi ty of [facility] Respiratory rate 2019-12-21 03:00:00 16 /min Univ ersity of [facility] Oxygen saturation in 2019-12-21 03:00:00 98 /min University of Arterial blood by [employer] connie Pulse oximetry Branch Body temperature 2019-12-21 00:32:00 37.22 [place] Univ ersity of [facility] Body height 2019-12-21 00:32:00 170.2 cm Universi ty of [facility] Body weight 2019-12-21 00:31:00 102.513 kg Universi ty of [facility] BMI 2019-12-21 00:31:00 35.40 kg/m2 Universi ty of [facility] Branch Systolic blood 2019-12-21 03:00:00 122 mm[Hg] Univer sity of pressure [facility] Diastolic blood 2019-12-21 03:00:00 89 mm[Hg] Unive rsity of pressure [facility] Heart rate 2019-12-21 03:00:00 71 /min Universi ty of [facility] [place] [facility] Branch Respiratory rate 2019-12-21 03:00:00 16 /min Univ ersity of [facility] [place] [facility] Branch Oxygen saturation in 2019-12-21 03:00:00 98 /min University of Arterial blood by [employer] connie Pulse oximetry Branch Body temperature 2019-12-21 00:32:00 37.22 [place] Univ ersity of [facility] Body height 2019-12-21 00:32:00 170.2 cm Universi ty of [facility] Body weight 2019-12-21 00:31:00 102.513 kg [facility] BMI 2019-12-21 00:31:00 35.40 kg/m2 [facility] Procedures Procedure Date / Time Performing Clinician Source Performed CT ABDOMEN PELVIS W 2019-12-21 01:44:37 Warren Edwards [facility] CONTRAST Medical Branch LIPASE 2019-12-21 00:52:00 Singer [facility] COMP. METABOLIC PANEL 2019-12-21 00:52:00 Warren Edwards [facility] ([id number]) [facility] CBC WITH DIFFERENTIAL 2019-12-21 00:52:00 Singer [facility] URINALYSIS 2019-12-21 00:52:00 Singer [facility] NOTICE OF PRIVACY 2019-12-21 00:22:40 Doctor Unassigned, No [facility] PRACTICES Name Medical [place] CONSENT/REFUSAL FOR 2019-12-21 00:22:22 Doctor Unassigned, No [facility] DIAGNOSIS AND TREATMENT Name [facility] Plan of Care Planned Activity Planned Date Details Comments Source Future Scheduled 2023-02-[address] [facility] Test 00:00:00 (Season Ended) [code Medical Center = Influenza Vaccine (Season Ended)] Future Scheduled 2023-02-[address] [facility] Test 00:00:00 (#1) [code = Medical Center Influenza Vaccine (#1)] Future Scheduled 2022-06-[address] [facility] Test 00:00:00 (12+) [code = Medical Center DEPRESSION SCREENING (12+)] Future Scheduled 2022-06-[address] [facility] Test 00:00:00 (12+) [code = Medical Center DEPRESSION SCREENING (12+)] Future Scheduled 2022-06-[address] [facility] Test 00:00:00 (12+) [code = Medical Center DEPRESSION SCREENING (12+)] Future Scheduled 2022-02-[address] [facility] Test 00:00:00 (#1) [code = Medical Center INFLUENZA VACCINE (#1)] Future Scheduled 2022-02-[address] [facility] Test 00:00:00 (#1) [code = Medical Center INFLUENZA VACCINE (#1)] Future Scheduled 2021-06-[address] [facility] Test 00:00:00 (12+) [code = [facility] DEPRESSION SCREENING (12+)] Future Scheduled [...] Luke s Test 00:00:00 (procedure) [code = [facility] [id number]] Future Scheduled 2020-01-[address] [facility] Test 00:00:00 (procedure) [code = [facility] [id number]] Future Scheduled 2020-01-[address] [facility] Test 00:00:00 (procedure) [code = [facility] [id number]] Future Scheduled 2020-01-[address] [facility] Test 00:00:00 (procedure) [code = [facility] [id number]] Future Scheduled 2015-02-13 DTAP/TDAP/TD VACCINES CH I [...] = COVID-[address] VACCINE (#1)] Encounters Start End Encounter Admission Attending Care Care Encounter Source Date/Time Date/Time Type Type Clinicians Facility Department ID 2022-10-27 [facility] [id number] Common 08:58:01 Jackelyn [facility] 2022-10-26 [facility] [id number] Common 09:04:01 Jackelyn [id number] [facility] 2022-02-10 [facility] [id number] Common 14:28:00 Jackelyn [facility] 2022-02-06 [facility] [id number] Common 11:19:02 Jackelyn [facility] 2022-01-03 [facility] [id number] Common 12:20:01 Jackelyn [facility] 2021-11-03 [facility] [id number] Common 13:18:02 Jackelyn [facility] 2021-11-02 [facility] [id number] Common 10:12:06 Jackelyn [facility] 2021-10-05 Outpatient Kohli, [facility] ST[facility] [id number] Common 10:40:03 Jackelyn [facility] 2021-09-29 Outpatient Kohli, STLMLC STLMLC [id number] Common 13:45:04 Jackelyn [facility] 2021-09-21 Outpatient Kohli, STLMLC STLMLC [id number] Common 13:17:02 Jackelyn [facility] 2021-08-31 Outpatient Kohli, STLMLC STLMLC [id number] Common 10:49:02 Jackelyn [facility] 2021-03-30 Outpatient CAPONE, [facility] Surgery [id number] SLEH 09:37:20 SUNEAL 2023-03-30 2023-03-30 Outpatient SHERIF DIEGO SLE SLE [id number] [facility] 00:00:00 00:00:00 2022-07-31 2022-07-31 OFFICE STLMLC STLMLC [id number] Co mmon 00:00:00 00:00:00 VISIT Spirit ESTAB PT - CHI LEVEL 4 [facility] 2022 2022 OFFICE STLMLC STLMLC [id number] Co mmon 00:00:00 00:00:00 VISIT Spirit ESTAB PT - CHI LEVEL 4 [facility] 2022-02-02 2022-02-02 (TEL) STLMLC STLMLC [id number] Co mmon 00:00:00 00:00:00 [facility] 2022-01-25 2022-01-25 (WELLNESS) STLMLC STLMLC [id number] Common 00:00:00 00:00:00 Wellness Spiri t Visit [facility] 2021-12-13 2021-12-13 OFFICE STLMLC STLMLC [id number] Co mmon 00:00:00 00:00:00 VISIT EST Spir it PT LEVEL 3 - [facility] 2021-12-13 2021-12-13 (TEL) STLMLC STLMLC [id number] Co mmon 00:00:00 00:00:00 [facility] 2021-10-04 2021-10-04 OFFICE STLMLC STLMLC [id number] Co mmon 00:00:00 00:00:00 VISIT EST Spir it PT LEVEL 3 [facility] 2021-09-21 2021-09-21 (TEL) STLMLC STLMLC [id number] Co mmon 00:00:00 00:00:00 [facility] 2021-09-21 2021-09-21 OFFICE STLMLC STLMLC [id number] Co mmon 00:00:00 00:00:00 VISIT EST Spir it PT LEVEL 3 [facility] 2021-09-02 2021-09-02 OFFICE STLMLC STLMLC [id number] Co mmon 00:00:00 00:00:00 VISIT NEW Spir it PT LEVEL 3 [facility] 2021-07-01 2021-07-01 Laboratory Only, Ang Db Test [facility] 1.2.8 [id number] [id number] Univers 15:45:00 16:00:00 [facility] [id number] [facility]y of [facility] 4.2.7.2.686 Estuardo as LUIS ARMANDO?BLEA [phone] [address] MEDICAL OFFICE BUILDING 2021-07-01 2021-07-01 Outpatient R [facility] [id number] Univers 15:45:00 15:45:00 ROBY hightower o f [facility] 2021-07-01 2021-07-01 Letter Doctor VELASQUEZ [id number] Univers 00:00:00 00:00:00 (Out) Unassigned, TIBURCIO [id number] ity of [place] [facility] 4.2.7.2.686 Estuardo as [phone] [address] 2021-07-01 2021-07-01 Letter Doctor VELASQUEZ [id number] Univers 00:00:00 00:00:00 (Out) Unassigned, TIBURCIO [id number] ity of [place] [facility] 4.2.7.2.686 Estuardo as [id number] [address] 2020-04-02 2020-04-02 Outpatient EL [facility]H SLEH [id number] [facility] 00:00:00 00:00:00 2020-01-16 2020-01-16 Telephone PcpEVA [id number] [facility] 00:00:00 00:00:00 Patient TIBURCIO [id number] it y of [facility] 4.2.7.2.686 [place] Have A [id number] [address] 2020-01-16 2020-01-16 Telephone PcpEVA [id number] 00:00:00 00:00:00 Patient TIBURCIO 350.1.13.10 Does [facility] 4.2.7.2.686 Have A [id number] 2020-01-15 2020-01-15 Telephone de EVA [id number] [facility] 00:00:00 00:00:00 TIBURCIO Davila 350.1.13.10 ity of [facility] 4.2.7.2.686 Estuardo as [phone] [address] 2020-01-15 2020-01-15 Telephone de EVA [id number] 00:00:00 00:00:00 TIBURCIO Davila 350.1.13.10 [facility] 4.2.7.2.686 [id number] 2020-01-14 2020-01-14 Laboratory Lab, [facility] Fam Pob I [facility] 1.2. 840.114 [id number] [facility] 17:24:30 17:44:30 Only [facility] 350.1.13.10 ity of [place] 4.2.7.2.686 Estuardo as Professio [phone] [place] dical [address] Office Building [facility] 2020-01-14 2020-01-14 Laboratory Lab, [facility] 1.2.840.114 [id number] 17:24:30 17:44:30 Only Fam Pob I Health 350.1.13.10 [place] 4.2.7.2.686 Professio [id number] [place] [address] Office [facility] 2020-01-14 2020-01-14 Out[facility] [id number] Univers 17:20:00 17:20:[address] [facility] 2019-12-20 2019-12-20 Emergency [facility] [id number] Univers 19:27:54 22:32:00 Warren Mcdonald 350.1.13.10 i ty of [place] 4.2.7.2.686 [facility] [id number] [address] 2019-12-20 2019-12-20 Emergency [facility] [id number] 19:27:54 22:32:00 Warren Mcdonald 350.1.13.10 [place] 4.2.7.2.686 [place] [phone] [facility] 2019-12-20 2019-12-20 Emergency X [facility] ERT [id number] Univers 19:19:00 19:19:[address] [facility] 2019-03-19 2019-03-19 Office SHELLY Campbell 1.2.840.114 [id number] 15:20:14 16:43:29 Visit Willow AMBULATOR 350.1.13.21 Y 0.2.7.2.686 [id number] 2019-03-19 2019-03-19 Office SHELLY Juan [id number] 15:19:32 16:42:05 Visit Alejandro AMBULATOR 350.1.13.21 Y 0.2.7.2.686 [id number] 2019-02-25 2019-02-25 Outpatient [facility] [id number] [facility] 00:00:00 00:00:00 Results Test Description Test Time Test Comments Results Result [facility] e Comments TISSUE EXAM 2020-04-06 Surgical Pathology Report 13:37:00 Case: [id number] Authorizing Provider: John Capone MD Collected: 04/05/2020 10:35 AM Ordering Location: [facility] Received: 04/05/2020 03:03 PM SERVICES Pathologist: Petty Stewart MD Specimen: Biopsy, Gastric, RANDOM BX A. GASTRIC, RANDOM BIOPSY: - GASTRIC BODY TYPE MUCOSA WITH NO SIGNIFICANT HISTOPATHOLOGICAL CHANGE - GASTRIC ANTRUM TYPE MUCOSA WITH CHRONIC ACTIVE H. PYLORI-ASSOCIATED GASTRITIS - FEW H. PYLORI-LIKE ORGANISMS SEEN ON H&E AND WARTHIN-STARRY STAINSLorene/pl Signing Pathologist Direct Phone Line: [phone] y signed by Petty Stewart MD on [...] evaluated Immunohistochemistry technical testing was performed at [facility], Pathology Laboratory where it was developed and [...] APPEARANCE (test code = Hazy Clear A 2360822730) COLOR (test code = 5242963365) Delia Yellow A PH (test code = 6444675280) 4.8-8.0 SP GRAVITY (test code = 1.003-1.030 H 1402536482) GLU U QUAL (test code = Normal Normal 4616657691) BLOOD (test code = 4107800290) Negative Negative KETONES (test code = 7310485784) 5 mg/dL Negative A PROTEIN (test code = 2887-8) 30 mg/dL Negative A UROBILIN (test code = 4.0 mg/dL Normal A 7117112599) BILIRUBIN (test code = 2 mg/dL Negative A 1381444770) NITRITE (test code = 5562093809) Negative Negative LEUK EDWARDO (test code = Negative Negative 7453488013) RBC/HPF (test code = 6730373161) See_Comment [Automated message] The system which ge nerated this result transmit rodney reference range: 0 - 3 HP F. The reference range was not used to interpret th is result as normal/abnormal . WBC/HPF (test code = 6236041861) See_Comment [Automated message] The system which ge nerated this result transmit rodney reference range: 0 - 5 HP F. The reference range was not used to interpret th is result as normal/abnormal . BACTERIA (test code = Few Negative A 2253683971) MUCOUS (test code = 2154193338) Marked Negative LPF A HYAL CAST (test code = See_Comment H [Aut omated message] The [id number]) system which ge nerated this result transmit rodney reference range: <=2 LPF. The reference range was not used to interpret th is result as normal/abnormal . Lab Interpretation (test code = Abnormal 79329-4) [facility] (59927)2019-12-21 01:11:00 Test Item Value Reference Range Interpretation Comments NA (test code = 139 mmol/L 135-145 6308235550) K (test code = 3.3 mmol/L 3.5-5 L 7918772832) CL (test code = 103 mmol/L 98-108 7391510691) CO2 TOTAL (test code = 26 mmol/L 23-31 6839453462) AGAP (test code = 2-16 9294382963) BUN (test code = 10 mg/dL 7-23 8253518216) GLUCOSE (test code = 133 mg/dL 70-110 H 7433375865) CREATININE (test code = 0.69 mg/dL 0.6-1.25 0656683557) TOTAL BILI (test code = 1.1 mg/dL 0.1-1.4 9100511155) CALCIUM (test code = 10.0 mg/dL 8.6-10.6 4025692497) T PROTEIN (test code = 8.4 g/dL 6.3-8.2 H 6186570943) ALBUMIN (test code = 4.9 g/dL 3.5-5 2106161182) ALK PHOS (test code = 101 U/L 34-122 9287961186) ALTv (test code = 24 U/L 5-50 1742-6) AST(SGOT) (test code = 31 U/L 13-40 3564380406) eGFR Calculation mL/min/1.73m2 (Non-) (test code = 2317905238) eGFR Calculation mL/min/1.73m2 () (test code = 9875619618) MICHAEL (test code = MICHAEL) Association of [...] tests). Lab Interpretation Abnormal (test code = 23335-3) [facility] 01:10:00 Test Item Value Reference Range Interpretation Comments LIPASE (test code = 8081109417) 130 U/L 0-220 Lab Interpretation (test code = Normal 33643-4) [facility] WITH [id number] 00:59:00 Test Item Value Reference Range Interpretation Comments WBC (test code = See_Comment H [Automated 6690-2) message] The sy stem which generated this result transmitted reference range : 4.20 - 10.70 10*3/?L. The reference range was not used to interpret this result as normal/abnormal . RBC (test code = See_Comment [Automated 789-8) message] The sy stem which generated this [...] RDW-SD (test code = 41.1 fL 38.5-51.6 97249-2) RDW-CV (test code = 13.1 % 12.1-15.4 788-0) PLT (test code = See_Comment H [Automated 777-3) message] The sy stem which generated this result transmitted reference range : 150 - 328 10*3/ ?L. The reference r casa was not used to interpret this result as normal/abnormal . MPV (test code = 10.5 fL 9.8-13 80625-2) NRBC/100 WBC (test See_Comment [Automat ed code = 6462555231) message] The system which generated this result transmitted reference range : 0.0 - 10.0 /100 WBCs. The refer ence range was not u sed to interpret th is result as normal/abnormal . NRBC x10^3 (test code <0.01 See_Comment [Auto mated = 7360341105) message] The s ystem which generated this result transmitted reference range : 10*3/?L. The reference range was not used to interpret this result as normal/abnormal . GRAN MAT (NEUT) % 65.1 % (test code = 770-8) IMM GRAN % (test code 0.50 % = 7700998629) LYMPH % (test code = 24.3 % 736-9) MONO % (test code = 8.7 % 5905-5) EOS % (test code = 0.9 % 713-8) BASO % (test code = 0.5 % 706-2) GRAN MAT x10^3(ANC) 7.18 10*3/uL 1.99-6.95 H (test code = 3246966860) IMM GRAN x10^3 (test 0.05 10*3/uL 0-0.06 code = 3224915595) LYMPH x10^3 (test code 2.68 10*3/uL 1.09-3.23 = 731-0) MONO x10^3 (test code 0.96 10*3/uL 0.36-1.02 = 742-7) EOS x10^3 (test code = 0.10 10*3/uL 0.06-0.53 711-2) BASO x10^3 (test code 0.05 10*3/uL 0.01-0.09 = 704-7) Lab Interpretation Abnormal (test code = 82133-2) [facility] [id number] 17:52:00Surgical Pathology Report Case: [id number] Authorizing Provider: Alejandro Juan MD Collected: 03/11/2019 1421 Ordering Location: [facility] PERIOPERATIVE Received: 03/11/2019 1609 SERVICES Pathologist: Ed Fraser MD Specimen: Stomach STOMACH, PARTIAL/SLEEVE GASTRECTOMY- CHRONIC INACTIVE GASTRITIS,MINIMAL-MILD- INTESTINAL METAPLASIA OR MALIGNANCY NOT SEEN Signing Pathologist Direct Phone Line: [phone] signed by Ed Fraser MD on 03/27/2019 at 5:52 [id number] obesity A. Stomach tissue A. Received in formalin labeled "stomach" is a 25 x 6 x 2 cm partial gastrectomy. The specimen is opened to reveal a bhatia-brown mucosa with normal folds. Information Technology Consultant sections from the staple line are submitted in cassettes A1 and A2, and national sales representative section from the central mucosa are submitted in cassettes A3 and A4. [facility], Department of Pathology, [address] [place] [address], [facility], [address] [place] [address], [facility], [facility] of [facility], [address] [place] [address], XLTX-GLUCOSE [id number] 13:26:00 Test Item Value Reference Range Interpretation Comments POC-GLUCOSE METER 108 mg/dL 70-110 TESTED AT [place] [address] (BEAKER) (test code = [place] 1538) [address] CBC W/PLT COUNT & AUTO [id number] 06:28:00 Test Item Value Reference Range Interpretation [...] (BEAKER) (test code = 2801) COMPREHENSIVE METABOLIC [id number] 06:27:00 Test Item Value Reference Range Interpretation [...] NOT APPLICABLE FOR DIALYSIS PATIEN TS. POCT-GLUCOSE [id number] 00:04:00 Test Item Value Reference Range Interpretation Comments POC-GLUCOSE METER 123 mg/dL 70-110 H TESTED AT [place] [address] (BEAKER) (test code = [facility] 1538) [address] POCT-GLUCOSE [id number] 15:27:00 Test Item Value Reference Range Interpretation Comments POC-GLUCOSE METER 126 mg/dL 70-110 H [facility] AT [place] [address] [facility] (test code = [facility] 1538) [address] POCT-GLUCOSE [id number] 11:57:00 Test Item Value Reference Range Interpretation Comments POC-GLUCOSE METER 77 mg/dL 70-110 TESTED AT [place] [address] (BEAKER) (test code = [facility] [address] 1538) [id number] 14:18:00 Test Item Value Reference Range Interpretation Comments SODIUM (BEAKER) (test code = 381) 140 meq/L 136-145 POTASSIUM (BEAKER) (test code = 4.1 meq/L 3.5-5.1 379) CHLORIDE (BEAKER) (test code = 382) 103 meq/L 98-107 CO2 (BEAKER) (test code = 355) 26 meq/L 22-29 BUN AND [id number] 14:18:00 Test Item Value Reference Range Interpretation Comments BLOOD UREA NITROGEN 8 mg/dL 7-21 (BEAKER) (test code = 354) CREATININE (BEAKER) 0.84 mg/dL 0.57-1.25 (test code = 358) EGFR (BEAKER) (test 113 mL/min/1.73 ESTIM ATED GFR IS code = 1092) sq m NOT ACCURATE CREATININE CLEARANCE IN PREDICTING GLOMERULAR FILTRATION RATE . ESTIMATED GFR I S NOT APPLICABLE FOR DIALYSIS PATIEN TS. [id number] 14:03:00 Test Item Value Reference Range Interpretation Comments HEMOGLOBIN (BEAKER) (test code = 15.3 GM/DL 13.7-17.5 410) PLATELET [id number] 14:03:00 Test Item Value Reference Range Interpretation Comments PLATELET COUNT (BEAKER) (test 390 K/CU MM 150-450 code = 756) TISSUE [id number] 23:23:00Surgical Pathology Report Case: [id number] Authorizing Provider: Alejandro Juan MD Collected: 12/06/2018 1516 Ordering Location: [facility] Endoscopy Received: 12/09/2018 0809 Services Pathologist: [...] CHANGES SEEN Signing Pathologist Direct Phone Line: [phone] signed by Ed Fraser MD on 12/12/2018 at 11:23 [id number] X 2, [id number]. Stomach biopsy. B. Esophagus biopsy, 40 cm, [...] evaluated Immunohistochemistry technical testing was performed at [facility]ology[facility] where it was developed and its [...] method.Test performed by IFA method.HEPATITIS B SURFACE [id number] 19:57:00 Test Item Value Reference Range Interpretation Comments HEPATITIS B SURFACE ANTIBODY < mIU/mL <8.0 (BEAKER) (test code = 647) HEPATITIS A ANTIBODY, [id number] 19:57:00 Test Item Value Reference Range Interpretation Comments HEPATITIS A IGG ANTIBODY (BEAKER) Reactive Nonreactive A (test code = 2797) HEPATITIS B SURFACE [id number] 19:48:00 Test Item Value Reference Range Interpretation Comments HEPATITIS B SURFACE ANTIGEN (2) Nonreactive Nonreactive (BEAKER) (test code = 2585) HEPATITIS B CORE ANTIBODY, [id number] 19:48:00 Test Item Value Reference Range Interpretation Comments HEPATITIS B CORE TOTAL ANTIBODY Nonreactive Nonreactive (BEAKER) (test code = 497) HEPATITIS C [id number] 19:40:00 Test Item Value Reference Range Interpretation [...] % 20-55 L (test code = 2590) [id number] 19:08:00 Test Item Value Reference Range Interpretation Comments ALPHA-1 ANTITRYPSIN (BEAKER) 167.90 mg/dL 90.00-200.00 (test code = 502) [id number] 17:52:00 Test Item Value Reference Range Interpretation Comments FERRITIN (BEAKER) (test code = 361) 83 ng/mL 5-275 GAMMA GLUTAMYL TRANSFERASE (GGT)2018-07-17 17:33:00 Test Item Value Reference Range Interpretation Comments GAMMA GLUTAMYL TRANSFERASE (BEAKER) 89 U/L 9-64 H (test code = 364) BILIRUBIN, [id number] 17:33:00 Test Item Value Reference Range Interpretation Comments BILIRUBIN DIRECT (BEAKER) (test 0.1 mg/dL 0.1-0.5 code = 706) COMPREHENSIVE METABOLIC [id number] 17:33:00 Test Item Value Reference Range Interpretation [...] NOT APPLICABLE FOR DIALYSIS PATIEN TS. PROTHROMBIN TIME/[id number] 17:28:00 Test Item Value Reference Range Interpretation Comments PROTIME (BEAKER) (test code = 12.4 seconds 11.7-14.7 759) INR (BEAKER) (test code = 370) 0.9 <=5.9 RECOMMENDED COUMADIN/WARFARIN INR THERAPY RANGESSTANDARD DOSE: 2.0 - 3.0 Includes: PROPHYLAXIS for venous thrombosis, systemic embolization; TREATMENT for venous thrombosis and/or pulmonary embolus.HIGH RISK: Target INR is 2.5-3.5 for patients with mechanical heart valves.CBC W/PLT COUNT & AUTO [id number] 17:18:00 Test Item Value Reference Range Interpretation [...] (BEAKER) (test code = 2801) Valproic Acid (Depakote),[id number] 08:35:00 Test Item Value Reference Range Interpretation Comments Valproic Acid (test code = VALP) 89.2 ug/mL 50.0-100.0 N RPR, [id number] 11:42:00 Test Item Value Reference Range Interpretation Comments RPR (test code = RPR) Non-Reactive Non-Reactive N Thyroid Stimulating Hormone (TSH)2017-03-11 07:32:00 Test Item Value Reference Range Interpretation Comments TSH (test code = TSH) 1.54 mIU/mL 0.270-4.200 N Lipid [id number] 07:24:00 Test Item Value Reference Range Interpretation Comments Cholesterol (test 131 mg/dL 0-200 N code = CHOL) Triglycerides (test 167 mg/dL 9-200 N code = TRIG) HDL (test code = 32 mg/dL 40-60 L HDL) Chol/HDL (test code 4.1 Ratio 0.0-5.0 N = CHOLPHDL) LDL, Calculated 66 0-130 N (NOTE)RISK O F HEART (test code = LDLC) DISEASEPu blished by [place] Heart AssociationAnal yte Optimal Boderli ne Increased RiskC HOL <200 200-239 >240TRI G <150 150-199 >200HDL Male: >60 <40HDL Fema le: >60 <50LDL <100 13 0-159 >160LDL NEAR OP TIMAL IS 100-129 VLDL (test code = 33 mg/dL 5-40 N VLDL) LDL/HDL (test code = 2 LDLPHDL) Valproic Acid (Depakote),[id number] 06:55:00 Test Item Value Reference Range Interpretation Comments Valproic Acid (test code = VALP) 16.6 ug/mL 50.0-100.0 L [id number] 17:49:00 Test Item Value Reference Range Interpretation [...] code = THC) Negative Negative N Urinalysis [id number] 17:45:00 Test Item Value Reference Range Interpretation Comments Color (test code = Yellow Yellow,Straw,Pl N COLOR) yellow Clarity (test code = Clear Clear N CLAR) Specific [place] (test 1.030 1.001-1.035 N code = SPGR) [...] code = None /HPF BACT) Comprehensive Metabolic [id number] 16:11:00 Test Item Value Reference Range Interpretation [...] disease than se rum creatinine alone.This calculation jacke es sex and race into account, if the informationis provided. If e race is not provided , and the patient isAfrican-Ameri can, multiply by 1.2 12. If sex is not prov ided, and thepatient is female, multipl y by 0.742. Results for patients <18 ye ars ofage have not been validated by e MDRD study and keron d be interpretedwith caution.eGFR Re sult Interpretation: eGFR > or = 60 is in t he Normal RangeeGF R < 60 may mean kidney diseaseeGFR < 1 5 may mean kidney failureRange s recommended by the National Kidney Foundation,http ://nkd ep.nih.gov CBC with [id number] 15:56:00 Test Item Value Reference Range Interpretation [...] code = ALYMPH) 2.7 K/cumm 0.5-4.6 N Charles Abs (test code = AMONO) 0.3 K/cumm 0.0-1.2 N Eos Abs (test code = AEOS) 0.29 K/cumm 0.00-0.74 N Baso Abs (test code = ABASO) 0.1 K/cumm 0.00-0.21 N BLOOD [id number] 00:00:00 Test Item Value Reference Range Interpretation Comments CULTURE (BEAKER) (test No growth in 5 days code = 1095) BLOOD [id number] 00:00:00 Test Item Value Reference Range Interpretation Comments CULTURE (BEAKER) (test No growth in 5 days code = 1095) POCT-GLUCOSE [id number] 12:31:00 Test Item Value Reference Range Interpretation Comments POC-GLUCOSE METER 110 mg/dL 70-110 TESTED AT [place] [address] ([facility]) (test code = [place] Best [facility] 1538) [address] POCT-GLUCOSE [id number] 05:38:00 Test Item Value Reference Range Interpretation Comments POC-GLUCOSE METER 90 mg/dL 70-110 TESTED AT [place] [address] ([facility]) (test code = [place] Best [facility] [address]38) CBC W/PLT COUNT & AUTO [id number] 05:27:00 Test Item Value Reference Range Interpretation Comments WHITE BLOOD CELL COUNT ([facility]) 12.0 K/ L 3.5-10.5 H (test code = 775) RED BLOOD CELL COUNT ([facility]) 4.14 M/ L 4.63-6.08 L (test code = 761) HEMOGLOBIN (BEAKER) (test code = 12.1 GM/DL 13.7-17.5 L 410) HEMATOCRIT ([facility]) (test code = 36.7 % 40.1-51.0 L 411) MEAN CORPUSCULAR VOLUME ([facility]) 88.6 fL 79.0-92.2 (test code = 753) MEAN CORPUSCULAR HEMOGLOBIN 29.2 pg 25.7-32.2 (AKER) (test code = 751) MEAN CORPUSCULAR HEMOGLOBIN [...] (BEAKER) (test code = 2801) COMPREHENSIVE METABOLIC [id number] 05:14:00 Test Item Value Reference Range Interpretation [...] NOT APPLICABLE FOR DIALYSIS PATIEN TS. POCT-GLUCOSE [id number] 23:41:00 Test Item Value Reference Range Interpretation Comments POC-GLUCOSE METER 93 mg/dL 70-[address] [facility] 6720 (BEAKER) (test code = [place] [address] 15[address]) URINALYSIS W/ [id number] 22:47:00 Test Item Value Reference Range Interpretation [...] 517) SOURCE(BEAKER) (test code = Urine, Voided 0991) POCT-GLUCOSE [id number] 18:04:00 Test Item Value Reference Range Interpretation Comments POC-GLUCOSE METER 133 mg/dL 70-110 H TESTED AT [place] [address] (BEAKER) (test code = [facility] 1538) [address] POCT-GLUCOSE [id number] 12:19:00 Test Item Value Reference Range Interpretation Comments POC-GLUCOSE METER 92 mg/dL 70-110 [facility] [place] [address] [facility] (test code = [facility] [address]38) POCT-GLUCOSE [id number] 04:45:00 Test Item Value Reference Range Interpretation Comments POC-GLUCOSE METER 103 mg/dL 70-110 TEST[facility] AT [place] [address] [facility] (test code = [facility] 1538) [address] HEPATIC FUNCTION [id number] 02:46:00 Test Item Value Reference Range Interpretation [...] 134 U/L 6-55 H 347) BASIC METABOLIC [id number] 02:46:00 Test Item Value Reference Range Interpretation [...] PATIEN TS. CBC W/PLT COUNT & AUTO [id number] 02:31:00 Test Item Value Reference Range Interpretation [...] 20-55 L (test code = 2590) POCT-GLUCOSE [id number] 17:36:00 Test Item Value Reference Range Interpretation Comments POC-GLUCOSE METER 102 mg/dL 70-110 TESTED AT [place] [address] ([facility] (test code = [facility] 1538) [address] POCT-GLUCOSE [id number] 11:55:00 Test Item Value Reference Range Interpretation Comments POC-GLUCOSE METER 99 mg/dL 70-110 TESTED AT [place] [address] ([facility]) (test code = [facility] [address]38) CBC W/PLT COUNT & AUTO [id number] 04:56:00 Test Item Value Reference Range Interpretation [...] (BEAKER) (test code = 2801) BASIC METABOLIC [id number] 04:34:00 Test Item Value Reference Range Interpretation [...] NOT APPLICABLE FOR DIALYSIS PATIEN TS. POCT-GLUCOSE [id number] 00:52:00 Test Item Value Reference Range Interpretation Comments POC-GLUCOSE METER 96 mg/dL 70-110 TESTED AT [place] [address] ([facility]) (test code = [place] [address]) HEPATIC FUNCTION [id number] 12:36:00 Test Item Value Reference Range Interpretation [...] = 122 U/L 6-55 H 347) POCT-GLUCOSE [id number] 11:28:00 Test Item Value Reference Range Interpretation Comments POC-GLUCOSE METER 93 mg/dL 70-110 TESTED AT [place] [address] (BEAKER) (test code = [place] [address]38) BASIC METABOLIC [id number] 04:43:00 Test Item Value Reference Range Interpretation [...] PATIEN TS. CBC W/PLT COUNT & AUTO [id number] 04:20:00 Test Item Value Reference Range Interpretation [...] 0-1 H PERCENT (BEAKER) (test code = 2808) POCT-GLUCOSE [id number] 12:56:00 Test Item Value Reference Range Interpretation Comments POC-GLUCOSE METER 82 mg/dL 70-[address] [facility] 6720 (BEAKER) (test code = [facility] [facility] [address]38) PHENYTOIN LEVEL, [id number] 09:42:00 Test Item Value Reference Range Interpretation Comments PHENYTOIN (DILANTIN) (BEAKER) (test 0.9 ug/mL 10.0-20.0 L code = 605) Before AM doseBASIC METABOLIC [id number] 08:13:00 Test Item Value Reference Range Interpretation [...] NOT APPLICABLE FOR DIALYSIS PATIEN TS. POCT-GLUCOSE [id number] 07:42:00 Test Item Value Reference Range Interpretation Comments POC-GLUCOSE METER 103 mg/dL 70-[address] [facility] 6720 ([facility]) (test code = [place] 1538) [address] CBC W/PLT COUNT & AUTO [id number] 07:08:00 Test Item Value Reference Range Interpretation [...] L 0.00-0.20 (test code = 417) 0.00POCT-GLUCOSE [id number] 06:08:00 Test Item Value Reference Range Interpretation Comments POC-GLUCOSE METER 100 mg/dL 70-110 TESTED AT [place] [address] ([facility]) (test code = BANNERJAYDEN Best [facility] 1538) [address] POCT-GLUCOSE [id number] 17:07:00 Test Item Value Reference Range Interpretation Comments POC-GLUCOSE METER 85 mg/dL 70-110 TESTED AT [place] [address] ([facility]) (test code = BANNERJAYDEN Best [facility] [address] 1538) POCT-GLUCOSE [id number] 12:52:00 Test Item Value Reference Range Interpretation Comments POC-GLUCOSE METER 88 mg/dL 70-110 TESTED AT [place] [address] ([facility]) (test code = [facility] Estephania [facility] [address] 1538) CBC W/PLT COUNT & AUTO [id number] 06:07:00 Test Item Value Reference Range Interpretation [...] 0.00-0.20 (test code = 417) 0.00BASI METABOLIC [id number] 06:02:00 Test Item Value Reference Range Interpretation [...] NOT APPLICABLE FOR DIALYSIS PATIEN TS. POCT-GLUCOSE [id number] 16:11:00 Test Item Value Reference Range Interpretation Comments POC-GLUCOSE METER 90 mg/dL 70-[address] [facility] 6720 (BEAKER) (test code = NEILJAYDEN Estephania [facility] [address]38) COMPREHENSIVE METABOLIC [id number] 07:05:00 Test Item Value Reference Range Interpretation [...] APPLICABLE FOR DIALYSIS PATIEN TS. BASIC METABOLIC [id number] 07:05:00 Test Item Value Reference Range Interpretation [...] DIALYSIS PATIEN TS. LACTIC ACID, VENOUS, WHOLE [id number] 06:38:00 Test Item Value Reference Range Interpretation Comments LACTATE BLOOD VENOUS 0.5 mmol/L 0.5-2.2 Specime n slightly (2) (BEAKER) (test hemolyzed code = 4215) Effective 10/27/2015: Units/Reference Range ChangeNew: 0.5-2.2 mmol/L Previous: 5- 20 mg/dLCBC W/PLT COUNT & AUTO [id number] 06:09:00 Test Item Value Reference Range Interpretation [...] L 0.00-0.20 (test code = 417) 0.00POCT-GLUCOSE [id number] 05:50:00 Test Item Value Reference Range Interpretation Comments POC-GLUCOSE METER 97 mg/dL 70-110 TESTED AT [place] [address] (BEAKER) (test code = OMAR Best [facility] [address]38) POCT-GLUCOSE [id number] 23:48:00 Test Item Value Reference Range Interpretation Comments POC-GLUCOSE METER 92 mg/dL 70-110 TESTED AT [place] [address] (BEAKER) (test code = O[facility] Best [facility] [address] 1538) POCT-GLUCOSE [id number] 19:10:00 Test Item Value Reference Range Interpretation Comments POC-GLUCOSE METER 115 mg/dL 70-110 H TESTED AT [place] [address] (BEAKER) (test code = OMAR Best [facility] 1538) [address] BLOOD GAS, [id number] 14:23:00 Test Item Value Reference Range Interpretation [...] (test code = 1819) 21.0 % POCT-GLUCOSE [id number] 12:36:00 Test Item Value Reference Range Interpretation Comments POC-GLUCOSE METER 95 mg/dL 70-110 TESTED AT [place] [address] (BEAKER) (test code = O[facility] Best [facility] [address] 1538) [id number] 07:04:00 Test Item Value Reference Range Interpretation Comments MAGNESIUM (BEAKER) (test code = 2.0 mg/dL 1.6-2.6 627) BASIC METABOLIC [id number] 07:04:00 Test Item Value Reference Range Interpretation [...] PATIEN TS. CBC W/PLT COUNT & AUTO [id number] 06:33:00 Test Item Value Reference Range Interpretation [...] L 0.00-0.20 (test code = 417) 0.00POCT-GLUCOSE [id number] 05:58:00 Test Item Value Reference Range Interpretation Comments POC-GLUCOSE METER 97 mg/dL 70-110 TEST[facility] AT [place] [address] [facility] (test code = [facility] [address] 1538) POCT-GLUCOSE [id number] 23:35:00 Test Item Value Reference Range Interpretation Comments POC-GLUCOSE METER 100 mg/dL 70-110 TESTED AT [place] [address] ([facility]) (test code = [facility] 1538) [address] [id number] 18:22:00 Test Item Value Reference Range Interpretation Comments LIPASE (BEAKER) (test code = 749) 23 U/L 8-78 [id number] 18:22:00 Test Item Value Reference Range Interpretation Comments AMYLASE (BEAKER) (test code = 349) 40 U/L 25-125 COMPREHENSIVE METABOLIC [id number] 18:22:00 Test Item Value Reference Range Interpretation [...] NOT APPLICABLE FOR DIALYSIS PATIEN TS. POCT-GLUCOSE [id number] 17:57:00 Test Item Value Reference Range Interpretation Comments POC-GLUCOSE METER 106 mg/dL 70-110 TESTED AT [place] [address] ([facility]) (test code = [facility] 1538) [address] POCT-GLUCOSE [id number] 11:39:00 Test Item Value Reference Range Interpretation Comments POC-GLUCOSE METER 108 mg/dL 70-110 TESTED AT [place] [address] ([facility]) (test code = [facility] 1538) [address] BASIC METABOLIC [id number] 07:13:00 Test Item Value Reference Range Interpretation [...] PATIEN TS. CBC W/PLT COUNT & AUTO [id number] 06:50:00 Test Item Value Reference Range Interpretation [...] NEUTROPHILS ABSOLUTE COUNT 7.30 K/ L 1.80-8.00 ([facility]) (test code = 670) LYMPHOCYTES ABSOLUTE COUNT 1.80 K/ L 1.48-4.50 ([facility]) (test code = 414) MONOCYTES ABSOLUTE COUNT (AKER) 1.60 K/ L 0.00-1.30 H (test code = 415) EOSINOPHILS ABSOLUTE COUNT 0.13 K/ L 0.00-0.50 ([facility]) (test code = 416) BASOPHILS ABSOLUTE COUNT (AKER) 0.08 K/ L 0.00-0.20 (test code = 417) 0.00POCT-GLUCOSE [id number] 06:26:00 Test Item Value Reference Range Interpretation Comments POC-GLUCOSE METER 116 mg/dL 70-110 H TESTED AT [place] [address] ([facility]) (test code = [facility] 1538) [id number] POCT-GLUCOSE [id number] 00:20:00 Test Item Value Reference Range Interpretation Comments POC-GLUCOSE METER 115 mg/dL 70-110 H TESTED AT [place] [address] ([facility] [facility]) (test code = [facility] 1538) [address] POCT-GLUCOSE [id number] 18:17:00 Test Item Value Reference Range Interpretation Comments POC-GLUCOSE METER 96 mg/dL 70-110 TESTED AT [place] [address] ([facility]) (test code = [facility] [address] 1538) POCT-GLUCOSE [id number] 11:23:00 Test Item Value Reference Range Interpretation Comments POC-GLUCOSE METER 129 mg/dL 70-110 H TESTED AT [place] [address] ([facility]) (test code = [facility] 1538) [address] CBC W/PLT COUNT & AUTO [id number] 09:58:00 Test Item Value Reference Range Interpretation Comments WHITE BLOOD CELL COUNT ([facility]) 17.7 K/ L 4.0-10.0 H (test code = 775) RED BLOOD CELL COUNT ([facility]) 4.76 M/ L 4.20-5.80 (test code = 761) HEMOGLOBIN ([facility]) (test code = 13.7 GM/DL 13.0-16.8 410) HEMATOCRIT ([facility]) (test code = 43.1 % 40.0-50.0 411) [...] (BEAKER) (test code = Normal 762) POCT-GLUCOSE [id number] 05:39:00 Test Item Value Reference Range Interpretation Comments POC-GLUCOSE METER 104 mg/dL 70-110 TESTED AT [place] [address] ([facility]) (test code = [facility] 1538) [address] BASIC METABOLIC [id number] 05:35:00 Test Item Value Reference Range Interpretation [...] NOT APPLICABLE FOR DIALYSIS PATIEN TS. POCT-GLUCOSE [id number] 01:30:00 Test Item Value Reference Range Interpretation Comments POC-GLUCOSE METER 97 mg/dL 70-110 TESTED AT [place] [address] ([facility]) (test code = [facility] [address] 1538) POCT-GLUCOSE [id number] 20:48:00 Test Item Value Reference Range Interpretation Comments POC-GLUCOSE METER 96 mg/dL 70-110 TESTED AT [place] [address] ([facility]) (test code = [facility] [address] 1538) RAPID DRUG SCREEN, [id number] 19:48:00 Test Item Value Reference Range Interpretation [...] unconfirmed qualitative test result for the clinical management of patients in emergency situations. Chain of custody not maintained. Some sfsr-rwg-jkbldqh medications, as well as adulterants, may cause inaccurate results. Clinical correlation should be applied. Adeline comprehensive drug screen or confirmation of a detected drug may be performed upon request.MAGNESIUM 2017-01-09 19:31:00 Test Item Value Reference Range Interpretation Comments MAGNESIUM (BEAKER) (test code = 1.7 mg/dL 1.6-2.6 627) POCT-GLUCOSE [id number] 18:19:00 Test Item Value Reference Range Interpretation Comments POC-GLUCOSE METER 101 mg/dL 70-[address] [facility] 6720 (BEAKER) (test code = [facility] 1538) [address] BASIC METABOLIC [id number] 16:57:00 Test Item Value Reference Range Interpretation [...] PATIEN TS. CBC W/PLT COUNT & AUTO [id number] 15:27:00 Test Item Value Reference Range Interpretation [...] (test code = 1+ few 966) POCT-GLUCOSE [id number] 12:18:00 Test Item Value Reference Range Interpretation Comments POC-GLUCOSE METER 90 mg/dL 70-[address] [facility] 6720 (BEAKER) (test code = [facility] [address] 1538) URINALYSIS W/ [id number] 10:54:00 Test Item Value Reference Range Interpretation [...] 1574) SOURCE(BEAKER) (test code = Urine, Green 0006) POCT-GLUCOSE [id number] 06:40:00 Test Item Value Reference Range Interpretation Comments POC-GLUCOSE METER 87 mg/dL 70-110 TESTED AT [place] [address] (BEAKER) (test code = [place] [address] 1538) BASIC METABOLIC [id number] 04:57:00 Test Item Value Reference Range Interpretation [...] NOT APPLICABLE FOR DIALYSIS PATIEN TS. POCT-GLUCOSE [id number] 00:47:00 Test Item Value Reference Range Interpretation Comments POC-GLUCOSE METER 79 mg/dL 70-110 TESTED AT [place] [id number] (BEAKER) (test code = [facility] [address] 1538) POCT-GLUCOSE [id number] 20:40:00 Test Item Value Reference Range Interpretation Comments POC-GLUCOSE METER 91 mg/dL 70-110 [facility] AT [place] [address] [facility] (test code = [facility] [address] 1538) POCT-GLUCOSE [id number] 18:31:00 Test Item Value Reference Range Interpretation Comments POC-GLUCOSE METER 70 mg/dL 70-110 [facility] AT [place] [address] [facility] (test code = [facility] [address] 1538) POCT-GLUCOSE [id number] 12:56:00 Test Item Value Reference Range Interpretation Comments POC-GLUCOSE METER 90 mg/dL 70-110 TESTED AT [place] [address] ([facility]) (test code = [facility] [address] 1538) CREATINE KINASE (CK), TOTAL AND [id number] 07:42:00 Test Item Value Reference Range Interpretation Comments CREATINE KINASE TOTAL ([facility]) 362 U/L 29-200 H (test code = 380) CREATINE KINASE-MB ([facility]) (test 4.3 ng/mL 0.0-6.6 code = 750) CREATINE KINASE-MB INDEX ([facility]) 1.2 % (test code = 395) Effective 05/12/2014: CK-MB Reference Range ChangeNew: 0.0-6.6 Previous: 0.0-4.9CK-MB Reference Range:<6.7 Normal6.7-10.0 Borderline>10.0 Abnormal TROPONIN [id number] 07:42:00 Test Item Value Reference Range Interpretation Comments TROPONIN I ([facility]) (test code = 0.01 ng/mL 0.00-0.03 397) [...] acidosis, acute neurological disease, and persistent tachyarrhythmia.POCT-GLUCOSE [id number] 06:12:00 Test Item Value Reference Range Interpretation Comments POC-GLUCOSE METER 75 mg/dL 70-110 TESTED AT [place] [address] ([facility]) (test code = [facility] [address] 1538) CBC W/PLT COUNT & AUTO [id number] 06:01:00 Test Item Value Reference Range Interpretation Comments WHITE BLOOD CELL COUNT ([facility]) 8.6 K/ L 4.0-10.0 (test code = [...] K/ L 0.00-0.20 (test code = 417) [id number] 05:37:00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
[2022-12-28] MEDS ORDERED: NA CHLORIDE 0.9% 1,000 ML ONE (12:56)
[2022-12-28] MEDS ORDERED: MIDAZOLAM HCL 2 MG/2 ML INJ ONE (12:56)
[2022-12-28] MEDS ORDERED: ZIPRASIDONE MESYLA 20 MG/VIAL IM ONE ×2 (13:05→18:26)
[2022-12-28 13:40] LABS: Absolute Lymphocytes (CBC) 1.5 K/uL (0.7-4.9); Hematocrit 37.6 % (39.6-49.0); Lymphocytes % 15.1 % (15.3-44.8); MCV 80.1 fL (80-100); MPV 8.2 fL (7.6-11.3); RBC Red Blood Cell Count 4.69 M/uL (4.33-5.43)
[2022-12-28 14:03] LABS: Protime INR 1.14
[2022-12-28 14:06] LABS: ALT/SGPT 19 U/L (16-61); AST/SGOT 19 U/L (15-37); Albumin 4.4 g/dL (3.4-5.0); Alkaline Phosphatase 84 U/L (45-117); BUN Blood Urea Nitrogen 14 mg/dL (7-18); Bicarbonate 23 mEq/L (21-32); Bilirubin Direct 0.1 mg/dL (0-0.2); Bilirubin Indirect, Calculated 0.4 mg/dL (0.2-0.8); Bilirubin Total 0.5 mg/dL (0.2-1.0); Glomerular Filtration Rate 81 ml/min (=/>90); Glucose Level 87 mg/dL (74-106); Potassium 2.9 mEq/L (3.5-5.1); Protein, Total 8.3 g/dL (6.4-8.2); Sodium Level 143 mEq/L (136-145)
--- NOTE | 2022-12-28 16:35 | ER ---
Nurse's Notes [facility] Name: Jose Pabon Age: 27 yrs Sex: Male : 1995 Arrival Date: 12/28/2022 Time: 12:34 Bed 6 Private MD: Diagnosis: Other stimulant abuse with intoxication;Acute methamphetamine intoxication, methamphetamine abuse, acute visual hallucinations, polysubstance abuse, cannabis abuse Presentation: 12/28 12:45 Chief complaint: Patient states: [place] corrections officer states, "We went to his house to arrest him for some warrants and he started making suicidal statements and when I got him in the car, he was banging his head against the windows." Pt is uncooperative and agitated, remains in forensic cuffs. Coronavirus screen: Client denies travel out of the [place] in the last 14 days. Ebola Screen: Patient denies exposure to infectious person. Patient denies travel to an Ebola-affected area in the 21 days before illness onset. Initial Sepsis Screen: Does the patient meet any 2 criteria? No. Patient's initial sepsis screen is negative. Does the patient have a suspected source of infection? No. Patient's initial sepsis screen is negative. Risk Assessment: Do you want to hurt yourself or someone else? Patient reports desire/thoughts of hurting themselves or someone else. Provider notified. Onset of symptoms was December 28, 2022. 12:45 Method Of Arrival: Law Enforcement: Chantal YANG 12:45 Acuity: ROBY 2 ss Historical: - Allergies: 18:05 No Known Allergies; ld1 - PMHx: 12:39 Anxiety; Bipolar disorder; Schizophrenia; ld1 - Immunization history:: Adult Immunizations unknown. - Family history:: not pertinent. - Social history:: Smoking status: unknown. - Hospitalizations: : No recent hospitalization is reported. Screenin:00 Abuse screen: Denies threats or abuse. Denies injuries from another. Nutritional ld1 screening: No deficits noted. Tuberculosis screening: No symptoms or risk factors identified. 13:02 [facility] ED Fall Risk Assessment (Adult). ss Assessment: 13:00 General: Appears in no apparent distress. unkempt, Behavior is anxious, combative, ld1 inappropriate for age. 13:00 Pain: Denies pain. Neuro: Level of Consciousness is confused, Oriented to none. Neuro: ld1 Cardiovascular: Capillary refill < 3 seconds Patient's skin is warm and dry. Rhythm is sinus rhythm. Respiratory: Airway is patent Respiratory effort is even, unlabored. GI: Abdomen is round non-distended. : No signs and/or symptoms were reported regarding the genitourinary system. EENT: No signs and/or symptoms were reported regarding the EENT system. Derm: Skin is diaphoretic. Musculoskeletal: No signs and/or symptoms reported regarding the musculoskeletal system. 13:00 Reassessment: Pt screaming and yelling at staff upon arrival. Unable to understand what ld1 patient is saying - speech is clear, speaking extremely fast. Pt unable to follow commands or answer questions. Unable to follow commands for ERP and PD. PD at bedside helping stabilize patient. Pt uncooperative at this time. See MAR for orders. 14:51 Reassessment: Pt resting in bed, hooked up to monitor. Will continue to monitor. ld1 Patient states symptoms have improved. 14:51 Cardiovascular: Capillary refill < 3 seconds Patient's skin is warm and dry. Rhythm is ld1 sinus rhythm. Respiratory: Airway is patent Respiratory effort is even, unlabored. 16:00 Reassessment: No changes from previously documented assessment. pt resting in bed at ld1 this time. Sitter placed outside of room. No signs of distress at this time. 17:00 Reassessment: No changes from previously documented assessment. Patient and/or family ld1 updated on plan of care and expected duration. Pain level reassessed. 18:00 Reassessment: Pt requesting to call family at this time. Ambulatory, AAOX4. Denies ld1 concerns at this time. Patient states symptoms have improved. 18:20 Reassessment: Pt pacing around room talking to self - trying to walk out into hallway, ld1 not staying hooked up to monitor. Notified ERP. See MAR for orders. Vital Signs: 12:45 BP 147 / 99; Pulse 153; Resp 26; Pulse Ox 99% on R/A; ss 12:55 Temp 97.5(TE); ld1 13:00 BP 112 / 88; Pulse 76; Resp 12; Pulse Ox 100% on R/A; ld1 13:19 BP 113 / 87; ld1 14:36 BP 112 / 88; Pulse 85; Resp 16; Pulse Ox 98% on R/A; ld1 16:09 BP 125 / 110; Pulse 78; Resp 14; Pulse Ox 100% ; ld1 18:00 BP 126 / 99; Pulse 76; Resp 18; Pulse Ox 100% on R/A; ld1 18:26 BP 134 / 88; Pulse 98; Resp 18; Pulse Ox 99% on R/A; ld1 19:20 BP 119 / 78; Pulse 84; Resp 15; Pulse Ox 98% on R/A; lj2 20:00 BP 120 / 85; Pulse 86; Resp 15; Pulse Ox 100% on R/A; lj2 20:34 BP 105 / 76; Pulse 73; Resp 14; Pulse Ox 100% on R/A; lj2 20:35 BP 110 / 71; Pulse 79; Resp 13; Pulse Ox 99% on R/A; lj2 21:06 BP 112 / 65; Pulse 65; Resp 19; Pulse Ox 100% on R/A; lj2 ED Course: 12:39 Patient arrived in ED. ld1 12:40 David Ramos MD is Attending Physician. rn 12:50 Triage completed. ss 13:00 No provider procedures requiring assistance completed. ld1 13:00 Patient has correct armband on for positive identification. Placed in gown. Bed in low ld1 position. Call light in reach. Side rails up X2. lunchroom monitor on. Pulse ox on. NIBP on. Warm blanket given. 13:31 Inserted saline lock: 18 gauge in right antecubital area, using aseptic technique. ds4 Blood collected. 13:31 Oxygen administration via nasal cannula \\T\\ 3L/min Response to oxygen therapy: symptoms ds4 improved. 14:52 Brenna Meier, TERE is Primary Nurse. ld1 18:24 Urinalysis w/ reflexes Sent. cm10 18:24 Urine Drug Screen Sent. cm10 21:27 Attending Physician role handed off by David Ramos MD sp4 21:27 Russ Benites MD is Attending Physician. sp4 22:04 IV discontinued, intact, bleeding controlled, No redness/swelling at site. Pressure as6 dressing applied. 22:04 Arm band placed on. as6 Administered Medications: 12:51 Drug: Midazolam IM 3 mg Route: IM; Site: left deltoid; ld1 13:17 Follow up: Response: No adverse reaction ld1 13:01 Drug: Geodon IM 10 mg Route: IM; Site: right deltoid; ld1 13:17 Follow up: Response: No adverse reaction ld1 16:34 Drug: NS 0.9% IV 1000 ml Route: IV; Rate: 1000 ml; Site: left antecubital; ld1 22:04 Follow up: Response: No adverse reaction; IV Status: Completed infusion; IV Intake: as6 1000ml 18:24 Drug: Geodon IM 10 mg Route: IM; Site: right ventrogluteal; cm10 20:50 Follow up: Response: No adverse reaction as6 21:34 Drug: Potassium Chloride PO 40 mEq Route: PO; as6 21:34 Follow up: Response: No adverse reaction as6 Medication: 13:00 VIS not applicable for this client. ld1 Intake: 22:04 IV: 1000ml; Total: 1000ml. as6 Outcome: 16:34 ER care complete, transfer ordered by MD. rn 21:35 Discharge ordered by . sp4 22:03 Discharged to home ambulatory. as6 22:03 Condition: stable 22:03 Discharge instructions given to patient, Instructed on discharge instructions, follow up and referral plans. medication usage, Demonstrated understanding of instructions, follow-up care, medications, Prescriptions given X 1. 22:04 Patient left the ED. as6 Signatures: David Ramos MD MD rn Blanchard, Shelby, RN RN Alejandro Webster ds4 Brenna Meier RN RN ld1 Sergei Ivey RN RN as6 Mayelin Gooden RN RN lj2 Potepalov, Sergey, MD MD sp4 Cristel Calle RN RN cm10 Corrections: (The following items were deleted from the chart) 13:05 12:45 Risk Assessment: Do you want to hurt yourself or someone else? Patient reports no ss desire to harm self or others. ss 14:51 14:49 Reassessment: Pt screaming and yelling at staff upon arrival. Unable to ld1 understand what patient is saying - speech is clear, speaking extremely fast. Pt unable to follow commands or answer questions. Unable to follow commands for ERP and PD. PD at bedside helping stabilize patient. Pt uncooperative at this time. See MAR for orders. ld1
--- NOTE | 2022-12-28 16:35 | EDPHYS ---
Physician Documentation [facility] Name: Jose Pabon Age: 27 yrs Sex: Male : 1995 Arrival Date: 12/28/2022 Time: 12:34 Bed 6 Private MD: ED Physician Russ Benites HPI: 12/28 12:55 This 27 yrs old Male presents to ER via Law Enforcement with complaints of rn Suicidal Ideation, Psych Problem. 12:55 Pt extremely agitated, HR in 150s, diaphoretic and combative, brought in by EMS for rn MOISES. . 13:44 The patient presents to the emergency department with suicide ideation. Onset: The rn symptoms/episode began/occurred at an unknown time. Associated signs and symptoms: Pertinent positives; suicide ideation, Pertinent negatives: chest pain, fever. Severity of symptoms: At their worst the symptoms were moderate in the emergency department the symptoms are unchanged. Historical: - Allergies: 18:05 No Known Allergies; ld1 - PMHx: 12:39 Anxiety; Bipolar disorder; Schizophrenia; ld1 - Immunization history:: Adult Immunizations unknown. - Family history:: not pertinent. - Social history:: Smoking status: unknown. - Hospitalizations: : No recent hospitalization is reported. ROS: 13:44 Constitutional: Negative for fever, chills, and weight loss, Cardiovascular: Negative rn for chest pain, palpitations, and edema, Respiratory: Negative for shortness of breath, cough, wheezing, and pleuritic chest pain, Abdomen/GI: Negative for abdominal pain, nausea, vomiting, diarrhea, and constipation, Neuro: Negative for headache, weakness, numbness, tingling, and seizure. Exam: 13:44 Constitutional: Diaphoretic and agitated Head/Face: Normocephalic, atraumatic. ENT: rn dry MM Cardiovascular: Tachycardic, regular Respiratory: + mild tachypnea, pressured speech Abdomen/GI: Soft, non-tender MS/ Extremity: Pulses equal, no cyanosis. Neurovascular intact. Full, normal range of motion. Equal circumference. Neuro: Awake and alert, GCS 15 13:46 ECG was reviewed by the Attending Physician. rn Vital Signs: 12:45 BP 147 / 99; Pulse 153; Resp 26; Pulse Ox 99% on R/A; ss 12:55 Temp 97.5(TE); ld1 13:00 BP 112 / 88; Pulse 76; Resp 12; Pulse Ox 100% on R/A; ld1 13:19 BP 113 / 87; ld1 14:36 BP 112 / 88; Pulse 85; Resp 16; Pulse Ox 98% on R/A; ld1 16:09 BP 125 / 110; Pulse 78; Resp 14; Pulse Ox 100% ; ld1 18:00 BP 126 / 99; Pulse 76; Resp 18; Pulse Ox 100% on R/A; ld1 18:26 BP 134 / 88; Pulse 98; Resp 18; Pulse Ox 99% on R/A; ld1 19:20 BP 119 / 78; Pulse 84; Resp 15; Pulse Ox 98% on R/A; lj2 20:00 BP 120 / 85; Pulse 86; Resp 15; Pulse Ox 100% on R/A; lj2 20:34 BP 105 / 76; Pulse 73; Resp 14; Pulse Ox 100% on R/A; lj2 20:35 BP 110 / 71; Pulse 79; Resp 13; Pulse Ox 99% on R/A; lj2 21:06 BP 112 / 65; Pulse 65; Resp 19; Pulse Ox 100% on R/A; lj2 MDM: 12:40 Patient medically screened. rn 12:56 ED course: Pt extremely agitated, combative, yelling, in handcuffs and police present. rn Versed given with some improvement but still tachycardic and combative, decision made to give geodon. . 16:33 Differential diagnosis: psychosis secondary to non-compliance, suicidal ideations. Data rn reviewed: vital signs, nurses notes, lab test result(s), and as a result, I will admit patient. Counseling: I had a detailed discussion with the patient and/or guardian regarding: the historical points, exam findings, and any diagnostic results supporting the discharge/admit diagnosis, lab results, the need to transfer to another facility. 21:31 Transition of care: Care assumed from David Ramos MD. ED course: Patient is a very sp4 pleasant 27-year-old male with past medical history of schizophrenia. He states he is out of his medications. He has used some crystal meth at home and developed hallucinations. Also reported some suicidal ideation on arrival. At this time patient is awake alert and oriented. He feels better after Geodon. We will administer potassium supplement for hypokalemia. Patient would like to go home at this time he denied any homicidal or suicidal ideation a plan. On second questioning he denied again suicidal ideation or plan.. Patient is stable for discharge home based on the emergent psychiatric guidelines. We will advise patient to discontinue use of recreational substances.. 12/28 12:45 Order name: Acetaminophen; Complete Time: 14:48 rn 12/28 12:45 Order name: Basic Metabolic Panel; Complete Time: 14:48 rn 12/28 12:45 Order name: CBC with Diff; Complete Time: 14:48 rn 12/28 12:45 Order name: ETOH Level; Complete Time: 14:48 rn 12/28 12:45 Order name: Hepatic Function; Complete Time: 14:48 rn 12/28 12:45 Order name: PT-INR; Complete Time: 14:48 rn 12/28 12:45 Order name: Ptt, Activated; Complete Time: 14:48 rn 12/28 12:45 Order name: Salicylate; Complete Time: 14:48 rn 12/28 12:45 Order name: Urinalysis w/ reflexes; Complete Time: 18:44 rn 12/28 12:45 Order name: Urine Drug Screen; Complete Time: 18:44 rn 12/28 12:45 Order name: EKG; Complete Time: 12:55 rn 12/28 12:45 Order name: EKG - Nurse/Tech; Complete Time: 13:10 rn 12/28 12:45 Order name: IV Saline Lock; Complete Time: 13:31 rn 12/28 12:45 Order name: Labs collected and sent; Complete Time: 13:31 rn 12/28 12:45 Order name: Suicide Precautions; Complete Time: 18:26 rn EC:46 Rate is 129 beats/min. Rhythm is regular. QRS [place] is Normal. UT interval is normal. rn QRS interval is normal. QT interval is normal. No Q waves. T waves are Normal. No ST changes noted. Clinical impression: Sinus tachycardia. Interpreted by me. Reviewed by me. Administered Medications: 12:51 Drug: Midazolam IM 3 mg Route: IM; Site: left deltoid; ld1 13:17 Follow up: Response: No adverse reaction ld1 13:01 Drug: Geodon IM 10 mg Route: IM; Site: right deltoid; ld1 13:17 Follow up: Response: No adverse reaction ld1 16:34 Drug: NS 0.9% IV 1000 ml Route: IV; Rate: 1000 ml; Site: left antecubital; ld1 22:04 Follow up: Response: No adverse reaction; IV Status: Completed infusion; IV Intake: as6 1000ml 18:24 Drug: Geodon IM 10 mg Route: IM; Site: right ventrogluteal; cm10 20:50 Follow up: Response: No adverse reaction as6 21:34 Drug: Potassium Chloride PO 40 mEq Route: PO; as6 21:34 Follow up: Response: No adverse reaction as6 Disposition Summary: 12/28/22 21:35 Discharge Ordered Location: Home sp4 Problem: new(12/28/22 21:35) sp4 Symptoms: have improved(12/28/22 21:35) sp4 Condition: Stable(12/28/22 21:35) sp4 Diagnosis - Other stimulant abuse with intoxication sp4 - Acute methamphetamine intoxication, methamphetamine abuse, acute visual sp4 hallucinations, polysubstance abuse, cannabis abuse Followup: sp4 - With: Private Physician - When: 7 - 10 days - Reason: Recheck today's complaints Discharge Instructions: - Discharge Summary Sheet sp4 - Methamphetamines Use Disorder sp4 Forms: - [email or web address] sp4 Prescriptions: - trazodone 100 mg Oral tablet - take 1 tablet by ORAL route Every night Take once a day before bedtime.; 30 sp4 tablet; Refills: 0, Product Selection Permitted Signatures: Dispatcher [employer] EDMS David Ramos MD MD rn Sims, Lauren, RN RN ld1 Sergei Ivey, RN RN as6 Russ Benites MD MD sp4 Cristel Calle, RN RN cm10 Corrections: (The following items were deleted from the chart) 18:26 12:45 Suicide Screening ([place]) ordered. rn ld1 21:34 16:34 rn sp4 21:34 16:34 Psych Facility rn sp4 21:34 16:34 Higher level of care rn sp4 21:34 16:34 Stable rn sp4 21:34 16:34 new rn sp4 21:34 16:34 have improved rn sp4 21:34 16:34 Suicidal ideations rn sp4 21:34 16:34 Schizophrenia, unspecified rn sp4
[2022-12-28 18:31] LABS: Specific Gravity 1.026 (1.005-1.030); Urine Bacteria None Seen /HPF (<20); Urine Bilirubin NEGATIVE (Negative); Urine Blood 2+ (Negative); Urine Clarity Extremely Turbid (Clear); Urine Color Yellow (Yellow); Urine Crystals Unidentified Few /HPF (None Seen); Urine Glucose NEGATIVE (Negative); Urine Granular Casts >20 /LPF (None Seen); Urine Mucus 4+ /HPF (None Seen); Urine Protein 1+ (Negative); Urine RBC >50 /HPF (None Seen); Urine Urobilinogen Normal (Normal); Urine WBC Clump Occasional /HPF (None Seen); Urine pH 5.5 (5.0-7.0)
[2022-12-28 18:38] LABS: Barbiturates NEGATIVE (NEGATIVE); Benzodiazepines POSITIVE (NEGATIVE); Cocaine NEGATIVE (NEGATIVE); METHAMPHETAM POSITIVE (NEGATIVE); Methadone NEGATIVE (NEGATIVE); Opiates NEGATIVE (NEGATIVE); Phencyclidine NEGATIVE (NEGATIVE); THC Cannibis POSITIVE (NEGATIVE)
[2022-12-28] MEDS ORDERED: POTASSIUM CL SA 10 MEQ TAB PO ONE (21:41)
[2022-12-28 22:11] VITALS: TEMP 97.5
[2022-12-28 22:30] VITALS: BP 112/65; O2SAT 100
--- NOTE | 2022-12-30 16:23 | EKG ---
Test Date: 2022-12-28 Test Time: 13:04:09 Veneer Gluer: BEATA MEASUREMENT RESULTS: Intervals: Rate: 129 NC: 128 QRSD: 72 QT: 316 QTc: 462 [place]um: P: -3 NC: 128 QRS: -8 T: 8 INTERPRETIVE STATEMENTS: Sinus tachycardia Minimal voltage criteria for LVH, may be normal variant Borderline ECG Compared to ECG 07/29/2022 22:17:36 Left ventricular hypertrophy now present Sinus rhythm no longer present Electronically Signed On 12-30-22 16:18:59 CDT by Isma Abdi
== END 2022-12-28 22:04 | disposition home or self-care (01) ==
LOC: ER 12:34
DX: F15.129 Other stimulant abuse with intoxication, unspecified (principal); F12.10 Cannabis abuse, uncomplicated; R44.1 Visual hallucinations
CPT/HCPCS: 96361; 93005; 85025; 81001; 80048; 36415; 85610; 80076; 85730; 80307; 96360; 96372; 99285; 80143; 80179; 82077; J2250; J3486 ×2; J7030

== ENCOUNTER 2023-04-04 20:56 | Emergency (ER) | payer OTHER ==
--- NOTE | 2023-04-04 21:14 | EDPHYS ---
Physician Documentation [facility] Name: Jose Pabon Age: 28 yrs Sex: Male : 1995 Arrival Date: 04/04/2023 Time: 20:56 Bed 11 Private MD: ED Physician Ronan Baeza HPI: 04/04 22:05 This 28 yrs old Male presents to ER via Ambulatory with complaints of Anxiety. rt 22:05 Patient presents to the ED with anxiety, saying that he cannot sleep. Denies physical rt complaints at this time to me. Denies SI, HI. Denies other acute complaints at this time. He states that he only wishes to have something to help him relax and that he wishes to follow-up with his primary care tomorrow as previously scheduled. Denies other acute complaints, symptoms are mild in severity, no other aggravating or alleviating factors.. Historical: - Allergies: 21:07 No Known Allergies; ap3 - PMHx: 21:07 Anxiety; Bipolar disorder; Schizophrenia; ap3 - Immunization history:: Client reports having NOT received the Covid vaccine. - Social history:: Smoking status: Patient reports the use of cigarette tobacco products, smokes one pack cigarettes per day. ROS: 22:05 Constitutional: Negative for fever, chills, and weight loss, Cardiovascular: Negative rt for chest pain, palpitations, and edema, Respiratory: Negative for shortness of breath, cough, wheezing, and pleuritic chest pain, Abdomen/GI: Negative for abdominal pain, nausea, vomiting, diarrhea, and constipation, MS/Extremity: Negative for injury and deformity, Skin: Negative for injury, rash, and discoloration, Neuro: Negative for headache, weakness, numbness, tingling, and seizure, 22:05 Psych: Positive for anxiety, insomnia, Exam: 22:05 Constitutional: This is a well developed, well nourished patient who is awake, alert, rt and in no acute distress. Head/Face: Normocephalic, atraumatic. Chest/axilla: Normal chest wall appearance and motion. Nontender with no deformity. No lesions are appreciated. Cardiovascular: Regular rate and rhythm with a normal S1 and S2. No gallops, murmurs, or rubs. Normal PMI, no JVD. No pulse deficits. Respiratory: Lungs have equal breath sounds bilaterally, clear to auscultation and percussion. No rales, rhonchi or wheezes noted. No increased work of breathing, no retractions or nasal flaring. Abdomen/GI: Soft, non-tender, with normal bowel sounds. No distension or tympany. No guarding or rebound. No evidence of tenderness throughout. Skin: Warm, dry with normal turgor. Normal color with no rashes, no lesions, and no evidence of cellulitis. MS/ Extremity: Pulses equal, no cyanosis. Neurovascular intact. Full, normal range of motion. Neuro: Awake and alert, GCS 15, oriented to person, place, time, and situation. Cranial nerves II-XII grossly intact. Motor strength 5/5 in all extremities. Sensory grossly intact. Cerebellar exam normal. Normal gait. 22:05 Psych: Mood anxious, affect congruent, denies SI. Vital Signs: 21:05 BP 146 / 109; Pulse 99; Resp 19; Temp 98.8; Pulse Ox 100% ; Weight 125.65 kg; ap3 21:07 BP 138 / 98; ap3 MDM: 21:10 Patient medically screened. rt 22:05 Differential Diagnosis Anxiety disorder, psychosis. Data reviewed: vital signs, nurses rt notes. Test considered but Not performed: EKG: No physical complaints, stable vital signs, EKG, labs nonacute and. Counseling: I had a detailed discussion with the patient and/or guardian regarding the historical points, exam findings, and any diagnostic results supporting the discharge/admit diagnosis, the need for outpatient follow up. Response to treatment: the patient's symptoms have markedly improved after treatment. Administered Medications: 21:16 Drug: LORazepam PO 2 mg PO once Route: PO; ap3 21:25 Follow up: Response: No adverse reaction ap3 Disposition Summary: 04/04/23 21:14 Discharge Ordered Notes: Location: Home rt Problem: new rt Symptoms: are unchanged rt Condition: Stable rt Diagnosis - Anxiety disorder, unspecified rt Followup: rt - With: Private Physician - When: Tomorrow - Reason: Discharge Instructions: - Discharge Summary Sheet rt - Generalized Anxiety Disorder, Adult rt Forms: - Medication Reconciliation Form rt - Thank You Letter rt - Antibiotic Education rt - Prescription Opioid Use rt - Patient Portal Instructions rt - Leadership Thank You Letter rt Signatures: Alison Garcia RN RN ap3 Ronan Baeza MD MD rt
--- NOTE | 2023-04-04 21:14 | ER ---
Nurse's Notes [facility] Name: Jose Pabon Age: 28 yrs Sex: Male : 1995 Arrival Date: 04/04/2023 Time: 20:56 Bed 11 Private MD: Diagnosis: Anxiety disorder, unspecified Presentation: 04/04 21:05 Chief complaint: Patient states: he feels like he is very anxious. patient reports he ap3 was trying to go to sleep, and he could feel his heart racing, and he could feel like he couldn't calm himself down. patient reports "I just need something to help calm me down". Coronavirus screen: At this time, the client does not indicate any symptoms associated with coronavirus-19. Ebola Screen: No symptoms or risks identified at this time. Initial Sepsis Screen: Does the patient meet any 2 criteria? No. Patient's initial sepsis screen is negative. Does the patient have a suspected source of infection? No. Patient's initial sepsis screen is negative. Risk Assessment: Do you want to hurt yourself or someone else? Patient reports no desire to harm self or others. Onset of symptoms was April 04, 2023. 21:05 Method Of Arrival: Ambulatory ap3 21:05 Acuity: ROBY 3 ap3 Triage Assessment: 21:07 General: Appears in no apparent distress. Behavior is anxious. Pain: Denies pain. ap3 Neuro: Level of Consciousness is awake, alert, obeys commands, Oriented to person, place, time. Cardiovascular: Patient's skin is warm and dry. Respiratory: Airway is patent Respiratory effort is even, unlabored, Respiratory pattern is regular, symmetrical. Historical: - Allergies: 21:07 No Known Allergies; ap3 - PMHx: 21:07 Anxiety; Bipolar disorder; Schizophrenia; ap3 - Immunization history:: Client reports having NOT received the Covid vaccine. - Social history:: Smoking status: Patient reports the use of cigarette tobacco products, smokes one pack cigarettes per day. Screenin:08 [facility] ED Fall Risk Assessment (Adult) History of falling in the last 3 months, ap3 including since admission No falls in past 3 months (0 pts). Abuse screen: Denies threats or abuse. Nutritional screening: No deficits noted. Tuberculosis screening: No symptoms or risk factors identified. Vital Signs: 21:05 BP 146 / 109; Pulse 99; Resp 19; Temp 98.8; Pulse Ox 100% ; Weight 125.65 kg; ap3 21:07 BP 138 / 98; ap3 ED Course: 20:58 Patient arrived in ED. mr 20:59 Ronan Baeza MD is Attending Physician. rt 21:06 Triage completed. ap3 21:08 Arm band placed on right wrist. ap3 21:13 Patient has correct armband on for positive identification. Bed in low position. Call ap3 light in reach. Pulse ox on. NIBP on. Door closed. Noise minimized. Warm blanket given. PO fluids given. 21:13 No provider procedures requiring assistance completed. ap3 21:16 Provided Education on: medication prior to administration. ap3 21:16 Patient did not have IV access during this emergency room visit. ap3 21:18 Pt visited by mother. ap3 Administered Medications: 21:16 Drug: LORazepam PO 2 mg PO once Route: PO; ap3 21:25 Follow up: Response: No adverse reaction ap3 Medication: 21:16 VIS not applicable for this client. ap3 Outcome: 21:14 Discharge ordered by . rt 21:26 Discharged to home ambulatory, with family, ap3 21:26 Condition: good 21:26 Discharge instructions given to patient, family, Instructed on discharge instructions, follow up and referral plans. Demonstrated understanding of instructions, follow-up care, 21:26 Patient left the ED. ap3 Signatures: Aliya Varela, Reg Reg mr ElizabethkourtneyAlison, TERE RN ap3 Ronan Baeza MD MD rt
--- OUTSIDE RECORDS SUMMARY | 2023-04-04 21:14 | XMS REPORT | Continuity of Care Document ---
:1995 Author Organization [facility] t Address [address] [place] [address] Care Team Providers Name Role Phone BRIANNA FORBES Primary Care Physician Unavailable Jackelyn Kohli Attending Clinician Unavailable JOHN CAPONE Attending Clinician Unavailable SHERIF MARINO Attending Clinician Unavailable Jamila SANCHEZ, Sherif Attending Clinician Sherif Huber Db Test Attending Clinician Unavailable Roby Sebastian Attending Clinician ROBY JOHNSON Attending Clinician Unavailable Doctor Unassigned, [place] Attending Clinician Unavailable Pcp, Patient Does Not Have A Attending Clinician [phone] Emily Castro Attending Clinician Lab, Adc Fam Pob I Attending Clinician Unavailable Coleman Gamez Attending Clinician COLEMAN MARSHALL Attending Clinician Unavailable Warren Edwards DO Attending Clinician WARREN EDWARDS Attending Clinician Unavailable ALEJANDRO JUAN Attending Clinician Unavailable JOVANI KEVIN Attending Clinician Unavailable CARMELA HEBERT Attending Clinician Unavailable HEBERT PHAM Attending Clinician Unavailable HENRIETTA MARIELLAMARYAN NEWTON Admitting Clinician Unavailable ALEJANDRO JUAN Admitting Clinician Unavailable CARMELA HEBERT Admitting Clinician Unavailable HEBERT PHAM Admitting Clinician Unavailable Payers Payer Name Policy Type Policy Number Effective Date Expiration Date Kari ALVARENGA [facility] [id number] 2017 00:00:00 PLAN Problems Condition Condition Condition Status Onset Resolution Last Treating Co mments Source Name Details Category Date Date Treatment Clinician Date Anemia, Anemia, Disease Active 2022-[address] [facility] unspecifie unspecifie 0-06 Rhonda kes d type d type 00:00: Medical 00 Center Class 3 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 Elevated Elevated Disease Active [facility] enzymes enzymes 00:00: t & Plan: Medic al 00 [facility] Center g of this note might be [...] and genetic. Immunity Immunity Disease Active Last [facility] S t status status 07-17 Assesspaty Maxwell testing testing 00:00: t & Plan: Medic al [address] [place] [address] g of this note might be different from the original. All patients with chronic liver disease, regardles s of etiology, should be immunized to prevent hepatitis A and hepatitis B if they are not already immune. We will test for immunity to both viruses and vaccine recommend ations will follow. Fatty Fatty Disease Active [facility] St liver liver 07-17 Assesspaty Rhondaclare 00:00: t & Plan: Medical [address] [place] [address] g of this note might be different from the original. Patient is known to have fatty liver based on ultrasoun d and CT abdomen from March and May [facility]. He has morbid obesity and [...] gastric sleeve surgery. 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 - [facility] , single depressive St episode, disorder, [facility] without single Medical psychotic episode Center features H/O H/O Problem Common gastric gastric Spirit sleeve sleeve - [facility] [id number] Essential Problem Comm on (primary) Spirit hypertensi - [facility] [id number] Gastroesop Problem Co mmon hageal Spirit reflux - [facility] disease without [facility] esophagiti [facility] [id number] Hypercalce Problem Com mon johnny Spirit - [facility] Allergies, Adverse Reactions, Alerts Allergy Allergy Status Severity Reaction(s) Onset Inactive Treating Comm ents Source Name Type Date Date Clinician NO KNOWN Drug Active Univers ALLERGIE Class ity of S [facility] NO KNOWN Allergy [facility] Family History Family Member Diagnosis Comments Start Date Stop Date Source Natural mother Diabetes [facility] Natural sister Hepatomegaly [facility] Social History Social Habit Start Date Stop Date Quantity Comments Source Exposure to Yes University of SARS-CoV-2 (event) [facility] History SDOH [facility] Alcohol Comment Medical C enter History SDOH [facility] Alcohol Std Drinks Medica [facility] History SDRI [facility] Alcohol Binge Medical Padmini ter Alcohol intake 2023-03-30 2023-03-[address] Aaron es 00:00:00 00:00:00 non-drinker of Medical Ce nter alcohol (finding) Tobacco Comment 2023-03-30 2023-03-[address] Rhonda kes 00:00:00 00:00:00 [facility] Center Cigarettes smoked 2023-03-30 2023-03-[address] [facility] current (pack per 00:00:00 00:00:00 Medical Center day) - Reported Tobacco use and 2023-03-30 2023-03-[address] Rhonda kes exposure 00:00:00 00:00:00 tobacco non-user Medical Center History SDOH 2018-07-17 2018-07-[address] [facility] Alcohol Frequency 00:00:00 00:00:00 [facility] Center History of tobacco 2018-05-[address] [facility] use 00:00:00 [facility] Center Sex Assigned At [address] Rhonda kes 00:00:00 00:00:00 Medical Center Smoking Status Start Date Stop Date Source Ex-smoker 2023-03-30 00:00:00 2023-03-30 00:00:00 [facility] Current Smoker 2022-07-28 00:00:00 Common Spiri t - [facility] Ce nter Unknown if ever smoked [facility] Medications Ordered Filled Start Stop Current Ordering Indication Dosage Frequency Signature Comments Components Source Medication Medication Date Date Medication? Clinician (SIG) Name Name lisinopriL 2022-06 Yes 10mg QD Take 1 [facility] (PRINIVIL,Z 0-06 tablet (10 Rhonda kes ESTRIL) 10 10:55: mg total) Me dical MG tablet 19 by mouth Center daily. lisinopriL 2022-06 Yes 10mg QD Take 1 [facility] t (PRINIVIL,Z 0-06 tablet (10 Rhonda kes ESTRIL) 10 10:55: mg total) Me dical MG tablet 19 by mouth Center daily. lisinopriL 2022-06 Yes 10mg QD Take 1 [facility] t (PRINIVIL,Z 0-06 tablet (10 Rhonda kes ESTRIL) 10 10:55: mg total) Me dical MG tablet 19 by mouth Center daily. cloNIDine 2022-0 Yes .1mg QD Take [address] HCL 9-13 tablet [facility] (CATAPRES) 00:00: (0.1 mg Medi connie 0.1 MG 00 total) by Center tablet mouth nightly. QUEtiapine 0 Yes 200mg QD Take [address] (SEROquel) 9-13 tablet [facility] 200 MG 00:00: (200 mg Medical tablet 00 total) by Center mouth nightly. QUEtiapine 0 Yes 300mg QD Take [address] (SEROquel) 9-13 tablet [facility] 300 MG 00:00: (300 mg Medical tablet 00 total) by Center mouth nightly. Abilify 0 Yes 1mL Inject [address] Maintena 9-13 mL [facility] 300 mg sers 00:00: intramuscu Medical 00 larly. Center cloNIDine 2022-0 Yes .1mg QD Take [address] HCL 9-13 tablet [facility]ukes (CATAPRES) 00:00: (0.1 mg Medi connie 0.1 MG 00 total) by Center tablet mouth nightly. QUEtiapine 2023-0 Yes 200mg QD Take [address] (SEROquel) 9-13 tablet [facility] 200 MG 00:00: (200 mg Medical tablet 00 total) by Center mouth nightly. QUEtiapine 2023-0 Yes 300mg QD Take [address] (SEROquel) 9-13 tablet [facility] 300 MG 00:00: (300 mg Medical tablet 00 total) by Center mouth nightly. Abilify 2023-0 Yes 1mL Inject [address] [facility]aintena 9-13 mL [facility]ukes 300 mg sers 00:00: intramuscu Medical 00 larly. Center Abilify 2023-0 Yes 1mL Inject [address] Maintena 9-13 mL [facility]ukes 300 mg sers 00:00: intramuscu Medical 00 larly. Center cloNIDine 3-0 Yes .1mg QD Take [address] HCL 9-13 tablet [facility]ukes (CATAPRES) 00:00: (0.1 mg Medi connie 0.1 MG 00 total) by Center tablet mouth nightly. QUEtiapine 2023-0 Yes 200mg QD Take [address] (SEROquel) 9-13 tablet [facility] 200 MG 00:00: (200 mg Medical tablet 00 total) by Center mouth nightly. QUEtiapine 2023-0 Yes 300mg QD Take [address] (SEROquel) 9-13 tablet [facility] 300 MG 00:00: (300 mg Medical tablet 00 total) by Center mouth nightly. traZODone 2023-0 Yes 50mg QD Take [address] (DESYREL) 8-31 tablet (50 Luke s 50 MG 00:00: mg total) Medical tablet 00 by mouth Center nightly. ARIPiprazol 2023-0 Yes 10mg QD Take [address] e (ABILIFY) 8-31 tablet (10 Rhonda kes 10 MG 00:00: mg total) Medical tablet 00 by mouth Center daily. traZODone 2023-0 Yes 50mg QD Take [address] (DESYREL) 8-31 tablet (50 Luke s 50 MG 00:00: mg total) Medical tablet 00 by mouth Center nightly. ARIPiprazol 2023-0 Yes 10mg QD Take [address] e (ABILIFY) 8-31 tablet (10 Rhonda kes 10 MG 00:00: mg total) Medical tablet 00 by mouth Center daily. traZODone 2023-0 Yes 50mg QD Take [address] (DESYREL) 8-31 tablet (50 Luke s 50 MG 00:00: mg total) Medical tablet 00 by mouth Center nightly. ARIPiprazol 2023-0 Yes 10mg QD Take [address] e (ABILIFY) 8-31 tablet (10 Rhonda kes 10 MG 00:00: mg total) Medical tablet 00 by mouth Center daily. omeprazole 2023-0 Yes 40mg QD Take 1 [facility] t (PriLOSEC) 7-09 capsule [facility] 40 MG 00:00: (40 mg Medical capsule 00 total) by Center mouth every morning. traZODone 2023-0 Yes 100mg QD Take 1 [facility]I S t (DESYREL) 7-09 tablet [facility] 100 MG 00:00: (100 mg Medical tablet 00 total) by Center mouth nightly. omeprazole 2023-0 Yes 40mg QD Take 1 [facility]I S t (PriLOSEC) 7-09 capsule [facility] 40 MG 00:00: (40 mg Medical capsule 00 total) by Center mouth every morning. traZODone 2023-0 Yes 100mg QD Take 1 [facility]I S t (DESYREL) 7-09 tablet [facility] 100 MG 00:00: (100 mg Medical tablet 00 total) by Center mouth nightly. omeprazole 2023-0 Yes 40mg QD Take 1 [facility]I [facility] t (PriLOSEC) 7-09 capsule [facility] 40 MG 00:00: (40 mg Medical capsule 00 total) by Center mouth every morning. traZODone 2023-0 Yes 100mg QD Take 1 [facility]I [facility] t (DESYREL) 7-09 tablet [facility] 100 MG 00:00: (100 mg Medical tablet 00 total) by Center mouth nightly. Pristiq 25 Pristiq 25 2021-0 No 1{table QD Pristiq 25 MG MG 8-03 t} MG 00:00: 00 Pristiq 25 Pristiq 25 2021-0 No 1{table QD Pristiq 25 MG MG 8-03 t} MG 00:00: 00 Pristiq 25 Pristiq 25 2021-0 No 1{table QD Pristiq 25 MG MG 8-03 t} MG 00:00: 00 Lisinopril Lisinopril 2022-0 No 1{table QD Lisinopril 10 MG 10 MG 8-03 t} 10 MG 00:00: 00 Lisinopril Lisinopril 2-0 No 1{table QD Lisinopril 10 MG 10 MG 8-03 t} 10 MG 00:00: 00 Pristiq 25 Pristiq 25 2-0 No 1{table QD Pristiq 25 MG MG [...] MG 00:00: 00:00 00 :00 Ondansetron Ondansetron 2-0 No 1{table Ondansetro HCl 4 MG HCl 4 MG 3-30 t} n HCl 4 MG 00:00: 00 Ondansetron Ondansetron 2-0 No 1{table Ondansetro HCl 4 MG HCl [...] HCl 4 MG 00:00: 00 predniSONE predniSONE 2-0 No 2{table QD predniSONE 20 MG 20 MG 3-11 t} 20 MG 00:00: 00 predniSONE predniSONE 2021-0 No 2{table QD predniSONE 20 MG 20 MG 09-02 t} 20 MG 00:00: 00 Loratadine Loratadine 2021- No 1{table QD Loratadine 10 MG 10 MG 09-02 t} 10 MG 00:00: 00:00 00 :00 Loratadine Loratadine 2021- No 1{table QD Loratadine 10 MG 10 MG 09-02 t} 10 MG 00:00: 00:00 00 :00 guaiFENesin guaiFENesin 2021- No 1{table BID guaiFENesi ER 600 MG ER 600 MG 09-02 t_as_ne n ER 600 00:00: 00:00 eded} MG 00 :00 omeprazole 2019-06 No 40mg QD Take [address] (PriLOSEC) 0-12 04-05 capsule [facility] 40 MG 00:00: 23:59 (40 [...] mg 12/20/19 at Branch 2030, Routine dicyclomine 2019- Yes 10mg 10 [...] 12/20/19 at 1930, STAT sucralfate 2020-0 Yes [id number] 1000mg Take 10 mL Univers (CARAFATE) 6-27 by mouth ity o f 100 mg/mL 00:00: before [place] suspension 00 meals and Medi connie at Branch bedtime. sucralfate 2020-0 Yes [id number] 1000mg Take 10 mL Univers (CARAFATE) 6-27 by mouth ity o f 100 mg/mL 00:00: before [place] suspension 00 meals and Medi connie at Branch bedtime. sucralfate 2020-0 Yes [id number] 1000mg Take 10 mL Univers (CARAFATE) 6-27 by mouth ity o f 100 mg/mL 00:00: before [place] suspension 00 meals and Medi connie at Branch bedtime. sucralfate 2020-0 Yes [id number] 1000mg Take 10 mL Univers (CARAFATE) 6-27 by mouth ity o f 100 mg/mL 00:00: before [place] suspension 00 meals and Medi connie at Branch bedtime. sucralfate 2020-0 Yes [id number] 1000mg Take 10 mL Univers (CARAFATE) 6-27 by mouth ity o f 100 mg/mL 00:00: before [place] suspension 00 meals and Medi connie at Branch bedtime. sucralfate 2020-0 Yes [id number] 1000mg Take 10 mL Univers (CARAFATE) 6-27 by mouth ity o f 100 mg/mL 00:00: before [place] suspension 00 meals and Medi connie at Branch bedtime. sucralfate 2020-0 Yes [id number] 1000mg Take 10 mL Univers (CARAFATE) 6-27 by mouth ity o f 100 mg/mL 00:00: before [place] suspension 00 meals and Medi connie at Branch bedtime. haloperidol 2014- Yes 15mg Take 3 Univ ers (HALDOL) 5 - Tabs by ity of mg tablet 00:00[place] bed[place]. Medical Branch benzoyl 2014- Yes Apply to Univer s peroxide - [...] solution 00 times Medical daily. Branch chlorproMAZ 0 Yes 200mg Take 1 Tab Univers INE 9-21 by mouth ity of (THORAZINE) 00:00: at [place] 200 mg 00 bedtime. Medical tablet Branch chlorproMAZ 0 Yes 200mg Take 1 Tab Univers INE [...] cm WEIGHT 2020-04-02 14:50:00 105.688 kg HEIGHT 2023-03-30 10:57:00 170.2 cm WEIGHT 2023-03-30 10:57:00 80.377 kg HEIGHT 2023-03-30 10:57:00 170.2 cm WEIGHT 2023-03-30 10:57:00 80.377 kg HEIGHT 2023-03-30 10:57:00 170.2 cm WEIGHT 2023-03-30 10:57:00 80.377 kg height 2022 14:40:00 67 [in_i] [facility] weight 2022 14:40:00 222.4 [lb_av] [facility] temperature 2022 14:40:00 97.6 [degF] [facility] bmi 2022 14:40:00 34.83 kg/m2 [facility] oximetry 2022 14:40:00 98 % [facility] respiratory rate 2022 14:40:00 16 /min Comm on [facility] blood pressure 2022 14:40:00 132 mm[Hg] Common [facility] - systolic [facility] blood pressure 2022 14:40:00 80 mm[Hg] [facility] - diastolic [facility] height 2022-01-25 14:00:00 67 [in_i] [facility] weight 2022-01-25 14:00:00 228 [lb_av] [facility] temperature 2022-01-25 14:00:00 98.5 [degF] Common [facility] bmi 2022-01-25 14:00:00 35.71 kg/m2 [facility] oximetry 2022-01-25 14:00:00 99 % [facility] respiratory rate 2022-01-25 14:00:00 17 /min Comm on [facility] blood pressure 2022-01-25 14:00:00 152 mm[Hg] Common [facility] - systolic [facility] blood pressure 2022-01-25 14:00:00 87 mm[Hg] Common [facility] - diastolic [facility] height 2021-10-04 16:00:00 67 [in_i] Common [facility] weight 2021-10-04 16:00:00 268 [lb_av] [facility] temperature 2021-10-04 16:00:00 97.4 [degF] [facility] bmi 2021-10-04 16:00:00 41.97 kg/m2 [facility] oximetry 2021-10-04 16:00:00 98 % [facility] respiratory rate 2021-10-04 16:00:00 16 /min Comm on [facility] blood pressure 2021-10-04 16:00:00 131 mm[Hg] Common [facility] - systolic [facility] blood pressure 2021-10-04 16:00:00 81 mm[Hg] Common [facility] - diastolic [facility] height 2021-09-21 13:40:00 67 [in_i] Common [facility] weight 2021-09-21 13:40:00 265 [lb_av] [facility] bmi 2021-09-21 13:40:00 41.5 kg/m2 [facility] WEIGHT 2020-04-05 10:17:00 99.474 kg HEIGHT 2020-04-05 10:17:00 170.2 cm HEIGHT 2020-04-02 14:50:00 170.2 cm WEIGHT 2020-04-02 14:50:00 105.688 kg Systolic blood 2019-12-21 03:00:00 122 mm[Hg] Univer sity of pressure [place] [facility] Diastolic blood 2019-12-21 03:00:00 89 mm[Hg] Unive rsity of pressure [facility] Heart rate 2019-12-21 03:00:00 71 /min Universi ty [facility] [place] [facility] Respiratory rate 2019-12-21 03:00:00 16 /min Univ ersity of [place] [facility] Oxygen saturation in 2019-12-21 03:00:00 98 /min University of Arterial blood by [place] [facility] connie Pulse oximetry Branch Body temperature 2019-12-21 00:32:00 37.22 [place] Univ ers[facility] [place] [facility] Body height 2019-12-21 00:32:00 170.2 cm [facility] [place] [facility] Body weight 2019-12-21 00:31:00 102.513 kg [facility] [place] [facility] BMI 2019-12-21 00:31:00 35.40 kg/m2 [facility] [place] [facility] Systolic blood 2019-12-21 03:00:00 122 mm[Hg] Univer sity of pressure [facility] Diastolic blood 2019-12-21 03:00:00 89 mm[Hg] Unive rsity of pressure [facility] Heart rate 2019-12-21 03:00:00 71 /min [facility]i [facility] [place] [facility] Respiratory rate 2019-12-21 03:00:00 16 /min Univ ersity of [place] [facility] Oxygen saturation in 2019-12-21 03:00:00 98 /min University of Arterial blood by [place] [facility] connie Pulse oximetry Branch Body temperature 2019-12-21 00:32:00 37.22 [place] Univ [facility] [place] [facility] Body height 2019-12-21 00:32:00 170.2 cm [facility] [place] [facility] Body weight 2019-12-21 00:31:00 102.513 kg [facility] [place] [facility] BMI 2019-12-21 00:31:00 35.40 kg/m2 [facility] [place] [facility] Systolic blood 2023-03-30 10:57:00 119 mm[Hg] [facility] Diastolic blood 2023-03-30 10:57:00 88 mm[Hg] [facility] Heart rate 2023-03-30 10:57:00 124 /min [facility] Body temperature 2023-03-30 10:57:00 37 [place] [facility] Respiratory rate 2023-03-30 10:57:00 18 /min [facility] Body height 2023-03-30 10:57:00 170.2 cm [facility] Body weight 2023-03-30 10:57:00 80.377 kg [facility] BMI 2023-03-30 10:57:00 27.75 kg/m2 [facility] Oxygen saturation in 2023-03-30 10:57:00 100 /min [facility] Arterial blood by Medical Ce ntcheng Pulse oximetry Procedures Procedure Date / Time Performing Clinician Source Performed COMPREHENSIVE METABOLIC 2023-03-30 10:32:00 [facility] PANEL Center CBC W/PLT COUNT & AUTO 2023-03-30 10:32:00 [facility] DIFFERENTIAL Center IRON, TIBC, % SAT. 2023-03-30 10:32:00 [facility] (WITHOUT FERRITIN) Center FERRITIN 2023-03-30 10:32:00 [facility] PERIPHERAL BLOOD SMEAR - 2023-03-30 10:32:00 [facility] HOLD ONLY Center RETICULOCYTE COUNT 2023-03-30 10:32:00 [facility] CBC W/PLT COUNT & AUTO 2023-03-30 10:32:00 [facility] DIFFERENTIAL Center CT ABDOMEN PELVIS W 2019-12-21 01:44:37 Warren Edwards [facility] LIPASE 2019-12-21 00:52:00 Warren Edwards [facility] COMP. METABOLIC PANEL 2019-12-21 00:52:[address] [id number] [place] CBC WITH DIFFERENTIAL 2019-12-21 00:52:00 Warren Edwards [facility] URINALYSIS 2019-12-21 00:52:00 Singer Warren [place] o f [place] [facility] NOTICE OF PRIVACY 2019-12-21 00:22:40 [facility] Branch CONSENT/REFUSAL FOR 2019-12-21 00:22:22 [facility], [facility] Name Medical Branch Plan of Care Planned Activity Planned Date Details Comments Source Future Scheduled 2024-03-[address] [facility] Test 00:00:00 Counseling and Screening Med ical Center (12+) [code = Tobacco Cessation Counseling and Screening (12+)] Future Scheduled 2024-03-[address] [facility] Test 00:00:00 Counseling and Screening Med ical Center (12+) [code = Tobacco Cessation Counseling and Screening (12+)] Future Scheduled 2024-03-[address] [facility] Test 00:00:00 Counseling and Screening Med ical Center (12+) [code = Tobacco Cessation Counseling and Screening (12+)] Future Scheduled 2023-02-23 Influenza Vaccine (#1) [facility] 00:00:00 [code = Influenza Vaccine Me dical Center (#1)] Future Scheduled 2023-02-23 Influenza Vaccine (Season [facility] Test 00:00:00 Ended) [code = Influenza Med ical Center Vaccine (Season Ended)] Future Scheduled 2023-02-23 Influenza Vaccine (#1) [facility] 00:00:00 [code = Influenza Vaccine Me dical Center (#1)] Future Scheduled 2023-02-23 Influenza Vaccine (#1) [facility] 00:00:00 [code = Influenza Vaccine Me dical Center (#1)] Future Scheduled 2023-02-23 Influenza Vaccine (#1) [facility] 00:00:00 [code = Influenza Vaccine Me dical Center (#1)] Future Scheduled 2023-02-23 Influenza Vaccine (#1) [facility] 00:00:00 [code = Influenza Vaccine Me dical Center (#1)] Future Scheduled 2023-02-23 Influenza Vaccine (#1) [facility] 00:00:00 [code = Influenza Vaccine Me dical Center (#1)] Future Scheduled 2023-02-23 Influenza Vaccine (#1) [facility] 00:00:00 [code = Influenza Vaccine Me dical Center (#1)] Future Scheduled 2022-06-[address] [facility] Test 00:00:00 (12+) [code = DEPRESSION Med ical Center SCREENING (12+)] Future Scheduled 2022-06-[address] [facility] Test 00:00:00 (12+) [code = DEPRESSION Med ical Center SCREENING (12+)] Future Scheduled 2022-06-[address] [facility] Test 00:00:00 (12+) [code = DEPRESSION Med ical Center SCREENING (12+)] Future Scheduled 2022-06-[address] [facility] Test 00:00:00 (12+) [code = DEPRESSION Med ical Center SCREENING (12+)] Future Scheduled 2022-06-[address] [facility] Test 00:00:00 (12+) [code = DEPRESSION Med ical Center SCREENING (12+)] Future Scheduled 2022-06-[address] [facility] Test 00:00:00 (12+) [code = DEPRESSION Med ical Center SCREENING (12+)] Future Scheduled 2022-02-23 INFLUENZA VACCINE (#1) [facility] 00:00:00 [code = INFLUENZA VACCINE Me dical Center (#1)] Future Scheduled 2022-02-23 INFLUENZA VACCINE (#1) [facility] 00:00:00 [code = INFLUENZA VACCINE Me dical Center (#1)] Future Scheduled 2021-06-[address] [facility] Test 00:00:00 (12+) [code = DEPRESSION Med ical Center SCREENING (12+)] Future Scheduled 2021-04-[address] [facility] Test 00:00:00 Counseling and Screening Med ical Center (12+) [code = Tobacco Cessation Counseling and Screening (12+)] Future Scheduled 2021-04-[address] [facility] Test 00:00:00 Counseling and Screening Med ical Center (12+) [code = Tobacco Cessation Counseling and Screening (12+)] Future Scheduled 2021-04-[address] [facility] Test 00:00:00 Counseling and Screening Med ical Center (12+) [code = Tobacco Cessation Counseling and Screening (12+)] Future Scheduled 2021-04-[address] [facility] Test 00:00:00 Counseling and Screening Med ical Center (12+) [code = Tobacco Cessation Counseling and Screening (12+)] Future Scheduled 2021-04-[address] [facility] Test 00:00:00 Counseling and Screening Med ical Center (12+) [code = Tobacco Cessation Counseling and Screening (12+)] Future Scheduled 2021-04-[address] [facility] Test 00:00:00 Counseling and Screening [facility] ical Center (12+) [code = Tobacco Cessation Counseling and Screening (12+)] Future Scheduled 2020-01-08 Lipid panel (procedure) [facility] Test 00:00:00 [code = [id number]] Medical Ce nter Future Scheduled 2020-01-08 Lipid panel (procedure) [facility] Test 00:00:00 [code = [id number]] Medical Ce nter Future Scheduled 2020-01-08 Lipid panel (procedure) [facility] Test 00:00:00 [code = [id number]] Medical Ce nter Future Scheduled 2020-01-08 Lipid panel (procedure) [facility] Test 00:00:00 [code = [id number]] Medical Ce nter Future Scheduled 2020-01-08 Lipid panel (procedure) [facility] Test 00:00:00 [code = 04020262] Medical Ce nter Future Scheduled 2020-01-08 Lipid panel (procedure) [facility] 00:00:00 [code = 78415575] Medical Ce nter Future Scheduled 2020-01-08 Lipid panel (procedure) [facility] 00:00:00 [code = 86040045] Medical Ce nter Future Scheduled 2015-02-13 DTAP/TDAP/TD VACCINES ([address] [facility] 00:00:00 - Tdap) [code = Medical Cent er DTAP/TDAP/TD VACCINES (1 - Tdap)] Future Scheduled 2015-02-13 DTAP/TDAP/TD VACCINES ([address] [facility] 00:00:00 - Tdap) [code = Medical Cent er DTAP/TDAP/TD VACCINES (1 - Tdap)] Future Scheduled 2015-02-13 DTAP/TDAP/TD VACCINES ([address] [facility] 00:00:00 - Tdap) [code = Medical Cent er DTAP/TDAP/TD VACCINES (1 - Tdap)] Future Scheduled 2015-02-13 DTAP/TDAP/TD VACCINES ([address] [facility] 00:00:00 - Tdap) [code = Medical Cent er DTAP/TDAP/TD VACCINES (1 - Tdap)] Future Scheduled 2015-02-13 DTAP/TDAP/TD VACCINES ([address] [facility] 00:00:00 - Tdap) [code = Medical Cent er DTAP/TDAP/TD VACCINES (1 - Tdap)] Future Scheduled 2015-02-13 DTAP/TDAP/TD VACCINES ([address] [facility] 00:00:00 - Tdap) [code = Medical Cent er DTAP/TDAP/TD VACCINES (1 - Tdap)] Future Scheduled 2015-02-13 DTAP/TDAP/TD VACCINES ([address] [facility] 00:00:00 - Tdap) [code = Medical Cent er DTAP/TDAP/TD VACCINES (1 - Tdap)] Future Scheduled 2015-02-13 DTAP/TDAP/TD VACCINES ([address] [facility] 00:00:00 - Tdap) [code = Medical Cent er DTAP/TDAP/TD VACCINES (1 - Tdap)] Future Scheduled 2015-02-13 DTAP/TDAP/TD VACCINES ([address] [facility] 00:00:00 - Tdap) [code = Medical Cent er DTAP/TDAP/TD VACCINES (1 - Tdap)] Future Scheduled 2015-02-13 DTAP/TDAP/TD VACCINES ([address] [facility] 00:00:00 - Tdap) [code = Medical Cent er DTAP/TDAP/TD VACCINES (1 - Tdap)] Future Scheduled 2011-02-[address] [facility] 00:[facility]:00 virus screening [facility] Cent [facility] (procedure) [code = 368891378] Future Scheduled 2011-02-[address] [facility] 00:[facility]:00 virus screening [facility] Cent [facility] (procedure) [code = 959792925] Future Scheduled 2011-02-[address] [facility] 00:[facility]:00 virus screening [facility] Cent [facility] (procedure) [code = 641402503] Future Scheduled 2011-02-[address] [facility] 00:[facility]:00 virus screening [facility] (procedure) [code = 280439547] Future Scheduled 2011-02-[address] [facility] 00:[facility]:00 virus screening [facility] Cent [facility] (procedure) [code = 438588062] Future Scheduled 2011-02-[address] [facility] 00:00:00 virus screening Medical Cent er (procedure) [code = 733204825] Future Scheduled 1996 COVID-19 VACCINE (#1) [facility] [code = COVID-19 VACCINE Med ical Center (#1)] Future Scheduled 1996 COVID-19 VACCINE (#1) [facility] 00:00:00 [code = COVID-19 VACCINE Med ical Center (#1)] Future Scheduled 1996 COVID-19 VACCINE (#1) [facility] 00:00:00 [code = COVID-19 VACCINE Med ical Center (#1)] Future Scheduled 1996 COVID-19 VACCINE (#1) [facility] 00:00:00 [code = COVID-19 VACCINE Med ical Center (#1)] Future Scheduled 1996 COVID-19 VACCINE (#1) [facility] 00:00:00 [code = COVID-19 VACCINE Med ical Center (#1)] Future Scheduled 1996 COVID-19 VACCINE (#1) [facility] 00:00:00 [code = COVID-19 VACCINE Med ical Center (#1)] Future Scheduled 1996 COVID-19 VACCINE (#1) [facility] 00:00:00 [code = COVID-19 VACCINE Med ical Center (#1)] Future Scheduled 1996 COVID-19 VACCINE (#1) [facility] 00:00:00 [code = COVID-19 VACCINE Med ical Center (#1)] Future Scheduled 1996 COVID-19 VACCINE (#1) [facility] 00[facility]00:00 [code = COVID-19 VACCINE Med ical Center (#1)] Future Scheduled 1996 COVID-19 VACCINE (#1) [facility] 00:00:00 [code = COVID-19 VACCINE [facility] (#1)] Encounters Start End Encounter Admission Attending Care Care Encounter Source Date/Time Date/Time Type Type Clinicians Facility Department ID 2022-10-27 Outpatient Kohli, STLMLC STLC [id number] Common 08:58:01 Jackelyn [id number] [facility] 2022-10-26 Outpatient Kohli, STLMLC [facility] [id number] Common 09:04:01 Jackelyn [facility] 2022-02-10 Outpatient Kohli, STLC STLC [id number] Common 14:28:00 Jackelyn [facility] 2022-02-06 Outpatient Kohli, STLC STLC [id number] Common 11:19:02 Jackelyn [facility] 2022-01-03 Outpatient Kohli, STLC [facility] [id number] Common 12:20:01 Jackelyn [facility] 2021-11-03 Outpatient Kohli, STLC [facility] [id number] Common 13:18:02 Jackelyn [facility] 2021-11-02 Outpatient Kohli, STLC STLC [id number] Common 10:12:06 Jackelyn [facility] 2021-10-05 Outpatient Kohli, STLMLC [facility] [id number] Common 10:40:03 Jackelyn [facility] 2021-09-29 Outpatient Kohli, STLC STLC [id number] Common 13:45:04 Jackelyn [facility] 2021-09-21 Outpatient Kohli, STLC [facility] [id number] Common 13:17:02 Jackelyn [facility] 2021-08-31 Outpatient Kohli, STLC [facility] [id number] Common 10:49:02 Jackelyn [facility] 2021-03-30 Outpatient CAPONE, SLE[facility] Surgery [id number] [facility] 09:37:20 SUNEAL 2023-04-04 2023-04-04 Outpatient SFA SFA [id number] Toby 18:27:47 18:27:47 1011 F Fletcher 2023-03-30 2023-03-30 Outpatient EL JAMILA, ANG SLE SLEH [id number] [facility] 10:41:38 11:31:17 2023-03-30 2023-03-30 [facility] [id number] 09:20:00 11:31:17 Visit [facility] 2023-03-30 2023-03-30 Office Jamila Sherif [facility] [id number] 09:20:00 11:31:17 Visit [facility] 2023-03-30 2023-03-30 Outpatient EL SLE SLE [id number] SLEH 10:26:50 10:26:50 2023-03-30 2023-03-30 Treatment CAMRON Marino [facility] [id number] 09:05:00 09:20:00 [facility] 2023-03-30 2023-03-30 Treatment Sherif [facility] [id number] 09:05:00 09:20:00 [facility] 2023-03-29 2023-03-29 Orders Jamila [facility] [id number] 00:00:00 00:00:00 Only [facility] 2023-03-29 2023-03-29 Orders Jamila [facility] [id number] 00:00:00 00:00:00 Only [facility] 2023-03-07 2023-03-07 Outpatient SFA JERALD [id number] Toby 15:34:58 15:34:58 0913 F Fletcher 2022-07-31 2022-07-31 OFFICE STLMLC STLC [id number] Co mmon 00:00:00 00:00:00 VISIT Baljinder NAVAS PT - [facility] LEVEL 4 [facility] 2022 2022 OFFICE STLMLC STLMLC [id number] Co mmon 00:00:00 00:00:00 VISIT Spirit ESTAB PT - [facility] LEVEL 4 [facility] 2022-02-02 2022-02-02 (TEL) STLMLC STLMLC [id number] Co mmon 00:00:00 00:00:00 [facility] 2022-01-25 2022-01-25 (WELLNESS) STLMLC STLMLC [id number] Common 00:00:00 00:00:00 Wellness Spiri t [facility] 2021-12-13 2021-12-13 OFFICE STLMLC STLMLC [id number] Co mmon 00:00:00 00:00:00 VISIT EST Spir it PT LEVEL [address] [place] [address] 2021-12-13 2021-12-13 (TEL) STLMLC STLMLC [id number] Co mmon 00:00:00 00:00:00 [facility] 2021-10-04 2021-10-04 OFFICE STLMLC STLMLC [id number] Co mmon 00:00:00 00:00:00 VISIT EST Spir it PT LEVEL 3 [facility] 2021-09-21 2021-09-21 (TEL) STLMLC STLMLC [id number] Co mmon 00:00:00 00:00:00 [facility] 2021-09-21 2021-09-21 OFFICE STLMLC STLMLC [id number] Co mmon 00:00:00 00:00:00 VISIT EST Spir it PT LEVEL 3 [facility] 2021-09-02 2021-09-02 OFFICE STLMLC STLMLC [id number] Co mmon 00:00:00 00:00:00 VISIT NEW Spir it PT LEVEL 3 [facility] 2021-07-01 2021-07-01 Laboratory Only, Ang Db Test [facility] 1.2.8 40.114 [id number] Univers 15:45:00 16:00:00 Only [facility] 350.1.13.10 campbell olson FERRIS 4.2.7.2.686 Estuardo as LUIS ARMANDO?BLEA [phone] Fl meagan WILSON [address] [place] [address] MEDICAL OFFICE BUILDING 2021-07-01 2021-07-01 Outpatient R ELIZABETH, [facility] [id number] Univers 15:45:00 15:45:00 ROBY lairdy o f [facility] 2021-07-01 2021-07-01 Letter Doctor EVA [id number] Univers 00:00:00 00:00:00 (Out) Unassigned, TIBURCIO 350.1.13.10 ity of [facility] [facility] 4.2.7.2.686 Estuardo as [phone] [address] 2021-07-01 2021-07-01 Letter Doctor EVA [id number] Univers 00:00:00 00:00:00 (Out) Unassigned, TIBURCIO 350.1.13.10 ity of [facility] [facility] 4.2.7.2.686 Estuardo as [phone] [address] 2020-04-02 2020-04-02 Outpatient EL SLE SLE [id number] [facility]H 00:00:00 00:00:00 2020-01-16 2020-01-16 Telephone PcpEVA.[id number] [facility] 00:00:00 00:00:00 Patient TIBURCIO 350.1.13.10 it y of [place] H[place]7.2.[place] [phone] [address] 2020-01-16 2020-01-16 Telephone [id number] [id number] 00:00:00 00:00:00 Patient TIBURCIO 350.1.13.10 Does Not HOSPITAL 4.2.7.2.686 Have A [id number] [id number] 2020-01-15 2020-01-15 Telephone [id number] [id number] Univers 00:00:00 00:00:00 DavilaTIBURCIO 350.1.13.10 ity of [facility] 4.2.7.2.686 Estuardo as [phone] [address] 2020-01-15 2020-01-15 Telephone [id number] [id number] 00:00:00 00:00:00 TIBURCIO Davila 350.1.13.10 [facility] 4.2.7.2.686 [id number] [facility] 2020-01-14 2020-01-14 Laboratory Lab, [facility] Fam Pob I [facility] 1.2. 840.114 [id number] Univers 17:24:30 17:44:30 Only Coleman Marshall 350.1.13.10 ity of [place] 4.2.7.2.686 Estuardo as Professio [phone] Fl dical [address] Office Building One 2020-01-14 2020-01-14 Laboratory Lab, [facility] 1.2.840.114 [id number] 17:24:30 17:44:30 Only [facility] 350.1.13.10 [place] 4.2.7.2.686 Professio [id number] nal [facility] Office Building One 2020-01-14 2020-01-14 Outpatient R JUDITH [facility] [id number] Univers 17:20:00 17:20:00 COLEMAN campbell [facility] 2019-12-20 2019-12-20 Emergency [facility] [id number] Univers 19:27:54 22:32:00 Warren Mcdonald 350.1.13.10 i ty of [place] 4.2.7.2.686 [facility] [place] [phone] [address] 2019-12-20 2019-12-20 Emergency [facility] [id number] 19:27:54 22:32:00 Warren Mcdonald 350.1.13.10 [place] 4.2.7.2.686 [place] [id number] [facility] 2019-12-20 2019-12-20 Emergency X [facility] ERT [id number] Univers 19:19:00 19:19:00 WARREN hightower [facility] 2019-02-25 2019-02-25 Outpatient EL SLE SLEH [id number] [facility]H 00:00:00 00:00:00 Results Test Description Test Time Test Comments Results Result Comments Source PERIPHERAL BLOOD SMEAR - HOLD ONLY 2023-04-03 10:27:04 Test Item Value Reference Range Interpretation Comme nts PERIPHERAL SMEAR SAVE (BEAKER) (test code made 2 slides, picked up by = 1957) Abuasab IRON, TIBC, % SAT. (WITHOUT FERRITIN)2023-03-30 17:00:45 Test Item Value Reference Range Interpretation Comments IRON (BEAKER) (test code = 547) 17.0 ug/dL 40.0-160.0 L TOTAL IRON BINDING CAPACITY 424 ug/dL 250-450 (BEAKER) (test code = 769) IRON % SATURATION (2) (BEAKER) 4 % 20-55 L (test code = 2590) Warehouse Stock Clerk ID - [id number] 11:26:11 Test Item Value Reference Range Interpretation Comments FERRITIN (BEAKER) (test code = 4.90 ng/mL 5.00-275.00 L 361) COMPREHENSIVE METABOLIC [id number] 11:24:03 Test Item Value Reference Range Interpretation Comments TOTAL PROTEIN 6.8 gm/dL 6.0-8.3 (BEAKER) (test code = 770) ALBUMIN (BEAKER) 4.3 g/dL 3.5-5.0 (test code = 1145) ALKALINE 79 U/L 40-150 PHOSPHATASE (BEAKER) (test code = 346) BILIRUBIN TOTAL 0.2 mg/dL 0.2-1.2 (BEAKER) (test code = 377) SODIUM (BEAKER) 141 meq/L 136-145 (test code = 381) POTASSIUM (BEAKER) 3.3 meq/L 3.5-5.1 L (test code = 379) CHLORIDE (BEAKER) 107 meq/L 98-107 (test code = 382) CO2 (BEAKER) (test 25 meq/L 22-29 code = 355) BLOOD UREA 7 mg/dL 7-21 NITROGEN (BEAKER) (test code = 354) CREATININE 0.74 mg/dL 0.57-1.25 (BEAKER) (test code = 358) GLUCOSE RANDOM 79 mg/dL 70-105 (BEAKER) (test code = 652) CALCIUM (BEAKER) 8.2 mg/dL 8.4-10.2 L (test code = 697) AST (SGOT) 20 U/L 5-34 (BEAKER) (test code = 353) ALT (SGPT) 8 U/L 6-55 (BEAKER) (test code = 347) EGFR (BEAKER) 127 Interpretatio n of eGFR (test code = 1092) mL/min/1.[address] age Description sq m Result G1 Lori l or high >=90 G2 Mildly decreased 60-89 G3a Mildl y to moderately 45-5 9 G3b Moderately to s everely 30-44 G4 Severl y decreased 15-29 G5 Kidney failure <15Reported eGF R is based on the CKD-EPI 2020 equation that d oes not use a race coefficientEsti mated GFR is not as accur ate as Creatinine Juany eliezer in predicting glom erular filtration rate . Estimated GFR is not appl icable for dialysis patien ts RETICULOCYTE [id number] 11:01:42 Test Item Value Reference Range Interpretation Comments RETICULOCYTE COUNT PCT (BEAKER) (test 1.4 % 0.5-1.8 code = 575) CBC W/PLT COUNT & AUTO [id number] 11:01:42 Test Item Value Reference Range Interpretation Comments WHITE BLOOD CELL COUNT (BEAKER) 7.1 K/ L 3.5-10.5 (test code = 775) RED BLOOD CELL COUNT (BEAKER) 4.18 M/ L 4.63-6.08 L (test code = 761) HEMOGLOBIN (BEAKER) (test code = 11.3 GM/DL 13.7-17.5 L 410) HEMATOCRIT (BEAKER) (test code = 34.6 % 40.1-51.0 L 411) MEAN CORPUSCULAR VOLUME (BEAKER) 83 fL 79-92 (test code = 753) MEAN CORPUSCULAR HEMOGLOBIN 27.0 pg 25.7-32.2 (BEAKER) (test code = 751) MEAN CORPUSCULAR HEMOGLOBIN CONC 32.7 GM/DL 32.3-36.5 (BEAKER) (test code = 752) RED CELL DISTRIBUTION WIDTH 15.4 % 11.6-14.4 H (BEAKER) (test code = 412) PLATELET COUNT (BEAKER) (test 346 K/CU MM 150-450 code = 756) MEAN PLATELET VOLUME (BEAKER) 9.7 fL 9.4-12.4 (test code = 754) NEUTROPHILS RELATIVE PERCENT 58 % (BEAKER) (test code = 429) LYMPHOCYTES RELATIVE PERCENT 29 % (BEAKER) (test code = 430) MONOCYTES RELATIVE PERCENT 10 % (BEAKER) (test code = 431) EOSINOPHILS RELATIVE PERCENT 2 % (BEAKER) (test code = 432) BASOPHILS RELATIVE PERCENT 0 % (BEAKER) (test code = 437) NEUTROPHILS ABSOLUTE COUNT 4.07 K/ L 1.78-5.38 (BEAKER) (test code = 670) LYMPHOCYTES ABSOLUTE COUNT 2.03 K/ L 1.32-3.57 (BEAKER) (test code = 414) MONOCYTES ABSOLUTE COUNT (BEAKER) 0.73 K/ L 0.30-0.82 (test code = 415) EOSINOPHILS ABSOLUTE COUNT 0.14 K/ L 0.04-0.54 (BEAKER) (test code = 416) BASOPHILS ABSOLUTE COUNT (BEAKER) 0.03 K/ L 0.01-0.08 (test code = 417) IMMATURE GRANULOCYTES-RELATIVE 0.70 % 0.00-1.00 PERCENT (BEAKER) (test code = 2801) TISSUE [id number] 13:37:00Surgical Pathology Report Case: [id number] Authorizing Provider: John Capone MD Collected:04/05/2020 10:35 AM Ordering Location: [facility] ENDOSCOPY Received: 04/05/2020 03:03 PM SERVICES Pathologist: Petty Stewart MD Specimen: Biopsy, Gastric, RANDOM BX A. GASTRIC, RANDOM BIOPSY: - GASTRIC BODY TYPE MUCOSA WITH NO SIGNIFICANT HISTOPATHOLOGICAL CHANGE - GASTRIC ANTRUM TYPE MUCOSA WITH CHRONIC ACTIVE H. PYLORI-ASSOCIATED GASTRITIS - FEW H. PYLORI-LIKE ORGANISMS SEEN ON H&E AND WARTHIN-STARRY STAINSJ/pl Signing Pathologist Direct Phone Line: [phone] signed by Petty Stewart MD on 04/06/2020 [...] Slides Examined: In-house known positive controls were evaluatedalong with the test tissue. These control slides run alongside of the patients sample show appropriate staining. Internal positive and negative controls when available are evaluated Immunohistochemistry technical testing was performed at [facility], Pathology Laboratory where it was developed and its performance characteristics were determined. It has not been cleared or approved by the U.S. Food and Drug Administration. The FDA has determined that such clearance or approval isnot necessary. The test is used for clinical purposes. It should not be regarded as investigational or for research. This laboratory is certified under the Clinical Laboratory Improvement Amendments fo5799 (CLIA-88) as qualified to perform high complexity clinical laboratory testing.URINALYSIS 2019-12-21 01:40:00 Test Item Value Reference Range Interpretation Comments APPEARANCE (test code = Hazy Clear A 6478528501) COLOR (test code = Delia Yellow A 6600235931) PH (test code = 4.8-8.0 3176944991) SP GRAVITY (test code = 1.003-1.030 H 5338298844) GLU U QUAL (test code = Normal Normal 2449141814) BLOOD (test code = Negative Negative 4737901306) KETONES (test code = 5 mg/dL Negative A 6429989234) PROTEIN (test code = 30 mg/dL Negative A 2887-8) UROBILIN (test code = 4.0 mg/dL Normal A 7807282201) BILIRUBIN (test code = 2 mg/dL Negative A 4373414025) NITRITE (test code = Negative Negative 4737488090) LEUK EDWARDO (test code = Negative Negative 2612491874) RBC/HPF (test code = See_Comment [Autom ated message] 2324280121) The system TheTake generated this result transmit rodney reference range : 0 - 3 HPF. The refe rence range was not u sed to interpret th is result as normal/abnormal . WBC/HPF (test code = See_Comment [Autom ated message] 4939398516) The system TheTake generated this result transmit rodney reference range : 0 - 5 HPF. The refe rence range was not u sed to interpret th is result as normal/abnormal . BACTERIA (test code = Few Negative A 5378722304) MUCOUS (test code = Marked Negative LPF A 0045598248) HYAL CAST (test code = See_Comment H [Aut omated message] 1892629180) The system TheTake generated this result transmit rodney reference range : <=2 LPF. The refere nce range was not u sed to interpret th is result as normal/abnormal . Lab Interpretation (test Abnormal code = 23776-5) [facility]. METABOLIC PANEL (90442)2019-12-21 01:11:00 Test Item Value Reference Range Interpretation Comments NA (test code = 139 mmol/L 135-145 4244645431) K (test code = 3.3 mmol/L 3.5-5 L 8318502848) CL (test code = 103 mmol/L 98-108 2874817347) CO2 TOTAL (test code = 26 mmol/L 23-31 3839513347) AGAP (test code = 2-16 0347312497) BUN (test code = 10 mg/dL 7-23 2003248791) GLUCOSE (test code = 133 mg/dL 70-110 H 7929995473) CREATININE (test code = 0.69 mg/dL 0.6-1.25 3351920506) TOTAL BILI (test code = 1.1 mg/dL 0.1-1.2 2473399840) CALCIUM (test code = 10.0 mg/dL 8.6-10.6 6019768881) T PROTEIN (test code = 8.4 g/dL 6.3-8.2 H 0127760736) ALBUMIN (test code = 4.9 g/dL 3.5-5 5827942927) ALK PHOS (test code = 101 U/L 34-122 3887565871) ALTv (test code = 24 U/L 5-50 1742-6) AST(SGOT) (test code = 31 U/L 13-40 8380193165) eGFR Calculation mL/min/1.73m2 (Non-) (test code = 8295859944) eGFR Calculation mL/min/1.73m2 () (test code = 8672651110) MICHAEL (test code = MICHAEL) Association of [...] tests). Lab Interpretation Abnormal (test code = 28028-8) [facility] Test Item Value Reference Range Interpretation Comments LIPASE (test code = 6298164491) 130 U/L 0-220 Lab Interpretation (test code = Normal 33266-2) [facility] [id number] 00:59:00 Test Item Value Reference Range Interpretation Comments WBC (test code = See_Comment H [Automated 7257-2) message] The sy stem which generated this result transmitted reference range : 4.20 - 10.70 10*3/?L. The reference range was not used to interpret this result as normal/abnormal . RBC (test code = See_Comment [Automated 732-0) message] The sy stem which generated this [...] RDW-SD (test code = 41.1 fL 38.5-51.6 04003-0) RDW-CV (test code = 13.1 % 12.1-15.4 788-0) PLT (test code = See_Comment H [Automated 777-3) message] The sy stem which generated this result transmitted reference range : 150 - 328 10*3/ ?L. The reference r casa was not used to interpret this result as normal/abnormal . MPV (test code = 10.5 fL 9.8-13 71197-9) NRBC/100 WBC (test See_Comment [Automat ed code = 4935723596) message] The system which generated this result transmitted reference range : 0.0 - 10.0 /100 WBCs. The refer ence range was not u sed to interpret th is result as normal/abnormal . NRBC x10^3 (test code <0.01 See_Comment [Auto mated = 1091982862) message] The s ystem which generated this result transmitted reference range : 10*3/?L. The reference range was not used to interpret this result as normal/abnormal . GRAN MAT (NEUT) % 65.1 % (test code = 770-8) IMM GRAN % (test code 0.50 % = 7763711897) LYMPH % (test code = 24.3 % 736-9) MONO % (test code = 8.7 % 5905-5) EOS % (test code = 0.9 % 713-8) BASO % (test code = 0.5 % 706-2) GRAN MAT x10^3(ANC) 7.18 10*3/uL 1.99-6.95 H (test code = 0399228711) IMM GRAN x10^3 (test 0.05 10*3/uL 0-0.06 code = 4304535360) LYMPH x10^3 (test code 2.68 10*3/uL 1.09-3.23 = 731-0) MONO x10^3 (test code 0.96 10*3/uL 0.36-1.02 = 742-7) EOS x10^3 (test code = 0.10 10*3/uL 0.06-0.53 711-2) BASO x10^3 (test code 0.05 10*3/uL 0.01-0.09 = 704-7) Lab Interpretation Abnormal (test code = 36011-6) [facility] [id number] 17:52:00Surgical Pathology Report Case: [id number] Authorizing Provider: Alejandro Juan MD Collected: 03/11/2019 1421 Ordering Location: [facility] Received: 03/11/2019 1609 SERVICES Pathologist: Ed Fraser MD Specimen: Stomach STOMACH, PARTIAL/SLEEVE GASTRECTOMY- CHRONIC INACTIVE GASTRITIS,MINIMAL-MILD- INTESTINAL METAPLASIA OR MALIGNANCY NOT SEEN Signing Pathologist Direct Phone Line: [phone] signed by Ed Fraser MD on 03/27/2019 at 5:52 [id number] obesity A. Stomach tissue A. Received in formalin labeled "stomach" is a 25 x 6 x 2 cm partial gastrectomy. The specimen is opened to reveal a bhatia-brown mucosa with normal folds. Dancing Instructor sections from the staple line are submitted in cassettes A1 and A2, and account maintenance representative section from the central mucosa are submitted in cassettes A3 and A4. TW/ew [facility], Department of Pathology, [address] [place] [address], [facility], [address] [place] [address], [facility], Department of Pathology, [address] [place] [address], CAHW-GLUCOSE [id number] 13:26:00 Test Item Value Reference Range Interpretation Comments POC-GLUCOSE METER 108 mg/dL 70-110 TESTED AT [place] [address] (BEAKER) (test code = [place] 1538) [address] CBC W/PLT COUNT & AUTO [id number] 06:28:00 Test Item Value Reference Range Interpretation [...] (BEAKER) (test code = 2801) COMPREHENSIVE METABOLIC [id number] 06:27:00 Test Item Value Reference Range Interpretation [...] NOT APPLICABLE FOR DIALYSIS PATIEN TS. POCT-GLUCOSE [id number] 00:04:00 Test Item Value Reference Range Interpretation Comments POC-GLUCOSE METER 123 mg/dL 70-[address] [facility] [address] [facility] (test code = [place] 1538) [address] POCT-GLUCOSE [id number] 15:27:00 Test Item Value Reference Range Interpretation Comments POC-GLUCOSE METER 126 mg/dL 70-[address] [facility] [address] (BEAKER) (test code = OMAR Best [facility] 1538) [address] POCT-GLUCOSE [id number] 11:57:00 Test Item Value Reference Range Interpretation Comments POC-GLUCOSE METER 77 mg/dL 70-[address] [facility] [address] (BEAKER) (test code = [facility] Estephania [facility] [address] 1538) [id number] 14:18:00 Test Item Value Reference Range Interpretation Comments SODIUM (BEAKER) (test code = 381) 140 meq/L 136-145 POTASSIUM (BEAKER) (test code = 4.1 meq/L 3.5-5.1 379) CHLORIDE (BEAKER) (test code = 382) 103 meq/L 98-107 CO2 (BEAKER) (test code = 355) 26 meq/L 22-29 BUN AND [id number] 14:18:00 Test Item Value Reference Range Interpretation Comments BLOOD UREA NITROGEN 8 mg/dL 7-21 (BEAKER) (test code = 354) CREATININE (BEAKER) 0.84 mg/dL 0.57-1.25 (test code = 358) EGFR (BEAKER) (test 113 mL/min/1.73 ESTIM ATED GFR IS code = 1092) sq m NOT ACCURATE CREATININE CLEARANCE IN PREDICTING GLOMERULAR FILTRATION RATE . ESTIMATED GFR I S NOT APPLICABLE FOR DIALYSIS PATIEN TS. [id number] 14:03:00 Test Item Value Reference Range Interpretation Comments HEMOGLOBIN (BEAKER) (test code = 15.3 GM/DL 13.7-17.5 410) PLATELET [id number] 14:03:00 Test Item Value Reference Range Interpretation Comments PLATELET COUNT (BEAKER) (test 390 K/CU MM 150-450 code = 756) TISSUE [id number] 23:23:00Surgical Pathology Report Case: [id number] Authorizing Provider: Alejandro Juan MD Collected: 12/06/2018 1516 Ordering Location: [facility] Received: 12/09/2018 0809 Services Pathologist: Ed [...] CHANGES SEEN Signing Pathologist Direct Phone Line: [phone] signed by Ed Fraser MD on 12/12/2018 at 11:23 [id number] X 2, [id number]. Stomach biopsy. B. Esophagus biopsy, 40 cm, [...] evaluated Immunohistochemistry technical testing was performed at [facility] where it was developed and its [...] method.Test performed by IFA method.HEPATITIS B SURFACE [id number] 19:57:00 Test Item Value Reference Range Interpretation Comments HEPATITIS B SURFACE ANTIBODY < mIU/mL <8.0 (BEAKER) (test code = 647) HEPATITIS A ANTIBODY, [id number] 19:57:00 Test Item Value Reference Range Interpretation Comments HEPATITIS A IGG ANTIBODY (BEAKER) Reactive Nonreactive A (test code = 2797) HEPATITIS B SURFACE [id number] 19:48:00 Test Item Value Reference Range Interpretation Comments HEPATITIS B SURFACE ANTIGEN (2) Nonreactive Nonreactive (BEAKER) (test code = 2585) HEPATITIS B CORE ANTIBODY, [id number] 19:48:00 Test Item Value Reference Range Interpretation Comments HEPATITIS B CORE TOTAL ANTIBODY Nonreactive Nonreactive (BEAKER) (test code = 497) HEPATITIS C [id number] 19:40:00 Test Item Value Reference Range Interpretation [...] % 20-55 L (test code = 2590) [id number] 19:08:00 Test Item Value Reference Range Interpretation Comments ALPHA-1 ANTITRYPSIN (BEAKER) 167.90 mg/dL 90.00-200.00 (test code = 502) [id number] 17:52:00 Test Item Value Reference Range Interpretation Comments FERRITIN (BEAKER) (test code = 361) 83 ng/mL 5-275 GAMMA GLUTAMYL TRANSFERASE (GGT)2018-07-17 17:33:00 Test Item Value Reference Range Interpretation Comments GAMMA GLUTAMYL TRANSFERASE (BEAKER) 89 U/L 9-64 H (test code = 364) BILIRUBIN, [id number] 17:33:00 Test Item Value Reference Range Interpretation Comments BILIRUBIN DIRECT (BEAKER) (test 0.1 mg/dL 0.1-0.5 code = 706) COMPREHENSIVE METABOLIC [id number] 17:33:00 Test Item Value Reference Range Interpretation [...] NOT APPLICABLE FOR DIALYSIS PATIEN TS. PROTHROMBIN [id number] 17:28:00 Test Item Value Reference Range Interpretation Comments PROTIME (BEAKER) (test code = 12.4 seconds 11.7-14.7 759) INR (BEAKER) (test code = 370) 0.9 <=5.9 RECOMMENDED COUMADIN/WARFARIN INR THERAPY RANGESSTANDARD DOSE: 2.0 - 3.0 Includes: PROPHYLAXIS for venous thrombosis, systemic embolization; TREATMENT for venous thrombosis and/or pulmonary embolus.HIGH RISK: Target INR is 2.5-3.5 for patients with mechanical heart valves.CBC W/PLT COUNT & AUTO [id number] 17:18:00 Test Item Value Reference Range Interpretation [...] (BEAKER) (test code = 2801) Valproic Acid (Depakote),[id number] 08:35:00 Test Item Value Reference Range Interpretation Comments Valproic Acid (test code = VALP) 89.2 ug/mL 50.0-100.0 N RPR, [id number] 11:42:00 Test Item Value Reference Range Interpretation Comments RPR (test code = RPR) Non-Reactive Non-Reactive N Thyroid Stimulating Hormone (TSH)2017-03-11 07:32:00 Test Item Value Reference Range Interpretation Comments TSH (test code = TSH) 1.54 mIU/mL 0.270-4.200 N Lipid [id number] 07:24:00 Test Item Value Reference Range Interpretation Comments Cholesterol (test 131 mg/dL 0-200 N code = CHOL) Triglycerides (test 167 mg/dL 9-200 N code = TRIG) HDL (test code = 32 mg/dL 40-60 L HDL) Chol/HDL (test code 4.1 Ratio 0.0-5.0 N = CHOLPHDL) LDL, Calculated 66 0-130 N (NOTE)RISK O F HEART (test code = LDLC) DISEASEPu blished by Japanese Heart AssociationAnal yte Optimal Boderli ne Increased RiskC HOL <200 200-239 >240TR IG <150 150-199 >200HDL Male: >60 <40HDL Fema le: >60 <50LDL <100 130 -159 >160LDL NEAR OP TIMAL IS 100-129 VLDL (test code = 33 mg/dL 5-40 N VLDL) LDL/HDL (test code = 2 LDLPHDL) Valproic Acid (Depakote),[id number] 06:55:00 Test Item Value Reference Range Interpretation Comments Valproic Acid (test code = VALP) 16.6 ug/mL 50.0-100.0 L [id number] 17:49:00 Test Item Value Reference Range Interpretation [...] code = THC) Negative Negative N Urinalysis [id number] 17:45:00 Test Item Value Reference Range Interpretation Comments Color (test code = Yellow Yellow,Straw,Pl N COLOR) yellow Clarity (test code = Clear Clear N CLAR) Specific [place] (test 1.030 1.001-1.035 N code = SPGR) [...] code = None /HPF BACT) Comprehensive Metabolic [id number] 16:11:00 Test Item Value Reference Range Interpretation [...] National Kid[employer] Foundation,[email or web address] [email or web address] CBC with [id number] 15:56:00 Test Item Value Reference Range Interpretation [...] code = ALYMPH) 2.7 K/cumm 0.5-4.6 N [place] Abs (test code = AMONO) 0.3 K/cumm 0.0-1.2 N Eos Abs (test code = AEOS) 0.29 K/cumm 0.00-0.74 N Baso Abs (test code = ABASO) 0.1 K/cumm 0.00-0.21 N BLOOD [id number] 00:00:00 Test Item Value Reference Range Interpretation Comments CULTURE (BEAKER) (test No growth in 5 days code = 1095) BLOOD [id number] 00:00:00 Test Item Value Reference Range Interpretation Comments CULTURE (BEAKER) (test No growth in 5 days code = 1095) POCT-GLUCOSE [id number] 12:31:00 Test Item Value Reference Range Interpretation Comments POC-GLUCOSE METER 110 mg/dL 70-[address] [facility] 6720 (BEAKER) (test code = [place] 1538) [address] POCT-GLUCOSE [id number] 05:38:00 Test Item Value Reference Range Interpretation Comments POC-GLUCOSE METER 90 mg/dL 70-[address] [facility] 6720 (BEAKER) (test code = OMAR Best [facility] [address] 1538) CBC W/PLT COUNT & AUTO [id number] 05:27:00 Test Item Value Reference Range Interpretation [...] (BEAKER) (test code = 2801) COMPREHENSIVE METABOLIC [id number] 05:14:00 Test Item Value Reference Range Interpretation [...] NOT APPLICABLE FOR DIALYSIS PATIEN TS. POCT-GLUCOSE [id number] 23:41:00 Test Item Value Reference Range Interpretation Comments POC-GLUCOSE METER 93 mg/dL 70-110 [facility] [place] [address] [facility] (test code = [facility] [address] 1538) URINALYSIS W/ [id number] 22:47:00 Test Item Value Reference Range Interpretation [...] 517) SOURCE(BEAKER) (test code = Urine, Voided 5856) POCT-GLUCOSE [id number] 18:04:00 Test Item Value Reference Range Interpretation Comments POC-GLUCOSE METER 133 mg/dL 70-[address] [facility] 6720 (BEAKER) (test code = [facility] 1538) [address] POCT-GLUCOSE [id number] 12:19:00 Test Item Value Reference Range Interpretation Comments POC-GLUCOSE METER 92 mg/dL 70-[address] [facility] 6720 (BEAKER) (test code = [place] [address] 1538) POCT-GLUCOSE [id number] 04:45:00 Test Item Value Reference Range Interpretation Comments POC-GLUCOSE METER 103 mg/dL 70-[address] [facility] 6720 (BEAKER) (test code = [place]MAR [place] 1538) [address] HEPATIC FUNCTION [id number] 02:46:00 Test Item Value Reference Range Interpretation [...] 134 U/L 6-55 H 347) BASIC METABOLIC [id number] 02:46:00 Test Item Value Reference Range Interpretation [...] PATIEN TS. CBC W/PLT COUNT & AUTO [id number] 02:31:00 Test Item Value Reference Range Interpretation [...] 20-55 L (test code = 2590) POCT-GLUCOSE [id number] 17:36:00 Test Item Value Reference Range Interpretation Comments POC-GLUCOSE METER 102 mg/dL 70-[address] [facility] 67 ([facility]) (test code = [facility] 1538) [address] POCT-GLUCOSE [id number] 11:55:00 Test Item Value Reference Range Interpretation Comments POC-GLUCOSE METER 99 mg/dL 70-[address] [facility] 67 ([facility]) (test code = [facility] [address] 1538) CBC W/PLT COUNT & AUTO [id number] 04:56:00 Test Item Value Reference Range Interpretation [...] (BEAKER) (test code = 2801) BASIC METABOLIC [id number] 04:34:00 Test Item Value Reference Range Interpretation [...] NOT APPLICABLE FOR DIALYSIS PATIEN TS. POCT-GLUCOSE [id number] 00:52:00 Test Item Value Reference Range Interpretation Comments POC-GLUCOSE METER 96 mg/dL 70-110 TESTED AT [place] [address] ([facility]) (test code = [facility] [address] 1538) HEPATIC FUNCTION [id number] 12:36:00 Test Item Value Reference Range Interpretation [...] = 122 U/L 6-55 H 347) POCT-GLUCOSE [id number] 11:28:00 Test Item Value Reference Range Interpretation Comments POC-GLUCOSE METER 93 mg/dL 70-110 TESTED AT [place] [address] ([facility]) (test code = [facility] [address] 1538) BASIC METABOLIC [id number] 04:43:00 Test Item Value Reference Range Interpretation [...] PATIEN TS. CBC W/PLT COUNT & AUTO [id number] 04:20:00 Test Item Value Reference Range Interpretation [...] PERCENT (BEAKER) (test code = 2801) POCT-GLUCOSE [id number] 12:56:00 Test Item Value Reference Range Interpretation Comments POC-GLUCOSE METER 82 mg/dL 70-[address] [facility] 6720 (BEAKER) (test code = [place] [address] 1538) PHENYTOIN LEVEL, [id number] 09:42:00 Test Item Value Reference Range Interpretation Comments PHENYTOIN (DILANTIN) (BEAKER) (test 0.9 ug/mL 10.0-20.0 L code = 605) Before AM doseBASIC METABOLIC [id number] 08:13:00 Test Item Value Reference Range Interpretation [...] NOT APPLICABLE FOR DIALYSIS PATIEN TS. POCT-GLUCOSE [id number] 07:42:00 Test Item Value Reference Range Interpretation Comments POC-GLUCOSE METER 103 mg/dL 70-[address] [facility] 6720 (BEAKER) (test code = [place] 1538) [address] CBC W/PLT COUNT & AUTO [id number] 07:08:00 Test Item Value Reference Range Interpretation [...] L 0.00-0.20 (test code = 417) 0.00POCT-GLUCOSE [id number] 06:08:00 Test Item Value Reference Range Interpretation Comments POC-GLUCOSE METER 100 mg/dL 70-110 TESTED AT [place] [address] ([facility]) (test code = [facility] Estephania [facility] 1538) [address] POCT-GLUCOSE [id number] 17:07:00 Test Item Value Reference Range Interpretation Comments POC-GLUCOSE METER 85 mg/dL 70-110 TESTED AT [place] [address] ([facility]) (test code = [facility] [address] 1538) POCT-GLUCOSE [id number] 12:52:00 Test Item Value Reference Range Interpretation Comments POC-GLUCOSE METER 88 mg/dL 70-110 TESTED AT [place] [address] ([facility]) (test code = [facility] [address] 1538) CBC W/PLT COUNT & AUTO [id number] 06:07:00 Test Item Value Reference Range Interpretation [...] 0.00-0.20 (test code = 417) 0.00BASIC METABOLIC [id number] 06:02:00 Test Item Value Reference Range Interpretation [...] NOT APPLICABLE FOR DIALYSIS PATIEN TS. POCT-GLUCOSE [id number] 16:11:00 Test Item Value Reference Range Interpretation Comments POC-GLUCOSE METER 90 mg/dL 70-[address] [facility] 6720 (BEAKER) (test code = [place] [address] 1538) COMPREHENSIVE METABOLIC [id number] 07:05:00 Test Item Value Reference Range Interpretation [...] APPLICABLE FOR DIALYSIS PATIEN TS. BASIC METABOLIC [id number] 07:05:00 Test Item Value Reference Range Interpretation [...] DIALYSIS PATIEN TS. LACTIC ACID, VENOUS, WHOLE [id number] 06:38:00 Test Item Value Reference Range Interpretation Comments LACTATE BLOOD VENOUS 0.5 mmol/L 0.5-2.2 Specime n slightly (2) (BEAKER) (test hemolyzed code = 2872) Effective 10/27/2015: Units/Reference Range ChangeNew: 0.5-2.2 mmol/L Previous: 5- 20 mg/dLCBC W/PLT COUNT & AUTO [id number] 06:09:00 Test Item Value Reference Range Interpretation [...] L 0.00-0.20 (test code = 417) 0.00POCT-GLUCOSE [id number] 05:50:00 Test Item Value Reference Range Interpretation Comments POC-GLUCOSE METER 97 mg/dL 70-110 TESTED AT [place] [address] ([facility]) (test code = [facility] [address] 1538) POCT-GLUCOSE [id number] 23:48:00 Test Item Value Reference Range Interpretation Comments POC-GLUCOSE METER 92 mg/dL 70-110 TESTED AT [place] [address] ([facility]) (test code = [facility] [address] 1538) POCT-GLUCOSE [id number] 19:10:00 Test Item Value Reference Range Interpretation Comments POC-GLUCOSE METER 115 mg/dL 70-110 H TESTED AT [place] [address] ([facility]) (test code = [facility] 1538) [address] BLOOD GAS, [id number] 14:23:00 Test Item Value Reference Range Interpretation [...] (test code = 1819) 21.0 % POCT-GLUCOSE [id number] 12:36:00 Test Item Value Reference Range Interpretation Comments POC-GLUCOSE METER 95 mg/dL 70-[address] [facility] 6720 (BEAKER) (test code = OMAR Best [facility] [address] 1538) [id number] 07:04:00 Test Item Value Reference Range Interpretation Comments MAGNESIUM (BEAKER) (test code = 2.0 mg/dL 1.6-2.6 627) BASIC METABOLIC [id number] 07:04:00 Test Item Value Reference Range Interpretation [...] PATIEN TS. CBC W/PLT COUNT & AUTO [id number] 06:33:00 Test Item Value Reference Range Interpretation [...] L 0.00-0.20 (test code = 417) 0.00POCT-GLUCOSE [id number] 05:58:00 Test Item Value Reference Range Interpretation Comments POC-GLUCOSE METER 97 mg/dL 70-[address] [facility] 6720 (BEAKER) (test code = [facility] [place] [address] 1538) POCT-GLUCOSE [id number] 23:35:00 Test Item Value Reference Range Interpretation Comments POC-GLUCOSE METER 100 mg/dL 70-[address] [facility] 6720 (BEAKER) (test code = [facility] 1538) [address] [id number] 18:22:00 Test Item Value Reference Range Interpretation Comments LIPASE (BEAKER) (test code = 749) 23 U/L 8-78 [id number] 18:22:00 Test Item Value Reference Range Interpretation Comments AMYLASE (BEAKER) (test code = 349) 40 U/L 25-125 COMPREHENSIVE METABOLIC [id number] 18:22:00 Test Item Value Reference Range Interpretation [...] NOT APPLICABLE FOR DIALYSIS PATIEN TS. POCT-GLUCOSE [id number] 17:57:00 Test Item Value Reference Range Interpretation Comments POC-GLUCOSE METER 106 mg/dL 70-110 TESTED AT [place] [address] ([facility]) [facility] 1538) [address] POCT-GLUCOSE [id number] 11:39:00 Test Item Value Reference Range Interpretation Comments POC-GLUCOSE METER 108 mg/dL 70-110 TESTED AT [place] [address] ([facility]) (test code = [facility] 1538) [address] BASIC METABOLIC [id number] 07:13:00 Test Item Value Reference Range Interpretation [...] PATIEN TS. CBC W/PLT COUNT & AUTO [id number] 06:50:00 Test Item Value Reference Range Interpretation [...] L 0.00-0.20 (test code = 417) 0.00POCT-GLUCOSE [id number] 06:26:00 Test Item Value Reference Range Interpretation Comments POC-GLUCOSE METER 116 mg/dL 70-110 H TESTED AT [place] [address] ([facility]) (test code = OMAR Best [facility] 1538) [address] POCT-GLUCOSE [id number] 00:20:00 Test Item Value Reference Range Interpretation Comments POC-GLUCOSE METER 115 mg/dL 70-110 H TESTED AT [place] [address] ([facility]) (test code = OMAR Best [facility] 1538) [address] POCT-GLUCOSE [id number] 18:17:00 Test Item Value Reference Range Interpretation Comments POC-GLUCOSE METER 96 mg/dL 70-110 TESTED AT [place] [address] ([facility]) (test code = OMAR Best [facility] [address] 1538) POCT-GLUCOSE [id number] 11:23:00 Test Item Value Reference Range Interpretation Comments POC-GLUCOSE METER 129 mg/dL 70-110 H TESTED AT [place] [address] ([facility]) (test code = OMAR Best [facility] 1538) [address] CBC W/PLT COUNT & AUTO [id number] 09:58:00 Test Item Value Reference Range Interpretation [...] (BEAKER) (test code = Normal 762) POCT-GLUCOSE [id number] 05:39:00 Test Item Value Reference Range Interpretation Comments POC-GLUCOSE METER 104 mg/dL 70-[address] [facility] 6720 (BEAKER) (test code = [place] 1538) [address] BASIC METABOLIC [id number] 05:35:00 Test Item Value Reference Range Interpretation [...] NOT APPLICABLE FOR DIALYSIS PATIEN TS. POCT-GLUCOSE [id number] 01:30:00 Test Item Value Reference Range Interpretation Comments POC-GLUCOSE METER 97 mg/dL 70-110 [facility] [place] [address] [facility] (test code = [facility] [address] 1538) POCT-GLUCOSE [id number] 20:48:00 Test Item Value Reference Range Interpretation Comments POC-GLUCOSE METER 96 mg/dL 70-110 TESTED AT [place] [address] ([facility]) (test code = [facility] [address] 1538) RAPID DRUG SCREEN, [id number] 19:48:00 Test Item Value Reference Range Interpretation [...] situations. Chain of custody not maintained. Some yzfo-lqn-cgrjarj medications, as well as adulterants, may cause inaccurate results. Clinical correlation should be applied. [facility] comprehensive drug screen or confirmation of a detected drug may be performed upon request.MAGNESIUM 2017-01-09 19:31:00 Test Item Value Reference Range Interpretation Comments MAGNESIUM (BEAKER) (test code = 1.7 mg/dL 1.6-2.6 627) POCT-GLUCOSE [id number] 18:19:00 Test Item Value Reference Range Interpretation Comments POC-GLUCOSE METER 101 mg/dL 70-[address] [facility] 6720 (BEAKER) (test code = [place] 1538) [address] BASIC METABOLIC [id number] 16:57:00 Test Item Value Reference Range Interpretation [...] PATIEN TS. CBC W/PLT COUNT & AUTO [id number] 15:27:00 Test Item Value Reference Range Interpretation [...] (test code = 1+ few 966) POCT-GLUCOSE [id number] 12:18:00 Test Item Value Reference Range Interpretation Comments POC-GLUCOSE METER 90 mg/dL 70-[address] [facility] 6720 (BEAKER) (test code = OMAR Best [facility] [address] 1538) URINALYSIS W/ [id number] 10:54:00 Test Item Value Reference Range Interpretation [...] 1574) SOURCE(BEAKER) (test code = Urine, Green 1707) POCT-GLUCOSE [id number] 06:40:00 Test Item Value Reference Range Interpretation Comments POC-GLUCOSE METER 87 mg/dL 70-[address] [facility] 6720 (BEAKER) (test code = OMAR Best [facility] [address] 1538) BASIC METABOLIC [id number] 04:57:00 Test Item Value Reference Range Interpretation [...] NOT APPLICABLE FOR DIALYSIS PATIEN TS. POCT-GLUCOSE [id number] 00:47:00 Test Item Value Reference Range Interpretation Comments POC-GLUCOSE METER 79 mg/dL 70-110 TESTED AT [place] [address] ([facility]) (test code = [facility] [address] 1538) POCT-GLUCOSE [id number] 20:40:00 Test Item Value Reference Range Interpretation Comments POC-GLUCOSE METER 91 mg/dL 70-110 TESTED AT [place] [address] ([facility]) (test code = [facility] [address] 1538) POCT-GLUCOSE [id number] 18:31:00 Test Item Value Reference Range Interpretation Comments POC-GLUCOSE METER 70 mg/dL 70-110 TESTED AT [place] [address] ([facility]) (test code = [facility] [address] 1538) POCT-GLUCOSE [id number] 12:56:00 Test Item Value Reference Range Interpretation Comments POC-GLUCOSE METER 90 mg/dL 70-110 TESTED AT [place] [address] ([facility]) (test code = [facility] [address] 1538) CREATINE KINASE (CK), TOTAL AND [id number] 07:42:00 Test Item Value Reference Range Interpretation Comments CREATINE KINASE TOTAL ([facility]) 362 U/L 29-200 H (test code = 380) CREATINE KINASE-MB ([facility]) (test 4.3 ng/mL 0.0-6.6 code = 750) CREATINE KINASE-MB INDEX ([facility]) 1.2 % (test code = 395) Effective 05/12/2014: CK-MB Reference Range ChangeNew: 0.0-6.6 Previous: 0.0-4.9CK-MB Reference Range:<6.7 Normal6.7-10.0 Borderline>10.0 Abnormal TROPONIN [id number] 07:42:00 Test Item Value Reference Range Interpretation Comments TROPONIN I (AKER) (test code = 0.01 ng/mL 0.00-0.03 397) [...] acidosis, acute neurological disease, and persistent tachyarrhythmia.POCT-GLUCOSE [id number] 06:12:00 Test Item Value Reference Range Interpretation Comments POC-GLUCOSE METER 75 mg/dL 70-[address] [facility] 6720 ([facility]) (test code = OMAR Best [facility] [address] 1538) CBC W/PLT COUNT & AUTO [id number] 06:01:00 Test Item Value Reference Range Interpretation Comments WHITE BLOOD CELL COUNT (BEAKER) 8.6 K/ L 4.0-10.0 (test code = 775) RED BLOOD CELL COUNT (AKER) 4.34 M/ L 4.20-5.80 (test code = 761) HEMOGLOBIN (BEAKER) (test code = 12.9 GM/DL 13.0-16.8 L 410) HEMATOCRIT (AKER) (test code = 39.8 % 40.0-50.0 L 411) MEAN CORPUSCULAR VOLUME (AKER) 91.7 fL 82.0-98.0 (test code = 753) MEAN CORPUSCULAR HEMOGLOBIN 29.7 pg 27.0-33.0 (AKER) (test code = 751) MEAN CORPUSCULAR [...] K/ L 0.00-0.20 (test code = 417) [id number] 05:37:00 Test Item Value Reference Range Interpretation Comments TRIGLYCERIDES (BEAKER) 342 mg/dL Speci men slightly (test code = 540) hemolyzed TRIGLYCERIDE REFERENCE RANGELow Risk <150Borderline Risk 150-199High Risk 200-499Very High Risk >=500HEPATIC FUNCTION [id number] 05:37:00 Test Item Value Reference Range Interpretation [...] (test code = 347) hemolyzed BASIC METABOLIC [id number] 05:37:00 Test Item Value Reference Range Interpretation [...] TO CALCULA TE ESTIMATED GFR. BLOOD GAS, [id number] 05:18:00 Test Item Value Reference Range Interpretation [...] -2.0-3.0 (test code = 387) PATIENT TEMPERATURE (AKER) 37.0 C (test code = 1818) FIO2 (BEAKER) (test code = 1819) 30.0 % POCT-GLUCOSE [id number] 01:40:00 Test Item Value Reference Range Interpretation Comments POC-GLUCOSE METER 78 mg/dL 70-[address] [facility] 6720 (AKER) (test code = [place] [address] 1538) [id number] 22:09:00 Test Item Value Reference Range Interpretation Comments TRIGLYCERIDES (BEAKER) 1695 mg/dL Speci men moderately (test code = 540) hemolyzed TRIGLYCERIDE REFERENCE RANGELow Risk <150Borderline Risk 150-199High Risk 200-499Very High Risk >=500Specimen markedly lipemicLACTIC ACID, VENOUS, WHOLE [id number] 21:54:00 Test Item Value Reference Range Interpretation Comments LACTATE BLOOD VENOUS 0.4 mmol/L 0.5-2.2 L Specime n slightly (2) (BEAKER) (test hemolyzed code = 2872) Effective 10/27/2015: Units/Reference Range ChangeNew: 0.5-2.2 mmol/L Previous: 5- 20 mg/dLSpecimen markedly lipemicLIPID [id number] 19:05:00 Test Item Value Reference Range Interpretation Comments TRIGLYCERIDES (BEAKER) (test code = 343 mg/dL 540) CHOLESTEROL (BEAKER) (test code = 168 mg/dL 631) HDL CHOLESTEROL (BEAKER) (test code 28 mg/dL = 976) LDL CHOLESTEROL CALCULATED (AKER) 71 mg/dL (test code = 633) Triglyceride [...] U/L 29-200 H code = 380) POCT-GLUCOSE [id number] 18:33:00 Test Item Value Reference Range Interpretation Comments POC-GLUCOSE METER 80 mg/dL 70-[address] [facility] 67[address] (BEAKER) (test code = OMAR Best [facility] [address] 1538) POCT-GLUCOSE [id number] 12:31:00 Test Item Value Reference Range Interpretation Comments POC-GLUCOSE METER 81 mg/dL 70-[address] [facility] 67[address] (BEAKER) (test code = OMAR Best [facility] [id number] 1538) BASIC METABOLIC [id number] 05:30:00 Test Item Value Reference Range Interpretation [...] TO CALCULA TE ESTIMATED GFR. BLOOD GAS, [id number] 05:28:00 Test Item Value Reference Range Interpretation [...] 30.0 % CBC W/PLT COUNT & AUTO [id number] 04:49:00 Test Item Value Reference Range Interpretation [...] 0.00-0.20 (test code = 417) 0.00BASIC METABOLIC [id number] 05:13:00 Test Item Value Reference Range Interpretation [...] ESTIMATED GFR. CBC W/PLT COUNT & AUTO [id number] 03:47:00 Test Item Value Reference Range Interpretation [...] K/ L 0.00-0.20 (test code = 417) [id number] 05:13:00 Test Item Value Reference Range Interpretation Comments ETHANOL (BEAKER) (test code = 400) < mg/dL <=10 BASIC METABOLIC [id number] 04:59:00 Test Item Value Reference Range Interpretation [...] = 380) CBC W/PLT COUNT & AUTO [id number] 04:57:00 Test Item Value Reference Range Interpretation [...] 0.00-0.20 (test code = 417) 0.00PHENYTOIN LEVEL, [id number] 00:04:00 Test Item Value Reference Range Interpretation Comments PHENYTOIN (DILANTIN) (BEAKER) (test 7.3 ug/mL 10.0-20.0 L code = 605) TROPONIN [id number] 00:04:00 Test Item Value Reference Range Interpretation Comments TROPONIN I (BEAKER) (test code = 397) < ng/mL 0.00-0.03 Effective 05/12/2014: Reference Range ChangeNew: 0.00-0.03 Previous 0.00- 0.15Troponin I (TnI) levels must be interpreted in the context of the [...] acute neurological disease, and persistent tachyarrhythmia.URINALYSIS W/ [id number] 00:00:00 Test Item Value Reference Range Interpretation [...] SOURCE(BEAKER) (test code = 2795) COMPREHENSIVE METABOLIC [id number] 00:00:00 Test Item Value Reference Range Interpretation [...] T O CALCULATE ESTIM ATED GFR. PROTHROMBIN [id number] 23:48:00 Test Item Value Reference Range Interpretation Comments PROTIME (BEAKER) (test code = 13.6 seconds 11.7-14.7 759) INR (BEAKER) (test code = 370) 1.1 <=5.9 RECOMMENDED COUMADIN/WARFARIN INR THERAPY RANGESSTANDARD DOSE: 2.0 - 3.0 Includes: PROPHYLAXIS for venous thrombosis, systemic embolization; TREATMENT for venous thrombosis and/or pulmonary embolus.HIGH RISK: Target INR is 2.5-3.5 for patients with mechanical heart valves.[id number] 23:48:00 Test Item Value Reference Range Interpretation Comments PARTIAL THROMBOPLASTIN TIME 24.1 seconds 22.5-36.0 (BEAKER) (test code = 760) BLOOD GAS, [id number] 23:47:00 Test Item Value Reference Range Interpretation [...] (test code = 1819) 30.0 % PLATELET [id number] 23:39:00 Test Item Value Reference Range Interpretation Comments PLATELET COUNT (BEAKER) (test 236 K/CU MM 150-430 code = 756) POC, COVID 19 Antigen + Flu by RhytecPOC, COVID 19 Antigen + Flu by Patricia
[2023-04-04] MEDS ORDERED: LORAZEPAM 1 MG TABLET ONE (21:27)
[2023-04-04 21:57] VITALS: BP 138/98
[2023-04-04 22:27] VITALS: TEMP 98.8; O2SAT 100
== END 2023-04-04 21:26 | disposition home or self-care (01) ==
LOC: ER 20:56
DX: F41.9 Anxiety disorder, unspecified (principal); F17.210 Nicotine dependence, cigarettes, uncomplicated

== ENCOUNTER 2023-05-14 09:25 | Emergency (ER) | payer OTHER ==
--- OUTSIDE RECORDS SUMMARY | 2023-05-14 09:34 | XMS REPORT | Continuity of Care Document ---
:1995 Author Organization [facility] t Address [address] [place] [address] Care Team Providers Name Role Phone UNKNOWN, REFFERING Primary Care Physician Unavailable Jackelyn Kohli Attending Clinician Unavailable JOHN CAPONE Attending Clinician Unavailable SHERIF MARINO Attending Clinician Unavailable Sherif Marino MD Attending Clinician RADIOLOGY Attending Clinician Unavailable Radiology Attending Clinician Unavailable Doctor Unassigned, [place] Attending Clinician Unavailable Only, Sherif Db Test Attending Clinician Unavailable Barby Sebastian Attending Clinician BARBY JOHNSON Attending Clinician Unavailable Pcp, Patient Does Not Have A Attending Clinician [phone] Emily Castro Attending Clinician Lab, Adc Fam Pob I Attending Clinician Unavailable Valeria Gamez Attending Clinician VALERIA MARSHALL Attending Clinician Unavailable Abdoulaye Edwards DO Attending Clinician ABDOULAYE EDWARDS Attending Clinician Unavailable ALEJANDRO JUAN Attending Clinician Unavailable JOVANI KEVIN Attending Clinician Unavailable CARMELA HEBERT Attending Clinician Unavailable HEBERT PHAM Attending Clinician Unavailable JOHN CAPONE Admitting Clinician Unavailable AYNETH LIRA Admitting Clinician Unavailable ALEJANDRO JUAN Admitting Clinician Unavailable CARMELA HEBERT Admitting Clinician Unavailable HEBERT PHAM Admitting Clinician Unavailable Payers Payer Name Policy Type Policy Number Effective Date Expiration Date Kari marshall FORMERLY [facility] STAR [id number] 2017 00:00:00 PLAN [facility] STAR [id number] 2019 00:00:00 PLUS Problems Condition Condition Condition Status Onset Resolution [...] Medic al 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 Elevated Elevated Disease Active [facility] enzymes [facility]: t & Plan: [facility] g of this note might [...] metabolic and genetic. Immunity Immunity Disease Active [facility] t status status 07-17 Catia Maxwell testing testing 00:00: t & Plan: Medic al [address] [place] [address] g of this note might be different from the original. All patients with chronic liver disease, regardles s of etiology, should be immunized to prevent hepatitis A and hepatitis B if they are not already immune. We will test for immunity to both viruses and vaccine recommend ations will follow. Fatty Fatty Disease [facility] liver liver 07-17 Assesspaty Maxwell 00:00: t & Plan: Medical [address] [place] [address] g of this note might be different from the original. Patient is known to have fatty liver based on ultrasoun d and CT abdomen from [facility]. He has morbid obesity and hyperlipi [...] gastric sleeve surgery. 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 - [facility] , single depressive St episode, disorder, [facility] without single Medical psychotic episode Center features Gastric H/O Problem Common sleeve gastric Spirit (physical sleeve - [facility] object) [facility] [id number] Essential Problem Comm on (primary) Spirit hypertensi - [facility] on [facility] [id number] Gastroesop Problem Co mmon hageal Spirit reflux - [facility] disease [facility] esophagiti [facility] [id number] Hypercalce Problem Com mon johnny Spirit - [facility] Allergies, Adverse Reactions, Alerts Allergy Allergy Status Severity Reaction(s) Onset Inactive Treating Comm ents Source Name Type Date Date Clinician NO KNOWN Drug Active Univers ALLERGIE Class ity of S [facility] NO KNOWN Allergy [facility] Family History Family Member Diagnosis Comments Start Date Stop Date Source Natural mother Diabetes [facility] Natural sister Hepatomegaly [facility] Social History Social Habit Start Date Stop Date Quantity Comments Source Exposure to Yes University of SARS-CoV-2 (event) [facility] History SDOH [facility] Alcohol Comment Medical C enter History SDOH [facility] Alcohol Std Drinks [facility] History [facility] Alcohol Binge Medical Padmini ter Sexual orientation [facility] Cigarettes smoked 2023-03-30 2023-03-[address] [facility] current (pack per 00:00:00 00:00:00 Medical Center day) - Reported Alcohol intake 2023-03-30 2023-03-[address] [facility] 00:00:00 00:00:00 non-drinker of Medical Ce nter alcohol (finding) History of Social 2023-03-30 2023-03-[address] [facility] function 00:00:00 00:00:00 [facility] Tobacco Comment 2023-03-30 2023-03-[address] [facility]onda kes 00:00:00 00:00:00 [facility] Tobacco use and 2023-03-30 2023-03-[address] [facility] exposure 00:00:00 00:00:00 tobacco non-user Medical Center History SDOH 2018-07-17 2018-07-[address] [facility] Alcohol Frequency 00:00:00 00:00:00 Medical Center History of tobacco 2018-05-[address] [facility] use 00:00:00 Medical Center Sex Assigned At [birth year] [facility] Rhonda sparks 00:00:00 00:00:00 Medical Center Smoking Status Start Date Stop Date Source Ex-smoker 2023-03-30 00:00:00 2023-03-30 [facility] Medical 00:00:00 Center Current Smoker 2022-10-27 00:00:00 Common Spiri t - [facility] Ce nter Tobacco smoking [facility] consumption unknown Medical Bran ch Medications Ordered Filled Start Stop Current Ordering [...] tablet 19 by mouth Center daily. lisinopriL 2023-1 Yes 10mg QD Take 1 [facility] t (PRINIVIL,Z 0-06 tablet (10 Rhonda kes ESTRIL) 10 10:55: mg total) Me dical MG tablet 19 by mouth Center daily. cloNIDine 2023-0 Yes .1mg QD Take [address] [...] 00:00: intram[facility]cu Medical 00 larly. Center cloNIDine 2023-0 Yes .1mg QD Take [address] [...] 00:00: intramuscu Medical 00 larly. Center cloNIDine 2023-0 Yes .1mg QD Take [address] [...] 00 total) by Center mouth nightly. Abilify 3-0 Yes 1mL Inject [address] [facility] [...] 00 total) by Center mouth nightly. QUEtiapine 3-0 Yes 300mg QD Take [address] (SEROquel) 9-13 tablet [facility]ukes 300 MG 00:00: (300 mg Medical tablet 00 total) by Center mouth nightly. Abilify 3-0 Yes 1mL Inject [address] Maintena 9-13 mL Lukes 300 mg sers 00:00: intramuscu Medical 00 larly. Center cloNIDine 3-0 Yes .1mg QD Take [address] HCL 9-13 tablet [facility]ukes (CATAPRES) 00:00: (0.1 mg Medi connie 0.1 MG 00 total) by Center tablet mouth nightly. QUEtiapine 3-0 Yes 200mg QD Take [address] [...] 00:00: intramuscu Medical 00 larly. Center cloNIDine 2023-0 Yes .1mg QD Take [address] [...] 00:00: intramuscu Medical 00 larly. Center cloNIDine 2023-0 Yes .1mg QD Take [address] [...] 00 total) by Center mouth nightly. omeprazole 3-0 Yes 40mg QD Take 1 CHI S t (PriLOSEC) 7-09 capsule [facility] 40 MG 00:00: (40 mg Medical capsule 00 total) by Center mouth every morning. traZODone 3-0 Yes 100mg QD Take 1 CHI S [...] MG 00:00: 00:00 00 :00 Ondansetron Ondansetron 0 No 1{table Ondansetro HCl [...] No 120mL 120 mL, Unive rs (OMNIPAQUE 6-28 06-28 Intravenou it y of 350 02:00: 01:39 s, ONCE, 1 [place] BULK-100 00 :00 dose, Sat Medica l mL) 12/20/19 at Finger injection 2100, 120 mL Routine ondansetron 2019-0 2020- No 4mg 4 mg, Slow Univers (ZOFRAN 12-20 IV Push, ity of (PF)) 01:30: 00:49 ONCE, 1 [place] injection 4 00 :00 dose, Sat Med ical mg 12/20/19 at Finger 2030, Routine dicyclomine 2019-0 Yes 10mg 10 mg, [facility] ers (BENTYL) 12-20 Oral, QID, ity o f capsule 10 01:00: First dose [place] mg 00 on Sat Medical 12/20/19 at Branch 2000, Until Discontinu ed, Routine NaCl 0.9% 2019-0 2020- No 500mL at 999 [facility] ers (NS) bolus 12-20 mL/hr, 500 it y of infusion 00:30: 01:20 mL, IV [place] 500 mL 00 :00 Infusion, Medical ONCE, 1 [place] dose, 12/20/19 at 1930, STAT sucralfate 2020-0 Yes [id number] 1000mg Take 10 mL Univers (CARAFATE) 6-27 by mouth ity o f 100 mg/mL 00:00: before [place] suspension 00 meals and Medi connie at Finger bedtime. sucralfate 2020-0 Yes [id number] 1000mg Take 10 mL Univers (CARAFATE) 6-27 by mouth ity o f 100 mg/mL 00:00: before [place] suspension 00 meals and Medi connie at Finger bedtime. sucralfate 2020-0 Yes [id number] 1000mg Take 10 mL Univers (CARAFATE) 6-27 by mouth ity o f 100 mg/mL 00:00: before [place] suspension 00 meals and Medi connie at Finger bedtime. sucralfate 2020-0 Yes [id number] 1000mg Take 10 mL Univers (CARAFATE) 6-27 by mouth ity o f 100 mg/mL 00:00: before [place] suspension 00 meals and Medi connie at Finger bedtime. sucralfate 2020-0 Yes [id number] 1000mg Take 10 mL Univers (CARAFATE) 6-27 by mouth ity o f 100 mg/mL 00:00: before [place] suspension 00 meals and Medi connie at Finger bedtime. sucralfate 2020-0 Yes [id number] 1000mg Take 10 mL Univers (CARAFATE) 6-27 by mouth ity o f 100 mg/mL 00:00: before [place] suspension 00 meals and Medi connie at Branch bedtime. sucralfate 2020-0 Yes [id number] 1000mg Take 10 mL Univers (CARAFATE) 6-27 by mouth ity o f 100 mg/mL 00:00: before [place] suspension 00 meals and Medi connie at Branch bedtime. sucralfate 2020-0 Yes [id number] 1000mg Take 10 mL Univers (CARAFATE) 6-27 by mouth ity o f 100 mg/mL 00:00: before [place] suspension 00 meals and Medi connie at Branch bedtime. sucralfate 2020-0 Yes [id number] 1000mg Take 10 mL Univers (CARAFATE) 6-27 by mouth ity o f 100 mg/mL 00:00: before [place] suspension 00 meals and Medi connie at Branch bedtime. haloperidol Yes 15mg Take 3 Univ ers (HALDOL) 5 9-21 Tabs by ity of mg tablet 00:00: [place] 00 bedtime. Medical Branch chlorproMAZ Yes 200mg Take 1 [...] s ) 5 % gel Medical Branch benzoyl Yes Apply to Univer s peroxide 9-21 area(s) ity of (BENZAGEL-5 00:00: daily. [place] ) 5 % gel Medical Branch clindamycin Yes Apply to Un mimi (CLEOCIN T) 9-21 area(s) 2 ity of 1 % 00:00: (two) [place] solution 00 times Medical daily. Branch clindamycin Yes Apply to Un mimi [...] every [place] 00 morning. Medical Branch haloperidol 2014-0 Yes 15mg Take 3 Univ ers (HALDOL) [...] every [place] 00 morning. Medical Branch haloperidol 2014-0 Yes 15mg Take 3 Univ ers (HALDOL) [...] every [place] 00 morning. Medical Branch haloperidol 2014-0 Yes 15mg Take 3 Univ ers (HALDOL) [...] 40 MG 40 MG Lisinopril Lisinopril No Lisinopril 10 MG 10 MG 10 MG Pristiq 25 Pristiq 25 No 1{table QD Pristiq 25 MG MG t} MG Pristiq 25 Pristiq 25 No Pristiq 25 MG MG MG Omeprazole Omeprazole No Omeprazole 40 MG 40 MG 40 MG Lisinopril Lisinopril No Lisinopril 10 MG 10 MG 10 MG Pristiq 25 Pristiq 25 No 1{table QD Pristiq 25 MG MG t} MG Pristiq 25 Pristiq 25 No Pristiq 25 MG MG MG Omeprazole Omeprazole No Omeprazole 40 MG [...] cm WEIGHT 2020-04-02 14:50:00 105.688 kg HEIGHT 2023-05-08 08:52:00 170.2 cm WEIGHT 2023-05-08 08:52:00 77.883 kg HEIGHT 2023-05-08 08:52:00 170.2 cm WEIGHT 2023-05-08 08:52:00 77.883 kg HEIGHT 2023-05-08 08:52:00 170.2 cm WEIGHT 2023-05-08 08:52:00 77.883 kg HEIGHT 2023-03-30 10:57:00 170.2 cm WEIGHT 2023-03-30 10:57:00 80.377 kg HEIGHT 2023-03-30 10:57:00 170.2 cm WEIGHT 2023-03-30 10:57:00 80.377 kg HEIGHT 2023-03-30 10:57:00 170.2 cm WEIGHT 2023-03-30 10:57:00 80.377 kg height 2022 14:40:00 67 [in_i] [facility] weight 2022 14:40:00 222.4 [lb_av] [facility] temperature 2022 14:40:00 97.6 [degF] [facility] bmi 2022 14:40:00 34.83 kg/m2 [facility] oximetry 2022 14:40:00 98 % [facility] respiratory rate 2022 14:40:00 16 /min Comm on [facility] blood pressure 2022 14:40:00 132 mm[Hg] Common [facility] - systolic [facility] blood pressure 2022 14:40:00 80 mm[Hg] Common [facility] - diastolic [facility] height 2022-01-25 14:00:00 67 [in_i] [facility] weight 2022-01-25 14:00:00 228 [lb_av] [facility] temperature 2022-01-25 14:00:00 98.5 [degF] [facility] bmi 2022-01-25 14:00:00 35.71 kg/m2 Common [facility] oximetry 2022-01-25 14:00:00 99 % [facility] respiratory rate 2022-01-25 14:00:00 17 /min Comm on [facility] blood pressure 2022-01-25 14:00:00 152 mm[Hg] Common [facility] - systolic [facility] blood pressure 2022-01-25 14:00:00 87 mm[Hg] Common [facility] - diastolic [facility] height 2021-10-04 16:00:00 67 [in_i] Common [facility] weight 2021-10-04 16:00:00 268 [lb_av] [facility] temperature 2021-10-04 16:00:00 97.4 [degF] Common [facility] bmi 2021-10-04 16:00:00 41.97 kg/m2 [facility] oximetry 2021-10-04 16:00:00 98 % [facility] respiratory rate 2021-10-04 16:00:00 16 /min Comm on [facility] blood pressure 2021-10-04 16:00:00 131 mm[Hg] Common [facility] - systolic [facility] blood pressure 2021-10-04 16:00:00 81 mm[Hg] Common [facility] - diastolic [facility] height 2021-09-21 13:40:00 67 [in_i] Common [facility] weight 2021-09-21 13:40:00 265 [lb_av] Common [facility] bmi 2021-09-21 13:40:00 41.5 kg/m2 Common [facility] WEIGHT 2020-04-05 10:17:00 99.474 kg HEIGHT 2020-04-05 10:17:00 170.2 cm HEIGHT 2020-04-02 14:50:00 170.2 cm WEIGHT 2020-04-02 14:50:00 105.688 kg Systolic blood 2019-12-21 03:00:00 122 mm[Hg] Univer sity of pressure [place] [facility] Diastolic blood 2019-12-21 03:00:00 89 mm[Hg] Unive rsity of pressure [place] [facility] Heart rate 2019-12-21 03:00:00 71 /min Universi ty of [place] [facility] Respiratory rate 2019-12-21 03:00:00 16 /min Univ ersity of [place] [facility] Oxygen saturation in 2019-12-21 03:00:00 98 /min University of Arterial blood by [place] [employer] connie Pulse oximetry Branch Body temperature 2019-12-21 00:32:00 37.22 [place] Univ ersity of [facility] Body height 2019-12-21 00:32:00 170.2 cm Universi ty of [place] Medical Finger Body weight 2019-12-21 00:31:00 102.513 kg [facility]i ty [facility] [place] [facility] Finger BMI 2019-12-21 00:31:00 35.40 kg/m2 [facility]i ty [facility] [place] [facility] Systolic blood 2019-12-21 03:00:00 122 mm[Hg] Univer sity of pressure [place] [facility] Diastolic blood 2019-12-21 03:00:00 89 mm[Hg] Unive rsity of pressure [facility] Branch Heart rate 2019-12-21 03:00:00 71 /min Universi ty of [place] [facility] Respiratory rate 2019-12-21 03:00:00 16 /min Univ ersity of [place] [facility] Oxygen saturation in 2019-12-21 03:00:00 98 /min University of Arterial blood by [place] [employer] connie Pulse oximetry Branch Body temperature 2019-12-21 00:32:00 37.22 [place] Univ ersity of [place] [facility] Body height 2019-12-21 00:32:00 170.2 cm [facility]i [facility] [place] [facility] Body weight 2019-12-21 00:31:00 102.513 kg [facility] [place] [facility] BMI 2019-12-21 00:31:00 35.40 kg/m2 [facility] [place] [facility] Systolic blood 2023-05-08 08:52:00 122 mm[Hg] [facility] pressure Medical Center Diastolic blood 2023-05-08 08:52:00 72 mm[Hg] [facility] Heart rate 2023-05-08 08:52:00 85 /min [facility] Body temperature 2023-05-08 08:52:00 36.11 [place] [facility] Respiratory rate 2023-05-08 08:52:00 18 /min [facility] Body height 2023-05-08 08:52:00 170.2 cm [facility] Body weight 2023-05-08 08:52:00 77.883 kg [facility] BMI 2023-05-08 08:52:00 26.89 kg/m2 [facility] Oxygen saturation in 2023-05-08 08:52:00 100 /min [facility] Arterial blood by Medical Ce nter Pulse oximetry Systolic blood 2023-03-30 10:57:00 119 mm[Hg] [facility] Diastolic blood 2023-03-30 10:57:00 88 mm[Hg] [facility] Heart rate 2023-03-30 10:57:00 124 /min [facility] Body temperature 2023-03-30 10:57:00 37 [place] [facility] Respiratory rate 2023-03-30 10:57:00 18 /min [facility] Body height 2023-03-30 10:57:00 170.2 cm [facility] Body weight 2023-03-30 10:57:00 80.377 kg [facility] BMI 2023-03-30 10:57:00 27.75 kg/m2 [facility] Oxygen saturation in 2023-03-30 10:57:00 100 /min [facility] Arterial blood by Medical Ce nter Pulse oximetry Procedures Procedure Date / Time Performing Clinician Source Performed US PELVIS LIMITED 2023-04-16 19:10:58 Requisition, Paper [facility] CONSENT/REFUSAL FOR 2023-04-16 18:16:43 Doctor Unassigned, No [facility] DIAGNOSIS AND TREATMENT Name Medical Branch ASSIGNMENT OF BENEFITS 2023-04-16 18:16:25 Doctor Unassigned, No [facility] Branch COMPREHENSIVE METABOLIC 2023-03-30 10:32:00 Jamila [facility] PANEL Center CBC W/PLT COUNT & AUTO 2023-03-30 10:32:00 [facility] DIFFERENTIAL Center IRON, TIBC, % SAT. 2023-03-30 10:32:00 [facility] (WITHOUT FERRITIN) Center FERRITIN 2023-03-30 10:32:00 [facility] PERIPHERAL BLOOD SMEAR - 2023-03-30 10:32:00 [facility] HOLD ONLY Center RETICULOCYTE COUNT 2023-03-30 10:32:00 [facility] Center CBC W/PLT COUNT & AUTO 2023-03-30 10:32:00 [facility] DIFFERENTIAL Center CT ABDOMEN PELVIS W 2019-12-21 01:44:37 Abdoulaye Edwards [facility] CONTRAST Medical Branch LIPASE 2019-12-21 00:52:00 [facility] COMP. METABOLIC PANEL 2019-12-21 00:52:00 Singer [facility] ([id number]) [facility] CBC WITH DIFFERENTIAL 2019-12-21 00:52:00 Edwards, [facility] URINALYSIS 2019-12-21 00:52:00 Edwards, [facility] NOTICE OF PRIVACY 2019-12-21 00:22:40 Doctor Unassigned, No Univ [facility] PRACTICES Name Medical Branch CONSENT/REFUSAL FOR 2019-12-21 00:22:22 Doctor Unassigned, No Un [facility] DIAGNOSIS AND TREATMENT Name [facility] Plan of Care Planned Activity Planned Date Details Comments Source Future Scheduled 2024-03-[address] [facility] Test 00:00:00 Counseling and Screening Med ica Center (12+) [code = Tobacco Cessation Counseling and Screening (12+)] Future Scheduled 2024-03-[address] [facility] Test 00:00:00 Counseling and Screening Med ical Center (12+) [code = Tobacco Cessation Counseling and Screening (12+)] Future Scheduled 2024-03-[address] [facility] Test 00:00:00 Counseling and Screening Med ica Center (12+) [code = Tobacco Cessation Counseling [...] Lukes Test 00:00:00 [code = INFLUENZA VACCINE [facility] dical Center (#1)] Future Scheduled 2021-06-25 DEPRESSION [...] [facility] Test 00:00:00 [code = 17913925] Medical Ce nter Future Scheduled 2020-01-08 Lipid panel (procedure) [facility] Test 00:00:00 [code = 63724593] Medical Ce nter Future Scheduled 2020-01-08 Lipid panel (procedure) [facility] Test 00:00:00 [code = 58657026] Medical Ce nter Future Scheduled 2020-01-08 Lipid panel (procedure) [facility] Test 00:00:00 [code = 33085295] Medical Ce nter Future Scheduled 2020-01-08 Lipid panel (procedure) [facility] Test 00:00:00 [code = 88337451] Medical Ce nter Future Scheduled 2020-01-08 Lipid panel (procedure) [facility] Test 00:00:00 [code = 79972698] Medical Ce nter Future Scheduled 2020-01-08 Lipid panel (procedure) [facility] Test 00:00:00 [code = 89618182] Medical Ce nter Future Scheduled 2015-02-13 DTAP/TDAP/TD [...] screening Medical Cent er (procedure) [code = 166690561] Future Scheduled 2011-02-[address] [facility] Test 00:00:00 virus screening Medical Cent er (procedure) [code = 911560345] Future Scheduled 2011-02-[address] [facility] Test 00:00:00 virus screening Medical Cent er (procedure) [code = 303665550] Future Scheduled 2011-02-[address] Human immunodeficiency [facility] Test 00:00:00 virus screening Medical Cent er (procedure) [code = 531559017] Future Scheduled 2011-02-[address] Human immunodeficiency [facility] Test 00:00:00 virus screening Medical Cent er (procedure) [code = 823710330] Future Scheduled 2011-02-[address] Human immunodeficiency [facility] Test 00:00:00 virus screening Medical Cent er (procedure) [code = 933403295] Future Scheduled 2011-02-[address] Human immunodeficiency [facility] Test 00:00:00 virus screening Medical Cent er (procedure) [code = 153519675] Future Scheduled 2011-02-[address] Human immunodeficiency [facility] Test 00:00:00 virus screening Medical Cent er (procedure) [code = 261887622] Future Scheduled 2011-02-[address] Human immunodeficiency [facility] Test 00:00:00 virus screening Medical Cent er (procedure) [code = 692601963] Future Scheduled 2011-02-[address] Human immunodeficiency [facility] Test 00:00:00 virus screening Medical Cent er (procedure) [code = 518329763] Future Scheduled 2011-02-[address] Human immunodeficiency [facility] Test 00:00:00 virus screening Medical Cent er (procedure) [code = 507195944] Future Scheduled 1995 COVID-19 VACCINE (#1) CH [...] = COVID-19 VACCINE Med ical Center (#1)] Encounters Start End Encounter Admission Attending Care Care Encounter Source Date/Time Date/Time Type Type Clinicians Facility Department ID 2022-10-27 Outpatient TY Kohli [facility] [id number] Common 08:58:01 Jackelyn [id number] [facility] 2022-10-26 Outpatient TY Kohli [facility] [id number] Common 09:04:01 Jackelyn [id number] [facility] 2022-02-10 Outpatient Kohli, [facility] [id number] Common 14:28:00 Jackelyn [facility] 2022-02-06 Outpatient Kohli, [facility] [id number] Common 11:19:02 Jackelyn [facility] 2022-01-03 Outpatient Kohli, [facility] [id number] Common 12:20:01 Jackelyn [facility] 2021-11-03 Outpatient Kohli, [facility] [id number] Common 13:18:02 Jackelyn [facility] 2021-11-02 Outpatient Kohli, [facility] [id number] Common 10:12:06 Jackelyn [facility] 2021-10-05 Outpatient Kohli, [facility] [id number] Common 10:40:03 Jackelyn [facility] 2021-09-29 Outpatient Kohli, [facility] [id number] Common 13:45:04 Jackelyn [facility] 2021-09-21 Outpatient Kohli, [facility] [id number] Common 13:17:02 Jackelyn [facility] 2021-08-31 Outpatient Kohli, [facility] [id number] Common 10:49:02 Jackelyn [facility] 2021-03-30 Outpatient CAPONE, [facility] [id number] [facility] 09:37:20 SUNEAL 2023-05-15 2023-05-15 Outpatient SHERIF SARGENT [facility] SLE [id number] [facility] 00:00:00 00:00:00 2023-05-10 2023-05-10 Outpatient [facility] [id number] Toby 10:49:34 10:49:34 1116 [facility] 2023-05-08 2023-05-08 Outpatient SHERIF SARGENT SLEH [id number] SLEH 08:40:51 23:59:00 2023-05-08 2023-05-08 [facility] Sherif Marino [facility] [id number] 08:00:00 23:59:00 Encounter [facility] 2023-05-08 2023-05-08 [facility] Sherif Marino [facility] [id number] 08:00:00 23:59:00 Encounter [facility] 2023-05-01 2023-05-01 Outpatient SHERIF SARGENT [facility] [id number] SLE 00:00:00 00:00:00 2023-04-16 2023-04-16 Outpatient R RADIOLOGY [facility] [id number] Univers 13:17:57 23:59:00 ity of [facility] 2023-04-16 2023-04-16 Hospital Radiology [facility] 1.2.840.114 [id number] Univers 13:00:00 23:59:00 Encounter ANGLEANDRES 350.1.13.10 ity of [place] 4.2.7.2.686 [facility] [id number] [facility] [address] 2023-04-16 2023-04-16 Orders Doctor EVA 1.2.840.114 [id number] Univers 00:00:00 00:00:00 Only Unassigned, TIBURCIO 350.1.13.10 ity of [place] [facility] 4.2.7.2.686 [facility] [id number] [facility] [address] 2023-04-09 2023-04-09 Outpatient SFA SFA [id number] 023 Toby 16:02:18 16:02:18 1016 [facility] 2023-04-05 2023-04-05 Outpatient SFA SFA [id number] 023 Toby 11:20:51 11:20:51 1012 [facility] 2023-04-04 2023-04-04 Outpatient SFA SFA [id number] 023 Toby 18:27:47 18:27:47 1011 [facility] 2023-03-30 2023-03-30 Outpatient SHERIF SARGENT [facility] [id number] SLE 10:41:38 11:31:17 2023-03-30 2023-03-[address] [facility] [id number] 09:20:00 11:31:17 Visit [facility] 2023-03-30 2023-03-[address] [facility] [id number] 09:20:00 11:31:17 Visit [facility] 2023-03-30 2023-03-30 Outpatient EL SLE SLE [id number] SLEH 10:26:50 10:26:50 2023-03-30 2023-03-30 Treatment EL Sherif Marino [facility] [id number] 09:05:00 09:20:00 [facility] 2023-03-30 2023-03-[address] [facility] [id number] 09:05:00 09:20:00 [facility] 2023-03-29 2023-03-[address] [facility] [id number] 00:00:00 00:00:00 Only [facility] 2023-03-29 2023-03-[address] [facility] [id number] 00:00:00 00:00:00 [facility] 2023-03-07 2023-03-07 Outpatient SFA SFA [id number] 023 Toby 15:34:58 15:34:58 0913 F [facility] 2022-10-30 2022-10-30 (TEL) STLMLC STLMLC [id number] Co mmon 00:00:00 00:00:00 [facility] 2022-10-27 2022-10-27 (TEL) STLMLC STLMLC [id number] Co mmon 00:00:00 00:00:00 Spirit - [facility] 2022-07-31 2022-07-31 OFFICE STLMLC STLMLC [id number] Co mmon 00:00:00 00:00:00 VISIT [facility] PT - CHI LEVEL 4 [facility] 2022 2022 OFFICE STLMLC STLMLC [id number] Co mmon 00:00:00 00:00:00 VISIT Spirit [facility] PT - CHI LEVEL 4 [facility] 2022-02-02 2022-02-02 (TEL) STLMLC STLMLC [id number] Co mmon 00:00:00 00:00:00 [facility] 2022-01-25 2022-01-25 (WELLNESS) STLMLC STLMLC [id number] Common 00:00:00 00:00:00 Wellness Spiri t [facility] 2021-12-13 2021-12-13 OFFICE STLMLC STLMLC [id number] Co mmon 00:00:00 00:00:00 VISIT EST Spir it PT LEVEL [address] [facility] 2021-12-13 2021-12-13 (TEL) STLMLC STLMLC [id number] Co mmon 00:00:00 00:00:00 [facility] 2021-10-04 2021-10-04 OFFICE STLMLC STLMLC [id number] Co mmon 00:00:00 00:00:00 VISIT EST Spir it PT LEVEL 3 [facility] 2021-09-21 2021-09-21 (TEL) STLMLC STLMLC [id number] Co mmon 00:00:00 00:00:00 [facility] 2021-09-21 2021-09-21 OFFICE STLMLC STLMLC [id number] Co mmon 00:00:00 00:00:00 VISIT EST Spir it PT LEVEL 3 [facility] 2021-09-02 2021-09-02 OFFICE STLMLC STLMLC [id number] Co mmon 00:00:00 00:00:00 VISIT NEW Spir it PT LEVEL [address] [facility] 2021-07-01 2021-07-01 Laboratory Only, Ang Db Test [facility] 1.2.8 40.114 [id number] Univers 15:45:00 16:00:00 Only Barby Johnson [facility] 350.1.13.10 campbell olson [place] 4.2.7.2.686 Estuardo as LUIS ARMANDO?BLEA [id number] [address] MEDICAL OFFICE BUILDING 2021-07-01 2021-07-01 Outpatient [facility] [id number] [facility] 15:45:00 15:45:00 BARBY campbell o f [facility] 2021-07-01 2021-07-01 Letter Doctor EVA 1.2.840.114 [id number] Univers 00:00:00 00:00:00 (Out) Unassigned, TIBURCIO 350.1.13.10 ity of [place] [facility] 4.2.7.2.686 Estuardo as [id number] [address] 2021-07-01 2021-07-01 Letter Doctor EVA 1.2.840.114 [id number] Univers 00:00:00 00:00:00 (Out) Unassigned, TIBURCIO 350.1.13.10 ity of [place] [facility] 4.2.7.2.686 Estuardo as [id number] [address] 2020-04-02 2020-04-02 Outpatient [facility] [id number] [facility] 00:00:00 00:00:00 2020-01-16 2020-01-16 Telephone PcpEVA.[id number] 00:00:00 00:00:00 Patient TIBURCIO 350.1.13.10 Does [facility] 4.2.7.2.686 Have A [id number] 019 2020-01-16 2020-01-16 Telephone [id number] [facility] 00:00:00 00:00:00 Patient TIBURCIO 350.1.13.10 it y of [facility] 4.[place].7.2.686 [place] Have A [id number] [address] 2020-01-15 2020-01-15 Telephone [id number] 00:00:00 00:00:00 TIBURCIO Davila 350.1.13.10 [facility] 4.2.7.2.686 [id number] 019 2020-01-15 2020-01-15 Telephone de EVA [id number] [id number] [facility] 00:00:00 00:00:00 DavilaTIBURCIO 350.1.13.10 ity of [facility] 4.2.7.2.686 Estuardo as [id number] [address] 2020-01-14 2020-01-14 Laboratory Lab, [facility] 1.2.840.114 [id number] 17:24:30 17:44:30 Only Fam Pob I Health 350.1.13.10 [place] 4.2.7.2.686 Professio [phone] nal [facility] Office Building One 2020-01-14 2020-01-14 Laboratory Lab, [facility] Fam Pob I [facility] 1.2. 840.114 [id number] Univers 17:24:30 17:44:30 Only Valeria Marshall 350.1.13.10 ity of [place] 4.2.7.2.686 Estuardo as Professio [phone] [place] dical [address] Office Building [facility] 2020-01-14 2020-01-14 Outpatient R JUDITH [facility] [id number] Univers 17:20:00 17:20:00 VALERIA campbell [facility] 2019-12-20 2019-12-20 Emergency [facility] [id number] 19:27:54 22:32:00 Abdoulaye Mcdonald 350.1.13.10 [place] 4.2.7.2.686 [place] [id number] [facility] 2019-12-20 2019-12-20 Emergency [facility] [id number] Univers 19:27:54 22:32:00 Abdoulaye Mcdonald 350.1.13.10 i ty of [place] 4.2.7.2.686 [facility] [id number] [address] 2019-12-20 2019-12-20 Emergency X [facility] ERT [id number] Univers 19:19:00 19:19:00 ABDOULAYE hightower [facility] 2019-02-25 2019-02-25 Outpatient EL SLEH SLEH [id number] SLEH 00:00:00 00:00:00 Results Test Description Test Time Test Comments Results Result Comments Source TSH, THIRD GENERATION 2023-04-06 06:33:47 Test Item Value Reference Range Interpretation Comme nts TSH, THIRD GENERATION (test code = 2821) 1.210 UIU/ML 0.400-4.100 COMPREHENSIVE METABOLIC [id number] 05:25:26 Test Item Value Reference Range Interpretation Comments GLUCOSE (test code = 2216) 89 MG/DL 70-99 BUN (test code = 2207) 9 MG/DL 6-20 CREATININE (test code = 2214) 0.70 MG/DL 0.80-1.40 L eGFR (2020 CKD-EPI) (test 130 ML/MIN/1.73 >60 code = 24927) CALC BUN/CREAT (test code = 13 RATIO 6-28 2234) SODIUM (test code = 2230) 142 MEQ/L 133-146 POTASSIUM (test code = 222) 4.5 MEQ/L 3.5-5.4 CHLORIDE (test code = 2214) 105 MEQ/L 95-107 CARBON DIOXIDE (test code = 24 MEQ/L -2205) CALCIUM (test code = 2208) 10.1 MG/DL 8.5-10.5 PROTEIN, TOTAL (test code = 7.4 G/DL 6.1-8.3 2228) ALBUMIN (test code = 2200) 4.4 G/DL 3.5-5.2 CALC GLOBULIN (test code = 3.0 G/DL 1.9-3.7 2239) CALC A/G RATIO (test code = 1.5 RATIO 1.0-2.6 2233) BILIRUBIN, TOTAL (test code = 0.5 MG/DL <=1.2 2206) ALKALINE PHOSPHATASE (test 65 U/L 40-115 code = 2204) AST (test code = 221) 14 U/L 9-50 ALT (test code = 2219) 10 U/L 5-50 LIPID [id number] 05:25:26 Test Item Value Reference Range Interpretation Comments CHOLESTEROL (test 149 MG/DL <200 code = 2210) TRIGLYCERIDES (test 106 MG/DL <150 code = 2232) HDL CHOLESTEROL (test 62 MG/DL >39 code = 2220) CALC LDL CHOL (test 68 MG/DL <100 NOTE: C ALCULATED LDL code = 2237) IS BASED ON ALBA-RAMIREZ METHOD WHICHINCLUDES ADJUSTABLE TRIGLYCERIDE:VL DL CHOLESTEROL RAT IO.THIS FACTOR VARIES B Y MEASURED TRIGLY CERIDE AND NON-HDLCHOL ESTEROL CONCENTRATIONS WITH INCREASED CALCU LATED LDL SEENIN HIGH ER TRIGLYCERIDE OR LOWER NON-HDL SPECIME NS. FOR MOREINFORMATION , SEE CLIENT ANNOUNCE MENT AT [email or web address] RISK RATIO LDL/HDL 1.10 RATIO <3.55 (test code = 2238) HEMOGLOBIN [id number] 03:14:50 Test Item Value Reference Range Interpretation Comments HEMOGLOBIN A1c (test 5.6 % 4.2-5.6 UNLESS OTHERWISE code = 78488) INDICATED, ALL TESTING PERFORMED AT INICAL PATHOLOGY [email or web address]. [address] [place] [id number] [place] [address] DIRECTOR: Jed BURRIS TAZ NUMBER [id number] CAP ACCREDITATION N O. [id number] CBC W/AUTO DIFF WITH [id number] 02:31:48 Test Item Value Reference Range Interpretation Comments WBC (test code = 6.5 K/UL 3.5-11.0 1001) RBC (test code = 4.70 M/UL 4.50-6.10 1002) HEMOGLOBIN (test code 12.5 G/DL 13.5-17.0 L = 1003) HEMATOCRIT (test code 38.6 % 40.0-51.0 L = 1004) MCV (test code = 82.1 fL 80.0-99.0 1005) MCH (test code = 26.6 PG 25.0-33.0 1006) MCHC (test code = 32.4 G/DL 31.0-36.0 1007) RDW (test code = 15.0 % 11.5-15.0 1038) NEUTROPHILS (test 57.8 % code = 1008) LYMPHOCYTES (test 30.6 % code = 1010) MONOCYTES (test code 10.1 % = 1011) EOSINOPHILS (test 0.6 % code = 1012) BASOPHILS (test code 0.6 % = 1013) IMMATURE GRANULOCYTES 0.3 % (test code = 1036) NUCLEATED RBCS (test 0.0 /100 WBC'S See_Comment [Aut omated code = 1065) message] The sy stem which generated this result transmitted reference range : 0.0. The refere nce range was not u sed to interpret th is result as normal/abnormal . PLATELET COUNT (test 436 K/UL 130-400 H code = 1015) ABSOLUTE NEUTROPHILS 3.76 K/UL 1.50-7.50 (test code = 1066) ABSOLUTE LYMPHOCYTES 1.99 K/UL 1.00-4.00 (test code = 1067) ABSOLUTE MONOCYTES 0.66 K/UL 0.20-1.00 (test code = 1068) ABSOLUTE EOSINOPHILS 0.04 K/UL 0.00-0.50 (test code = 1040) ABSOLUTE BASOPHILS 0.04 K/UL 0.00-0.20 (test code = 1069) ABS IMMATURE 0.02 K/UL 0.00-0.10 GRANULOCYTES (test code = 1020) ABS NUCLEATED RBCS 0.00 K/UL 0.00-0.11 (test code = 25452) PERIPHERAL BLOOD SMEAR - HOLD [id number] 10:27:04 Test Item Value Reference Range Interpretation Comments PERIPHERAL SMEAR SAVE made 2 slides, picked (BEAKER) (test code = up by Dr. Guadalupe 3989) IRON, TIBC, % SAT. (WITHOUT FERRITIN)2023-03-30 17:00:45 Test Item Value Reference Range Interpretation Comments IRON (BEAKER) (test code = 547) 17.0 ug/dL 40.0-160.0 L TOTAL IRON BINDING CAPACITY 424 ug/dL 250-450 (BEAKER) (test code = 769) IRON % SATURATION (2) (BEAKER) 4 % 20-55 L (test code = 2590) Chiller Hand ID - [id number] 11:26:11 Test Item Value Reference Range Interpretation Comments FERRITIN (BEAKER) (test code = 4.90 ng/mL 5.00-275.00 L 361) COMPREHENSIVE METABOLIC [id number] 11:24:03 Test Item Value Reference Range Interpretation [...] not as accur ate as Creatinine Juany martins in predicting glom erular filtration rate . Estimated GFR is not appl icable for dialysis patien ts RETICULOCYTE [id number] 11:01:42 Test Item Value Reference Range Interpretation Comments RETICULOCYTE COUNT PCT (BEAKER) (test 1.4 % 0.5-1.8 code = 575) CBC W/PLT COUNT & AUTO [id number] 11:01:42 Test Item Value Reference Range Interpretation [...] PERCENT (BEAKER) (test code = 2801) TISSUE [id number] 13:37:00Surgical Pathology Report Case: [id number] Authorizing Provider: John Capone MD Collected: 04/05/2020 10:35 AM Ordering Location: [facility] ENDOSCOPY Received: 04/05/2020 03:03 PM SERVICE S Pathologist: Petty Stewart MD Specimen: Biopsy, Gastric, RANDOM BX A. GASTRIC, RANDOM BIOPSY: - GASTRIC BODY TYPE MUCOSA WITH NO SIGNIFICANT HISTOPATHOLOGICAL CHANGE - GASTRIC ANTRUM TYPE MUCOSA WITH CHRONIC ACTIVE H. PYLORI-ASSOCIATED GASTRITIS - FEW H. PYLORI-LIKE ORGANISMS SEEN ON H&E AND WARTHIN-STARRY STAINSJ/pl Signing Pathologist Direct Phone Line: [phone] signed by Petty Stewart MD on 04/06/2020 [...] of this case included the use of immunohisto chemistry or special stains.Control Slides Examined: In-house known positive controls were evaluatedalong with the test tissue. These control slides run alongside of the patients sample show appropriate staining. Internal positive and negative controls when available are evaluated Immunohistochemistry technical testing was performed at [facility], Pathology Laboratory where it was developed [...] certified under the Clinical Laboratory Improvement Amendments tx3677 (CLIA-88) as qualified to perform high complexity clinical laboratory testing.[id number] 01:40:00 Test Item Value Reference Range Interpretation Comments APPEARANCE (test code = Hazy Clear A 3099321833) COLOR (test code = Delia Yellow A 4172927170) PH (test code = 4.8-8.0 3478636224) SP GRAVITY (test code = 1.003-1.030 H 0679905101) GLU U QUAL (test code = Normal Normal 5243207216) BLOOD (test code = Negative Negative 7631471327) KETONES (test code = 5 mg/dL Negative A 9262686945) PROTEIN (test code = 30 mg/dL Negative A 2887-8) UROBILIN (test code = 4.0 mg/dL Normal A 5207917566) BILIRUBIN (test code = 2 mg/dL Negative A 1119373625) NITRITE (test code = Negative Negative 0096534253) LEUK EDWARDO (test code = Negative Negative 9841397493) RBC/HPF (test code = See_Comment [Autom ated message] 7265849598) The system [employer] generated this result transmit rodney reference range : 0 - 3 HPF. The refe rence range was not u sed to interpret th is result as normal/abnormal . WBC/HPF (test code = See_Comment [Autom ated message] 8938460848) The system [employer] generated this result transmit rodney reference range : 0 - 5 HPF. The refe rence range was not u sed to interpret th is result as normal/abnormal . BACTERIA (test code = Few Negative A 8411252606) MUCOUS (test code = Marked Negative LPF A 6113728613) HYAL CAST (test code = See_Comment H [Aut omated message] 6630426461) The system [employer] generated this result transmit rodney reference range : <=2 LPF. The refere nce range was not u sed to interpret th is result as normal/abnormal . Lab Interpretation (test Abnormal code = 01667-0) [facility]. METABOLIC PANEL (51839)2019-12-21 01:11:00 Test Item Value Reference Range Interpretation Comments NA (test code = 139 mmol/L 135-145 3665283705) K (test code = 3.3 mmol/L 3.5-5 L 7975258130) CL (test code = 103 mmol/L 98-108 1792602708) CO2 TOTAL (test code = 26 mmol/L 23-31 0863889617) AGAP (test code = 2-16 2784145047) BUN (test code = 10 mg/dL 7-23 4939590321) GLUCOSE (test code = 133 mg/dL 70-110 H 3643643665) CREATININE (test code = 0.69 mg/dL 0.6-1.25 2241543201) TOTAL BILI (test code = 1.1 mg/dL 0.1-1.2 3522628501) CALCIUM (test code = 10.0 mg/dL 8.6-10.6 6644408850) T PROTEIN (test code = 8.4 g/dL 6.3-8.2 H 1349142884) ALBUMIN (test code = 4.9 g/dL 3.5-5 7830424968) ALK PHOS (test code = 101 U/L 34-122 5279477274) ALTv (test code = 24 U/L 5-50 1742-6) AST(SGOT) (test code = 31 U/L 13-40 1801828069) eGFR Calculation mL/min/1.73m2 (Non-) (test code = 1465442956) eGFR Calculation mL/min/1.73m2 () (test code = 6179384806) MICHAEL (test code = MICHAEL) Association of [...] tests). Lab Interpretation Abnormal (test code = 31977-2) [facility] 01:10[facility]00 Test Item Value Reference Range Interpretation Comments LIPASE (test code = 9212259174) 130 U/L 0-220 Lab Interpretation (test code = Normal 61437-3) [facility] WITH [id number] 00:59:00 Test Item Value Reference Range Interpretation [...] RDW-SD (test code = 41.1 fL 38.5-51.6 59173-1) RDW-CV (test code = 13.1 % 12.1-15.4 788-0) PLT (test code = See_Comment H [Automated 777-3) message] The sy stem which generated this result transmitted reference range : 150 - 328 10*3/ ?L. The reference r casa was not used to interpret this result as normal/abnormal . MPV (test code = 10.5 fL 9.8-13 79740-8) NRBC/100 WBC (test See_Comment [Automat ed code = 3352318009) message] The system which generated this result transmitted reference range : 0.0 - 10.0 /100 WBCs. The refer ence range was not u sed to interpret th is result as normal/abnormal . NRBC x10^3 (test code <0.01 See_Comment [Auto mated = 1625251847) message] The s ystem which generated this result transmitted reference range : 10*3/?L. The reference range was not used to interpret this result as normal/abnormal . GRAN MAT (NEUT) % 65.1 % (test code = 770-8) IMM GRAN % (test code 0.50 % = 7688963110) LYMPH % (test code = 24.3 % 736-9) MONO % (test code = 8.7 % 5905-5) EOS % (test code = 0.9 % 713-8) BASO % (test code = 0.5 % 706-2) GRAN MAT x10^3(ANC) 7.18 10*3/uL 1.99-6.95 H (test code = 6974482331) IMM GRAN x10^3 (test 0.05 10*3/uL 0-0.06 code = 9749416169) LYMPH x10^3 (test code 2.68 10*3/uL 1.09-3.23 = 731-0) MONO x10^3 (test code 0.96 10*3/uL 0.36-1.02 = 742-7) EOS x10^3 (test code = 0.10 10*3/uL 0.06-0.53 711-2) BASO x10^3 (test code 0.05 10*3/uL 0.01-0.09 = 704-7) Lab Interpretation Abnormal (test code = 41519-3) [facility] [id number] 17:52:00Surgical Pathology Report Case: [id number] Authorizing Provider: Alejandro Juan MD Collected: 03/11/2019 1421 Ordering Location: [facility] PERIOPERATIVE Received: 03/11/2019 1609 SERVICES Pathologist: Ed Fraser MD Specimen: Stomach STOMACH, PARTIAL/SLEEVE GASTRECTOMY- CHRONIC INACTIVE GASTRITIS,MINIMAL-MILD- INTESTINAL METAPLASIA OR MALIGNANCY NOT SEEN Signing Pathologist Direct Phone Line: [phone] signed by Ed Fraser MD on 03/27/2019 at 5:52 [id number] obesity A. Stomach tissue A. Received in formalin labeled "stomach" is a 25 x 6 x 2 cm partial gastrectomy. The specimen is opened to reveal a bhatia-brown mucosa with normal folds. Net Software Developer sections from the staple line are submitted in cassettes A1 and A2, and claims customer service representative section from the central mucosa are submitted in cassettes A3 and A4. TW/ew [facility], Department of Pathology, [address] [place] [address], [facility], [facility], [address] [place] [address], [facility], [facility] of [facility], [address] [place] [address], QYBO-GLUCOSE [id number] 13:26:00 Test Item Value Reference Range Interpretation Comments POC-GLUCOSE METER 108 mg/dL 70-110 TESTED AT [place] [address] (BEAKER) (test code = OMAR Best [place] 1538) [address] CBC W/PLT COUNT & AUTO [id number] 06:28:00 Test Item Value Reference Range Interpretation [...] (BEAKER) (test code = 2801) COMPREHENSIVE METABOLIC [id number] 06:27:00 Test Item Value Reference Range Interpretation [...] NOT APPLICABLE FOR DIALYSIS PATIEN TS. POCT-GLUCOSE [id number] 00:04:00 Test Item Value Reference Range Interpretation Comments POC-GLUCOSE METER 123 mg/dL 70-110 H TESTED AT [facility] 6720 (BEAKER) (test code = [facility] 1538) [address] POCT-GLUCOSE [id number] 15:27:00 Test Item Value Reference Range Interpretation Comments POC-GLUCOSE METER 126 mg/dL 70-110 H TESTED AT [place] [address] (BEAKER) (test code = [facility] 1538) [address] POCT-GLUCOSE [id number] 11:57:00 Test Item Value Reference Range Interpretation Comments POC-GLUCOSE METER 77 mg/dL 70-110 TESTED AT [place] [address] (BEAKER) (test code = [facility] [address] 1538) [id number] 14:18:00 Test Item Value Reference Range Interpretation Comments SODIUM (BEAKER) (test code = 381) 140 meq/L 136-145 POTASSIUM (BEAKER) (test code = 4.1 meq/L 3.5-5.1 379) CHLORIDE (BEAKER) (test code = 382) 103 meq/L 98-107 CO2 (BEAKER) (test code = 355) 26 meq/L 22-29 BUN AND [id number] 14:18:00 Test Item Value Reference Range Interpretation Comments BLOOD UREA NITROGEN 8 mg/dL 7-21 (BEAKER) (test code = 354) CREATININE (BEAKER) 0.84 mg/dL 0.57-1.25 (test code = 358) EGFR (BEAKER) (test 113 mL/min/1.73 ESTIM ATED GFR IS code = 1092) sq m NOT ACCURATE CREATININE CLEARANCE IN PREDICTING GLOMERULAR FILTRATION RATE . ESTIMATED GFR I S NOT APPLICABLE FOR DIALYSIS PATIEN TS. [id number] 14:03:00 Test Item Value Reference Range Interpretation Comments HEMOGLOBIN (BEAKER) (test code = 15.3 GM/DL 13.7-17.5 410) PLATELET [id number] 14:03:00 Test Item Value Reference Range Interpretation Comments PLATELET COUNT (BEAKER) (test 390 K/CU MM 150-450 code = 756) TISSUE [id number] 23:23:00Surgical Pathology Report Case: [id number] Authorizing Provider: Alejandro Juan MD Collected: 12/06/2018 1516 Ordering Location: [facility] Endoscopy Received: 12/09/2018 0809 Services Pathologist: Ed Fraser MD Specimens: A) - Stomach, stomach biopsy B) - Biopsy, Esophagus, esophagus biopsy , 40 cm R/O virus esophagitis A. STOMACH, BIOPSY- CHRONIC INACTIVE GASTRITIS, MILD- NO INTESTINAL METAPLASIA, DYSPLASIA OR INVASIVE CARCINOMA IDENTIIFIED- HELICOBACTER PYLORI LIKE ORGANISMS IDENTIFIEDON WARTHIN STARRY STAINB. ESOPHAGUS, 40 CM , BIOPSY- REACTIVE CHANGES- NO ULCERATION, INFLAMMATION OR VIRAL CYTOPATHIC CHANGES SEEN Signing Pathologist Direct Phone Line: [phone] signed by Ed Fraser MD on 12/12/2018 at 11:23 [id number] X [id number], [id number]. Stomach biopsy. B. Esophagus biopsy, 40 cm, [...] B1. CG/ew Performed.The interpretation of this case includedthe use of immunohistochemistry or special stains.Control Slides Examined: In-house known positive controls were evaluated along with the test tissue. These control slides run alongside of the patients sample show appropriate staining. Internal positive and negative controls when available are evaluated Immunohistochemistry technical testing was performed at [facility], Pathology Laboratory where it was developed [...] qualified to perform high complexity clinical laboratory brendan ting.ANTI-NUCLEAR ANTIBODY (CAYETANO)2018-07-18 10:36:00 Test Item Value Reference Range Interpretation Comments ANTI-NUCLEAR ANTIBODY (CAYETANO) (BEAKER) Negative Negative (test code = 418) Test performed by IFA method.Test performed by IFA method.HEPATITIS B SURFACE [id number] 19:57:00 Test Item Value Reference Range Interpretation Comments HEPATITIS B SURFACE ANTIBODY < mIU/mL <8.0 (BEAKER) (test code = 647) HEPATITIS A ANTIBODY, [id number] 19:57:00 Test Item Value Reference Range Interpretation Comments HEPATITIS A IGG ANTIBODY (BEAKER) Reactive Nonreactive A (test code = 2797) HEPATITIS B SURFACE [id number] 19:48:00 Test Item Value Reference Range Interpretation Comments HEPATITIS B SURFACE ANTIGEN (2) Nonreactive Nonreactive (BEAKER) (test code = 2585) HEPATITIS B CORE ANTIBODY, [id number] 19:48:00 Test Item Value Reference Range Interpretation Comments HEPATITIS B CORE TOTAL ANTIBODY Nonreactive Nonreactive (BEAKER) (test code = 497) HEPATITIS C [id number] 19:40:00 Test Item Value Reference Range Interpretation [...] % 20-55 L (test code = 2590) [id number] 19:08:00 Test Item Value Reference Range Interpretation Comments ALPHA-1 ANTITRYPSIN (BEAKER) 167.90 mg/dL 90.00-200.00 (test code = 502) [id number] 17:52:00 Test Item Value Reference Range Interpretation Comments FERRITIN (BEAKER) (test code = 361) 83 ng/mL 5-275 GAMMA GLUTAMYL TRANSFERASE (GGT)2018-07-17 17:33:00 Test Item Value Reference Range Interpretation Comments GAMMA GLUTAMYL TRANSFERASE (BEAKER) 89 U/L 9-64 H (test code = 364) BILIRUBIN, [id number] 17:33:00 Test Item Value Reference Range Interpretation Comments BILIRUBIN DIRECT (BEAKER) (test 0.1 mg/dL 0.1-0.5 code = 706) COMPREHENSIVE METABOLIC [id number] 17:33:00 Test Item Value Reference Range Interpretation [...] NOT APPLICABLE FOR DIALYSIS PATIEN TS. PROTHROMBIN [id number] 17:28:00 Test Item Value Reference Range Interpretation Comments PROTIME (BEAKER) (test code = 12.4 seconds 11.7-14.7 759) INR (BEAKER) (test code = 370) 0.9 <=5.9 RECOMMENDED COUMADIN/WARFARIN INR THERAPY RANGESSTANDARD DOSE: 2.0 - 3.0 Includes: PROPHYLAXIS for venous thrombosis, systemic embolization; TREATMENT for venous thrombosis and/or pulmonary embolus.HIGH RISK: Target INR is 2.5-3.5 for patients with mechanical heart valves.CBC W/PLT COUNT & AUTO [id number] 17:18:00 Test Item Value Reference Range Interpretation [...] (BEAKER) (test code = 2801) Valproic Acid (Depakote),[id number] 08:35:00 Test Item Value Reference Range Interpretation Comments Valproic Acid (test code = VALP) 89.2 ug/mL 50.0-100.0 N RPR, [id number] 11:42:00 Test Item Value Reference Range Interpretation Comments RPR (test code = RPR) Non-Reactive Non-Reactive N Thyroid Stimulating Hormone (TSH)2017-03-11 07:32:00 Test Item Value Reference Range Interpretation Comments TSH (test code = TSH) 1.54 mIU/mL 0.270-4.200 N Lipid [id number] 07:24:00 Test Item Value Reference Range Interpretation Comments Cholesterol (test 131 mg/dL 0-200 N code = CHOL) Triglycerides (test 167 mg/dL 9-200 N code = TRIG) HDL (test code = 32 mg/dL 40-60 L HDL) Chol/HDL (test code 4.1 Ratio 0.0-5.0 N = CHOLPHDL) LDL, Calculated 66 0-130 N (NOTE)RISK O F HEART (test code = LDLC) DISEASEPu blished by [place] Heart AssociationAnal yte Optimal Boderli ne Increased RiskC HOL <200 200-239 >240TR IG <150 150-199 >200HDL Male: >60 <40HDL Fema le: >60 <50LDL <100 130 -159 >160LDL NEAR OP TIMAL IS 100-129 VLDL (test code = 33 mg/dL 5-40 N VLDL) LDL/HDL (test code = 2 LDLPHDL) Valproic Acid (Depakote),[id number] 06:55:00 Test Item Value Reference Range Interpretation Comments Valproic Acid (test code = VALP) 16.6 ug/mL 50.0-100.0 L [id number] 17:49:00 Test Item Value Reference Range Interpretation [...] code = THC) Negative Negative N Urinalysis [id number] 17:45:00 Test Item Value Reference Range Interpretation Comments Color (test code = Yellow Yellow,Straw,Pl N COLOR) yellow Clarity (test code = Clear Clear N CLAR) Specific [place] (test 1.030 1.001-1.035 N code = SPGR) [...] code = None /HPF BACT) Comprehensive Metabolic [id number] 16:11:00 Test Item Value Reference Range Interpretation [...] [employer],[email or web address] :[email or web address] [email or web address] CBC with [id number] 15:56:00 Test Item Value Reference Range Interpretation [...] code = ALYMPH) 2.7 K/cumm 0.5-4.6 N [place] Abs (test code = AMONO) 0.3 K/cumm 0.0-1.2 N Eos Abs (test code = AEOS) 0.29 K/cumm 0.00-0.74 N Baso Abs (test code = ABASO) 0.1 K/cumm 0.00-0.21 N BLOOD [id number] 00:00:00 Test Item Value Reference Range Interpretation Comments CULTURE (BEAKER) (test No growth in 5 days code = 1095) BLOOD [id number] 00:00:00 Test Item Value Reference Range Interpretation Comments CULTURE (BEAKER) (test No growth in 5 days code = 1095) POCT-GLUCOSE [id number] 12:31:00 Test Item Value Reference Range Interpretation Comments POC-GLUCOSE METER 110 mg/dL 70-110 TESTED AT [place] [address] ([facility]) (test code = [facility] 1538) [address] POCT-GLUCOSE [id number] 05:38:00 Test Item Value Reference Range Interpretation Comments POC-GLUCOSE METER 90 mg/dL 70-110 TESTED AT [place] [address] ([facility]) (test code = [facility] [address] 1538) CBC W/PLT COUNT & AUTO [id number] 05:27:00 Test Item Value Reference Range Interpretation Comments WHITE BLOOD CELL COUNT (AKER) 12.0 K/ L 3.5-10.5 H (test code = 775) RED BLOOD CELL COUNT (AKER) 4.14 M/ L 4.63-6.08 L (test code = 761) HEMOGLOBIN (BEAKER) (test code = 12.1 GM/DL 13.7-17.5 L 410) HEMATOCRIT (AKER) (test code = 36.7 % 40.1-51.0 L 411) MEAN CORPUSCULAR VOLUME (AKER) 88.6 fL 79.0-92.2 (test code = 753) [...] (BEAKER) (test code = 2801) COMPREHENSIVE METABOLIC [id number] 05:14:00 Test Item Value Reference Range Interpretation [...] NOT APPLICABLE FOR DIALYSIS PATIEN TS. POCT-GLUCOSE [id number] 23:41:00 Test Item Value Reference Range Interpretation Comments POC-GLUCOSE METER 93 mg/dL 70-110 TESTED AT [facility] 6720 (BEAKER) (test code = [facility] [address] 1538) URINALYSIS W/ [id number] 22:47:00 Test Item Value Reference Range Interpretation [...] 517) SOURCE(BEAKER) (test code = Urine, Voided 3065) POCT-GLUCOSE [id number] 18:04:00 Test Item Value Reference Range Interpretation Comments POC-GLUCOSE METER 133 mg/dL 70-110 H TESTED AT [place] [address] (BEAKER) (test code = [facility] 1538) [address] POCT-GLUCOSE [id number] 12:19:00 Test Item Value Reference Range Interpretation Comments POC-GLUCOSE METER 92 mg/dL 70-110 TESTED AT [place] [address] ([facility]) (test code = [facility] [address] 1538) POCT-GLUCOSE [id number] 04:45:00 Test Item Value Reference Range Interpretation Comments POC-GLUCOSE METER 103 mg/dL 70-110 TESTED AT [place] [address] ([facility]) (test code = [facility] 1538) [address] HEPATIC FUNCTION [id number] 02:46:00 Test Item Value Reference Range Interpretation [...] 134 U/L 6-55 H 347) BASIC METABOLIC [id number] 02:46:00 Test Item Value Reference Range Interpretation [...] PATIEN TS. CBC W/PLT COUNT & AUTO [id number] 02:31:00 Test Item Value Reference Range Interpretation [...] 20-55 L (test code = 2590) POCT-GLUCOSE [id number] 17:36:00 Test Item Value Reference Range Interpretation Comments POC-GLUCOSE METER 102 mg/dL 70-110 TESTED AT [place] [address] ([facility]) (test code = [facility] 1538) [address] POCT-GLUCOSE [id number] 11:55:00 Test Item Value Reference Range Interpretation Comments POC-GLUCOSE METER 99 mg/dL 70-110 TESTED AT [place] [address] ([facility]) (test code = [facility] [address] 1538) CBC W/PLT COUNT & AUTO [id number] 04:56:00 Test Item Value Reference Range Interpretation [...] (BEAKER) (test code = 2801) BASIC METABOLIC [id number] 04:34:00 Test Item Value Reference Range Interpretation [...] NOT APPLICABLE FOR DIALYSIS PATIEN TS. POCT-GLUCOSE [id number] 00:52:00 Test Item Value Reference Range Interpretation Comments POC-GLUCOSE METER 96 mg/dL 70-110 TESTED AT [place] [address] ([facility]) (test code = [place] [address] 1538) HEPATIC FUNCTION [id number] 12:36:00 Test Item Value Reference Range Interpretation [...] = 122 U/L 6-55 H 347) POCT-GLUCOSE [id number] 11:28:00 Test Item Value Reference Range Interpretation Comments POC-GLUCOSE METER 93 mg/dL 70-110 TESTED AT [facility] 6720 (BEAKER) (test code = [place] [address] 1538) BASIC METABOLIC [id number] 04:43:00 Test Item Value Reference Range Interpretation [...] PATIEN TS. CBC W/PLT COUNT & AUTO [id number] 04:20:00 Test Item Value Reference Range Interpretation [...] 0-1 H PERCENT (BEAKER) (test code = 2805) POCT-GLUCOSE [id number] 12:56:00 Test Item Value Reference Range Interpretation Comments POC-GLUCOSE METER 82 mg/dL 70-110 TESTED AT [facility] 6720 (BEAKER) (test code = [facility] [address] 1538) PHENYTOIN LEVEL, [id number] 09:42:00 Test Item Value Reference Range Interpretation Comments PHENYTOIN (DILANTIN) (BEAKER) (test 0.9 ug/mL 10.0-20.0 L code = 605) Before AM doseBASIC METABOLIC [id number] 08:13:00 Test Item Value Reference Range Interpretation [...] NOT APPLICABLE FOR DIALYSIS PATIEN TS. POCT-GLUCOSE [id number] 07:42:00 Test Item Value Reference Range Interpretation Comments POC-GLUCOSE METER 103 mg/dL 70-110 TESTED AT [facility] 6720 ([facility]) (test code = [place] 1538) [address] CBC W/PLT COUNT & AUTO [id number] 07:08:00 Test Item Value Reference Range Interpretation [...] L 0.00-0.20 (test code = 417) 0.00POCT-GLUCOSE [id number] 06:08:00 Test Item Value Reference Range Interpretation Comments POC-GLUCOSE METER 100 mg/dL 70-110 TESTED AT [place] [address] ([facility]) (test code = [facility] 1538) [address] POCT-GLUCOSE [id number] 17:07:00 Test Item Value Reference Range Interpretation Comments POC-GLUCOSE METER 85 mg/dL 70-110 TESTED AT [place] [address] ([facility]) (test code = [facility] [address] 1538) POCT-GLUCOSE [id number] 12:52:00 Test Item Value Reference Range Interpretation Comments POC-GLUCOSE METER 88 mg/dL 70-110 TESTED AT [place] [address] ([facility]) (test code = [facility] [address] 1538) CBC W/PLT COUNT & AUTO [id number] 06:07:00 Test Item Value Reference Range Interpretation [...] 0.00-0.20 (test code = 417) 0.00BASI METABOLIC [id number] 06:02:00 Test Item Value Reference Range Interpretation [...] NOT APPLICABLE FOR DIALYSIS PATIEN TS. POCT-GLUCOSE [id number] 16:11:00 Test Item Value Reference Range Interpretation Comments POC-GLUCOSE METER 90 mg/dL 70-110 TESTED AT [facility] 6720 (BEAKER) (test code = [facility] [address] 1538) COMPREHENSIVE METABOLIC [id number] 07:05:00 Test Item Value Reference Range Interpretation [...] APPLICABLE FOR DIALYSIS PATIEN TS. BASIC METABOLIC [id number] 07:05:00 Test Item Value Reference Range Interpretation [...] DIALYSIS PATIEN TS. LACTIC ACID, VENOUS, WHOLE [id number] 06:38:00 Test Item Value Reference Range Interpretation Comments LACTATE BLOOD VENOUS 0.5 mmol/L 0.5-2.2 Specime n slightly (2) (BEAKER) (test hemolyzed code = 4422) Effective 10/27/2015: Units/Reference Range ChangeNew: 0.5-2.2 mmol/L Previous: 5- 20 mg/dLCBC W/PLT COUNT & AUTO [id number] 06:09:00 Test Item Value Reference Range Interpretation [...] L 0.00-0.20 (test code = 417) 0.00POCT-GLUCOSE [id number] 05:50:00 Test Item Value Reference Range Interpretation Comments POC-GLUCOSE METER 97 mg/dL 70-110 TESTED AT [place] [address] (BEAKER) (test code = [facility] [address] 1538) POCT-GLUCOSE [id number] 23:48:00 Test Item Value Reference Range Interpretation Comments POC-GLUCOSE METER 92 mg/dL 70-110 TESTED AT [place] [address] (BEAKER) (test code = [facility] [address] 1538) POCT-GLUCOSE [id number] 19:10:00 Test Item Value Reference Range Interpretation Comments POC-GLUCOSE METER 115 mg/dL 70-110 H TESTED AT [place] [address] (BEAKER) (test code = [facility] 1538) [address] BLOOD GAS, [id number] 14:23:00 Test Item Value Reference Range Interpretation [...] (test code = 1819) 21.0 % POCT-GLUCOSE [id number] 12:36:00 Test Item Value Reference Range Interpretation Comments POC-GLUCOSE METER 95 mg/dL 70-110 TESTED AT [place] [address] (BEAKER) (test code = [facility] [address] 1538) [id number] 07:04:00 Test Item Value Reference Range Interpretation Comments MAGNESIUM (BEAKER) (test code = 2.0 mg/dL 1.6-2.6 627) BASIC METABOLIC [id number] 07:04:00 Test Item Value Reference Range Interpretation [...] PATIEN TS. CBC W/PLT COUNT & AUTO [id number] 06:33:00 Test Item Value Reference Range Interpretation [...] L 0.00-0.20 (test code = 417) 0.00POCT-GLUCOSE [id number] 05:58:00 Test Item Value Reference Range Interpretation Comments POC-GLUCOSE METER 97 mg/dL 70-110 TESTED AT [place] [address] ([facility]) (test code = [facility] [address] 1538) POCT-GLUCOSE [id number] 23:35:00 Test Item Value Reference Range Interpretation Comments POC-GLUCOSE METER 100 mg/dL 70-110 TESTED AT [place] [address] ([facility]) (test code = [facility] 1538) [address] [id number] 18:22:00 Test Item Value Reference Range Interpretation Comments LIPASE (BEAKER) (test code = 749) 23 U/L 8-78 [id number] 18:22:00 Test Item Value Reference Range Interpretation Comments AMYLASE (BEAKER) (test code = 349) 40 U/L 25-125 COMPREHENSIVE METABOLIC [id number] 18:22:00 Test Item Value Reference Range Interpretation [...] NOT APPLICABLE FOR DIALYSIS PATIEN TS. POCT-GLUCOSE [id number] 17:57:00 Test Item Value Reference Range Interpretation Comments POC-GLUCOSE METER 106 mg/dL 70-110 TESTED AT [facility] 6720 ([facility]) (test code = [facility] 1538) [address] POCT-GLUCOSE [id number] 11:39:00 Test Item Value Reference Range Interpretation Comments POC-GLUCOSE METER 108 mg/dL 70-110 TESTED AT [place] [address] ([facility]) (test code = [facility] 1538) [address] BASIC METABOLIC [id number] 07:13:00 Test Item Value Reference Range Interpretation [...] PATIEN TS. CBC W/PLT COUNT & AUTO [id number] 06:50:00 Test Item Value Reference Range Interpretation [...] (test code = 414) MONOCYTES ABSOLUTE COUNT ([facility]) 1.60 K/ L 0.00-1.30 H (test code = 415) EOSINOPHILS ABSOLUTE COUNT 0.13 K/ L 0.00-0.50 ([facility]) (test code = 416) BASOPHILS ABSOLUTE COUNT ([facility]) 0.08 K/ L 0.00-0.20 (test code = 417) 0.00POCT-GLUCOSE [id number] 06:26:00 Test Item Value Reference Range Interpretation Comments POC-GLUCOSE METER 116 mg/dL 70-110 H TESTED AT [place] [address] ([facility]) (test code = [facility] 1538) [address] POCT-GLUCOSE [id number] 00:20:00 Test Item Value Reference Range Interpretation Comments POC-GLUCOSE METER 115 mg/dL 70-110 H TESTED AT [place] [address] ([facility]) (test code = [facility] 1538) [address] POCT-GLUCOSE [id number] 18:17:00 Test Item Value Reference Range Interpretation Comments POC-GLUCOSE METER 96 mg/dL 70-110 TESTED AT [place] [address] ([facility]) (test code = [facility] [address] 1538) POCT-GLUCOSE [id number] 11:23:00 Test Item Value Reference Range Interpretation Comments POC-GLUCOSE METER 129 mg/dL 70-110 H TESTED AT [place] [address] ([facility]) (test code = [facility] 1538) [address] CBC W/PLT COUNT & AUTO [id number] 09:58:00 Test Item Value Reference Range Interpretation [...] (BEAKER) (test code = Normal 762) POCT-GLUCOSE [id number] 05:39:00 Test Item Value Reference Range Interpretation Comments POC-GLUCOSE METER 104 mg/dL 70-110 TESTED AT [place] [address] ([facility]) (test code = [facility] 1538) [address] BASIC METABOLIC [id number] 05:35:00 Test Item Value Reference Range Interpretation [...] NOT APPLICABLE FOR DIALYSIS PATIEN TS. POCT-GLUCOSE [id number] 01:30:00 Test Item Value Reference Range Interpretation Comments POC-GLUCOSE METER 97 mg/dL 70-110 TESTED AT [place] [address] ([facility]) (test code = [facility] [address] 1538) POCT-GLUCOSE [id number] 20:48:00 Test Item Value Reference Range Interpretation Comments POC-GLUCOSE METER 96 mg/dL 70-110 TESTED AT [place] [address] ([facility]) (test code = [facility] [address] 1538) RAPID DRUG SCREEN, [id number] 19:48:00 Test Item Value Reference Range Interpretation [...] situations. Chain of custody not maintained. Some yeai-nqe-rdktpgf medications, as well as adulterants, may cause inaccurate results. Clinical correlation should be applied. A more comprehensive drug screen or confirmation of a detected drug may be performed upon request. [id number] 19:31:00 Test Item Value Reference Range Interpretation Comments MAGNESIUM (BEAKER) (test code = 1.7 mg/dL 1.6-2.6 627) POCT-GLUCOSE [id number] 18:19:00 Test Item Value Reference Range Interpretation Comments POC-GLUCOSE METER 101 mg/dL 70-110 TESTED AT [facility] 6720 (BEAKER) (test code = [facility] 1538) [address] BASIC METABOLIC [id number] 16:57:00 Test Item Value Reference Range Interpretation [...] PATIEN TS. CBC W/PLT COUNT & AUTO [id number] 15:27:00 Test Item Value Reference Range Interpretation [...] (test code = 1+ few 966) POCT-GLUCOSE [id number] 12:18:00 Test Item Value Reference Range Interpretation Comments POC-GLUCOSE METER 90 mg/dL 70-110 TESTED AT [facility] 6720 (BEAKER) (test code = [place] [address] 1538) URINALYSIS W/ [id number] 10:54:00 Test Item Value Reference Range Interpretation [...] 1574) SOURCE(BEAKER) (test code = Urine, Green 5266) POCT-GLUCOSE [id number] 06:40:00 Test Item Value Reference Range Interpretation Comments POC-GLUCOSE METER 87 mg/dL 70-110 TESTED AT [place] [address] (BEAKER) (test code = [place] [address] 1538) BASIC METABOLIC [id number] 04:57:00 Test Item Value Reference Range Interpretation [...] NOT APPLICABLE FOR DIALYSIS PATIEN TS. POCT-GLUCOSE [id number] 00:47:00 Test Item Value Reference Range Interpretation Comments POC-GLUCOSE METER 79 mg/dL 70-110 TESTED AT [place] [address] (BEAKER) (test code = [place] [address] 1538) POCT-GLUCOSE [id number] 20:40:00 Test Item Value Reference Range Interpretation Comments POC-GLUCOSE METER 91 mg/dL 70-110 TESTED AT [place] [address] ([facility]) (test code = [place] [address] 1538) POCT-GLUCOSE [id number] 18:31:00 Test Item Value Reference Range Interpretation Comments POC-GLUCOSE METER 70 mg/dL 70-110 TESTED AT [place] [address] (BEAKER) (test code = [facility] [address] 1538) POCT-GLUCOSE [id number] 12:56:00 Test Item Value Reference Range Interpretation Comments POC-GLUCOSE METER 90 mg/dL 70-110 TESTED AT [place] [address] ([facility]) (test code = [facility] [address] 1538) CREATINE KINASE (CK), TOTAL AND [id number] 07:42:00 Test Item Value Reference Range Interpretation [...] 0.0-4.9CK-MB Reference Range:<6.7 Normal6.7-10.0 Borderline>10.0 Abnormal TROPONIN [id number] 07:42:00 Test Item Value Reference Range Interpretation [...] acidosis, acute neurological disease, and persistent tachyarrhythmia.POCT-GLUCOSE [id number] 06:12:00 Test Item Value Reference Range Interpretation Comments POC-GLUCOSE METER 75 mg/dL 70-110 TESTED AT [place] [address] ([facility]) (test code = [facility] [address] 1538) CBC W/PLT COUNT & AUTO [id number] 06:01:00 Test Item Value Reference Range Interpretation [...] K/ L 0.00-0.20 (test code = 417) [id number] 05:37:00 Test Item Value Reference Range Interpretation Comments TRIGLYCERIDES (BEAKER) 342 mg/dL Speci men slightly (test code = 540) hemolyzed TRIGLYCERIDE REFERENCE RANGELow Risk <150Borderline Risk 150-199High Risk 200-499Very High Risk >=500HEPATIC FUNCTION [id number] 05:37:00 Test Item Value Reference Range Interpretation [...] (test code = 347) hemolyzed BASIC METABOLIC [id number] 05:37:00 Test Item Value Reference Range Interpretation [...] TO CALCULA TE ESTIMATED GFR. BLOOD GAS, [id number] 05:18:00 Test Item Value Reference Range Interpretation [...] (test code = 1819) 30.0 % POCT-GLUCOSE [id number] 01:40:00 Test Item Value Reference Range Interpretation Comments POC-GLUCOSE METER 78 mg/dL 70-110 TESTED AT [facility] 6720 (BEAKER) (test code = [facility] [address] 1538) [id number] 22:09:00 Test Item Value Reference Range Interpretation Comments TRIGLYCERIDES (BEAKER) 1695 mg/dL Speci men moderately (test code = 540) hemolyzed TRIGLYCERIDE REFERENCE RANGELow Risk <150Borderline Risk 150-199High Risk 200-499Very High Risk >=500Specimen markedly lipemicLACTIC ACID, VENOUS, WHOLE [id number] 21:54:00 Test Item Value Reference Range Interpretation Comments LACTATE BLOOD VENOUS 0.4 mmol/L 0.5-2.2 L Specime n slightly (2) (BEAKER) (test hemolyzed code = 2872) Effective 10/27/2015: Units/Reference Range ChangeNew: 0.5-2.2 mmol/L Previous: 5- 20 mg/dLSpecimen markedly lipemicLIPID [id number] 19:05:00 Test Item Value Reference Range Interpretation Comments TRIGLYCERIDES (BEAKER) (test code = 343 mg/dL 540) CHOLESTEROL (BEAKER) (test code = 168 mg/dL 631) HDL CHOLESTEROL (BEAKER) (test code 28 mg/dL = 976) LDL CHOLESTEROL CALCULATED (BEAKER) 71 mg/dL (test code = 633) Triglyceride Reference Range: Low Risk <150 Borderline 150-199 High Risk 200-499 Very High Risk >=500Cholesterol Reference Range: Low Risk <200 Borderline 200-239 High Risk >240HDL Cholesterol Reference Range: Low Risk >=60 High Risk <40LDL Cholesterol Reference Range: Optimal <100 Near Optimal 100-129 Borderline 130-159 High 160-189 Very High >=190CREATINE KINASE (CK)2017-01-07 19:05:00 Test Item Value Reference Range Interpretation Comments CREATINE KINASE TOTAL (BEAKER) (test 568 U/L 29-200 H code = 380) POCT-GLUCOSE [id number] 18:33:00 Test Item Value Reference Range Interpretation Comments POC-GLUCOSE METER 80 mg/dL 70-110 TESTED AT [place] [address] ([facility]) (test code = [facility] [address] 1538) POCT-GLUCOSE [id number] 12:31:00 Test Item Value Reference Range Interpretation Comments POC-GLUCOSE METER 81 mg/dL 70-110 TESTED AT [place] [address] ([facility]) (test code = [facility] [address] 1538) BASIC METABOLIC [id number] 05:30:00 Test Item Value Reference Range Interpretation [...] TO CALCULA TE ESTIMATED GFR. BLOOD GAS, [id number] 05:28:00 Test Item Value Reference Range Interpretation [...] 30.0 % CBC W/PLT COUNT & AUTO [id number] 04:49:00 Test Item Value Reference Range Interpretation [...] 0.00-0.20 (test code = 417) 0.00BASIC METABOLIC [id number] 05:13:00 Test Item Value Reference Range Interpretation [...] ESTIMATED GFR. CBC W/PLT COUNT & AUTO [id number] 03:47:00 Test Item Value Reference Range Interpretation [...] K/ L 0.00-0.20 (test code = 417) [id number] 05:13:00 Test Item Value Reference Range Interpretation Comments ETHANOL (BEAKER) (test code = 400) < mg/dL <=10 BASIC METABOLIC [id number] 04:59:00 Test Item Value Reference Range Interpretation [...] = 380) CBC W/PLT COUNT & AUTO [id number] 04:57:00 Test Item Value Reference Range Interpretation [...] 0.00-0.20 (test code = 417) 0.00PHENYTOIN LEVEL, [id number] 00:04:00 Test Item Value Reference Range Interpretation Comments PHENYTOIN (DILANTIN) (BEAKER) (test 7.3 ug/mL 10.0-20.0 L code = 605) TROPONIN [id number] 00:04:00 Test Item Value Reference Range Interpretation [...] acute neurological disease, and persistent tachyarrhythmia.URINALYSIS W/ [id number] 00:00:00 Test Item Value Reference Range Interpretation [...] code = 1583) SOURCE(BEAKER) (test code = 7900) COMPREHENSIVE METABOLIC [id number] 00:00:00 Test Item Value Reference Range Interpretation [...] T O CALCULATE ESTIM ATED GFR. PROTHROMBIN [id number] 23:48:00 Test Item Value Reference Range Interpretation Comments PROTIME (BEAKER) (test code = 13.6 seconds 11.7-14.7 759) INR (BEAKER) (test code = 370) 1.1 <=5.9 RECOMMENDED COUMADIN/WARFARIN INR THERAPY RANGESSTANDARD DOSE: 2.0 - 3.0 Includes: PROPHYLAXIS for venous thrombosis, systemic embolization; TREATMENT for venous thrombosis and/or pulmonary embolus.HIGH RISK: Target INR is 2.5-3.5 for patients with mechanical heart valves.[id number] 23:48:00 Test Item Value Reference Range Interpretation Comments PARTIAL THROMBOPLASTIN TIME 24.1 seconds 22.5-36.0 (BEAKER) (test code = 760) BLOOD GAS, [id number] 23:47:00 Test Item Value Reference Range Interpretation [...] (test code = 1819) 30.0 % PLATELET [id number] 23:39:00 Test Item Value Reference Range Interpretation Comments PLATELET COUNT (BEAKER) (test 236 K/CU MM 150-430 code = 756) POC, COVID 19 Antigen + Flu by SofiaPOC, COVID 19 Antigen + Flu by Patricai
--- NOTE | 2023-05-14 09:37 | EDPHYS ---
Physician Documentation [facility] Name: Jose Pabon Age: 28 yrs Sex: Male : 1995 Arrival Date: 05/14/2023 Time: 09:25 Bed IW1 Private MD: ED Physician Darrius Gonzalez HPI: 05/14 09:29 This 28 yrs old Male presents to ER via Unassigned with complaints of Staple jh7 Removal. 09:29 The patient has satya on the head. Previous treatment: the care was rendered at [address], Treatment type: The patient's original treatment included satya. Sutures/satya progress: The patient has no c/o's. The wound is well-healing with no redness, swelling, discharge, or dehiscence reported. ROS: 09:29 Constitutional: Negative for fever, chills, and weight loss, Cardiovascular: Negative [facility] for chest pain, palpitations, and edema, Respiratory: Negative for shortness of breath, cough, wheezing, and pleuritic chest pain, MS/Extremity: Negative for injury and deformity, Neuro: Negative for headache, weakness, numbness, tingling, and seizure, 09:29 Skin: Positive for satya in place from previous laceration, 09:29 All other systems are negative, Exam: 09:29 Constitutional: This is a well developed, well nourished patient who is awake, alert, [facility] and in no acute distress. Head/Face: Normocephalic, atraumatic. Cardiovascular: Regular rate and rhythm with a normal S1 and S2. No gallops, murmurs, or rubs. Normal PMI, no JVD. No pulse deficits. Respiratory: Lungs have equal breath sounds bilaterally, clear to auscultation and percussion. No rales, rhonchi or wheezes noted. No increased work of breathing, no retractions or nasal flaring. MS/ Extremity: Pulses equal, no cyanosis. Neurovascular intact. Full, normal range of motion. Neuro: Awake and alert, GCS 15, oriented to person, place, time, and situation. Normal gait. 09:29 Skin: Wound recheck: Staple laceration closure: the edges are well approximated, no evidence of dehiscence, no drainage, no erythema, no swelling, Procedures: 09:29 Suture/Staple removal: Removed 3 satya, from frontal scalp, site appears well healed, [facility] Patient tolerated well. MDM: 09:29 Patient medically screened. [facility] 09:35 Data reviewed: vital signs, nurses notes. Counseling: I had a detailed discussion with [facility] the patient and/or guardian regarding the historical points, exam findings, and any diagnostic results supporting the discharge/admit diagnosis, to return to the emergency department if symptoms worsen or persist or if there are any questions or concerns that arise at home. Response to treatment: the patient's symptoms have resolved after treatment, satya removed. Administered Medications: No medications were administered Disposition Summary: 05/14/23 09:36 Discharge Ordered Notes: Location: Home [facility] Problem: new [facility] Symptoms: are resolved [facility] Condition: Stable [facility] Diagnosis - Encounter for Removal of Juda [facility] Followup: [facility] - With: Private Physician - When: As needed - Reason: Discharge Instructions: - Discharge Summary Sheet [facility] Forms: - Medication Reconciliation Form [facility] - Thank You Letter [facility] - Patient Portal Instructions [facility] - Leadership Thank You Letter [facility] Signatures: Sri Cisneros FNP FNP [facility]
--- NOTE | 2023-05-14 09:45 | ER ---
Nurse's Notes [facility] Name: Jose Pabon Age: 28 yrs Sex: Male : 1995 Arrival Date: 05/14/2023 Time: 09:25 Bed IW1 Private MD: Diagnosis: Encounter for Removal of [place] Presentation: 05/14 09:44 Acuity: ROBY 5 iw ED Course: 09:29 Patient arrived in ED. mg5 09:29 [facility]. jh7 09:29 Darrius Gonzalez MD is Attending Physician. jh7 09:39 Lizeth Wiggins RN is Primary Nurse. iw 09:44 Triage completed. iw Administered Medications: No medications were administered Outcome: 09:36 Discharge ordered by . jh7 09:44 Patient left the ED. iw Signatures: Lizeth Wiggins RN RN Sri Cisneros FNP FNP [facility] er Amy Plasencia mg5
== END 2023-05-14 09:44 | disposition home or self-care (01) ==
LOC: ER 09:25
DX: Z48.02 Encounter for removal of sutures (principal)

== ENCOUNTER 2023-09-11 08:15 | Inpatient (IN) | payer OTHER ==
[2023-09-11] MEDS ORDERED: ONDANSETRON 4 MG/2 ML VIAL ONE (09:02)
[2023-09-11] MEDS ORDERED: NA CHLORIDE 0.9% 1,000 ML ONE ×2 (09:03→10:59)
[2023-09-11 09:13] LABS: Absolute Lymphocytes (CBC) 0.5 K/uL (0.7-4.9); Absolute Monocytes 0.5 K/uL (0.1-1.3); Absolute Neutrophil 16.8 K/uL (1.8-8.0); Basophils % 0.2 % (0-1.3); Eosinophils % 0.1 % (0-4.4); Hematocrit 43.5 % (39.6-49.0); Hemoglobin 14.5 g/dL (13.6-17.9); Lymphocytes % 3.1 % (15.3-44.8); MCH 28.7 pg (27.0-35.0); MCHC 33.2 g/dL (32.0-36.0); MCV 86.5 fL (80-100); MPV 8.4 fL (7.6-11.3); Neutrophils % 93.6 % (41.7-73.7); Platelets 360 thou/uL (152-406); RBC Red Blood Cell Count 5.03 M/uL (4.33-5.43); Red Cell Distribution Width 16.3 % (12.1-15.2)
[2023-09-11 09:16] LABS: PT Prothrombin Time 10.9 SECONDS (9.5-12.5); PTT, Activated Partial Thromb 29.9 SECONDS (24.3-36.9); Protime INR 0.99
[2023-09-11 09:30] LABS: ALT/SGPT 25 U/L (16-61); AST/SGOT 34 U/L (15-37); Albumin/Globulin Ratio 1.4 (1.1-1.8); Alkaline Phosphatase 99 U/L (45-117); Anion Gap 7.8 mEq/L (5.0-15.0); BUN Blood Urea Nitrogen 11 mg/dL (7-18); Bicarbonate 27 mEq/L (21-32); Bilirubin Direct 0.2 mg/dL (0-0.2); Bilirubin Indirect, Calculated 0.2 mg/dL (0.2-0.8); Bilirubin Total 0.4 mg/dL (0.2-1.0); Globulin 3.5 g/dL (2.3-3.5); Glomerular Filtration Rate 100 ml/min (=/>90); Glucose Level 108 mg/dL (74-106); Potassium 3.8 mEq/L (3.5-5.1); Protein, Total 8.5 g/dL (6.4-8.2); Sodium Level 138 mEq/L (136-145)
[2023-09-11 09:43] LABS: Blood Morphology Comment NOT SEEN (NOT SEEN); Platelet Estimate ADEQ; White Blood Cell Scan OK (OK)
--- NOTE | 2023-09-11 10:34 | RAD REPORT ---
EXAM DESCRIPTION: CT - Abdomen Pelvis W Contrast - 09/11/2023 9:46 am CLINICAL HISTORY: AMS, vomiting COMPARISON: Abdomen Pelvis W Contrast dated 12/10/2022; Abdomen Pelvis W Contrast dated 11/01/2016 TECHNIQUE: Thin cut axial CT imaging of the abdomen and pelvis was performed following intravenous a dministration of 100 mL Isovue 300. Multiplanar reformats were generated and reviewed. All CT scans are performed using dose optimization technique as appropriate and may include automated exposure control or mA/KV adjustment according to patient size. FINDINGS: No suspicious findings in the lung bases. The liver, spleen, adrenal glands, and pancreas show no suspicious findings. Gallbladder and biliary tree are also without suspicious finding. Subtle patchy opacification of the left renal cortex particularly at the left superior pole. No suspi cious focal renal mass. No hydronephrosis or radiopaque calculi. . Sequelae of partial gastrectomy and small hiatal hernia. Small right inguinal fat containing hernia w ith trace fluid. No dilated bowel loops or bowel wall thickening. No free air, free fluid or inflamma tory stranding. Appendix is unremarkable. No suspicious mass or bulky lymphadenopathy. The urinary bl adder is without significant finding. No suspicious bony findings. IMPRESSION: Findings suggestive of left pyelonephritis. Small right inguinal hernia containing fat and trace fluid. The findings were communicated to David Ramos on 09/11/2023 at 10:30 hours.
--- NOTE | 2023-09-11 10:36 | RAD REPORT ---
EXAM DESCRIPTION: CT - Head Brain Wo Cont - 09/11/2023 9:46 am CLINICAL HISTORY: AMS COMPARISON: Head Brain Wo Cont dated 07/30/2022; Head Brain Wo Cont dated 01/04/2017 TECHNIQUE: Noncontrast head CT images were obtained without IV contrast. Multiplanar reformats were generated and reviewed. All CT scans are performed using dose optimization technique as appropriate and may include automated exposure control or mA/KV adjustment according to patient size. FINDINGS: No intracranial hemorrhage, mass, or edema. Midline structures are unremarkable. Normal ventricular caliber for age. Dailey-white matter differentiation is preserved, without evidence of acute infarct. No abnormal extra- axial fluid collections. Mastoid air cells and visualized portions of the paranasal sinuses are clear. No acute bony findings. IMPRESSION: No evidence of an acute intracranial process.
[2023-09-11] MEDS ORDERED: NA CHLORIDE 0.9% 50 ML ONE (10:41)
[2023-09-11] MEDS ORDERED: CEFTRIAXONE 1000 MG/VIAL ONE (10:41)
--- NOTE | 2023-09-11 10:41 | EDPHYS ---
Physician Documentation [facility] Name: Jose Pabon Age: 28 yrs Sex: Male : 1995 Arrival Date: 09/11/2023 Time: 08:15 Bed 8 Private MD: ED Physician David Ramos HPI: 09/10 08:47 This 28 yrs old Male presents to ER via EMS with complaints of Altered Mental rn Status. 08:47 The patient presents with agitation, disorientation. Onset: The symptoms/episode rn began/occurred last night. Possible causes: drug use, amphetamines, marijuana. Associated signs and symptoms: Pertinent negatives: abdominal pain, chest pain, headache. Current symptoms: In the emergency department the patient's symptoms have improved. The patient has experienced similar episodes in the past. Patient brought in by EMS, family complaining of altered mental status with agitation and confusion, found with a pipe in his room. Patient with history of drug use and drug-induced psychosis. Also has history of schizophrenia. Patient denies head injury or trauma. Patient found in his room today sitting and had vomited on himself. Oxygen was normal. Patient denies cough or dyspnea. Patient denies overdose or suicide attempt. States took his psychiatric medication last night as prescribed.. Historical: - Allergies: 08:28 No Known Allergies; ph - PMHx: 08:28 Anxiety; Bipolar disorder; Schizophrenia; ph - Immunization history:: Adult Immunizations unknown. - Social history:: Smoking status: unknown. - Family history:: not pertinent. - Hospitalizations: : No recent hospitalization is reported. ROS: 08:47 Constitutional: Negative for fever, chills, and weight loss, Neck: Negative for injury, rn pain, and swelling, Cardiovascular: Negative for chest pain, palpitations, and edema, Respiratory: Negative for shortness of breath, cough, wheezing, and pleuritic chest pain, Abdomen/GI: Negative for abdominal pain, diarrhea, and constipation, Back: Negative for injury and pain, MS/Extremity: Negative for injury and deformity, Skin: Negative for injury, rash, and discoloration, Neuro: Negative for headache, weakness, numbness, tingling, and seizure, Exam: 08:47 Constitutional: This is a well developed, well nourished patient who is awake, alert, rn slightly agitated but redirectable Head/Face: Normocephalic, atraumatic. Eyes: Pupils 5 mm, reactive. No nystagmus ENT: Dry mucous membranes. No stridor Neck: Trachea midline, no masses palpated, and no cervical lymphadenopathy. Supple, full range of motion without nuchal rigidity, or vertebral point tenderness. No Meningismus. Cardiovascular: Tachycardic, regular. Respiratory: Clear bilateral breath sounds. No increased work of breathing, no retractions or nasal flaring. Abdomen/GI: Soft, nontender MS/ Extremity: Pulses equal, no cyanosis. Neuro: Awake and alert, GCS 15, oriented to person, place, time, and situation. Cranial nerves II-XII grossly intact. Motor strength 5/5 in all extremities. Sensory grossly intact. Tremulous 11:36 ECG was reviewed by the Attending Physician. rn Vital Signs: 08:22 BP 137 / 100; Pulse 107; Resp 18; Temp 97.3; Pulse Ox 99% on R/A; Weight 79.38 kg; ph 09:18 BP 127 / 100; Pulse 105; Resp 18; Pulse Ox 100% on R/A; ph 11:37 BP 141 / 98; Pulse 90; Resp 18; Pulse Ox 98% on R/A; ph MDM: 08:30 Patient medically screened. rn 10:39 Differential Diagnosis: UTI, volume depletion, Enteritis, dehydration, overdose, rn drug-induced. Data reviewed: vital signs, nurses notes, lab test result(s), radiologic studies, CT scan, and as a result, I will admit patient. Consideration of Admission/Observation Patient was admitted/placed on observation. Escalation of care including admission/observation considered. Counseling: I had a detailed discussion with the patient and/or guardian regarding the historical points, exam findings, and any diagnostic results supporting the discharge/admit diagnosis, lab results, radiology results, the need for further work-up and treatment in the hospital. ED course: Patient still denies suicidal ideation or attempt with me but did comment when mom was in the room and nurse was in the room that he took sleeping pills and alcohol last night in an attempt to harm himself. Mother states did not overdose on psychiatric medications as they were recently filled and not missing. 09/10 08:37 Order name: Acetaminophen; Complete Time: 09:47 rn 09/10 08:37 Order name: Basic Metabolic Panel; Complete Time: 09:47 rn 09/10 08:37 Order name: CBC with Diff; Complete Time: 09:47 rn 09/10 08:37 Order name: ETOH Level; Complete Time: 10:36 rn 09/10 08:37 Order name: Hepatic Function; Complete Time: 09:47 rn 09/10 08:37 Order name: PT-INR; Complete Time: 09:47 rn 09/10 08:37 Order name: Ptt, Activated; Complete Time: 09:47 rn 09/10 08:37 Order name: Salicylate; Complete Time: 10:36 rn 09/10 08:37 Order name: Urinalysis w/ reflexes; Complete Time: 11:39 rn 09/10 08:37 Order name: Urine Drug Screen; Complete Time: 11:39 rn 09/10 09:43 Order name: CBC Smear Scan; Complete Time: 09:47 EDMS 09/10 10:29 Order name: Blood Culture Adult (2) rn 09/10 10:29 Order name: Lactate w/ 2H reflex if indic.; Complete Time: 11:39 rn 09/10 12:13 Order name: Basic Metabolic Panel EDMS 09/10 12:13 Order name: Basic Metabolic Panel EDMS 09/10 12:13 Order name: Basic Metabolic Panel EDMS 09/10 12:13 Order name: Basic Metabolic Panel EDMS 09/10 12:13 Order name: Basic Metabolic Panel EDMS 09/10 12:13 Order name: Basic Metabolic Panel EDMS 09/10 12:13 Order name: CBC with Automated Diff EDMS 09/10 12:13 Order name: CBC with Automated Diff EDMS 09/10 12:13 Order name: CBC with Automated Diff EDMS 09/10 12:13 Order name: CBC with Automated Diff EDMS 09/10 12:13 Order name: CBC with Automated Diff EDMS 09/10 12:13 Order name: CBC with Automated Diff EDMS 09/10 12:13 Order name: Magnesium EDMS 09/10 12:13 Order name: Magnesium EDMS 09/10 12:13 Order name: Magnesium EDMS 09/10 12:13 Order name: Magnesium EDMS 09/10 12:13 Order name: Magnesium EDMS 09/10 12:13 Order name: Magnesium EDMS 09/10 12:13 Order name: Phosphorus EDMS 09/10 12:13 Order name: Phosphorus EDMS 09/10 12:13 Order name: Phosphorus EDMS 09/10 12:13 Order name: Phosphorus EDMS 09/10 12:13 Order name: Phosphorus EDMS 09/10 12:13 Order name: Phosphorus EDMS 09/10 08:37 Order name: CT Head Brain wo Cont; Complete Time: 10:38 rn 09/10 08:37 Order name: CT Abd/Pelvis - IV Contrast Only; Complete Time: 10:36 rn 09/10 08:37 Order name: EKG; Complete Time: 08:38 rn 09/10 08:37 Order name: EKG - Nurse/Tech; Complete Time: 11:36 rn 09/10 08:37 Order name: IV Saline Lock; Complete Time: 09:17 rn 09/10 08:37 Order name: Labs collected and sent; Complete Time: 09: rn 09/10 09:47 Order name: Suicide Precautions; Complete Time: 10:33 rn 09/10 10:29 Order name: Accucheck; Complete Time: 11:10 rn 09/10 10:29 Order name: Cardiac monitoring; Complete Time: 11:10 rn 09/10 10:29 Order name: IV Saline Lock - Large Bore; Complete Time: 10:33 rn 09/10 10:29 Order name: O2 Per Protocol; Complete Time: 10:33 rn 09/10 10:29 Order name: O2 Sat Monitoring; Complete Time: 10:33 rn 09/10 10:29 Order name: Vital Signs; Complete Time: 10:33 rn EC:36 Rate is 90 beats/min. Rhythm is regular. QRS [place] is Normal. ND interval is normal. QRS rn interval is normal. QT interval is normal. No Q waves. T waves are Normal. No ST changes noted. Clinical impression: Normal ECG. Interpreted by me. Reviewed by me. Administered Medications: 09:17 Drug: NS 0.9% IV 1000 ml IV at 1000 ml once Route: IV; Rate: 1000 ml; Site: right ph antecubital; 11:36 Follow up: Response: No adverse reaction; IV Status: Completed infusion; IV Intake: ph 1000ml 09:17 Drug: Ondansetron IVP 4 mg IVP once; over 2 minutes Route: IVP; Site: right antecubital;ph 11:36 Follow up: Response: No adverse reaction ph 11:07 Drug: Rocephin IV 1 grams IV at calculated rate once; Given slow IV push per pharmacy ph instructions Route: IV; Rate: calculated rate; Site: right antecubital; 11:35 Follow up: Response: No adverse reaction; IV Status: Completed infusion; IV Intake: 50mlph Disposition Summary: 09/11/23 10:40 Hospitalization Ordered Notes: Hospitalization Status: Inpatient Admission rn Provider: Lowell Naylor rn Condition: Stable rn Problem: new rn Symptoms: have improved rn Bed/Room Type: Standard rn Location: Telemetry/MedSurg (Inpatient)(09/11/23 19:44) cg Room Assignment: 204(09/11/23 19:44) cg Diagnosis - Pyelonephritis acute rn - Altered mental status, unspecified rn Forms: - Medication Reconciliation Form rn - SBAR form rn - Leadership Thank You Letter rn Signatures: Dispatcher [employer] EDMS David Ramos MD MD rn Hall, Patricia, RN RN ph Garcia, Cindy, RN RN cg Bradberry, Kelly, RN RN kb3 Corrections: (The following items were deleted from the chart) 08:48 08:47 Patient brought in by EMS, family complaining of altered mental status with rn agitation and confusion, found with a pipe in his room. Patient with history of drug use and drug-induced psychosis. Also has history of schizophrenia. Patient denies head injury or trauma. Patient found in his room today sitting and had vomited on himself. Oxygen was normal. Patient denies cough or dyspnea.. rn 11:37 11:36 Rate is 90 beats/min. Rhythm is regular. QRS [place] is Normal. ND interval is rn normal. QRS interval is normal. QT interval is normal. No Q waves. T waves are Normal. No ST changes noted. Clinical impression: Normal ECG. rn 14:07 10:40 Telemetry/MedSurg (Inpatient) rn kb3 14:07 10:40 rn kb3 19:44 14:07 [facility] ER HOLD kb3 cg 19:44 14:07 ERHOLD- kb3 cg
--- NOTE | 2023-09-11 10:41 | ER ---
Nurse's Notes [facility] Name: Jose Pabon Age: 28 yrs Sex: Male : 1995 Arrival Date: 09/11/2023 Time: 08:15 Bed 8 Private MD: Diagnosis: Pyelonephritis acute;Altered mental status, unspecified Presentation: 09/10 08:22 Chief complaint: EMS states: Pt family called for AMS, reports that pt "was pacing ph around the house last night", then was found this morning on the floor next to the couch, appeared confused and had vomited on himself, hx of bipolar, family believes that he took his medication last night but also reported that, "he had been smoking something out of pipe." Pt oriented to person only upon arrival to ED, VSS. Coronavirus screen: Vaccine status: unable to obtain. Ebola Screen: No symptoms or risks identified at this time. Initial Sepsis Screen: Does the patient meet any 2 criteria? No. Patient's initial sepsis screen is negative. Does the patient have a suspected source of infection? No. Patient's initial sepsis screen is negative. Risk Assessment: Do you want to hurt yourself or someone else? Unable to obtain. Onset of symptoms was September 11, 2023. 08:22 Method Of Arrival: EMS: [facility] 08:22 Acuity: ROBY 2 ph 09:00 Risk Assessment: Do you want to hurt yourself or someone else? Patient reports ph desire/thoughts of hurting themselves or someone else. Provider notified. Other: states that he took sleeping medication in attempt to harm himself. Triage Assessment: 08:28 General: Appears in no apparent distress. Behavior is cooperative, restless. Pain: ph Complains of pain in right knee. Neuro: Level of Consciousness is awake, confused, obtunded, Oriented to person. Cardiovascular: Capillary refill < 3 seconds in bilateral fingers. Respiratory: Airway is patent Respiratory effort is even, unlabored. Injury Description: Abrasion sustained to right knee. Historical: - Allergies: 08:28 No Known Allergies; ph - PMHx: 08:28 Anxiety; Bipolar disorder; Schizophrenia; ph - Immunization history:: Adult Immunizations unknown. - Social history:: Smoking status: unknown. - Family history:: not pertinent. - Hospitalizations: : No recent hospitalization is reported. Screenin:30 [facility] ED Fall Risk Assessment (Adult) History of falling in the last 3 months, ph including since admission Yes- single mechanical fall (1 pt) Confusion or Disorientation Yes (5 pts) Intoxicated or Sedated Yes (3 pts) Impaired Gait No (0 pts) Mobility Assist Device Used No (0 pt) Altered Elimination No (0 pt) Score/Fall Risk Level 3 or more points = High Risk Oriented to surroundings, Maintained a safe environment, Assessed \\T\\ reinforced patient's understanding of fall precautions, Hourly rounding (assess needs \\T\\ fall precautionary measures) done, Used ambulatory aids as needed (educated on \\T\\ assisted with). Abuse screen: Denies threats or abuse. Denies injuries from another. Nutritional screening: No deficits noted. Tuberculosis screening: No symptoms or risk factors identified. Assessment: 09:00 Reassessment: Pt's mother at bedside as well as this nurse, pt stated to mother, " I ph attempted suicide by taking a sleeping aid" also admits to "drinking a few beers", mother states that he has attempted to harm himself in the past. 10:00 Reassessment: Patient appears in no apparent distress at this time. Patient and/or ph family updated on plan of care and expected duration. Pain level reassessed. Pt resting quietly in bed, mother at bedside. Psych: 09:00 [place] Suicide Severity Screening: In the past month, have you wished you were ph or wished you could go to sleep and not wake up? Patient responds "yes." "In the past month, have you actually had any thoughts of killing yourself?" Patient responds "yes." "In your lifetime, have you ever done anything, started to do anything, or prepared to do anything to end your life?" Patient responds "yes." Patient reports suicidal intent within 3 past months. Subjective: Delusions are denied, Hallucinations are Having thoughts of suicide. Plan for suicide is took unknown amount of sleeping medication. Objective: Patient is cooperative, Speech is soft, slurred, Affect is flat. Interventions: Patient placed in hospital gown. Safety Checks: Personal items have been removed. Door is open. Visitors are present. mother at bedside. Pt denies substance abuse. Vital Signs: 08:22 BP 137 / 100; Pulse 107; Resp 18; Temp 97.3; Pulse Ox 99% on R/A; Weight 79.38 kg; ph 09:18 BP 127 / 100; Pulse 105; Resp 18; Pulse Ox 100% on R/A; ph 11:37 BP 141 / 98; Pulse 90; Resp 18; Pulse Ox 98% on R/A; ph ED Course: 08:21 Patient arrived in ED. ph 08:28 Triage completed. ph 08:29 Arm band placed on Patient placed in an exam room, on a stretcher, on monitor car operator, ph on pulse oximetry. 08:30 David Ramos MD is Attending Physician. rn 08:47 Mandy Kong RN is Primary Nurse. ph 09:17 Patient has correct armband on for positive identification. Bed in low position. Call ph light in reach. Side rails up X2. Client placed on continuous cardiac and pulse oximetry monitoring. NIBP monitoring applied. lunchroom monitor on. 09:17 Initial lab(s) drawn, by fl, sent to lab. Inserted saline lock: 22 gauge in right ph antecubital area, using aseptic technique. Blood collected. 09:47 CT Head Brain wo Cont In Process Unspecified. EDMS 09:48 CT Abd/Pelvis - IV Contrast Only In Process Unspecified. EDMS 10:40 Lowell Naylor is Hospitalizing Provider. rn 11:37 No provider procedures requiring assistance completed. Patient admitted, IV remains in ph place. Administered Medications: 09:17 Drug: NS 0.9% IV 1000 ml IV at 1000 ml once Route: IV; Rate: 1000 ml; Site: right ph antecubital; 11:36 Follow up: Response: No adverse reaction; IV Status: Completed infusion; IV Intake: ph 1000ml 09:17 Drug: Ondansetron IVP 4 mg IVP once; over 2 minutes Route: IVP; Site: right antecubital;ph 11:36 Follow up: Response: No adverse reaction ph 11:07 Drug: Rocephin IV 1 grams IV at calculated rate once; Given slow IV push per pharmacy ph instructions Route: IV; Rate: calculated rate; Site: right antecubital; 11:35 Follow up: Response: No adverse reaction; IV Status: Completed infusion; IV Intake: 50mlph Medication: 08:30 VIS not applicable for this client. ph Intake: 11:35 IV: 50ml; Total: 50ml. ph 11:36 IV: 1000ml; Total: 1050ml. ph Outcome: 10:40 Decision to Hospitalize by Provider. rn 14:00 Admitted to ER Hold. Please see [facility] for further documentation. ph 14:00 Condition: stable 14:00 Instructed on the need for admit, 20:48 Admitted to Med/surg accompanied by nurse, via wheelchair, room 204, with chart, Report rv called to jenny pack 20:50 Patient left the ED. rv Signatures: Dispatcher [employer] EDDavid Ko MD MD rn Hall, Patricia, RN RN ph Vicente, Ronaldo, RN RN rv Corrections: (The following items were deleted from the chart) 18:48 09:00 Reassessment: Pt's mother at bedside, pt stated to mother that he had attempted ph suicide by taking "a sleeping aid" also admits to "drinking a few beers", mother states that he has attempted to harm himself in the past. ph
[2023-09-11 10:53] LABS: Specific Gravity > 1.030 (1.005-1.030); Sqamous Epithelial <5 /HPF (None Seen); Urine Bacteria None Seen /HPF (<20); Urine Bilirubin NEGATIVE (Negative); Urine Blood Negative (Negative); Urine Clarity Clear (Clear); Urine Color Light-Yellow (Yellow); Urine Culture Reflex Order NOT NEEDED; Urine Glucose NEGATIVE (Negative); Urine Ketones NEGATIVE (Negative); Urine Microscopic Reflex YN ORDER UMIC; Urine Mucus Slight /HPF (None Seen); Urine Nitrite NEGATIVE (Negative); Urine Protein 2+ (Negative); Urine Urobilinogen Normal (Normal); Urine WBC <5 /HPF (<5); Urine pH 7.5 (5.0-7.0)
[2023-09-11 11:02] LABS: Barbiturates NEGATIVE (NEGATIVE); Benzodiazepines NEGATIVE (NEGATIVE); Cocaine POSITIVE (NEGATIVE); METHAMPHETAM NEGATIVE (NEGATIVE); Methadone NEGATIVE (NEGATIVE); Opiates NEGATIVE (NEGATIVE); Phencyclidine NEGATIVE (NEGATIVE); THC Cannibis POSITIVE (NEGATIVE)
--- NOTE | 2023-09-11 12:56 | P.HP ---
Certification for Inpatient Patient admitted to: Inpatient With expected LOS: >2 Midnights Patient will require the following post-hospital care: None Practitioner: I am a practitioner with admitting privileges, knowledge of patient current condition, hospital course, and medical plan of care. Services: Services provided to patient in accordance with Admission requirements found in Title 42 Section 412.3 of the Code of Federal Regulations <Coco Anderson - Last Filed: 09/11/23 18:07> Patient History Date of Service: 09/11/23 <tess allen - Last Filed: 09/11/23 16:52> Date of Service: 09/11/23 Reason for admission: left pyelonephritis, suicide attempt History of Present Illness: Jose Jovel is a 28-year-old male with past medical history of anxiety, bipolar disorder, schizophrenia, who presented to the ED today via ambulance due to his sister finding him on the floor confused. He reports attempting suicide with 2 sleep aids and alcohol. His mother is present at the bedside and good historian. She reports information that was given to her by his sister who is said that he finally stopped wrestling and making noise this morning. He was found in the kitchen on the floor with altered mental status. He presents with skin abrasions to bilateral knuckles, right knee pain, and multiple abrasions to his face. His mother is not sure what happened to him last night that would cause these abrasions. On examination he is showing expressive aphasia, no complaints of pain to left costovertebral angle. Head CT without contrast showing no acute infarct. His toxicology shows positive for marijuana and cocaine. He states he uses crack cocaine daily and smokes half a pack of cigarettes daily. Mother at the bedside reports he opens up a can of beer but does not drink all of it, this is frequent. Initial vitals BP 137 / 100; Pulse 107; Resp 18; Temp 97.3; Pulse Ox 99% on R/A Laboratory evaluation significant for WBC 17.9, neutrophils 93.6, toxicology positive for cocaine and marijuana, UA negative for infection Head CT without contrast reports "No intracranial hemorrhage, mass, or edema. Midline structures are unremarkable. Normal ventricular caliber for age. Dailey-white matter differentiation is preserved, without evidence of acute infarct. No abnormal extra-axial fluid collections. Mastoid air cells and visualized portions of the paranasal sinuses are clear. No acute bony findings. IMPRESSION: No evidence of an acute intracranial process." CT abdomen pelvis with contrast reports: "Findings suggestive of left pyelonephritis. Small right inguinal hernia containing fat and trace fluid." Jose will be admitted to hospitalist service for further evaluation and treatment of left pyelonephritis and suicidal attempt. - Past Medical/Surgical History Past Medical History: Reviewed- Non-Contributory Past Surgical History: Reviewed- Non-Contributory - Social History Smoking Status: Current every day smoker (1/2 pack daily) Smoking therapy provided: Yes Alcohol use: Yes CD- Drugs: Yes Caffeine use: Yes <Coco Anderson - Last Filed: 09/11/23 18:07> Allergies No Known Allergies Allergy (Unverified 03/19/15 22:15) Review of Systems Neurological: Weakness, Other (syncopal episode) <Coco Anderson - Last Filed: 09/11/23 18:07> Physical Examination - Studies Laboratory Data (last 24 hrs) 09/11/23 09/11/23 09/11/23 08:55 08:55 08:55 WBC 17.90 H Hgb 14.5 Hct 43.5 Plt Count 360 PT 10.9 INR 0.99 APTT 29.9 Sodium 138 Potassium 3.8 BUN 11 Creatinine 1.05 Glucose 108 H Total Bilirubin 0.4 AST 34 ALT 25 Alkaline Phosphatase 99 <tess allen - Last Filed: 09/11/23 16:52> - Physical Exam General: Oriented x3, Mild distress HEENT: Other (multiple abrasions) Neck: Supple, 2+ carotid pulse no bruit, JVD not distended Respiratory: Clear to auscultation bilaterally, Normal air movement Cardiovascular: Normal pulses, Regular rate/rhythm, Normal S1 S2 Capillary refill: <2 Seconds Gastrointestinal: Normal bowel sounds, Soft and benign, Non-distended Musculoskeletal: No swelling Integumentary: Skin breakdown (bilateral knuckles, left knee, and face) Neurological: Abnormal speech (expressive aphasia) - Studies Laboratory Data (last 24 hrs) 09/11/23 09/11/23 09/11/23 08:55 08:55 08:55 WBC 17.90 H Hgb 14.5 Hct 43.5 Plt Count 360 PT 10.9 INR 0.99 APTT 29.9 Sodium 138 Potassium 3.8 BUN 11 Creatinine 1.05 Glucose 108 H Total Bilirubin 0.4 AST 34 ALT 25 Alkaline Phosphatase 99 <Ra Justineann - Last Filed: 09/11/23 18:07> Assessment and Plan - Plan Patient seen. Patient exhibiting aggressive behavior and wanting to leave AMA. Suspected suicide attempt with sleep aid and alcohol. Urine toxicology screen positive for marijuana and cocaine. CT abdomen pelvis suggest pyelonephritis. Patient is on antipsychotics-Seroquel. Given suspected suicide attempt and polysubstance abuse as well as diagnosis of acute pyelonephritis. Temporary skilled nursing order recommended and ordered. Patient was given Haldol 5 mg IM without any improvement. Trial of Geodon 20 mg IM. Collect, validate and reconcile patient's home medications. Aggressive antibiotic therapy 1:1 suicide watch. Diet as tolerated. [facility] behavioral health evaluation once clinically stable. Anticipating inpatient psychiatry once clinically stable. <tess allen - Last Filed: 09/11/23 16:52> - Plan Assessment and plan Left pyelonephritis Leukocytosis -CT abdomen pelvis with contrast reports: "Findings suggestive of left pyelone phritis. -IV fluids -Rocephin daily -Follow blood cultures Substance abuse; crack cocaine, marijuana, cigarette smoking Suicide attempt Aggressive Syncopal episode Hypertensive -Head CT without contrast reports "No intracranial hemorrhage, mass, or edema. Midline structures are unremarkable. Normal ventricular caliber for age. Dailey-white matter differentiation is preserved, without evidence of acute infarct. No abnormal extra-axial fluid collections. Mastoid air cells and visualized portions of the paranasal sinuses are clear. No acute bony findings. IMPRESSION: No evidence of an acute intracranial process." -One-on-one sitter -Ativan as needed -initial BP 137 / 100 -Haldol, Geodon trial -[facility] behavioral health evaluation once clinically stable History of anxiety/bipolar/schizophrenia -Restart home medications when available -Psychology consult -reconcile home medications with [facility] pharmacy History of right inguinal hernia -Seen on CT abdomen pelvis reports "Small right inguinal hernia containing fat and trace fluid." -Follow-up as outpatient DVT PPx Lovenox Full code LOS 2 to 3 days, likely transfer to psychiatric facility Discharge Plan: Psychiatry Plan to discharge in: 48 Hours - Advance Directives Does patient have a Living Will: No Does patient have a Durable POA for Healthcare: No Time Spent Managing Pts Care (In Minutes): 50 <Coco Anderson - Last Filed: 09/11/23 18:07>
[2023-09-11] MEDS: NA CHLORIDE 0.9% 1,000 ML IV SCH (13:00)
[2023-09-11] MEDS: PANTOPRAZOLE 40 MG INJ IVP SCH (14:00)
[2023-09-11] MEDS: HALOPERIDOL LACT 5 MG/ML INJ IM ONE (15:15)
[2023-09-11] MEDS ORDERED: WATER FOR INJ,STERILE 10 ML ONE (16:39)
[2023-09-11] MEDS ORDERED: ZIPRASIDONE MESYLA 20 MG/VIAL IM ONE (16:39)
[2023-09-11] MEDS: ZIPRASIDONE MESYLA 20 MG/VIAL IM ONE (16:50)
[2023-09-11] MEDS ORDERED: WATER FOR INJ,STERILE 10 ML IM PRN (18:13)
[2023-09-11 19:02] VITALS: BMI 28.8
[2023-09-11 21:44] VITALS: O2SAT 98
[2023-09-12] MEDS: SODIUM CHLORIDE 0.9% 10ML INJ IV PRN (00:56)
[2023-09-12] MEDS: HYDROCODONE/APAP 5/325 MG TAB PO SCH (01:11)
[2023-09-12 04:07] LABS: RBC Red Blood Cell Count 4.44 M/uL (4.33-5.43)
[2023-09-12 04:08] LABS: Absolute Basophils 0.1 K/uL (0-0.5); Absolute Eosinophils 0.1 K/uL (0-0.5); Absolute Lymphocytes (CBC) 1.6 K/uL (0.7-4.9); Absolute Monocytes 1.2 K/uL (0.1-1.3); Absolute Neutrophil 8.2 K/uL (1.8-8.0); Basophils % 0.5 % (0-1.3); Eosinophils % 0.7 % (0-4.4); Hematocrit 38.3 % (39.6-49.0); Hemoglobin 12.7 g/dL (13.6-17.9); Lymphocytes % 14.5 % (15.3-44.8); MCH 28.6 pg (27.0-35.0); MCHC 33.2 g/dL (32.0-36.0); MCV 86.3 fL (80-100); MPV 8.7 fL (7.6-11.3); Monocytes % 10.6 % (3.3-12.3); Neutrophils % 73.7 % (41.7-73.7); Nucleated Red Blood Cells % 0.1 % (0-0); Platelets 302 thou/uL (152-406); Red Cell Distribution Width 16.2 % (12.1-15.2)
[2023-09-12 04:37] LABS: Anion Gap 7.7 mEq/L (5.0-15.0); Magnesium 2.1 mg/dL (1.6-2.4); Phosphorus 4.1 mg/dL (2.5-4.9); Potassium 3.7 mEq/L (3.5-5.1)
[2023-09-12] MEDS ORDERED: HYDRALAZINE HCL 20 MG/ML VIAL IV PRN (07:15)
--- NOTE | 2023-09-12 07:19 | P.PN ---
Date of Service: 09/12/23 Subjective ROS 10 point ROS as noted above, otherwise negative Physical Exam General: Oriented x3, Mild distress HEENT: Other (multiple abrasions) Neck: Supple, 2+ carotid pulse no bruit, JVD not distended Respiratory: Clear to auscultation bilaterally, Normal air movement Cardiovascular: Normal pulses, Regular rate/rhythm, Normal S1 S2 Capillary refill: <2 Seconds Gastrointestinal: Normal bowel sounds, Soft and benign, Non-distended Musculoskeletal: No swelling Integumentary: Skin breakdown (bilateral knuckles, left knee, and face) Neurological: Abnormal speech (expressive aphasia) Vitals Reviewed Problem list Left pyelonephritis Leukocytosis Substance abuse; crack cocaine, marijuana, cigarette smoking Suicide attempt Aggressive Syncopal episode Hypertensive History of anxiety/bipolar/schizophrenia History of right inguinal hernia Assessment and Plan Left pyelonephritis Leukocytosis -CT abdomen pelvis with contrast reports: "Findings suggestive of left pyelonephritis. -IV fluids -Rocephin daily -Follow blood cultures Substance abuse; crack cocaine, marijuana, cigarette smoking Suicide attempt Aggressive Syncopal episode Hypertensive -Head CT without contrast reports "No intracranial hemorrhage, mass, or edema. Midline structures are unremarkable. Normal ventricular caliber for age. Dailey-white matter differentiation is preserved, without evidence of acute infarct. No abnormal extra-axial fluid collections. Mastoid air cells and visualized portions of the paranasal sinuses are clear. No acute bony findings. IMPRESSION: No evidence of an acute intracranial process." -One-on-one sitter -Ativan as needed -initial BP 137 / 100 -[facility] behavioral health evaluation once clinically stable History of anxiety/bipolar/schizophrenia -Restart home medications when available -Psychology consult -reconcile home medications with [facility] pharmacy History of right inguinal hernia -Seen on CT abdomen pelvis reports "Small right inguinal hernia containing fat and trace fluid." -Follow-up as outpatient DVT PPx Lovenox Full code LOS 2 to 3 days, likely transfer to psychiatric facility
[2023-09-12] MEDS: ENOXAPARIN 40 MG/0.4 ML SQ SCH (08:59)
[2023-09-12] MEDS: FOLIC ACID 1 MG TABLET PO SCH (08:59)
[2023-09-12] MEDS: NICOTINE 21 MG/PAT TD SCH (09:00)
[2023-09-12] MEDS: MULTIVITAMIN TAB PO SCH (09:00)
[2023-09-12] MEDS: THIAMINE HCL 100 MG TABLET PO SCH (09:00)
[2023-09-12] MEDS: POTASSIUM CL SA 10 MEQ TAB PO ONE (09:00)
[2023-09-12] MEDS: CEFTRIAXONE 1,000 MG in NA CHLORIDE 0.9% 50 ML IVPB SCH (09:01)
[2023-09-12] MEDS ORDERED: BUSPIRONE HCL 15 MG TABLET PO PRN (13:31)
[2023-09-12] MEDS: QUETIAPINE 100MG TAB PO SCH (14:00)
[2023-09-12 16:21] VITALS: BP 126/89; TEMP 98.2
--- NOTE | 2023-09-12 16:26 | P.DS ---
Admission Date: 09/11/23 Discharge Date: 09/15/23 Disposition: TRANSFR TO OTHER-PSY/CD/REHAB Discharge Condition: GOOD Reason for Admission: left pyelonephritis, suicide attempt Brief History of Present Illness: Diagnosis Left pyelonephritis Leukocytosis Substance abuse; crack cocaine, marijuana, cigarette smoking Suicide attempt Aggressive Syncopal episode Hypertensive History of anxiety/bipolar/schizophrenia History of right inguinal hernia HPI 09/11/19 Jose Jovel is a 28-year-old male with past medical history of anxiety, bipolar disorder, schizophrenia, who presented to the ED today via ambulance due to his sister finding him on the floor confused. He reports attempting suicide with 2 sleep aids and alcohol. His mother is present at the bedside and good historian. She reports information that was given to her by his sister who is said that he finally stopped wrestling and making noise this morning. He was found in the kitchen on the floor with altered mental status. He presents with skin abrasions to bilateral knuckles, right knee pain, and multiple abrasions to his face. His mother is not sure what happened to him last night that would cause these abrasions. On examination he is showing expressive aphasia, no complaints of pain to left costovertebral angle. Head CT without contrast showing no acute infarct. His toxicology shows positive for marijuana and cocaine. He states he uses crack cocaine daily and smokes half a pack of cigarettes daily. Mother at the bedside reports he opens up a can of beer but does not drink all of it, this is frequent. Initial vitals BP 137 / 100; Pulse 107; Resp 18; Temp 97.3; Pulse Ox 99% on R/A Laboratory evaluation significant for WBC 17.9, neutrophils 93.6, toxicology positive for cocaine and marijuana, UA negative for infection Head CT without contrast reports "No intracranial hemorrhage, mass, or edema. Midline structures are unremarkable. Normal ventricular caliber for age. Dailey-white matter differentiation is preserved, without evidence of acute infarct. No abnormal extra-axial fluid collections. Mastoid air cells and visualized portions of the paranasal sinuses are clear. No acute bony findings. IMPRESSION: No evidence of an acute intracranial process." CT abdomen pelvis with contrast reports: "Findings suggestive of left pyelonephritis. Small right inguinal hernia containing fat and trace fluid." Jose will be admitted to hospitalist service for further evaluation and treatment of left pyelonephritis and suicidal attempt. Hospital Course: Ely Pabon is a pleasant 28 year old male with a past medical history significant for anxiety, bipolar disorder, schizophrenia, who was admitted to the [facility] on 09/11/23 for Left pyelonephritis. Jose Jovel presented to the ED 09/11/2023 with complaints of altered mental status when he was found passed out on the floor of his kitchen. During this admission he was found to have left pyelonephritis and suicide attempt at home. Due to his manic state and suicide attempt he will be transferred to the [facility]. He is tolerating PO diet, ambulating independently, and hemodynamically stable for discharge. He will be escorted by the mental health deputy for transfer to [facility]. On 09/12/23, Jose was seen on morning rounds and deemed medically stable for discharge. to the [facility]. Jose was provided prescriptions for levaquin. The patient was given the opportunity to ask questions and reported no further questions. Furthermore, all questions were answered to the best of my ability. A copy of this discharge summary will be sent to the above providers to facilitate continuity of care. Today, I personally spent 50 minutes with Jose, of which greater than 50% of the time was spent in patient education, counseling, and coordination of care as described above. Physical Exam General: Alert andOriented x3, Mild distress HEENT: Other (multiple abrasions) Neck: Supple, 2+ carotid pulse no bruit, JVD not distended Respiratory: Clear to auscultation bilaterally, symetrical chest wall movement, on RA Cardiovascular: Regular rate/rhythm, Normal S1 S2, 2+ peripheral pulses Capillary refill: <2 Seconds Gastrointestinal: Normal bowel sounds, Soft and benign on palpation, ND/NT Musculoskeletal: No swelling Integumentary: Skin breakdown (bilateral knuckles, left knee, and face) Neurological: Abnormal speech (expressive aphasia) Vital Signs/Physical Exam: Temp Pulse Resp BP Pulse Ox 98.2 F 101 H 16 126/89 18 L 09/12/23 16:00 09/12/23 16:00 09/12/23 16:00 09/12/23 16:00 09/12/23 16:00 Laboratory Data at Discharge: WBC 11.20 thou/uL (4.3-10.9) H 09/12/23 03:24 Hgb 12.7 g/dL (13.6-17.9) L D 09/12/23 03:24 Hct 38.3 % (39.6-49.0) L 09/12/23 03:24 Plt Count 302 thou/uL (152-406) 09/12/23 03:24 PT 10.9 SECONDS (9.5-12.5) 09/11/23 08:55 INR 0.99 09/11/23 08:55 APTT 29.9 SECONDS (24.3-36.9) 09/11/23 08:55 Sodium 141 mEq/L (136-145) 09/12/23 03:24 Potassium 3.7 mEq/L (3.5-5.1) 09/12/23 03:24 BUN 10 mg/dL (7-18) 09/12/23 03:24 Creatinine 0.81 mg/dL (0.70-1.30) 09/12/23 03:24 Glucose 87 mg/dL (74-106) 09/12/23 03:24 Phosphorus 4.1 mg/dL (2.5-4.9) 09/12/23 03:24 Magnesium 2.1 mg/dL (1.6-2.4) 09/12/23 03:24 Total Bilirubin 0.4 mg/dL (0.2-1.0) 09/11/23 08:55 AST 34 U/L (15-37) 09/11/23 08:55 ALT 25 U/L (16-61) 09/11/23 08:55 Alkaline Phosphatase 99 U/L (45-117) 09/11/23 08:55 Home Medications: Buspirone HCl 15 mg PO BID PRN 09/11/23 Quetiapine Fumarate [Seroquel] 200 mg PO DAILY 09/11/23 Trazodone [Desyrel*] 50 mg PO BEDTIME 09/11/23 cloNIDine HCL [Clonidine HCl] 0.1 mg PO BEDTIME 09/11/23 Aripiprazole [Abilify Maintena] 300 mg IM Q30D 09/12/23 Doxycycline Monohydrate 100 mg PO BID 10 Days #20 cap 09/12/23 Quetiapine Fumarate [Seroquel] 300 mg PO BEDTIME 09/12/23 New Medications: Doxycycline Monohydrate 100 mg PO BID 10 Days #20 cap Physician Discharge Instructions: Jose Jovel presented to the ED 09/11/2023 with complaints of altered mental status when he was found passed out on the floor of his kitchen. During this admission he was found to have left pyelonephritis and suicide attempt at home. He will be escorted by the mental health deputy for transfer to [facility]. 1. Please call and schedule a follow-up appointment with your PCP upon discharge from [facility]. - Please follow-up with your PCP for medication refills/adjustments 2. Continue regular diet 3. No activity restrictions 4. Continue medications as appropriate 5. New medication doxycycline 100 mg p.o. twice daily x 10 days sent to your pharmacy. Diet: Regular Activity: Fall precautions Followup: NONE,NONE [Primary Care Provider] -
[2023-09-12] MEDS ORDERED: QUETIAPINE 100MG TAB PO SCH (21:00)
[2023-09-12] MEDS ORDERED: cloNIDine HCL 0.1 MG TAB PO SCH (21:00)
[2023-09-12] MEDS ORDERED: TRAZODONE 50 MG TABLET PO SCH (21:00)
--- NOTE | 2023-09-13 14:32 | EKG ---
Test Date: 2023-09-11 Test Time: 11:20:59 Burn Table Operator: PH MEASUREMENT RESULTS: Intervals: Rate: 90 SD: 124 QRSD: 80 QT: 392 QTc: 479 Delta: P: 23 SD: 124 QRS: 49 T: 60 INTERPRETIVE STATEMENTS: Normal sinus rhythm Normal ECG Compared to ECG 12/28/2022 13:04:09 Sinus tachycardia no longer present Left ventricular hypertrophy no longer present Electronically Signed On 09-13-23 14:24:39 CDT by Isma Abdi
== END 2023-09-12 16:50 | DRG 871 ==
LOC: ER 08:15 → ERHOLD 12:06 → 2ND 21:45
PROVIDERS: ADMIT Internal Medicine; ATTEND Internal Medicine
DX: A41.9 Sepsis, unspecified organism (principal); G92.9 Unspecified toxic encephalopathy; N10 Acute pyelonephritis; R47.01 Aphasia; I10 Essential (primary) hypertension; F41.9 Anxiety disorder, unspecified; F31.9 Bipolar disorder, unspecified; M25.561 Pain in right knee; F20.9 Schizophrenia, unspecified; S00.81XA Abrasion of other part of head, initial encounter; S60.512A Abrasion of left hand, initial encounter; S60.511A Abrasion of right hand, initial encounter; F19.10 Other psychoactive substance abuse, uncomplicated; K40.90 Unilateral inguinal hernia, without obstruction or gangrene, not specified as recurrent; T42.71XA Poisoning by unspecified antiepileptic and sedative-hypnotic drugs, accidental (unintentional), initial encounter; F14.129 Cocaine abuse with intoxication, unspecified; F12.129 Cannabis abuse with intoxication, unspecified; F17.210 Nicotine dependence, cigarettes, uncomplicated; Z79.899 Other long term (current) drug therapy
CPT/HCPCS: 36415; 70450; 74177; 80048; 80076; 80143; 80179; 80307; 81001; 82077; 83605; 83735; 84100; 85025; 85610; 85730; 87040; 93005; 96361; 96365; 96375; 99285; A4216; C9113; J0696; J1630; J1650; J2405; J3486; J7030; Q9967

== ENCOUNTER 2024-03-31 11:19 | Inpatient (IN) | payer OTHER ==
[2024-03-31] MEDS ORDERED: NA CHLORIDE 0.9% 1,000 ML ONE (11:21)
[2024-03-31] MEDS ORDERED: propofoL 1,000 MG/100 ML VIAL IV ONE ×2 (11:23→14:57)
[2024-03-31] MEDS ORDERED: NA CHLORIDE 0.9% 100 ML ONE (11:56)
[2024-03-31] MEDS ORDERED: NA CHLORIDE 0.9% 2,000 ML ONE (11:56)
[2024-03-31] MEDS ORDERED: Meropenem 1000 MG/VIAL IV ONE (11:56)
[2024-03-31] MEDS ORDERED: HYDROCORTISONE SUC 100 MG INJ ONE (11:56)
[2024-03-31 12:07] LABS: Arterial Blood Carboxyhemoglob 1.8 % (0-1.5); Blood Gas Oxyhemoglobin 94.1 % (94-97); Blood Gas THB 13.7 g/dl (12-18); Blood O2 Saturation 97.9 % (92-98.5)
[2024-03-31 12:13] LABS: Absolute Eosinophils 0.1 K/uL (0-0.5); Absolute Lymphocytes (CBC) 1.7 K/uL (0.7-4.9); Absolute Monocytes 0.5 K/uL (0.1-1.3); Absolute Neutrophil 4.9 K/uL (1.8-8.0); Basophils % 0.5 % (0-1.3); Eosinophils % 1.6 % (0-4.4); Hematocrit 39.9 % (39.6-49.0); Hemoglobin 13.1 g/dL (13.6-17.9); Lymphocytes % 22.7 % (15.3-44.8); MCH 29.5 pg (27.0-35.0); MCHC 32.9 g/dL (32.0-36.0); MCV 89.5 fL (80-100); MPV 8.7 fL (7.6-11.3); Monocytes % 7.3 % (3.3-12.3); Neutrophils % 67.9 % (41.7-73.7); Platelets 306 thou/uL (152-406); RBC Red Blood Cell Count 4.46 M/uL (4.33-5.43); Red Cell Distribution Width 14.1 % (12.1-15.2)
[2024-03-31 12:15] LABS: PT Prothrombin Time 10.2 SECONDS (9.4-12.5); PTT, Activated Partial Thromb 28.3 SECONDS (24.3-36.9); Protime INR 0.91
[2024-03-31 12:20] LABS: ALT/SGPT 17 U/L (16-61); AST/SGOT 11 U/L (15-37); Albumin 3.3 g/dL (3.4-5.0); Albumin/Globulin Ratio 0.9 (1.1-1.8); Alkaline Phosphatase 78 U/L (45-117); Anion Gap 14.4 mEq/L (5.0-15.0); BUN Blood Urea Nitrogen 9 mg/dL (7-18); Bicarbonate 20 mEq/L (21-32); Bilirubin Total 0.3 mg/dL (0.2-1.0); Globulin 3.6 g/dL (2.3-3.5); Glomerular Filtration Rate 124 ml/min (=/>90); Glucose Level 192 mg/dL (74-106); Potassium 3.4 mEq/L (3.5-5.1); Protein, Total 6.9 g/dL (6.4-8.2); Sodium Level 138 mEq/L (136-145)
[2024-03-31 12:22] LABS: Bilirubin Direct < 0.2 mg/dL (0-0.2); Bilirubin Indirect, Calculated 0.1 mg/dL (0.2-0.8)
--- NOTE | 2024-03-31 12:35 | RAD REPORT ---
EXAMINATION: ONE VIEW CHEST XR CLINICAL INDICATION: Male, 29 years old.ett placement TECHNIQUE: 1 View, AP supine, X-ray of the chest was performed. [id number]. COMPARISON: 01/04/2017 FINDINGS: Lungs and pleura: Clear lungs. No effusion. Heart and mediastinum: Similar size and configuration Unremarkable mediastinal contours. Osseous structures: No acute abnormality. Tubes/lines: The endotracheal tube terminates at the clavicular heads and is in satisfactory position . Left IJ approach central venous line with tip overlying the distal SVC in satisfactory position. Enteric tube terminates in the proximal stomach. Suggest advancing by 10 cm. Other: None. IMPRESSION: 1. Endotracheal tube and central line in satisfactory position. No pneumothorax. The enteric tube nanci uld be advanced. 2. No acute cardiac pulmonary disease.
[2024-03-31 12:46] LABS: Troponin High Sensitivity 4.7 pg/mL (<58.9)
[2024-03-31 13:07] LABS: Specific Gravity 1.011 (1.005-1.030); Sqamous Epithelial None Seen /HPF (None Seen); Urine Bacteria None Seen /HPF (<20); Urine Bilirubin NEGATIVE (Negative); Urine Blood Negative (Negative); Urine Clarity Clear (Clear); Urine Color Light-Yellow (Yellow); Urine Culture Reflex Order NOT NEEDED; Urine Glucose TRACE (Negative); Urine Ketones NEGATIVE (Negative); Urine Microscopic Reflex YN ORDER UMIC; Urine Mucus Slight /HPF (None Seen); Urine Nitrite NEGATIVE (Negative); Urine Protein TRACE (Negative); Urine RBC <5 /HPF (None Seen); Urine Urobilinogen Normal (Normal); Urine WBC <5 /HPF (<5); Urine WBC Clump Rare /HPF (None Seen); Urine Yeast (Budding) Trace /HPF (None Seen); Urine pH 5.5 (5.0-7.0)
--- NOTE | 2024-03-31 13:11 | RAD REPORT ---
EXAM: Head Brain Wo Cont HISTORY: CONFUSED COMPARISON: 09/11/2023 TECHNIQUE: Multiple contiguous axial images were obtained for a CT of the brain without contrast. Sag ittal and coronal reformats were performed. One or more of the following dose reduction techniques were used: Automated exposure control, adjus tment of the mA and kV according to patient size, and iterative reconstruction. Unless otherwise specified, incidental findings do not require dedicated imaging follow-up. FINDINGS: No evidence of hydrocephalus, intracranial hemorrhage, or extra-axial fluid collection. The brain is normal in morphology. The calvarium is intact. The visualized paranasal sinuses and mastoid air cells are essentially clear . Patient is intubated with fluid accumulating in the pharynx. IMPRESSION: No evidence of acute intracranial abnormality.
--- NOTE | 2024-03-31 13:12 | EDPHYS ---
Physician Documentation [facility] Name: Jose Pabon Age: 29 yrs Sex: Male : 1995 Arrival Date: 03/31/2024 Time: 11:19 Bed 2 Private MD: ED Physician Sagrario Sutherland HPI: 03/31 12:35 This 29 yrs old Male presents to ER via EMS with complaints of Unresponsive. sp3 12:35 29-year-old male with history of anxiety, bipolar disease, schizophrenia now presents sp3 to the ED via EMS for chief complaint unresponsive found down by his family earlier just prior to arrival. Unknown potential ingestion or drug use. Patient has been nonresponsive verbally and withdrawing to pain with emesis noted on scene and nondescript movement of all extremities coupled with moaning and grunting. EMS administered 2 mg of Narcan which had minimal effect. They were unable to obtain Accu-Chek. No other history or or physical attributes available. Review of systems, history and physical limited by patient being unresponsive. All history per EMS.. Historical: - Allergies: 11:19 Unable to obtain; kc6 - Home Meds: 11:19 Unable to obtain [Active]; kc6 - PMHx: 11:19 Anxiety; Bipolar disorder; Schizophrenia; kc6 - PSHx: 11:19 Unable to Obtain; kc6 - Immunization history:: Adult Immunizations unknown. - Infectious Disease History:: Denies. - Social history:: Smoking status: unknown. ROS: 12:36 Unable to obtain ROS due to altered mental status, obtunded state, sp3 Exam: 12:37 Constitutional: The patient appears No obvious signs of trauma. Patient minimal gag sp3 and nondescript movements only. No bleeding noted. GCS 4-5 at best. Pupils 3 mm minimally reactive and not appearing to focus. Patient is tachycardic to the 160s. Remainder vital signs noted. Remainder of physical severely limited. 12:37 Unable to obtain exam due to obtunded state, 12:38 ECG was reviewed by the Attending Physician. EKG demonstrates sinus tachycardia at 150 sp3 bpm with normal intervals, normal QRS, normal axis, rate related ST's ST changes without evidence of acute ischemia. Vital Signs: 11:19 BP 90 / 74; Pulse 165; Resp 20 S; Pulse Ox 100% on R/A; kc6 11:30 Pulse 158; Resp 20 A; Temp 98(A); Pulse Ox 99% on ETT ambu; Weight 80 kg; rs5 11:45 BP 138 / 97; Pulse 157; Resp 21; Pulse Ox 99% on ETT vent; rs5 12:10 BP 152 / 99; Pulse 155; Resp 22; Pulse Ox 98% on ETT vent; rs5 12:27 BP 148 / 97; Pulse 149; Resp 21; Pulse Ox 98% on ETT vent; rs5 13:02 Weight 90.72 kg; hb 13:04 BP 119 / 76; Pulse 137; Resp 21; Pulse Ox 99% on ETT vent; rs5 13:30 BP 105 / 67; Pulse 115; Resp 20; Pulse Ox 99% on ETT vent; rs5 14:03 BP 101 / 65; Pulse 117; Resp 19; Pulse Ox 99% on ETT vent; rs5 15:30 BP 105 / 67; Pulse 115; Resp 20; Pulse Ox 99% on ETT vent; rs5 Procedures: 12:40 Intubation: Ventilated with 100% NRB prior to procedure. Intubated orally using # 4 sp3 Stephanie blade with 7.5 mm ETT. was successful on first attempt. Ventilated with Ambu bag. ventilator. Tube secured with ETT hewitt Placement verified by CXR, CO2 detector with (+) color change, Patient tolerated well. 12:41 Central Line: the site was prepped with Betadine, a triple lumen catheter was inserted, sp3 in the left internal jugular vein, in 1 attempts. placement was verified, by CXR, by blood return, the site was dressed with using sterile technique, the patient tolerated the procedure, well, Ultrasound-guided. MDM: 11:52 Patient medically screened. sp3 12:38 Data reviewed: vital signs, nurses notes, lab test result(s), EKG, radiologic studies. sp3 12:38 ED course: 29-year-old male found down unresponsive with unknown potential ingestion sp3 and/or drug use. Differential diagnosis includes overdose versus trauma versus intracranial event versus metabolic disruption, among others. Due to patient's extremis, patient was immediately placed in a trauma room and intubated using 7.5 ET tube using direct laryngoscopy after induction with rocuronium and etomidate. Propofol currently being used for sedation. Left internal jugular central line placed in a sterile fashion using ultrasound guidance. Chest x-ray demonstrates appropriate placement of ET tube and central line. Initial lab work for CBC and chemistries demonstrate no significant abnormality. Tox labs and urine are pending. CT scan of the head is also pending. Patient will be admitted to ICU.. 03/31 11:37 Order name: Glucose, Ancillary Testing; Complete Time: 11:53 EDNJ 03/31 11:41 Order name: Acetaminophen; Complete Time: 12:35 [facility] 03/31 11:41 Order name: Basic Metabolic Panel; Complete Time: 12:35 sb 03/31 11:41 Order name: CBC with Diff; Complete Time: 12:35 [facility] 03/31 11:41 Order name: ETOH Level; Complete Time: 12:35 [facility] 03/31 11:41 Order name: Hepatic Function; Complete Time: 12:35 [facility] 03/31 11:41 Order name: PT-INR; Complete Time: 12:35 [facility] 03/31 11:41 Order name: Ptt, Activated; Complete Time: 12:35 [facility] 03/31 11:41 Order name: Salicylate; Complete Time: 12:58 [facility] 03/31 11:41 Order name: Urinalysis w/ reflexes; Complete Time: 13:23 [facility] 03/31 11:41 Order name: Urine Drug Screen; Complete Time: 13:23 [facility] 03/31 11:42 Order name: ABG; Complete Time: 12:35 [facility] 03/31 11:44 Order name: Blood Culture Adult (2) [facility] 03/31 11:44 Order name: Lactate w/ 2H reflex if indic.; Complete Time: 13:23 [facility] 03/31 11:44 Order name: Troponin High Sensitivity; Complete Time: 12:58 [facility] 03/31 11:44 Order name: BNP; Complete Time: 12:58 [facility] 03/31 13:55 Order name: Thyroid Stimulating Hormone EDMS 03/31 13:55 Order name: CBC with Automated Diff EDMS 03/31 13:55 Order name: CBC with Automated Diff EDMS 03/31 13:55 Order name: CBC with Automated Diff EDMS 03/31 13:55 Order name: CBC with Automated Diff EDMS 03/31 13:55 Order name: CBC with Automated Diff EDMS 03/31 13:55 Order name: Comprehensive Metabolic Panel EDMS 03/31 13:55 Order name: Comprehensive Metabolic Panel EDMS 03/31 13:55 Order name: Comprehensive Metabolic Panel EDMS 03/31 13:55 Order name: Comprehensive Metabolic Panel EDMS 03/31 13:55 Order name: Comprehensive Metabolic Panel EDMS 03/31 13:55 Order name: Lipid Profile EDMS 03/31 13:55 Order name: Lipid Profile EDMS 03/31 13:55 Order name: Magnesium EDMS 03/31 13:55 Order name: Magnesium EDMS 03/31 13:55 Order name: Magnesium EDMS 03/31 13:55 Order name: Magnesium EDMS 03/31 13:55 Order name: Magnesium EDMS 03/31 13:55 Order name: Phosphorus EDMS 03/31 13:55 Order name: Phosphorus EDMS 03/31 13:55 Order name: Phosphorus EDMS 03/31 13:55 Order name: Phosphorus EDMS 03/31 13:55 Order name: Phosphorus EDMS 03/31 13:55 Order name: Troponin High Sensitivity EDMS 03/31 13:55 Order name: Troponin High Sensitivity EDMS 03/31 13:55 Order name: Troponin High Sensitivity EDMS 03/31 14:57 Order name: Ghost Lactate-NO COLLECT Timer; Complete Time: 15:55 EDNJ 03/31 11:41 Order name: Head Brain Wo Cont CT; Complete Time: 13:23 [facility] 03/31 11:42 Order name: Chest Single View XRAY; Complete Time: 12:58 [facility] 03/31 11:41 Order name: EKG; Complete Time: 11:41 [facility] 03/31 14:14 Order name: Social Service Consult [facility] 03/31 11:41 Order name: EKG - Nurse/Tech; Complete Time: 12:11 [facility] 03/31 11:41 Order name: IV Saline Lock; Complete Time: 11:48 [facility] 03/31 11:41 Order name: Labs collected and sent; Complete Time: 12:11 [facility] 03/31 11:41 Order name: Green; Complete Time: 13:02 4 03/31 11:44 Order name: Central Line Kit; Complete Time: 11:49 [facility] 03/31 11:44 Order name: Central Line Dressing Kit; Complete Time: 11:49 [facility] Administered Medications: 11:27 Drug: Etomidate IVP 20 mg IVP once Route: IVP; Site: left antecubital; ss 12:00 Follow up: Response: No adverse reaction rs5 11:30 Drug: Propofol IV 5 mcg/kg/min IV at calculated rate See Administration Instructions; rs5 Standard concentration 1000 mg / 100 mL; Recommended max rate 50 mcg/kg/min; Titrate 2 mcg/kg/min every 5 minutes to achieve goal (see titration policy); Goal parameter RASS score 0 to -2 Route: IV; Rate: calculated rate; Site: left forearm; 11:35 Follow up: Response: No adverse reaction rs5 11:50 Follow up: Rate change 40 mcg/kg/min; pt behavior restless, attempting to get out of bedrs5 12:10 Follow up: Response: No adverse reaction; Other; RASS: Moderate sedation (-3) rs5 12:50 Follow up: Response: RASS: Agitated (+2); Rate change 50 mcg/kg/min rs5 13:22 Follow up: Response: No adverse reaction; RASS: Light sedation (-2) rs5 15:30 Follow up: IV Status: Infusion continued upon admission rs5 11:54 Drug: Rocuronium IVP 80 mg IVP once Route: IVP; Site: left antecubital; ss 12:20 Follow up: Response: No adverse reaction rs5 12:11 Drug: NS 0.9% IV 1000 ml IV at 1 bolus Per protocol; 1000 mL bolus Route: IV; Rate: 1 rs5 bolus; Site: left subclavian; 12:30 Follow up: Response: No adverse reaction rs5 13:20 Follow up: Response: No adverse reaction; IV Status: Completed infusion; IV Intake: rs5 1000ml 12:12 Drug: NS 0.9% IV 1000 ml IV at 1 bolus Per protocol; 1000 mL bolus Route: IV; Rate: 1 rs5 bolus; Site: left subclavian; 12:30 Follow up: Response: No adverse reaction rs5 13:20 Follow up: IV Status: Completed infusion; IV Intake: 1000ml rs5 12:13 Drug: Meropenem IV 1 grams IV at per protocol once; (mix in NS 100 mL) Route: IV; Rate: rs5 per protocol; Site: left subclavian; 12:30 Follow up: Response: No adverse reaction rs5 12:50 Follow up: IV Status: Completed infusion; IV Intake: 100ml rs5 12:13 Drug: Solu-CORTEF IVP 100 mg IVP once Route: IVP; Site: left subclavian; rs5 12:30 Follow up: Response: No adverse reaction rs5 13:55 Drug: Midazolam IVP or IV 0.01 mg/kg/h IV at calculated rate See Administration rs5 Instructions; (Standard concentration: 100 mg / 100 mL NS); Recommended max rate 0.1 mg/kg/hr; Titrate 0.01 mg/kg/hr as often as every 30 minutes to achieve goal (see titration policy); Goal parameter RASS 0 to -2 Route: IV; Rate: calculated rate; Site: left jugular; 14:10 Drug: Midazolam IVP or IV 0.01 mg/kg/h IV at calculated rate See Administration rs5 Instructions; (Standard concentration: 100 mg / 100 mL NS); Recommended max rate 0.1 mg/kg/hr; Titrate 0.01 mg/kg/hr as often as every 30 minutes to achieve goal (see titration policy); Goal parameter RASS 0 to -2 Route: IV; Rate: calculated rate; Site: left jugular; 15:30 Follow up: IV Status: Infusion continued upon transfer rs5 Disposition: 12:40 Critical Care:. sp3 Disposition Summary: 03/31/24 13:11 Hospitalization Ordered Notes: Hospitalization Status: Inpatient Admission sp3 Provider: John Dominguez Location: Intensive Care Unit sp3 Condition: Stable sp3 Problem: new sp3 Symptoms: have worsened sp3 Bed/Room Type: Standard 3 Room Assignment: 1-(03/31/24 14:11) bd Diagnosis - Unresponsive, altered mental status sp3 Forms: - Medication Reconciliation Form sp3 - SBAR form sp3 - Leadership Thank You Letter sp3 Critical care time excluding procedures: 12:40 Critical care time: Bedside Care: 20 minutes, Consultation: 10 minutes. Total time: 30 sp3 minutes Signatures: Dispatcher [employer] EDEmily Fink Corey, MD MD cha Blanchard, Shelby RN RN Sagrario Beltran MD MD sp3 Dorothy Hui RN RN [email or web address] Willa Francois PAJuliocesar PAJuliocesar [email or web address] Arnaud Jaime RN RN rs5 Corrections: (The following items were deleted from the chart) 11:41 11:41 ACETAMINOPHEN+C.LAB.BRZ ordered. EDMS EDMS 11:41 11:41 BASIC METABOLIC PANEL+C.LAB.BRZ ordered. EDMS EDMS 11:41 11:41 CBC+H.LAB.BRZ ordered. EDMS EDMS 11:41 11:41 ETHANOL+C.LAB.BRZ ordered. EDMS EDMS 11:41 11:41 HEPATIC FUNCTION+C.LAB.BRZ ordered. EDMS EDMS 11:41 11:41 PROTIME (+INR)+COAG.LAB.BRZ ordered. EDMS EDMS 11:41 11:41 PTT, ACTIVATED+COAG.LAB.BRZ ordered. EDMS EDMS 11:41 11:41 SALICYLATE+C.LAB.BRZ ordered. EDMS EDMS 11:41 11:41 Urinalysis+U.LAB.BRZ ordered. EDMS EDMS 11:41 11:41 URINE DRUG SCREEN+UC.LAB.BRZ ordered. EDMS EDMS 11:43 11:42 Chest Single View+RAD.RAD.BRZ ordered. EDMS EDMS 11:43 11:43 Arterial Blood Gas+RC.LAB.BRZ ordered. EDMS EDMS 11:44 11:44 BLOOD CULTURE*+BA.LAB.BRZ ordered. EDMS EDMS 11:44 11:44 LACTATE+C.LAB.BRZ ordered. EDMS EDMS 11:44 11:44 Troponin High Sensitivity+C.LAB.BRZ ordered. EDMS EDMS 11:44 11:44 PROBNP+C.LAB.BRZ ordered. EDMS EDMS 14:11 13:11 sp3 bd
--- NOTE | 2024-03-31 13:12 | ER ---
Nurse's Notes [facility] Name: Jose Pabon Age: 29 yrs Sex: Male : 1995 Arrival Date: 03/31/2024 Time: 11:19 Bed 2 Private MD: Diagnosis: Unresponsive, altered mental status Presentation: 03/31 11:19 Chief complaint: EMS states: pt called his mom stating he didn't feel well. sister went kc6 by to check on his and he was unresponsive to stimuli. 2mg of Narcan administered en route by EMS with no affect. 11:19 Method Of Arrival: EMS: [facility] 11:19 Coronavirus screen: At this time, the client does not indicate any symptoms associated [facility] with coronavirus-19. Ebola Screen: No symptoms or risks identified at this time. Initial Sepsis Screen: Does the patient meet any 2 criteria? HR > 90 bpm. Does the patient have a suspected source of infection? No. Patient's initial sepsis screen is negative. Risk Assessment: Do you want to hurt yourself or someone else? Unable to obtain. Onset of symptoms was March 31, 2024. 11:19 Care prior to arrival: Medication(s) given: Narcan 2mg IV initiated. 20 GA, in the kc6 right antecubital area. 11:19 Acuity: ROBY 1 ss Historical: - Allergies: 11:19 Unable to obtain; kc6 - Home Meds: 11:19 Unable to obtain [Active]; kc6 - PMHx: 11:19 Anxiety; Bipolar disorder; Schizophrenia; [facility] - PSHx: 11:19 Unable to Obtain; [facility] - Immunization history:: Adult Immunizations unknown. - Infectious Disease History:: Denies. - Social history:: Smoking status: unknown. Screenin:22 Abuse screen: unable to assess, pt unresponsive, no bruising noted to skin. rs5 Tuberculosis screening: No symptoms or risk factors identified. 11:25 [facility] ED Fall Risk Assessment (Adult) History of falling in the last 3 months, rs5 including since admission No falls in past 3 months (0 pts) Confusion or Disorientation Yes (5 pts) Intoxicated or Sedated Yes (3 pts) Impaired Gait Yes (1 pt) Mobility Assist Device Used No (0 pt) Altered Elimination No (0 pt) Score/Fall Risk Level 3 or more points = High Risk Maintained a safe environment, Hourly rounding (assess needs \\T\\ fall precautionary measures) done, Apply high fall risk patient identification: yellow non skid footwear/ fall signage. 11:36 Nutritional screening: No deficits noted. rs5 Assessment: 11:20 Reassessment: pt moved from ER 20 to ER [address] Jessica RN at [facility] bedside. 11:25 General: Appears uncomfortable, Behavior is drowsy. Pain: Unable to use pain scale. rs5 Patient is unresponsive. Neuro: Level of Consciousness is unresponsive, Oriented to person. Cardiovascular: Patient's skin is warm and dry. Rhythm is sinus tachycardia. Respiratory: Airway is patent Respiratory effort is labored, shallow. GI: Abdomen is round non-distended. : No signs and/or symptoms were reported regarding the genitourinary system. EENT: No signs and/or symptoms were reported regarding the EENT system. Derm: Skin is intact, Skin is dry, Skin is normal, Skin temperature is warm. Musculoskeletal: Circulation, motion, and sensation intact. 11:30 Reassessment: MD at bedside for central line placement. rs5 11:35 Reassessment: to bedside for med adm propofol drip, rate started at 30 mcg/kg/min per rs5 MD orders. 12:13 Reassessment: x-ray at bedside . rs5 12:50 Reassessment: to bedside for wilkinson insertion with RN, 16 ff wilkinson inserted using rs5 aseptic technique, 500 ml clear yellow urine drained into wilkinson bag. 13:45 Reassessment: pt behavior restless, attempting to . rs5 14:04 Reassessment: Patient and/or family updated on plan of care and expected duration. Pain rs5 level reassessed. 14:30 Reassessment: mother at bedside . rs5 14:51 Reassessment: Patient and/or family updated on plan of care and expected duration. Pain rs5 level reassessed. Successful attempt to call report to ICU, report given to [facility] ICU. 15:20 Reassessment: Patient and/or family updated on plan of care and expected duration. Pain rs5 level reassessed. Vital Signs: 11:19 BP 90 / 74; Pulse 165; Resp 20 S; Pulse Ox 100% on R/A; kc6 11:30 Pulse 158; Resp 20 A; Temp 98(A); Pulse Ox 99% on ETT ambu; Weight 80 kg; rs5 11:45 BP 138 / 97; Pulse 157; Resp 21; Pulse Ox 99% on ETT vent; rs5 12:10 BP 152 / 99; Pulse 155; Resp 22; Pulse Ox 98% on ETT vent; rs5 12:27 BP 148 / 97; Pulse 149; Resp 21; Pulse Ox 98% on ETT vent; rs5 13:02 Weight 90.72 kg; hb 13:04 BP 119 / 76; Pulse 137; Resp 21; Pulse Ox 99% on ETT vent; rs5 13:30 BP 105 / 67; Pulse 115; Resp 20; Pulse Ox 99% on ETT vent; rs5 14:03 BP 101 / 65; Pulse 117; Resp 19; Pulse Ox 99% on ETT vent; rs5 15:30 BP 105 / 67; Pulse 115; Resp 20; Pulse Ox 99% on ETT vent; rs5 ED Course: 11:19 Arm band placed on. kc6 11:19 Patient maintains SpO2 saturation greater than 95% on room air. kc6 11:19 Maintain EMS IV. Dressing intact. Good blood return noted. Site clean \\T\\ dry. Gauge \\T\\ stephen 6 site: 20GRAC. Flushed with 10 mL NS. 11:21 Patient arrived in ED. sb4 11:21 Sagrario Sutherland MD is Attending Physician. sp3 11:25 Patient has correct armband on for positive identification. Placed in gown. Bed in low kc6 position. Call light in reach. Side rails up X2. clinical research monitor on. Pulse ox on. NIBP on. 11:29 Assisted provider with intubation using 7.5 mm ETT via oral route. ET tube secured at ss 23cm at the lips. Set up intubation tray. Intubated by Sagrario Sutherland MD Placement verified by CO2 detector w/ + color change, auscultating bilateral breath sounds, Patient tolerated well. 11:30 Inserted saline lock: 20 gauge in left forearm, using aseptic technique. Blood kc6 collected. Flushed with 10 mL NS. 11:34 Triage completed. kc6 11:34 16 F OG inserted, placement verified by auscultation and placed to low intermittent ss suction. 11:35 Assisted provider with central line placement. Set up central line tray. Triple lumen rs5 line placed in left internal jugular. Line placed by Sagrario Sutherland MD Placement verified by blood return, Dressed with 4X4s, Tape, Blood was collected. Patient tolerated well. 11:48 Arnaud Jaime, RN is Primary Nurse. rs5 11:49 BNP Sent. ss 11:49 Troponin High Sensitivity Sent. ss 11:50 Acetaminophen Sent. ss 11:50 Basic Metabolic Panel Sent. ss 11:50 CBC with Diff Sent. ss 11:50 ETOH Level Sent. ss 11:50 Hepatic Function Sent. ss 11:50 PT-INR Sent. ss 11:50 Ptt, Activated Sent. ss 11:50 Salicylate Sent. ss 12:27 Chest Single View XRAY In Process Unspecified. EDMS 12:30 NGT: inserted 16 Fr. via left nare. verified placement of air over stomach, verified hb return of gastric contents, to intermittent suction. Returned gastric contents. Amount of gastric contents removed by suction 250ml. Patient tolerated well. 12:[address] with Arnaud RN and Selene RT. hb 12:44 Head Brain Wo Cont CT In Process Unspecified. EDMS 12:52 Wilkinson cath inserted, using sterile technique, 16 Fr., by me, balloon inflated, to hb gravity drainage, urine specimen collected. returned clear yellow urine. Patient tolerated well. 13:10 John Dominguez MD is Hospitalizing Provider. sp3 15:14 1335 Patient is intubated, no family at the bedside. CM will will follow and reach out ane to family via telephone. 1516 CM met with patient's mother Susanne Pabon at the bedside in the ED exam room. Susanne verified name and . Demographic sheet confirmed. Susanne states Jose lives with her in a single story home. She explains that she was at work when she received a call from Jose stating he did not feel well and that he wanted her to come home. She asked her daughter Julianna to check on him and Julianna found him on the bathroom floor drooling. Susanne states she called 911 and explains that prior to admission, Jose performs ADLs independently, stating "I know he is a drug abuser. It can be cocaine, it can be crack." She reports that he sees a psychiatrist from the [facility] in [place], named Dr. Morena Huangwo \\T\\ [phone]. Susanne states "He can't be around people", so he does video meetings with his psychiatrist, going on to say that when he is doing well, he talks with his psychiatrist about once a month, but it can vary if he is not doing as well. is no longer his PCP as well. Patient does not have any other DME, HH, or home oxygen in the home. Susanne states " To be honest, I don't want him to come home, but I can't do that, I just needs some help". Susanne continues to explain that Jose has had several suicide attempts by taking "pills" and has had several "mental health hospital" stays, and cannot recall the names of the facilities. Susanne is unsure of what the best plan is for discharge, she reiterates needing help. CM team will continue to follow and coordinate care during this hospital stay. 15:30 Patient admitted, IV remains in place. rs5 15:34 Provided Education on: to family, need for adm. rs5 Administered Medications: 11:27 Drug: Etomidate IVP 20 mg IVP once Route: IVP; Site: left antecubital; ss 12:00 Follow up: Response: No adverse reaction rs5 11:30 Drug: Propofol IV 5 mcg/kg/min IV at calculated rate See Administration Instructions; rs5 Standard concentration 1000 mg / 100 mL; Recommended max rate 50 mcg/kg/min; Titrate 2 mcg/kg/min every 5 minutes to achieve goal (see titration policy); Goal parameter RASS score 0 to -2 Route: IV; Rate: calculated rate; Site: left forearm; 11:35 Follow up: Response: No adverse reaction rs5 11:50 Follow up: Rate change 40 mcg/kg/min; pt behavior restless, attempting to get out of bedrs5 12:10 Follow up: Response: No adverse reaction; Other; RASS: Moderate sedation (-3) rs5 12:50 Follow up: Response: RASS: Agitated (+2); Rate change 50 mcg/kg/min rs5 13:22 Follow up: Response: No adverse reaction; RASS: Light sedation (-2) rs5 15:30 Follow up: IV Status: Infusion continued upon admission rs5 11:54 Drug: Rocuronium IVP 80 mg IVP once Route: IVP; Site: left antecubital; ss 12:20 Follow up: Response: No adverse reaction rs5 12:11 Drug: NS 0.9% IV 1000 ml IV at 1 bolus Per protocol; 1000 mL bolus Route: IV; Rate: 1 rs5 bolus; Site: left subclavian; 12:30 Follow up: Response: No adverse reaction rs5 13:20 Follow up: Response: No adverse reaction; IV Status: Completed infusion; IV Intake: rs5 1000ml 12:12 Drug: NS 0.9% IV 1000 ml IV at 1 bolus Per protocol; 1000 mL bolus Route: IV; Rate: 1 rs5 bolus; Site: left subclavian; 12:30 Follow up: Response: No adverse reaction rs5 13:20 Follow up: IV Status: Completed infusion; IV Intake: 1000ml rs5 12:13 Drug: Meropenem IV 1 grams IV at per protocol once; (mix in NS 100 mL) Route: IV; Rate: rs5 per protocol; Site: left subclavian; 12:30 Follow up: Response: No adverse reaction rs5 12:50 Follow up: IV Status: Completed infusion; IV Intake: 100ml rs5 12:13 Drug: Solu-CORTEF IVP 100 mg IVP once Route: IVP; Site: left subclavian; rs5 12:30 Follow up: Response: No adverse reaction rs5 13:55 Drug: Midazolam IVP or IV 0.01 mg/kg/h IV at calculated rate See Administration rs5 Instructions; (Standard concentration: 100 mg / 100 mL NS); Recommended max rate 0.1 mg/kg/hr; Titrate 0.01 mg/kg/hr as often as every 30 minutes to achieve goal (see titration policy); Goal parameter RASS 0 to -2 Route: IV; Rate: calculated rate; Site: left jugular; 14:10 Drug: Midazolam IVP or IV 0.01 mg/kg/h IV at calculated rate See Administration rs5 Instructions; (Standard concentration: 100 mg / 100 mL NS); Recommended max rate 0.1 mg/kg/hr; Titrate 0.01 mg/kg/hr as often as every 30 minutes to achieve goal (see titration policy); Goal parameter RASS 0 to -2 Route: IV; Rate: calculated rate; Site: left jugular; 15:30 Follow up: IV Status: Infusion continued upon transfer rs5 Medication: 15:00 VIS not applicable for this client. rs5 Intake: 12:50 IV: 100ml; Total: 100ml. rs5 13:20 IV: 1000ml; Total: 1100ml. rs5 13:20 IV: 1000ml; Total: 2100ml. rs5 Outcome: 13:11 Decision to Hospitalize by Provider. sp3 15:30 Admitted to ICU accompanied by tech, on monitor, with chart, rs5 15:30 Condition: stable rs5 15:30 Discharge instructions given to family, Instructed on the need for admit, Demonstrated understanding of instructions, 15:36 Patient left the ED. Signatures: Dispatcher [employer] EDMS Ange Resendiz RN RN Antonia Hull RN RN Sagrario Sutherland MD MD sp3 Dorothy Hui RN RN kc6 Willa Francois PA-C PAJuliocesar sb4 Arnaud Jaime RN RN rs5 Tamela Jasso RN RN ane Corrections: (The following items were deleted from the chart) 11:47 11:19 Acuity: ROBY 2 kc6 ss 11:59 11:29 Assisted provider with intubation using 7.5 mm ETT via oral route. ET tube ss secured at 23cm at the lips. Set up intubation tray. Intubated by Sagrario Sutherland MD Placement verified by CO2 detector w/ + color change, auscultating bilateral breath sounds, Patient tolerated well. ss 12:04 11:29 16 F OG inserted, placement verified by auscultation and placed to low ss intermittent suction ss 13:05 11:30 Pulse 158bpm; Resp 20bpm; Assisted; Pulse Ox 99% ET / Ambu; ss rs5 14:01 14:00 Rate change 40 mcg/kg/min; pt behavior restless, attempting to get out of bed rs5 rs5 18:48 11:30 Pulse 158bpm; Resp 20bpm; Assisted; Pulse Ox 99% ET / Ambu; 80 kg; rs5 rs5
[2024-03-31 13:20] LABS: Barbiturates NEGATIVE (NEGATIVE); Benzodiazepines NEGATIVE (NEGATIVE); Cocaine POSITIVE (NEGATIVE); METHAMPHETAM NEGATIVE (NEGATIVE); Methadone NEGATIVE (NEGATIVE); Opiates NEGATIVE (NEGATIVE); Phencyclidine NEGATIVE (NEGATIVE); THC Cannibis NEGATIVE (NEGATIVE)
[2024-03-31] MEDS ORDERED: MIDAZOLAM HCL IN 0.9 % NACL/PF 100 MG/100 ML BAG IVPB ONE (13:53)
--- NOTE | 2024-03-31 14:00 | P.HP ---
Certification for Inpatient Patient admitted to: Inpatient With expected LOS: >2 Midnights Patient will require the following post-hospital care: Other (psych eval) Practitioner: I am a practitioner with admitting privileges, knowledge of patient current condition, hospital course, and medical plan of care. Services: Services provided to patient in accordance with Admission requirements found in Title 42 Section 412.3 of the Code of Federal Regulations <Hermelinda Hatfield - Last Filed: 03/31/24 14:32> Patient History Date of Service: 03/31/24 Reason for admission: unresponsive, drug abuse/overdose, lactic acidosis History of Present Illness: Mr. Hernadez is a 29-year-old male with a past medical history of psychological problems with suicidal ideation/attempts and drug abuse. The history was entirely obtained via communication with ED staff and previous visits. Mr. Pabon was found face down, unresponsive, with vomit in the area. He was brought to the ED where a triple lumen central line was placed to the left IJ, he was intubated, and is currently on Propofol for sedation. His labs were generally unremarkable with a + UDS for cocaine and an ETOH level of 31. He will be admitted to the ICU for monitoring and evaluation. Plan to extubate soon. - Past Medical/Surgical History Has patient received pneumonia vaccine in the past: No -: psych history -: suicidal ideation/attempts -: drug abuse Past Surgical History: Unable to obtain Psychosocial/ Personal History: hx of drug abuse/overdose and suicidal ideation/attempts - Social History Alcohol use: Yes CD- Drugs: Yes Caffeine use: Yes Place of Residence: Home <Hermelinda Hatfield Orestes - Last Filed: 03/31/24 14:32> Date of Service: 03/31/24 <John Dominguez - Last Filed: 03/31/24 15:16> Allergies No Known Allergies Allergy (Unverified 03/19/15 22:15) Home Medications: Buspirone HCl 15 mg PO BID PRN 09/11/23 Quetiapine Fumarate [Seroquel] 200 mg PO DAILY 09/11/23 Trazodone [Desyrel*] 50 mg PO BEDTIME 09/11/23 cloNIDine HCL [Clonidine HCl] 0.1 mg PO BEDTIME 09/11/23 Aripiprazole [Abilify Maintena] 300 mg IM Q30D 09/12/23 Doxycycline Monohydrate 100 mg PO BID 10 Days #20 cap 09/12/23 Quetiapine Fumarate [Seroquel] 300 mg PO BEDTIME 09/12/23 Review of Systems is unable to be obtained Neurological: As per HPI <Hermelinda Hatfield - Last Filed: 03/31/24 14:32> Physical Examination - Vital Signs Pulse: 146 Pulse Ox (%): 100 - Physical Exam General: Disheveled, Other (currently resisting sedation and trying to pull ETT. Propofol 40mcg bolus given) HEENT: Atraumatic, Normocephalic Neck: Supple Respiratory: Clear to auscultation bilaterally Cardiovascular: Regular rate/rhythm, Other (Tachycardic) Capillary refill: <2 Seconds Gastrointestinal: Soft and benign, Other (NG tube in place, abrasion to left central abdomen) Musculoskeletal: No clubbing Integumentary: No rashes, Other (Abrasion to left central abdomen) Neurological: Other (Intubated moving all extremities) Lymphatics: No axilla or inguinal lymphadenopathy Urinary: Green catheter External genitalia: Deferred Rectal: Deferred - Studies Laboratory Data (last 24 hrs) 03/31/24 03/31/24 03/31/24 11:36 11:36 11:36 WBC 7.30 Hgb 13.1 L Hct 39.9 Plt Count 306 PT 10.2 INR 0.91 APTT 28.3 Sodium 138 Potassium 3.4 L BUN 9 Creatinine 0.79 Glucose 192 H Total Bilirubin 0.3 AST 11 L ALT 17 Alkaline Phosphatase 78 <Hermelinda Hatfield - Last Filed: 03/31/24 14:32> - Studies Laboratory Data (last 24 hrs) 03/31/24 03/31/24 03/31/24 11:36 11:36 11:36 WBC 7.30 Hgb 13.1 L Hct 39.9 Plt Count 306 PT 10.2 INR 0.91 APTT 28.3 Sodium 138 Potassium 3.4 L BUN 9 Creatinine 0.79 Glucose 192 H Total Bilirubin 0.3 AST 11 L ALT 17 Alkaline Phosphatase 78 <John Dominguez - Last Filed: 03/31/24 15:16> Assessment and Plan - Plan Unresponsive second to drug abuse/overdose Psychological problem history History of suicidal ideation/attempts Continue mechanical ventilation, plan for early extubation Continue IVF via triple-lumen Continue propofol Monitor vital sign/intake and output/neurological status N.p.o. until extubated Transfer to psychiatry status post extubation and medical clearance Discharge Plan: Psychiatry Plan to discharge in: 48 Hours - Advance Directives Does patient have a Living Will: No Does patient have a Durable POA for Healthcare: No - Code Status/Comfort Care Code Status Assessed: Yes (Full) <Hermelinda Hatfield - Last Filed: 03/31/24 14:32> Discharge Plan: Psychiatry Plan to discharge in: Greater than 2 days - Code Status/Comfort Care Code Status: Full Code Critical Care: Yes Time Spent Managing Pts Care (In Minutes): 60 <John Dominguez - Last Filed: 03/31/24 15:16> Date of Service: 03/31/24 Subjective: HPI as mentioned above; spoke with mom and she states that patient was diagnosed with schizophrenia at the age of 12. He has been on medication since that time is completely disabled. He had multiple hospitalizations for similar issues but has never been on mechanical ventilation. Patient had gone to see his sister and asked for a cigarette. She did not have 1 and then he went back to his room. Daughter heard a sound when she went to check on the patient he was on the ground. EMS was called and patient was unresponsive and patient was given Narcan on the scene but did not respond. Patient had to be intubated. Patient was brought into the emergency room for further evaluation. Patient does wake up but is very aggressive. He is sedated currently on Versed and propofol. At this time patient will be admitted to the hospital for further evaluation Physical Examination: Vitals: Afebrile vital signs are stable Physical exam: HEENT: Intubated and ET tube in place; NG tube in place Cardiovascular: Within normal limits. Lungs: Within normal limits Abdomen: Within normal limits Neuro: Pupils are constricted; gag reflex intact; moves all extremities Assessment: 1. Overdose-intentional versus unintentional; acute respiratory failure 2. Patient with polysubstance abuse. 3. History of schizophrenia 4. Cocaine abuse 5. Alcohol intoxication 6. Lactic acidosis 7. Hypokalemia Plan: 1. Patient is sedated and intubated; continue with intubation and airway protection. 2. Resume antipsychotics 3. Monitor for withdrawal symptoms 4. Electrolyte correction 5. Gentle hydration and repeat lactic acid 6. Pulmonary consultation for vent management 7. GI DVT prophylaxis Discharge Plan: Psychiatry Plan to discharge in: 48 Hours - Advance Directives Does patient have a Living Will: No Does patient have a Durable POA for Healthcare: No - Code Status/Comfort Care Code Status: Full Code Critical Care: Yes Time Spent Managing Pts Care (In Minutes): 60 <John Dominguez - Last Filed: 03/31/24 15:16>
[2024-03-31] MEDS: propofoL 200 MG/20 ML VIAL IV STA (14:19)
[2024-03-31] MEDS ORDERED: HALOPERIDOL LACT 5 MG/ML INJ IV PRN (15:16)
[2024-03-31] MEDS ORDERED: MIDAZOLAM HCL 2 MG/2 ML INJ IV PRN (15:16)
[2024-03-31] MEDS ORDERED: BUSPIRONE HCL 15 MG TABLET PO PRN (15:18)
[2024-03-31] MEDS: ARIPIPRAZOLE 300 MG IM SCH (15:30)
[2024-03-31] MEDS ORDERED: MIDAZOLAM HCL IN 0.9 % NACL/PF 100 MG/100 ML BAG IVPB SCH (15:33)
[2024-03-31 15:49] VITALS: O2SAT 99
[2024-03-31] MEDS: PIPER TAZO 3.375 GM in NA CHLORIDE 0.9% 100 ML IV SCH (16:35)
[2024-03-31] MEDS: HEPARIN 5000 UNIT/ML 1 ML VIAL SQ SCH (16:35)
[2024-03-31] MEDS: NA CHLORIDE 0.9% 1,000 ML IV SCH (16:35)
[2024-03-31 18:28] VITALS: BMI 31.6
[2024-03-31] MEDS: ALBUTEROL 2.5 MG/3 ML NEB SOL NEB SCH (19:10)
[2024-03-31] MEDS: IPRATROPIUM BROM 0.5MG/2.5ML NEB SCH (19:10)
[2024-03-31] MEDS: QUETIAPINE 100MG TAB PO SCH (19:36)
[2024-03-31] MEDS: TRAZODONE 50 MG TABLET PO SCH (19:36)
[2024-03-31] MEDS: cloNIDine HCL 0.1 MG TAB PO SCH (19:36)
[2024-03-31] MEDS: propofoL 1,000 MG/100 ML VIAL IV SCH (20:52)
[2024-03-31] MEDS ORDERED: HOME MED 1 EA UNK (Quetiapine Fumarate [Seroquel] 300 MG Tablet) PO SCH (21:00)
[2024-03-31] MEDS: FENTANYL CITR 100 MCG/2 ML IV PRN (23:46)
[2024-04-01 05:28] LABS: Absolute Eosinophils 0.1 K/uL (0-0.5); Absolute Lymphocytes (CBC) 1.8 K/uL (0.7-4.9); Absolute Monocytes 0.8 K/uL (0.1-1.3); Absolute Neutrophil 8.6 K/uL (1.8-8.0); Basophils % 0.1 % (0-1.3); Eosinophils % 0.6 % (0-4.4); Hematocrit 33.9 % (39.6-49.0); Hemoglobin 11.1 g/dL (13.6-17.9); Lymphocytes % 15.8 % (15.3-44.8); MCH 29.2 pg (27.0-35.0); MCHC 32.6 g/dL (32.0-36.0); MCV 89.7 fL (80-100); MPV 8.2 fL (7.6-11.3); Monocytes % 7.1 % (3.3-12.3); Neutrophils % 76.4 % (41.7-73.7); Platelets 267 thou/uL (152-406); RBC Red Blood Cell Count 3.78 M/uL (4.33-5.43)
[2024-04-01 05:46] LABS: Albumin 2.8 g/dL (3.4-5.0); Alkaline Phosphatase 55 U/L (45-117); Anion Gap 6.4 mEq/L (5.0-15.0); BUN Blood Urea Nitrogen 6 mg/dL (7-18); Bicarbonate 27 mEq/L (21-32); Bilirubin Total 0.2 mg/dL (0.2-1.0); Globulin 2.8 g/dL (2.3-3.5); Glomerular Filtration Rate 135 ml/min (=/>90); Glucose Level 85 mg/dL (74-106); HDL Cholesterol 49 mg/dL (40-60); LDL Cholesterol, Calculated 27 mg/dL (<130); LDL Cholesterol,Calc NonReport 27; Magnesium 1.9 mg/dL (1.6-2.4); Phosphorus 3.6 mg/dL (2.5-4.9); Potassium 3.4 mEq/L (3.5-5.1); Protein, Total 5.6 g/dL (6.4-8.2); Sodium Level 142 mEq/L (136-145); Troponin High Sensitivity 5.6 pg/mL (<58.9)
[2024-04-01 06:04] LABS: ALT/SGPT < 14 U/L (16-61); AST/SGOT < 10 U/L (15-37)
[2024-04-01] MEDS: KCL 20 MEQ/100 mL IVPB 20 MEQ/100 ML BAG IV SCH (06:27)
[2024-04-01] MEDS: QUETIAPINE 100MG TAB PO SCH (08:18)
--- NOTE | 2024-04-01 08:22 | P.PN ---
Date of Service: 04/01/24 Subjective Spoke to mother and she is unsure if he tried to harm himself; he always talks about it in general with his psych history that has been a common theme for him, but he hasn't overdosed in the past to harm himself. He did not leave a letter, nor did he saw thise words out loud to anyone at the time he was found. His mom states he called her and told her he thought he overdosed, and when his sister went to check on him he was on the ground. Will make him 1:1 pending more information from the patient himself Physical Examination - Vital Signs reviewed - Physical Exam General: Disheveled, Other (currently resisting sedation and trying to pull ETT. Propofol 40mcg bolus given) Respiratory: Clear to auscultation bilaterally Cardiovascular: Regular rate/rhythm, Other (Tachycardic) Gastrointestinal: Soft and benign, Other (NG tube in place, abrasion to left central abdomen) Integumentary: No rashes, Other (Abrasion to left central abdomen) Neurological: Other (Intubated moving all extremities) Urinary: Green catheter Assessment and Plan - Assessment/Plan Assessment: 1. Overdose-intentional versus unintentional; acute respiratory failure 2. Patient with polysubstance abuse. 3. History of schizophrenia 4. Cocaine abuse 5. Alcohol intoxication 6. Lactic acidosis 7. Hypokalemia Plan: 1. Patient is sedated and intubated; continue with intubation and airway protection. 2. Resume antipsychotics 3. Monitor for withdrawal symptoms 4. Electrolyte correction 5. Gentle hydration and repeat lactic acid 6. Pulmonary consultation for vent management 7. GI DVT prophylaxis Discharge Plan: Psychiatry Plan to discharge in: 48 Hours - Advance Directives Does patient have a Living Will: No Does patient have a Durable POA for Healthcare: No - Code Status/Comfort Care Code Status: Full Code Critical Care: Yes Time Spent Managing Pts Care (In Minutes): 35
[2024-04-01] MEDS: DEXMEDETOMIDINE HCL 200 MCG in NA CHLORIDE 0.9% 98 ML IV SCH (08:42)
[2024-04-01] MEDS ORDERED: HOME MED 1 EA UNK (Quetiapine Fumarate [Seroquel] 200 MG Tablet) PO SCH (09:00)
[2024-04-01] MEDS ORDERED: ROCURONIUM 50 MG/5 ML VIAL IV ONE (12:02)
[2024-04-01] MEDS ORDERED: ETOMIDATE 20 MG/10 ML VIAL IV ONE (12:02)
--- NOTE | 2024-04-01 12:21 | P.CNS ---
Date of Consult: 04/01/24 Chief Complaint: Respiratory failure patient on a ventilator History of Present Illness: Patient is 29 years of age history of suicidal ideation and attempts before in addition to drug abuse he was found facedown unresponsive was brought here intubated currently is on propofol and Versed drip still remains agitated urine drug screen was positive Allergies No Known Allergies Allergy (Unverified 03/19/15 22:15) Home Medications: Buspirone HCl 15 mg PO BID PRN 09/11/23 Trazodone [Desyrel*] 150 mg PO BEDTIME PRN PRN 09/11/23 cloNIDine HCL [Clonidine HCl] 0.1 mg PO BEDTIME 09/11/23 Aripiprazole [Abilify Maintena] 300 mg IM Q30D 09/12/23 Quetiapine Fumarate [Seroquel] 300 mg PO BEDTIME 09/12/23 Sertraline HCl 50 mg PO DAILY 03/31/24 - Past Medical/Surgical History -: psych history -: suicidal ideation/attempts -: drug abuse Psychosocial/ Personal History: hx of drug abuse/overdose and suicidal ideat ion/attempts - Social History Smoking Status: Unknown if ever smoked Alcohol use: Yes CD- Drugs: Yes Caffeine use: Yes Place of Residence: Home Review of Systems is unable to be obtained Physical Examination Temp Pulse Resp BP Pulse Ox 96.8 F 85 12 106/76 100 04/01/24 07:00 04/01/24 10:00 04/01/24 10:00 04/01/24 10:00 04/01/24 10:00 General: Delirious, Unresponsive Respiratory: Clear to auscultation bilaterally Cardiovascular: No edema, Regular rate/rhythm, Normal S1 S2 Laboratory Data (last 24 hrs) 03/31/24 11:36 Sodium 138 Potassium 3.4 L BUN 9 Creatinine 0.79 Glucose 192 H Total Bilirubin 0.3 AST 11 L ALT 17 Alkaline Phosphatase 78 - Problems (1) Respiratory failure Current Visit: Yes Status: Acute Plan: Patient is 29 years of age admitted with presumed overdose respiratory failure is intubated plan to wean off the Versed and the propofol instead start on a Precedex drip chest x-ray is clear mildly elevated white count labs reviewed he is currently hemodynamically stable off vasopressors sat is 100% on 21% repeat another x-ray no acute cardiopulmonary disease noted on 10 x-ray urine positive for cocaine Qualifiers: Chronicity: acute
--- NOTE | 2024-04-01 12:30 | EKG ---
Test Date: 2024-03-31 Test Time: 12:18:21 Assistant Professor Of Biochemistry: NICKY MEASUREMENT RESULTS: Intervals: Rate: 149 [place]: 162 QRSD: 82 QT: 230 QTc: 362 [place]: P: 79 [place]: 162 QRS: 76 T: 65 INTERPRETIVE STATEMENTS: Sinus tachycardia Nonspecific T wave abnormality Abnormal ECG Compared to ECG 09/11/2023 11:20:59 T-wave abnormality now present Sinus rhythm no longer present Electronically Signed On 04-01-24 12:26:44 CDT by Raul Delgado
[2024-04-01 13:07] VITALS: BP 115/98; TEMP 98.4
[2024-04-02] MEDS ORDERED: ENOXAPARIN 40 MG/0.4 ML SQ SCH (09:00)
== END 2024-04-01 12:36 | disposition home or self-care (01) | DRG 917 ==
LOC: ER 11:19 → 3RD-ICU 13:44
PROVIDERS: ADMIT Hospitalist; ATTEND Hospitalist
PROC: 3E033XZ Introduction of Vasopressor into Peripheral Vein, Percutaneous Approach (ICD-10-PCS; principal; 2024-03-31)
PROC: 5A1935Z Respiratory Ventilation, Less than 24 Consecutive Hours (ICD-10-PCS; 2024-03-31)
PROC: 4A033R1 Measurement of Arterial Saturation, Peripheral, Percutaneous Approach (ICD-10-PCS; 2024-03-31)
PROC: 0BH17EZ Insertion of Endotracheal Airway into Trachea, Via Natural or Artificial Opening (ICD-10-PCS; 2024-03-31)
PROC: 0T9B70Z Drainage of Bladder with Drainage Device, Via Natural or Artificial Opening (ICD-10-PCS; 2024-03-31)
DX: T40.2X1A Poisoning by other opioids, accidental (unintentional), initial encounter (principal); J96.00 Acute respiratory failure, unspecified whether with hypoxia or hypercapnia; E87.20 Acidosis, unspecified; E87.6 Hypokalemia; F20.9 Schizophrenia, unspecified; F19.10 Other psychoactive substance abuse, uncomplicated; F14.10 Cocaine abuse, uncomplicated; F10.129 Alcohol abuse with intoxication, unspecified; Z78.1 Physical restraint status; Z91.51 Personal history of suicidal behavior; Z79.899 Other long term (current) drug therapy; Y90.1 Blood alcohol level of 20-39 mg/100 ml
CPT/HCPCS: 31500; 36415; 36556; 36600; 51702; 70450; 71045; 80048; 80053; 80061; 80076; 80143; 80179; 80307; 81001; 82077; 82805; 82947; 83605; 83735; 83880; 84100; 84443; 84484; 85025; 85610; 85730; 87040; 93005; 94002; 94003; 99291; 99292; J1644; J1720; J2185; J2250; J2543; J2704; J3010; J3480; J7030; J7613; J7644